=== PATIENT | male | born 1940 | race African-American/Black ===

== ENCOUNTER 2017-02-02 16:11 | Inpatient (IN) | payer OTHER, MEDICARE ==
[2017-02-02 16:28] VITALS: BMI 31.9
[2017-02-02 18:00] LABS: BASOPHIL 0.8 % (0-2.0); EOSINOPHIL 0.4 % (0-4.5); MCH 30.3 pg (25.7-33.7); MCHC 31.8 g/dl (32.0-35.9); MEAN CELL VOLUME 95.4 fl (80-96); MEAN PLT VOLUME 10.4 fl (7.5-11.1); NEUTROPHILS 75.1 % (42.8-82.8); PLATELET COUNT 129 K/MM3 (134-434); WHITE BLOOD COUNT 7.6 K/mm3 (4.0-10.0)
[2017-02-02 18:08] LABS: INR 1.11 (0.82-1.09); PROTHROMBIN TIME (PATIENT) 12.2 SEC (9.98-11.88)
--- NOTE | 2017-02-02 18:12 | PDOC ---
History of Present Illness <Lobito Borrero - Last Filed: 02/02/17 19:38> - General History Source: Patient, EMS, Old Records Exam Limitations: No Limitations - History of Present Illness Initial Comments: 02/02/17 19:47 The patient is a 77 year old male, with a significant past medical history of hypertension, hyperlipidemia, diabetes, CVA (with residual left sided weakness) , ESRD (with hemodialysis //Mon) secondary to diabetic nephropathy and BPH, who presents to the emergency department via EMS for evaluation s/p a witnessed syncopal episode earlier today. The patient reports that was in his usual state of health earlier today and that he received his routine scheduled hemodialysis today. Upon returning home from dialysis, as per EMS, the patient s neighbor reports that the patient syncopized while getting out of the cab. The patients neighbor initiated EMS and the patient was brought to the ED for further evaluation. Currently in the ED, the patient reports feeling weak and dizzy. The patient denies chest pain or shortness of breath. The patient denies fever, chills, nausea, diarrhea or dysuria. The patient is a poor historian. Allergies: None reported. Past Surgical History: Orthopedic Surgery. Social History: Former smoker (quit over 25 years ago). Denies alcohol or drug use. PCP: Dr. Crawford <Brittni Hernandez - Last Filed: 02/02/17 19:47> - General Chief Complaint: Syncope/Near Syncope Stated Complaint: FALL Time Seen by Provider: 02/02/17 16:26 Past History - Past Medical History Anemia: Yes Asthma: No Cancer: Yes Cardiac Disorders: No CVA: Yes (2008 BURNING SENSATION, MEMORY DEFICIT) COPD: No CHF: No Dementia: No Diabetes: Yes (IDDM) Dialysis: Yes (,,) GI Disorders: No Disorders: Yes (enlarged prostate/BPH) HTN: Yes Hypercholesterolemia: Yes Liver Disease: No Suicide Attempt (Hx): No Seizures: No Thyroid Disease: No - Surgical History Abdominal Surgery: No Appendectomy: No Cardiac Surgery: No Cholecystectomy: No Lung Surgery: No Neurologic Surgery: No Orthopedic Surgery: Yes (L. foot and shoulder) - Family Disease History Family Disease History: Diabetes: Mother, Heart Disease: Father - Immunization History Td Vaccination: Yes Immunization Up to Date: Yes - Psycho/Social/Smoking Cessation Hx Anxiety: No Suicidal Ideation: No Smoking Status: No Smoking History: Never smoked Years of Tobacco Use: 0 Have you smoked in the past 12 months: No Number of Cigarettes Smoked Daily: 0 If you are a former smoker, when did you quit?: > 25 ya Cigars Per Day: 0 Information on smoking cessation initiated: No Hx Alcohol Use: No Drug/Substance Use Hx: No Substance Use Type: None Hx Substance Use Treatment: No <Lobito Borrero - Last Filed: 02/02/17 19:38> <Brittni Hernandez - Last Filed: 02/02/17 19:47> - Past Medical History Allergies/Adverse Reactions: Allergies Allergy/AdvReac Type Severity Reaction Status Date / Time No Known Allergies Allergy Verified 02/02/17 16:24 Home Medications: Ambulatory Orders Atorvastatin Ca [Lipitor] 40 mg PO HS 06/06/15 Sevelamer Carbonate [Renvela -] 800 mg PO TID 06/06/15 Gabapentin 300 mg PO DAILY 11/19/15 Ramipril [Altace] 5 mg PO DAILY #30 capsule 03/19/16 Duloxetine HCl 30 mg PO DAILY 04/16/16 Meclizine HCl [Antivert -] 12.5 mg PO DAILY 04/16/16 [place]-3 Fatty Acids [[place]-3] 1,000 mg PO DAILY 04/16/16 Amlodipine Besylate [Norvasc -] 10 mg PO DAILY #30 tablet 04/19/16 Hydralazine HCl [Apresoline -] 50 mg PO BID #60 tablet 04/19/16 Metoprolol Succinate [Toprol XL -] 50 mg PO DAILY #30 tab.sr.24h 04/19/16 Review of Systems - Review of Systems Comments:: 02/02/17 19:16 CONSTITUTIONAL: +Weakness. No fever, no chills, no fatigue EYES: No visual changes ENT: No ear pain, no sore throat CARDIOVASCULAR: No chest pain, no palpitations RESPIRATORY: No cough, no SOB GI: No abdominal pain, no nausea, no vomiting, no constipation, no diarrhea GENITOURINARY: No dysuria, no frequency, no hematuria MUSKULOSKELETAL: No back pain, no joint pain, no myalgias SKIN: No rash NEURO: +Dizziness. No headache <Brittni Hernandez - Last Filed: 02/02/17 19:47> *Physical Exam - Vital Signs Last Vital Signs Temp Pulse Resp BP Pulse Ox 99.4 F 81 20 131/77 93 L 02/02/17 16:24 02/02/17 17:27 02/02/17 16:24 02/02/17 18:02 02/02/17 16:24 - Physical Exam Comments: 02/02/17 16:34 EXAMINATION CONSTITUTIONAL: awake and aler; well-nourished; in no apparent distress HEAD: Normocephalic; atraumatic EYES: PERRL; EOM intact; no nystagmus ENMT: External appears normal; normal oropharynx NECK: Supple; non-tender; no JVD CARD: Normal S1, S2; 1/6 se murmur, no rubs, or gallops RESP: Normal chest excursion with respiration; breath sounds clear and equal bilaterally; no wheezes, rhonchi, or rales ABD: Soft, non-distended; non-tender; no palpable organomegaly, no palpable hernias EXT: Normal ROM in all four extremities; non-tender to palpation; distal pulses intact; + AV fistula To the left upper extremity with a palpable thrill SKIN: Warm, dry, no rash NEURO: Patient is alert and oriented to self and year, as well as place; Cranial nerves II through XII are grossly intact; motor: Right upper extremity/ right lower extremity-5/5; left upper extremity: 4/5; left lower extremity 2/5; positive pronation drift on the left; Babinski is positive on the left; gait- deferred. <Lobito Borrero - Last Filed: 02/02/17 19:38> - Vital Signs Last Vital Signs Temp Pulse Resp BP Pulse Ox 99.4 F 81 20 131/77 93 L 02/02/17 16:24 02/02/17 17:27 02/02/17 16:24 02/02/17 18:02 02/02/17 16:24 <Brittni Hernandez - Last Filed: 02/02/17 19:47> Heart Score/ECG Review #1 ECG reviewed & interpreted by me at: 16:24 (Vent Rate: 82 bpm. Sinus rhythm with 1st degree AV block with premature atrial complexes.) <Brittni Hernandez Last Filed: 02/02/17 19:47> ED Treatment Course - LABORATORY CBC & Chemistry Diagram: 02/02/17 17:09 02/02/17 16:31 - ADDITIONAL ORDERS Additional order review: 02/02/17 17:09 RBC 3.91 L MCV 95.4 MCHC 31.8 L RDW 18.0 H D MPV 10.4 Neutrophils % 75.1 Lymphocytes % 10.7 D Monocytes % 13.0 H Eosinophils % 0.4 Basophils % 0.8 - RADIOLOGY Radiology Studies Ordered: Category Date Time Status HEAD CT WITHOUT CONTRAST [CT] Stat CT Scan 02/02/17 16:33 Completed CHEST X-RAY PORTABLE* [RAD] Stat Radiology 02/02/17 16:33 Completed <Lobito Borrero - Last Filed: 02/02/17 19:38> - LABORATORY CBC & Chemistry Diagram: 02/02/17 17:09 02/02/17 16:31 - ADDITIONAL ORDERS Additional order review: 02/02/17 17:09 RBC 3.91 L MCV 95.4 MCHC 31.8 L RDW 18.0 H D MPV 10.4 Neutrophils % 75.1 Lymphocytes % 10.7 D Monocytes % 13.0 H Eosinophils % 0.4 Basophils % 0.8 <Brittni Hernandez - Last Filed: 02/02/17 19:47> Medical Decision Making - Medical Decision Making 02/02/17 19:06 Patient is a 77-year-old male with history of end-stage renal disease due to diabetic nephropathy, diabetes, CVA, hypertension, brought in by EMS after witnessed syncopal episode shortly after completed session of hemodialysis. Patient denies any presyncopal symptoms leading to the event. In the ER, patient is awake and alert, oriented to self, place and year which appears to be his baseline. Patient has discernible left upper and left lower extremity weakness which are chronic and nature secondarily to previous CVA. Vital signs reveal no evidence of orthostasis. CBC is within normal limit. CMP reveals potassium of 5.2 and a minimally elevated troponin but a negative CPK likely related to end-stage renal disease. EKG reveals no evidence of underlying arrhythmia or acute ischemia. I do not suspect dialysis disequilibrium syndrome. Patient has been seen and evaluated for similar symptoms and November 2015. Will place patient in telemetry observation for monitoring of possible arrhythmia. Case discussed with of [facility]. He agrees with the plan of care. L <Lobito Borrero - Last Filed: 02/02/17 19:38> - Medical Decision Making 02/02/17 18:38 EXAM: RAD/CHEST X-RAY PORTABLE Reviewed By: Dr. Raissa Morales IMPRESSION: No significant interval change or definite lung disease is present. EXAM: CT/HEAD CT WITHOUT CONTRAST Reviewed By: Dr. Raissa Morales IMPRESSION: No interval change. Moderate atrophy and chronic microvascular ischemic changes again seen without gross evidence of acute intracranial pathology. Correlate clinically to determine further evaluation and follow-up. Call placed to Dr. Sanchez at at 18:37. Referred to answering service, awaiting call back. Dr. Sanchez returned call at 18:53. case discussed. Call placed to Dr. Crawford at 19:00, 19:35. Referred to answering service, awaiting call back. Dr. Crawford returned call at 19:36, case discussed. <Brittni Hernandez - Last Filed: 02/02/17 19:47> *DC/Admit/Observation/Transfer - Discharge Dispostion Admit: Yes - Attestations Physician Attestion: 02/02/17 19:01 The documentation was prepared by the scribe under my direct supervision. I have reviewed the documentation which correctly represents the findings, medical decision-making and critical action taken by me. <Lobito Borrero - Last Filed: 02/02/17 19:38> - Attestations Scribe Attestion: 02/02/17 18:17 Documentation prepared by Brittni Hernandez, acting as veterinary medical officer for Lobito Borrero MD. <Brittni Hernandez - Last Filed: 02/02/17 19:47> Diagnosis at time of Disposition: End stage renal disease Syncope Qualifiers: Syncope type: unspecified Qualified Code(s): R55 - Syncope and collapse - Referrals Referrals: Jerry Bird MD [Primary Care Provider] -
[2017-02-02 18:29] LABS: ALBUMIN 3.5 g/dl (3.4-5.0); CALCIUM 8.8 mg/dL (8.5-10.1)
[2017-02-02 18:35] LABS: BILIRUBIN,TOTAL 0.6 mg/dL (0.2-1.0); COCKROFT - GAULT 18.2; CREATININE 4.9 mg/dL (0.7-1.3); TOT PROT 8.2 g/dl (6.4-8.2); TROPONIN I 0.21 ng/ml (0.00-0.05)
[2017-02-02] MEDS: hydrALAZINE HCL 25 MG TABLET (FP) PO SCH (23:06)
[2017-02-02] MEDS: INSULIN (NOVOLOG) ASPART 100 UNITS/ML 10ML VIAL SQ SCH (23:07)
[2017-02-02] MEDS: SEVELAMER CARBONATE 800 MG TAB (FP) PO SCH (23:07)
[2017-02-02] MEDS: ACETAMINOPHEN 325 MG TABLET (FP) PO PRN (23:07)
[2017-02-02] MEDS: HEPARIN NA (PORCINE) 5,000 UNITS/ML 1ML VIAL SQ SCH (23:07)
[2017-02-02] MEDS: ATORVASTATIN CA 40 MG TABLET (FP) PO SCH (23:07)
[2017-02-03] MEDS ORDERED: METOPROLOL SUCCINATE 50 MG TAB.SR.24H (FP) ONE (00:03)
[2017-02-03] MEDS: METOPROLOL SUCCINATE 50 MG TAB.SR.24H (FP) PO SCH ×2 (00:19→11:01)
[2017-02-03] MEDS: SEVELAMER CARBONATE 800 MG TAB (FP) PO SCH ×2 (08:00→14:09)
[2017-02-03 08:02] LABS: MCH 30.7 pg (25.7-33.7); MCHC 32.3 g/dl (32.0-35.9); MEAN CELL VOLUME 95.2 fl (80-96); MEAN PLT VOLUME 9.8 fl (7.5-11.1); PLATELET COUNT 115 K/MM3 (134-434); RDW 17.5 % (11.9-15.9); WHITE BLOOD COUNT 5.4 K/mm3 (4.0-10.0)
[2017-02-03 08:25] LABS: ALBUMIN 3.3 g/dl (3.4-5.0)
[2017-02-03 08:27] LABS: BILIRUBIN,TOTAL 0.5 mg/dL (0.2-1.0); COCKROFT - GAULT 12.43; CREATININE 6.4 mg/dL (0.7-1.3); TOT PROT 7.7 g/dl (6.4-8.2); TROPONIN I 0.2 ng/ml (0.00-0.05)
--- NOTE | 2017-02-03 09:03 | HP ---
Admitting History and Physical - Admission History of Present Illness: 77 year old male, with a significant past medical history of hypertension, hyperlipidemia, diabetes, CVA (with residual left sided weakness), ESRD (with hemodialysis //Mon) secondary to diabetic nephropathy and BPH, who presents to the emergency department via EMS for evaluation s/p a witnessed syncopal episode yesterday. The patient reports that was in his usual state of health earlier today and that he received his routine scheduled hemodialysis today. Upon returning home from dialysis, as per EMS, the patients neighbor reports that the patient syncopized while getting out of the cab. The patients neighbor initiated EMS and the patient was brought to the ED for further evaluation. 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 On midodrine since prior to 2016 admission ) Renal/: Yes: Renal Failure (HD for 3 1/2 yrs), BPH Heme/Onc: Yes: Anemia (as in HPI) Endocrine: Yes: Diabetes Mellitus (hx of hypoglycemia episodes w/near syncope) - Past Surgical History Past Surgical History: Yes: AV Fistula/Graft - Smoking History Smoking history: Never smoked Have you smoked in the past 12 months: No Aproximately how many cigarettes per day: 0 If you are a former smoker, when did you quit?: > 25 ya - Alcohol/Substance Use Hx Alcohol Use: No History of Substance Use: reports: None - Social History History of Recent Travel: No Home Medications - Allergies Allergies/Adverse Reactions: Allergies Allergy/AdvReac Type Severity Reaction Status Date / Time No Known Allergies Allergy Verified 02/02/17 16:24 - Home Medications Home Medications: Ambulatory Orders Atorvastatin Ca [Lipitor] 40 mg PO HS 06/06/15 Sevelamer Carbonate [Renvela -] 800 mg PO TID 06/06/15 Gabapentin 300 mg PO DAILY 11/19/15 Ramipril [Altace] 5 mg PO DAILY #30 capsule 03/19/16 Duloxetine HCl 30 mg PO DAILY 04/16/16 Meclizine HCl [Antivert -] 12.5 mg PO DAILY 04/16/16 [place]-3 Fatty Acids [[place]-3] 1,000 mg PO DAILY 04/16/16 Amlodipine Besylate [Norvasc -] 10 mg PO DAILY #30 tablet 04/19/16 Hydralazine HCl [Apresoline -] 50 mg PO BID #60 tablet 04/19/16 Metoprolol Succinate [Toprol XL -] 50 mg PO DAILY #30 tab.sr.24h 04/19/16 Family Disease History - Family Disease History Family Disease History: Heart Disease: Father, Mother Review of Systems - Review of Systems Constitutional: denies: Malaise Cardiovascular: denies: Chest Pain, Palpitations Respiratory: denies: SOB Gastrointestinal: denies: Abdominal Pain Genitourinary: denies: Burning Neurological: reports: Syncope. denies: Confusion, Seizure, Tremors Physical Examination Vital Signs: Vital Signs Temperature 98.8 F 02/03/17 05:54 Pulse Rate 72 02/03/17 05:56 Respiratory Rate 20 02/03/17 05:54 Blood Pressure 129/69 02/03/17 05:56 O2 Sat by Pulse Oximetry (%) 96 02/02/17 22:00 HENT: Yes: Atraumatic Cardiovascular: Yes: Murmur, S1, S2 Respiratory: Yes: Regular, CTA Bilaterally Gastrointestinal: Yes: Normal Bowel Sounds, Soft. No: Tenderness Edema: No Neurological: Yes: Alert, Oriented Labs: CBC, BMP 02/03/17 05:38 02/03/17 05:38 Imaging - Results Chest X-ray: Report Reviewed (NAD) Cat Scan: Report Reviewed (NAD) Problem List - Problems (1) Syncope Assessment/Plan: HAD SIMILAR EPISODE LAST YEAR HAPPENED AFTER DIALYSIS--MAYBE VOLUME DEPLETION R/O ARRHYTHMIA TELE CARDIO--- NEURO Code(s): R55 - SYNCOPE AND COLLAPSE Qualifiers: Syncope type: unspecified Qualified Code(s): R55 - Syncope and collapse (2) End stage renal disease Assessment/Plan: PER RENAL Code(s): N18.6 - END STAGE RENAL DISEASE (3) CAD (coronary artery disease) Assessment/Plan: NO CP POSITIVE TROP--FOLLOW TREND-- Code(s): I25.10 - ATHSCL HEART DISEASE OF [place] CORONARY ARTERY W/O ANG PCTRS (4) Diabetes Assessment/Plan: BGM SS ENDO Code(s): E11.9 - TYPE 2 DIABETES MELLITUS WITHOUT COMPLICATIONS (5) Troponin I above reference range Assessment/Plan: ABOVE Code(s): R74.8 - ABNORMAL LEVELS OF OTHER SERUM ENZYMES
[2017-02-03] MEDS: HEPARIN NA (PORCINE) 5,000 UNITS/ML 1ML VIAL SQ SCH ×2 (10:53→22:02)
[2017-02-03] MEDS: amLODIPine BESYLATE 10 MG TABLET (FP) PO SCH (10:53)
[2017-02-03] MEDS: DULoxetine HCL 30 MG CAPSULE.DR (FP) PO SCH (10:53)
[2017-02-03] MEDS: GABAPENTIN 300 MG CAPSULE (FP) PO SCH (10:53)
[2017-02-03] MEDS: RAMIPRIL 5 MG CAPSULE (FP) PO SCH (10:53)
[2017-02-03] MEDS: MECLIZINE HCL 12.5 MG TABLET PO SCH (10:53)
[2017-02-03] MEDS: hydrALAZINE HCL 25 MG TABLET (FP) PO SCH ×2 (10:54→22:03)
--- NOTE | 2017-02-03 11:24 | EKG ---
Test Reason : Blood Pressure : / mmHG Vent. Rate : 129 BPM Atrial Rate : 119 BPM P-R Int : 000 ms QRS Dur : 086 ms QT Int : 326 ms P-R-T Axes : 000 -07 038 degrees QTc Int : 477 ms ATRIAL FIBRILLATION WITH RAPID VENTRICULAR RESPONSE NONSPECIFIC ST ABNORMALITY Confirmed by HEIKE COLEY MD ([id number]) on 02/03/2017 11:23:38 AM Referred By: Confirmed By:HEIKE COLEY MD
[2017-02-03 11:27] LABS: ANISOCYTOSIS 1+; PLATELET COMMENT2 FEW GIANT PLTS; PLATELET ESTIMATE DECREASED (NORMAL)
[2017-02-03 11:28] LABS: MICROCYTOSIS 1+
--- NOTE | 2017-02-03 11:32 | EKG ---
Test Reason : Blood Pressure : / mmHG Vent. Rate : 082 BPM Atrial Rate : 082 BPM P-R Int : 222 ms QRS Dur : 094 ms QT Int : 396 ms P-R-T Axes : 053 004 053 degrees QTc Int : 462 ms SINUS RHYTHM WITH 1ST DEGREE A-V BLOCK WITH PREMATURE ATRIAL COMPLEXES WHEN COMPARED WITH ECG OF 16-APR-2016 07:53, PREMATURE ATRIAL COMPLEXES ARE NOW PRESENT Confirmed by BRIJESH BISHOP, HEIKE ([id number]) on 02/03/2017 11:31:44 AM Referred By: Confirmed By:HEIKE COLEY MD
--- NOTE | 2017-02-03 13:45 | CON.NEURO ---
Consult Consult Specialty:: Neurology - History of Present Illness Chief Complaint: episode of passing out History of Present Illness: 77 year old male history of HTN, HLP, DM, stroke with residual left side weakness, ESRD have episode of passing out . He has another episode when he passed long time ago. he has no history of seizures. he denies any dizziness, spinning sensation or chest pain . He denies any focal neurological symptoms. no incontinence or tongue bite or post ictal confusion. 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 On midodrine since prior to 2016 admission ) Renal/: Yes: Renal Failure (HD for 3 1/2 yrs), BPH Endocrine: Yes: Diabetes Mellitus (hx of hypoglycemia episodes w/near syncope) - Past Surgical History Past Surgical History: Yes: AV Fistula/Graft - Alcohol/Substance Use Hx Alcohol Use: No History of Substance Use: reports: None - Smoking History Smoking history: Never smoked Have you smoked in the past 12 months: No Aproximately how many cigarettes per day: 0 If you are a former smoker, when did you quit?: > 25 ya - Social History Usual Living Arrangement: With Spouse History of Recent Travel: No Home Medications - Allergies Allergies/Adverse Reactions: Allergies Allergy/AdvReac Type Severity Reaction Status Date / Time No Known Allergies Allergy Verified 02/02/17 16:24 - Home Medications Home Medications: Ambulatory Orders Atorvastatin Ca [Lipitor] 40 mg PO HS 06/06/15 Sevelamer Carbonate [Renvela -] 800 mg PO TID 06/06/15 Gabapentin 300 mg PO DAILY 11/19/15 Ramipril [Altace] 5 mg PO DAILY #30 capsule 03/19/16 Duloxetine HCl 30 mg PO DAILY 04/16/16 Meclizine HCl [Antivert -] 12.5 mg PO DAILY 04/16/16 [place]-3 Fatty Acids [[place]-3] 1,000 mg PO DAILY 04/16/16 Amlodipine Besylate [Norvasc -] 10 mg PO DAILY #30 tablet 04/19/16 Hydralazine HCl [Apresoline -] 50 mg PO BID #60 tablet 04/19/16 Metoprolol Succinate [Toprol XL -] 50 mg PO DAILY #30 tab.sr.24h 04/19/16 Family Disease History - Family Disease History Family Disease History: Heart Disease: Father, Mother Physical Exam-Neuro Vital Signs: Vital Signs Temperature 98.8 F 02/03/17 05:54 Pulse Rate 72 02/03/17 05:56 Respiratory Rate 20 02/03/17 05:54 Blood Pressure 129/69 02/03/17 05:56 O2 Sat by Pulse Oximetry (%) 96 02/02/17 22:00 Labs: CBC, BMP 02/03/17 05:38 02/03/17 05:38 INR, PTT INR 1.11 (0.82-1.09) 02/02/17 16:31 - Neuro Exam Level Of Consciousness: Yes: Alert Eyes: Yes: PERRLA Speech: WNL Cranial Nerves II-XII Intact: Yes DTR's: 1+ Left Bicep, 1+ Right Bicep, 1+ Left Achilles, 1+ Right Achilles Babinski: Present Response to light touch: Normal Response to pain prick: Normal Motor Strength: 5/5: Left Arm, Right Arm, Left Leg, Right Leg Gait: Other (deferred) NIH Stroke Scale - Total Score NIH Stroke Scale Score: 0 Imaging - Results Cat Scan: Report Reviewed Problem List - Problems (1) Syncope Code(s): R55 - SYNCOPE AND COLLAPSE Qualifiers: Syncope type: unspecified Qualified Code(s): R55 - Syncope and collapse Assessment/Plan 77 year old male history of DM, HTN, HLP , ESRD have a episode of passing out . There is no evidence of seizures or stroke . ct scan is normal Plan -- there is no need for mri of brain at this time - EEG CAN be obtained - no need for Aed Follow up outpatient feel free to call me if you have any question williams merida md Neurologist
--- NOTE | 2017-02-03 14:02 | CON.CARD ---
Consult Consult Specialty:: Cardiology Referred by:: Dr. Crawford Reason for Consultation:: Syncope - History of Present Illness History of Present Illness: 77 M with prior CVA, HTN, ESRD on HD prior syncope and ambulates with a cane. Has ho CAD diagnosed on NST in 2016 with IW ischemia and normal EF. He reports that shortly after HD yesterday while being weighed he passed out he was given fluid at HD and then left the unit. While getting out of the cab again lost consciousness. No dizziness, chest pain or dyspnea. He typically does not take BP medications prior to HD. Currently feels well. Echocardiogram today ishowed normal LV function and wall motion without valvular abnormalities. Telemetry showed frequent PAF rapid ventricular response. 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 On midodrine since prior to 2016 admission ) Renal/: Yes: Renal Failure (HD for 3 1/2 yrs), BPH Endocrine: Yes: Diabetes Mellitus (hx of hypoglycemia episodes w/near syncope) - Past Surgical History Past Surgical History: Yes: AV Fistula/Graft - Alcohol/Substance Use Hx Alcohol Use: No History of Substance Use: reports: None - Smoking History Smoking history: Never smoked Have you smoked in the past 12 months: No Aproximately how many cigarettes per day: 0 If you are a former smoker, when did you quit?: > 25 ya - Social History Usual Living Arrangement: With Spouse History of Recent Travel: No Home Medications - Allergies Allergies/Adverse Reactions: Allergies Allergy/AdvReac Type Severity Reaction Status Date / Time No Known Allergies Allergy Verified 02/02/17 16:24 - Home Medications Home Medications: Ambulatory Orders Atorvastatin Ca [Lipitor] 40 mg PO HS 06/06/15 Sevelamer Carbonate [Renvela -] 800 mg PO TID 06/06/15 Gabapentin 300 mg PO DAILY 11/19/15 Ramipril [Altace] 5 mg PO DAILY #30 capsule 03/19/16 Duloxetine HCl 30 mg PO DAILY 04/16/16 Meclizine HCl [Antivert -] 12.5 mg PO DAILY 04/16/16 [place]-3 Fatty Acids [[place]-3] 1,000 mg PO DAILY 04/16/16 Amlodipine Besylate [Norvasc -] 10 mg PO DAILY #30 tablet 04/19/16 Hydralazine HCl [Apresoline -] 50 mg PO BID #60 tablet 04/19/16 Metoprolol Succinate [Toprol XL -] 50 mg PO DAILY #30 tab.sr.24h 04/19/16 Family Disease History - Family Disease History Family Disease History: Heart Disease: Father, Mother Review of Systems - Review of Systems Constitutional: reports: No Symptoms Eyes: reports: No Symptoms HENT: reports: No Symptoms Neck: reports: No Symptoms Cardiovascular: reports: Palpitations Respiratory: reports: No Symptoms Gastrointestinal: reports: No Symptoms Endocrine: reports: No Symptoms Vital Signs: Vital Signs Temperature 98.8 F 02/03/17 05:54 Pulse Rate 72 02/03/17 05:56 Respiratory Rate 20 02/03/17 05:54 Blood Pressure 129/69 02/03/17 05:56 O2 Sat by Pulse Oximetry (%) 96 02/02/17 22:00 Constitutional: Yes: Well Nourished, No Distress, Calm Eyes: Yes: Conjunctiva Clear, EOM Intact HENT: Yes: WNL, Atraumatic, Normocephalic Neck: Yes: WNL Respiratory: Yes: Regular, CTA Bilaterally Gastrointestinal: Yes: Normal Bowel Sounds Cardiovascular: Yes: Regular Rate and Rhythm JVD: No Carotid Bruit: No PMI: Non-Displaced Heart Sounds: Yes: S1, S2 Murmur: No: Systolic Murmur, Diastolic Murmur, Grade 1, Grade 2, Grade 3, Grade 4, Grade 5, Grade 6 Extremities: Yes: WNL - Other Data Labs, Other Data: CBC, BMP 02/03/17 05:38 02/03/17 05:38 INR, PTT INR 1.11 (0.82-1.09) 02/02/17 16:31 Troponin, BNP 02/03/17 05:38 Troponin I 0.20 H Troponin, BNP 02/03/17 05:38 Troponin I 0.20 H Echo: Report Reviewed Ejection Fraction %: LVEF > or = 40 % Imaging - Results Chest X-ray: Report Reviewed X-ray: Report Reviewed EKG: Report Reviewed (NSR), Image Reviewed (Rapid AF LVH) Problem List - Problems (1) Atrial fibrillation Assessment/Plan: Frequent and rapid AF for which he is generally not symptomatic. Given labile BP, further BB uptitration may not be possible. Recommend placing on chronic AC. Risk of bleeding will be higher given ESRD but if he is not a high fall risk, would consider it. He is at high risk for stroke. Add Amiodarone 400mg BID Keep on telemetry. Check TFT and follow LFTs Code(s): I48.91 - UNSPECIFIED ATRIAL FIBRILLATION Qualifiers: Atrial fibrillation type: paroxysmal Qualified Code(s): I48.0 - Paroxysmal atrial fibrillation (2) Syncope Assessment/Plan: Likely due to transient hypotension after HD Satish possibly from rapid AF reducing cardiac output. Neurological evaluation in progress. DC Ramapril Check orthostatic BP. Code(s): R55 - SYNCOPE AND COLLAPSE Qualifiers: Syncope type: vasovagal syncope Qualified Code(s): R55 - Syncope and collapse (3) Troponin I above reference range Assessment/Plan: Elevated in the setting of ESRD and does not represent myocardial injury. Code(s): R74.8 - ABNORMAL LEVELS OF OTHER SERUM ENZYMES
--- NOTE | 2017-02-03 16:01 | CONSULT ---
Consult - text type - Consultation Consultation Note: Renal Consult for ESRD on HD This is a 77 year old gentleman with PMhx of ESRD on HD (TTS), Hypertension, Orthostatic Hypotension , DM who presented with syncope s/p HD and found to have Afib. Pt completed dialysis yesterday and when he was being transported back home he has LOC w/o fall. Pt cannot recall the incident. No sob or chest pain. No N/V/D. No flank pain. Pt feels fine today. No LE swelling. Pt complains of pain in left knee and lower back but no trauma to the areas. PMhx: As per HPI Family Hx: NC Allergies: NKDA Social Hx: No T/A/D ROS: as per HPI Home Meds: Home Medications Medication Instructions Recorded Atorvastatin Ca [Lipitor] 40 mg PO HS 06/06/15 Sevelamer Carbonate [Renvela -] 800 mg PO TID 06/06/15 Gabapentin 300 mg PO DAILY 11/19/15 Ramipril [Altace] 5 mg PO DAILY #30 capsule 03/19/16 Duloxetine HCl 30 mg PO DAILY 04/16/16 Meclizine HCl [Antivert -] 12.5 mg PO DAILY 04/16/16 [place]-3 Fatty Acids [[place]-3] 1,000 mg PO DAILY 04/16/16 Amlodipine Besylate [Norvasc -] 10 mg PO DAILY #30 tablet 04/19/16 Hydralazine HCl [Apresoline -] 50 mg PO BID #60 tablet 04/19/16 Metoprolol Succinate [Toprol XL -] 50 mg PO DAILY #30 tab.sr.24h 04/19/16 Vital Signs Temperature 98.8 F 02/03/17 14:00 Pulse Rate 71 02/03/17 14:00 Respiratory Rate 20 02/03/17 14:00 Blood Pressure 127/68 02/03/17 14:00 O2 Sat by Pulse Oximetry (%) 96 02/02/17 22:00 Intake & Output 01/31/17 02/01/17 02/02/17 02/03/17 23:59 23:59 23:59 23:59 Weight 228 lb 15.906 oz 203 lb 12.8 oz Gen: NAD, awake and alert HEENT: NC/AT, MMM, No JVD CVS: RRR, No M/R Lungs: CTA no rales or wheeze Abd: soft NT/ND Ext: No edmea, clubbing or cyanosis Access: Left ARM AVF CBC, BMP 02/03/17 05:38 02/03/17 05:38 Current Medications Acetaminophen (Tylenol -) 650 mg PO Q4H PRN PRN Reason: FEVER OR PAIN Last Admin: 02/02/17 23:07 Dose: 650 mg Amiodarone HCl (Cordarone -) 400 mg PO BID [facility] Amlodipine Besylate (Norvasc -) 10 mg PO DAILY [facility] Last Admin: 02/03/17 10:53 Dose: 10 mg Atorvastatin Calcium (Lipitor -) 40 mg PO HS [facility] Last Admin: 02/02/17 23:07 Dose: 40 mg Duloxetine HCl (Cymbalta -) 30 mg PO DAILY [facility] Last Admin: 02/03/17 10:53 Dose: 30 mg Gabapentin (Neurontin -) 300 mg PO DAILY [facility] Last Admin: 02/03/17 10:53 Dose: 300 mg Heparin Sodium (Porcine) (Heparin -) 5,000 unit SQ BID [facility] Last Admin: 02/03/17 10:53 Dose: 5,000 unit Hydralazine HCl (Apresoline -) 50 mg PO BID [facility] Last Admin: 02/03/17 10:54 Dose: 50 mg Insulin Aspart (Novolog Vial) 0 units SQ ACHS [facility] PRN Reason: Protocol Last Admin: 02/02/17 23:07 Dose: Not Given Meclizine HCl (Antivert -) 12.5 mg PO DAILY [facility] Last Admin: 02/03/17 10:53 Dose: 12.5 mg Metoprolol Succinate (Toprol Xl -) 50 mg PO DAILY [facility] Last Admin: 02/03/17 11:01 Dose: 50 mg Ramipril (Altace -) 5 mg PO DAILY [facility] Last Admin: 02/03/17 10:53 Dose: 5 mg Sevelamer Carbonate (Renvela -) 800 mg PO TID [facility] Last Admin: 02/03/17 14:09 Dose: 800 mg A/P 77 year old gentleman with PMhx of ESRD on HD (TTS), Hypertension,Orthostatic Hypotension , DM who presented with syncope s/p HD and found to have Afib. #Syncope/Orthostatic Hypotension/New Onset Afib clinically stable work up as per cardiology fall precautions Tele Monitoring #ESRD on Hd no acute indication for dialysis today next treatment tomorrow UF as tolrated #Thrombocytopenia Chronic in nature no heparin with HD #Hypertension Continue Amlodpine and Ramipril hold before dialysis Thank you Severo Sanchez DO
[2017-02-03] MEDS ORDERED: INSULIN (NOVOLOG) ASPART 100 UNITS/ML 10ML VIAL ONE (21:57)
[2017-02-03] MEDS: INSULIN (NOVOLOG) ASPART 100 UNITS/ML 10ML VIAL SQ SCH (22:01)
[2017-02-03] MEDS: ATORVASTATIN CA 40 MG TABLET (FP) PO SCH (22:02)
[2017-02-03] MEDS: AMIODARONE HCL 200 MG TABLET (FP) PO SCH (22:02)
[2017-02-04] MEDS: INSULIN (NOVOLOG) ASPART 100 UNITS/ML 10ML VIAL SQ SCH ×3 (06:05→22:15)
[2017-02-04] MEDS: SEVELAMER CARBONATE 800 MG TAB (FP) PO SCH ×3 (08:30→17:23)
[2017-02-04] MEDS: hydrALAZINE HCL 25 MG TABLET (FP) PO SCH ×2 (09:53→22:02)
[2017-02-04] MEDS: RAMIPRIL 5 MG CAPSULE (FP) PO SCH ×2 (09:53→17:25)
[2017-02-04] MEDS: MECLIZINE HCL 12.5 MG TABLET PO SCH ×2 (09:53→17:25)
[2017-02-04] MEDS: DULoxetine HCL 30 MG CAPSULE.DR (FP) PO SCH (09:54)
[2017-02-04] MEDS: GABAPENTIN 300 MG CAPSULE (FP) PO SCH ×2 (09:54→17:24)
[2017-02-04] MEDS: HEPARIN NA (PORCINE) 5,000 UNITS/ML 1ML VIAL SQ SCH ×2 (09:54→22:02)
[2017-02-04] MEDS: AMIODARONE HCL 200 MG TABLET (FP) PO SCH ×2 (09:54→22:03)
[2017-02-04] MEDS: amLODIPine BESYLATE 10 MG TABLET (FP) PO SCH ×2 (09:54→17:24)
[2017-02-04] MEDS: METOPROLOL SUCCINATE 50 MG TAB.SR.24H (FP) PO SCH ×2 (09:55→17:24)
--- NOTE | 2017-02-04 10:36 | PN ---
Progress Note, Physician Chief Complaint: no complaints tele nsr apcs, brief PAT History of Present Illness: 77 M with prior CVA, HTN, ESRD on HD prior syncope and ambulates with a cane. Has ho CAD diagnosed on NST in 2016 with IW ischemia and normal EF. He reports that shortly after HD yesterday while being weighed he passed out he was given fluid at HD and then left the unit. While getting out of the cab again lost consciousness. No dizziness, chest pain or dyspnea. He typically does not take BP medications prior to HD. Currently feels well. Echocardiogram today ishowed normal LV function and wall motion without valvular abnormalities. Telemetry showed frequent PAF rapid ventricular response. - Current Medication List Current Medications: Active Medications Acetaminophen (Tylenol -) 650 mg PO Q4H PRN PRN Reason: FEVER OR PAIN Last Admin: 02/02/17 23:07 Dose: 650 mg Amiodarone HCl (Cordarone -) 400 mg PO BID [facility] Last Admin: 02/04/17 09:54 Dose: Not Given Amlodipine Besylate (Norvasc -) 10 mg PO DAILY [facility] Last Admin: 02/04/17 09:54 Dose: Not Given Atorvastatin Calcium (Lipitor -) 40 mg PO HS [facility] Last Admin: 02/03/17 22:02 Dose: 40 mg Duloxetine HCl (Cymbalta -) 30 mg PO DAILY [facility] Last Admin: 02/04/17 09:54 Dose: Not Given Gabapentin (Neurontin -) 300 mg PO DAILY [facility] Last Admin: 02/04/17 09:54 Dose: Not Given Heparin Sodium (Porcine) (Heparin -) 5,000 unit SQ BID [facility] Last Admin: 02/04/17 09:54 Dose: Not Given Hydralazine HCl (Apresoline -) 50 mg PO BID [facility] Last Admin: 02/04/17 09:53 Dose: Not Given Insulin Aspart (Novolog Vial) 0 units SQ ACHS [facility] PRN Reason: Protocol Last Admin: 02/04/17 06:05 Dose: Not Given Meclizine HCl (Antivert -) 12.5 mg PO DAILY [facility] Last Admin: 02/04/17 09:53 Dose: Not Given Metoprolol Succinate (Toprol Xl -) 50 mg PO DAILY [facility] Last Admin: 02/04/17 09:55 Dose: Not Given Ramipril (Altace -) 5 mg PO DAILY [facility] Last Admin: 02/04/17 09:53 Dose: Not Given Sevelamer Carbonate (Renvela -) 800 mg PO TIDCM [facility] Last Admin: 02/04/17 08:30 Dose: Not Given - Objective Vital Signs: Vital Signs Temperature 99 F 02/04/17 06:00 Pulse Rate 66 02/04/17 06:00 Respiratory Rate 20 02/04/17 06:00 Blood Pressure 148/78 02/04/17 06:00 O2 Sat by Pulse Oximetry (%) 97 02/03/17 21:00 Constitutional: Yes: Well Nourished, No Distress Eyes: Yes: WNL HENT: Yes: WNL Neck: Yes: WNL Cardiovascular: Yes: Regular Rate and Rhythm Respiratory: Yes: CTA Bilaterally Gastrointestinal: Yes: WNL Musculoskeletal: Yes: WNL Extremities: Yes: WNL Edema: No Peripheral Pulses WNL: No Labs: CBC, BMP 02/03/17 05:38 02/03/17 05:38 INR, PTT INR 1.11 (0.82-1.09) 02/02/17 16:31 Problem List - Problems (1) Atrial fibrillation Assessment/Plan: Frequent and rapid AF for which he is generally not symptomatic. Given labile BP, further BB uptitration may not be possible. Recommend placing on chronic AC. Risk of bleeding will be higher given ESRD but if he is not a high fall risk, would consider it. He is at high risk for stroke. Add Amiodarone 400mg BID Keep on telemetry. Check TFT and follow LFTs Code(s): I48.91 - UNSPECIFIED ATRIAL FIBRILLATION Qualifiers: Atrial fibrillation type: paroxysmal Qualified Code(s): I48.0 - Paroxysmal atrial fibrillation (2) Troponin I above reference range Assessment/Plan: Due to ESRD. no need for ischemia hoover. Code(s): R74.8 - ABNORMAL LEVELS OF OTHER SERUM ENZYMES (3) Syncope Assessment/Plan: Likely due to transient hypotension after HD Satish possibly from rapid AF reducing cardiac output. Neurological evaluation in progress. DC Ramapril Check orthostatic BP. Code(s): R55 - SYNCOPE AND COLLAPSE Qualifiers: Syncope type: vasovagal syncope Qualified Code(s): R55 - Syncope and collapse
--- NOTE | 2017-02-04 12:21 | PN ---
Progress Note (short form) - Note Progress Note: Renal Follow up for ESRD on HD Pt seen and examined at the bedside during dialysis BP is stable, access functioning well Goal UF is 2.5L Pt without complaints Vital Signs Temperature 98.9 F 02/04/17 10:00 Pulse Rate 74 02/04/17 10:00 Respiratory Rate 20 02/04/17 10:00 Blood Pressure 147/60 02/04/17 10:00 O2 Sat by Pulse Oximetry (%) 98 02/04/17 10:00 Intake & Output 02/01/17 02/02/17 02/03/17 02/04/17 23:59 23:59 23:59 23:59 Intake Total 20 20 Balance 20 20 Weight 228 lb 15.906 oz 203 lb 12.8 oz 187 lb Gen: NAD, awake and alert HEENT: NC/AT, MMM, No JVD CVS: RRR, No M/R Lungs: CTA no rales or wheeze Abd: soft NT/ND Ext: No edmea, clubbing or cyanosis Access: Left ARM AVF CBC, BMP 02/03/17 05:38 02/03/17 05:38 Current Medications Acetaminophen (Tylenol -) 650 mg PO Q4H PRN PRN Reason: FEVER OR PAIN Last Admin: 02/02/17 23:07 Dose: 650 mg Amiodarone HCl (Cordarone -) 400 mg PO BID [facility] Last Admin: 02/04/17 09:54 Dose: Not Given Amlodipine Besylate (Norvasc -) 10 mg PO DAILY [facility] Last Admin: 02/04/17 09:54 Dose: Not Given Atorvastatin Calcium (Lipitor -) 40 mg PO HS [facility] Last Admin: 02/03/17 22:02 Dose: 40 mg Duloxetine HCl (Cymbalta -) 30 mg PO DAILY [facility] Last Admin: 02/04/17 09:54 Dose: Not Given Gabapentin (Neurontin -) 300 mg PO DAILY [facility] Last Admin: 02/04/17 09:54 Dose: Not Given Heparin Sodium (Porcine) (Heparin -) 5,000 unit SQ BID [facility] Last Admin: 02/04/17 09:54 Dose: Not Given Hydralazine HCl (Apresoline -) 50 mg PO BID [facility] Last Admin: 02/04/17 09:53 Dose: Not Given Insulin Aspart (Novolog Vial) 0 units SQ ACHS [facility] PRN Reason: Protocol Last Admin: 02/04/17 11:50 Dose: Not Given Meclizine HCl (Antivert -) 12.5 mg PO DAILY [facility] Last Admin: 02/04/17 09:53 Dose: Not Given Metoprolol Succinate (Toprol Xl -) 50 mg PO DAILY [facility] Last Admin: 02/04/17 09:55 Dose: Not Given Ramipril (Altace -) 5 mg PO DAILY [facility] Last Admin: 02/04/17 09:53 Dose: Not Given Sevelamer Carbonate (Renvela -) 800 mg PO TIDCM [facility] Last Admin: 02/04/17 08:30 Dose: Not Given A/P 77 year old gentleman with PMhx of ESRD on HD (TTS), Hypertension,Orthostatic Hypotension , DM who presented with syncope s/p HD and found to have Afib. #Syncope/Orthostatic Hypotension/New Onset Afib Rate control as per cardiology Tele monitoirng observation post dialysis today for arrhythmia and hypotension #ESRD on Hd Tolerating dialysis well today UF is 2.5L as tolerated #Thrombocytopenia Chronic in nature no heparin with HD #Hypertension on Amlodpine and Ramipril monitor bP and titrate meds as needed Thank you Severo Sanchez DO
[2017-02-04 12:40] LABS: MCH 30.8 pg (25.7-33.7); MCHC 32.4 g/dl (32.0-35.9); MEAN CELL VOLUME 95.1 fl (80-96); MEAN PLT VOLUME 9.8 fl (7.5-11.1); PLATELET COUNT 122 K/MM3 (134-434); RDW 17.3 % (11.9-15.9); WHITE BLOOD COUNT 4.3 K/mm3 (4.0-10.0)
[2017-02-04 12:56] LABS: ALBUMIN 2.8 g/dl (3.4-5.0); BILIRUBIN,TOTAL 0.4 mg/dL (0.2-1.0); CALCIUM 7.5 mg/dL (8.5-10.1); MAGNESIUM 2.2 mg/dL (1.8-2.4); PHOSPHOROUS 3.2 mg/dL (2.5-4.9); TOT PROT 6.6 g/dl (6.4-8.2)
[2017-02-04 13:03] LABS: COCKROFT - GAULT 9.36
[2017-02-04 13:49] LABS: CREATININE 7.8 mg/dL (0.7-1.3)
--- NOTE | 2017-02-04 16:08 | CONSULT ---
Consult Consult Specialty:: endocrine Referred by:: dr.[email or web address] esquivel Reason for Consultation:: syncope/ho diabetes mellitus - History of Present Illness Chief Complaint: passed out History of Present Illness: 77 year old gentleman with PMhx of ESRD on HD (TTS), Hypertension,Orthostatic Hypotension , DM who presented with syncope s/p HD and found to have Afib. has history dm neuropathy,has weak gait and ballance felt weak and dizzy and fell ,denies cp sob cough headache or seizures - Past Medical History [employer]: Yes: CVA (with some memory deficit) Cardio/Vascular: Yes: Aortic Insufficiency, CHF, HTN, Hyperlipdemia, Mitral Insufficiency, Other (ortostatic hypotension -> admissions here with near- syncope in 2014 and ealry 2016. On midodrine since prior to 2016 admission ) Renal/: Yes: Renal Failure (HD for 3 1/2 yrs), BPH Endocrine: Yes: Diabetes Mellitus (hx of hypoglycemia episodes w/near syncope) - Past Surgical History Past Surgical History: Yes: AV Fistula/Graft - Alcohol/Substance Use Hx Alcohol Use: No History of Substance Use: reports: None - Smoking History Smoking history: Never smoked Have you smoked in the past 12 months: No Aproximately how many cigarettes per day: 0 If you are a former smoker, when did you quit?: > 25 ya - Social History Usual Living Arrangement: With Spouse History of Recent Travel: No Home Medications - Allergies Allergies/Adverse Reactions: Allergies Allergy/AdvReac Type Severity Reaction Status Date / Time No Known Allergies Allergy Verified 02/02/17 16:24 - Home Medications Home Medications: Ambulatory Orders Atorvastatin Ca [Lipitor] 40 mg PO HS 06/06/15 Sevelamer Carbonate [Renvela -] 800 mg PO TID 06/06/15 Gabapentin 300 mg PO DAILY 11/19/15 Ramipril [Altace] 5 mg PO DAILY #30 capsule 03/19/16 Duloxetine HCl 30 mg PO DAILY 04/16/16 Meclizine HCl [Antivert -] 12.5 mg PO DAILY 04/16/16 [place]-3 Fatty Acids [[place]-3] 1,000 mg PO DAILY 04/16/16 Amlodipine Besylate [Norvasc -] 10 mg PO DAILY #30 tablet 04/19/16 Hydralazine HCl [Apresoline -] 50 mg PO BID #60 tablet 04/19/16 Metoprolol Succinate [Toprol XL -] 50 mg PO DAILY #30 tab.sr.24h 04/19/16 Family Disease History - Family Disease History Family Disease History: Heart Disease: Father, Mother Review of Systems - Review of Systems Constitutional: reports: Weakness Eyes: reports: No Symptoms HENT: reports: No Symptoms Neck: reports: No Symptoms Cardiovascular: reports: Shortness of Breath Respiratory: reports: Exercise Intolerance, SOB on Exertion Gastrointestinal: reports: No Symptoms Genitourinary: reports: No Symptoms Breasts: reports: No Symptoms Reported Musculoskeletal: reports: Muscle Cramps, Muscle Weakness Integumentary: reports: No Symptoms Endocrine: reports: Unexplained Weight Gain Hematology/Lymphatic: reports: No Symptoms Physical Exam Vital Signs: Vital Signs Temperature 98.4 F 02/04/17 14:00 Pulse Rate 70 02/04/17 15:30 Respiratory Rate 18 02/04/17 15:30 Blood Pressure 170/98 02/04/17 15:30 O2 Sat by Pulse Oximetry (%) 98 02/04/17 10:00 Constitutional: Yes: Anxious Eyes: Yes: EOM Intact HENT: Yes: Normocephalic Neck: Yes: Trachea Midline Cardiovascular: Yes: Tachycardia, Pulse Irregular, Varicosities Respiratory: Yes: SOB on Exertion Gastrointestinal: Yes: Normal Bowel Sounds ...Rectal Exam: Yes: Deferred Edema: Yes Edema: LLE: Trace, RLE: Trace Neurological: Yes: Alert, Oriented, Unsteady Gait Labs: CBC, BMP 02/04/17 12:20 02/04/17 12:20 Problem List - Problems (1) Atrial fibrillation Code(s): I48.91 - UNSPECIFIED ATRIAL FIBRILLATION Qualifiers: Atrial fibrillation type: paroxysmal Qualified Code(s): I48.0 - Paroxysmal atrial fibrillation (2) Syncope Code(s): R55 - SYNCOPE AND COLLAPSE Qualifiers: Syncope type: vasovagal syncope Qualified Code(s): R55 - Syncope and collapse (3) Accidental fall Code(s): W19.XXXA - UNSPECIFIED FALL, INITIAL ENCOUNTER Assessment/Plan Current Active Problems Atrial fibrillation (Acute) End stage renal disease (Acute) Syncope (Acute) Troponin I above reference range (Acute) dm type 2 htn ro vasovagal afib Abnormal Lab Results 04/29/17 04/29/17 12:20 12:20 RBC 3.39 L Hgb 10.4 L D Hct 32.3 L RDW 17.3 H Plt Count 122 L Sodium 135 L Chloride 96 L BUN 44 H D Creatinine 7.8 H* D Random Glucose 115 H D Calcium 7.5 L Albumin 2.8 L Laboratory Results - last 24 hr 02/03/17 02/04/17 02/04/17 22:01 06:04 11:44 WBC RBC Hgb Hct MCV MCHC RDW Plt Count MPV Sodium Potassium Chloride Carbon Dioxide Anion Gap BUN Creatinine Creat Clearance w eGFR POC Glucometer 105 90 106 Random Glucose Calcium Phosphorus Magnesium Total Bilirubin AST ALT Alkaline Phosphatase Total Protein Albumin Hepatitis C Antibody 02/04/17 02/04/17 02/04/17 12:20 12:20 14:00 WBC 4.3 RBC 3.39 L Hgb 10.4 L D Hct 32.3 L MCV 95.1 MCHC 32.4 RDW 17.3 H Plt Count 122 L MPV 9.8 Sodium 135 L Potassium 3.8 Chloride 96 L Carbon Dioxide 29 Anion Gap 10 BUN 44 H D Creatinine 7.8 H* D Creat Clearance w eGFR 6.75 POC Glucometer Random Glucose 115 H D Calcium 7.5 L Phosphorus 3.2 D Magnesium 2.2 Total Bilirubin 0.4 AST 17 ALT 12 Alkaline Phosphatase 68 Total Protein 6.6 Albumin 2.8 L Hepatitis C Antibody Cancelled plan; ck bgm q am ck hb a1c ck tsh free t4
--- NOTE | 2017-02-04 17:24 | PN ---
Progress Note, Physician Chief Complaint: The patient is a 77 year old male, with a significant past medical history of hypertension, hyperlipidemia, diabetes, CVA (with residual left sided weakness) , ESRD (with hemodialysis //Mon) secondary to diabetic nephropathy and BPH, who presents to the emergency department via EMS for evaluation s/p a witnessed syncopal episode earlier today. The patient reports that was in his usual state of health earlier today and that he received his routine scheduled hemodialysis today. Upon returning home from dialysis, as per EMS, the patient s neighbor reports that the patient syncopized while getting out of the cab. The patients neighbor initiated EMS and the patient was brought to the ED for further evaluation. Currently in the ED, the patient reports feeling weak and dizzy. The patient denies chest pain or shortness of breath. The patient denies fever, chills, nausea, diarrhea or dysuria. The patient is a poor historian. THIS IS MY FIRST ENCOUNTER WITH THIS PATIENT CHART AND EVENTS REVIEWED. - Current Medication List Current Medications: Active Medications Acetaminophen (Tylenol -) 650 mg PO Q4H PRN PRN Reason: FEVER OR PAIN Last Admin: 02/02/17 23:07 Dose: 650 mg Amiodarone HCl (Cordarone -) 400 mg PO BID [facility] Last Admin: 02/04/17 09:54 Dose: Not Given Amlodipine Besylate (Norvasc -) 10 mg PO DAILY [facility] Last Admin: 02/04/17 09:54 Dose: Not Given Atorvastatin Calcium (Lipitor -) 40 mg PO HS [facility] Last Admin: 02/03/17 22:02 Dose: 40 mg Duloxetine HCl (Cymbalta -) 30 mg PO DAILY [facility] Last Admin: 02/04/17 09:54 Dose: Not Given Gabapentin (Neurontin -) 300 mg PO DAILY [facility] Last Admin: 02/04/17 09:54 Dose: Not Given Heparin Sodium (Porcine) (Heparin -) 5,000 unit SQ BID [facility] Last Admin: 02/04/17 09:54 Dose: Not Given Hydralazine HCl (Apresoline -) 50 mg PO BID [facility] Last Admin: 02/04/17 09:53 Dose: Not Given Insulin Aspart (Novolog Vial) 0 units SQ ACHS [facility] PRN Reason: Protocol Last Admin: 02/04/17 11:50 Dose: Not Given Meclizine HCl (Antivert -) 12.5 mg PO DAILY [facility] Last Admin: 02/04/17 09:53 Dose: Not Given Metoprolol Succinate (Toprol Xl -) 50 mg PO DAILY [facility] Last Admin: 02/04/17 09:55 Dose: Not Given Ramipril (Altace -) 5 mg PO DAILY [facility] Last Admin: 02/04/17 09:53 Dose: Not Given Sevelamer Carbonate (Renvela -) 800 mg PO TIDCM [facility] Last Admin: 02/04/17 08:30 Dose: Not Given - Objective Vital Signs: Vital Signs Temperature 98.4 F 02/04/17 14:00 Pulse Rate 70 02/04/17 15:30 Respiratory Rate 18 02/04/17 15:30 Blood Pressure 170/98 02/04/17 15:30 O2 Sat by Pulse Oximetry (%) 98 02/04/17 10:00 Constitutional: Yes: Mild Distress Eyes: Yes: WNL HENT: Yes: WNL Neck: Yes: WNL Cardiovascular: Yes: Pulse Irregular Respiratory: Yes: WNL Gastrointestinal: Yes: WNL Genitourinary: Yes: Other Musculoskeletal: Yes: Muscle Weakness Extremities: Yes: WNL Edema: No Peripheral Pulses WNL: Yes Integumentary: Yes: WNL Wound/Incision: Yes: Other Neurological: Yes: Pre-Existing Deficit ...Motor Strength: LLE, RLE Psychiatric: Yes: Other Labs: CBC, BMP 02/04/17 12:20 02/04/17 12:20 INR, PTT INR 1.11 (0.82-1.09) 02/02/17 16:31 Problem List - Problems (1) Atrial fibrillation Code(s): I48.91 - UNSPECIFIED ATRIAL FIBRILLATION Qualifiers: Atrial fibrillation type: paroxysmal Qualified Code(s): I48.0 - Paroxysmal atrial fibrillation (2) End stage renal disease Code(s): N18.6 - END STAGE RENAL DISEASE (3) Syncope Code(s): R55 - SYNCOPE AND COLLAPSE Qualifiers: Syncope type: vasovagal syncope Qualified Code(s): R55 - Syncope and collapse Assessment/Plan TELEMETRY MONITORING ALARMS REVIEWED CARDIOLOGY CONSULT APPRECIATED ESRD ON HD MONITOR RENAL FUNCTION AND WEIGHTS OLD CVA
[2017-02-04] MEDS: ATORVASTATIN CA 40 MG TABLET (FP) PO SCH (22:03)
[2017-02-04] MEDS: ACETAMINOPHEN 325 MG TABLET (FP) PO PRN (22:17)
[2017-02-05] MEDS: INSULIN (NOVOLOG) ASPART 100 UNITS/ML 10ML VIAL SQ SCH ×4 (06:32→21:47)
[2017-02-05] MEDS: SEVELAMER CARBONATE 800 MG TAB (FP) PO SCH ×2 (08:50→17:37)
[2017-02-05] MEDS: MECLIZINE HCL 12.5 MG TABLET PO SCH (10:23)
[2017-02-05] MEDS: amLODIPine BESYLATE 10 MG TABLET (FP) PO SCH (10:23)
[2017-02-05] MEDS: hydrALAZINE HCL 25 MG TABLET (FP) PO SCH ×2 (10:24→21:45)
[2017-02-05] MEDS: AMIODARONE HCL 200 MG TABLET (FP) PO SCH ×2 (10:24→21:45)
[2017-02-05] MEDS: METOPROLOL SUCCINATE 50 MG TAB.SR.24H (FP) PO SCH (10:24)
[2017-02-05] MEDS: HEPARIN NA (PORCINE) 5,000 UNITS/ML 1ML VIAL SQ SCH (10:24)
[2017-02-05] MEDS: GABAPENTIN 300 MG CAPSULE (FP) PO SCH (10:24)
[2017-02-05] MEDS: DULoxetine HCL 30 MG CAPSULE.DR (FP) PO SCH (10:24)
[2017-02-05] MEDS: RAMIPRIL 5 MG CAPSULE (FP) PO SCH (10:24)
[2017-02-05 10:46] LABS: FREE T4 0.96 ng/dl (0.76-1.16); THYROID STIMULATING HORMONE 1.58 uIU/ml (0.358-3.74)
--- NOTE | 2017-02-05 11:00 | PN ---
Progress Note, Physician Chief Complaint: no complaints tele nsr apcs, brief PAT History of Present Illness: 77 M with prior CVA, HTN, ESRD on HD prior syncope and ambulates with a cane. Has ho CAD diagnosed on NST in 2016 with IW ischemia and normal EF. He reports that shortly after HD yesterday while being weighed he passed out he was given fluid at HD and then left the unit. While getting out of the cab again lost consciousness. No dizziness, chest pain or dyspnea. He typically does not take BP medications prior to HD. Currently feels well. Echocardiogram today ishowed normal LV function and wall motion without valvular abnormalities. Telemetry showed frequent PAF rapid ventricular response. tele now with nsr and short self terminating episodes of PAT. - Current Medication List Current Medications: Active Medications Acetaminophen (Tylenol -) 650 mg PO Q4H PRN PRN Reason: FEVER OR PAIN Last Admin: 02/04/17 22:17 Dose: 650 mg Amiodarone HCl (Cordarone -) 400 mg PO BID [facility] Last Admin: 02/05/17 10:24 Dose: 400 mg Amlodipine Besylate (Norvasc -) 10 mg PO DAILY [facility] Last Admin: 02/05/17 10:23 Dose: 10 mg Atorvastatin Calcium (Lipitor -) 40 mg PO HS [facility] Last Admin: 02/04/17 22:03 Dose: 40 mg Duloxetine HCl (Cymbalta -) 30 mg PO DAILY [facility] Last Admin: 02/05/17 10:24 Dose: 30 mg Gabapentin (Neurontin -) 300 mg PO DAILY [facility] Last Admin: 02/05/17 10:24 Dose: 300 mg Heparin Sodium (Porcine) (Heparin -) 5,000 unit SQ BID [facility] Last Admin: 02/05/17 10:24 Dose: 5,000 unit Hydralazine HCl (Apresoline -) 50 mg PO BID [facility] Last Admin: 02/05/17 10:24 Dose: 50 mg Insulin Aspart (Novolog Vial) 0 units SQ ACHS [facility] PRN Reason: Protocol Last Admin: 02/05/17 06:32 Dose: Not Given Meclizine HCl (Antivert -) 12.5 mg PO DAILY [facility] Last Admin: 02/05/17 10:23 Dose: 12.5 mg Metoprolol Succinate (Toprol Xl -) 50 mg PO DAILY [facility] Last Admin: 02/05/17 10:24 Dose: 50 mg Ramipril (Altace -) 5 mg PO DAILY [facility] Last Admin: 02/05/17 10:24 Dose: 5 mg Sevelamer Carbonate (Renvela -) 800 mg PO TIDCM [facility] Last Admin: 02/05/17 08:50 Dose: 800 mg - Objective Vital Signs: Vital Signs Temperature 98.9 F 02/05/17 08:51 Pulse Rate 65 02/05/17 08:51 Respiratory Rate 20 02/05/17 08:51 Blood Pressure 125/73 02/05/17 08:51 O2 Sat by Pulse Oximetry (%) 98 02/04/17 20:15 Constitutional: Yes: Well Nourished, No Distress Eyes: Yes: WNL HENT: Yes: WNL Neck: Yes: WNL, Supple Cardiovascular: Yes: Regular Rate and Rhythm Respiratory: Yes: CTA Bilaterally Gastrointestinal: Yes: Normal Bowel Sounds, Soft Extremities: Yes: WNL Edema: No Peripheral Pulses WNL: Yes Labs: CBC, BMP 02/04/17 12:20 02/04/17 12:20 INR, PTT INR 1.11 (0.82-1.09) 02/02/17 16:31 Problem List - Problems (1) Atrial fibrillation Assessment/Plan: Frequent and rapid AF for which he is generally not symptomatic. Given labile BP, further BB uptitration may not be possible. Recommend placing on chronic AC. Risk of bleeding will be higher given ESRD but if he is not a high fall risk, would consider it. He is at high risk for stroke. Would start Eliquis 5 mg bid for stroke prevention. There is data with dialysis patients and it is within the FDA label. Continue Amiodarone 400mg BID Keep on telemetry. Code(s): I48.91 - UNSPECIFIED ATRIAL FIBRILLATION Qualifiers: Atrial fibrillation type: paroxysmal Qualified Code(s): I48.0 - Paroxysmal atrial fibrillation (2) Troponin I above reference range Assessment/Plan: Due to ESRD. no need for ischemia hoover. Code(s): R74.8 - ABNORMAL LEVELS OF OTHER SERUM ENZYMES (3) Syncope Assessment/Plan: Likely due to transient hypotension after HD Satish possibly from rapid AF reducing cardiac output. Neurological evaluation in progress. DC Ramapril Check orthostatic BP. Code(s): R55 - SYNCOPE AND COLLAPSE Qualifiers: Syncope type: vasovagal syncope Qualified Code(s): R55 - Syncope and collapse
--- NOTE | 2017-02-05 19:10 | PN ---
Progress Note, Physician History of Present Illness: STABLE - Current Medication List Current Medications: Active Medications Acetaminophen (Tylenol -) 650 mg PO Q4H PRN PRN Reason: FEVER OR PAIN Last Admin: 02/04/17 22:17 Dose: 650 mg Amiodarone HCl (Cordarone -) 400 mg PO BID [facility] Last Admin: 02/05/17 10:24 Dose: 400 mg Amlodipine Besylate (Norvasc -) 10 mg PO DAILY [facility] Last Admin: 02/05/17 10:23 Dose: 10 mg Apixaban (Eliquis -) 5 mg PO BID [facility] Atorvastatin Calcium (Lipitor -) 40 mg PO HS [facility] Last Admin: 02/04/17 22:03 Dose: 40 mg Duloxetine HCl (Cymbalta -) 30 mg PO DAILY [facility] Last Admin: 02/05/17 10:24 Dose: 30 mg Gabapentin (Neurontin -) 300 mg PO DAILY [facility] Last Admin: 02/05/17 10:24 Dose: 300 mg Hydralazine HCl (Apresoline -) 50 mg PO BID [facility] Last Admin: 02/05/17 10:24 Dose: 50 mg Insulin Aspart (Novolog Vial) 0 units SQ ACHS [facility] PRN Reason: Protocol Last Admin: 02/05/17 17:37 Dose: Not Given Meclizine HCl (Antivert -) 12.5 mg PO DAILY [facility] Last Admin: 02/05/17 10:23 Dose: 12.5 mg Metoprolol Succinate (Toprol Xl -) 50 mg PO DAILY [facility] Last Admin: 02/05/17 10:24 Dose: 50 mg Ramipril (Altace -) 5 mg PO DAILY [facility] Last Admin: 02/05/17 10:24 Dose: 5 mg Sevelamer Carbonate (Renvela -) 800 mg PO TIDCM [facility] Last Admin: 02/05/17 17:37 Dose: 800 mg - Objective Vital Signs: Vital Signs Temperature 98 F 02/05/17 15:40 Pulse Rate 68 02/05/17 15:40 Respiratory Rate 20 02/05/17 15:40 Blood Pressure 149/82 02/05/17 15:40 O2 Sat by Pulse Oximetry (%) 98 02/05/17 09:00 Constitutional: Yes: No Distress HENT: Yes: Atraumatic Neck: Yes: Supple Cardiovascular: Yes: Regular Rate and Rhythm Respiratory: Yes: CTA Bilaterally Gastrointestinal: Yes: Normal Bowel Sounds Extremities: Yes: WNL Edema: LLE: Trace, RLE: Trace Neurological: Yes: Alert, Oriented Labs: CBC, BMP 02/04/17 12:20 02/04/17 12:20 INR, PTT INR 1.11 (0.82-1.09) 02/02/17 16:31 Problem List - Problems (1) Atrial fibrillation Assessment/Plan: ON ELIQUIS RATE CONTROLLED Code(s): I48.91 - UNSPECIFIED ATRIAL FIBRILLATION Qualifiers: Atrial fibrillation type: paroxysmal Qualified Code(s): I48.0 - Paroxysmal atrial fibrillation (2) End stage renal disease Assessment/Plan: ON HD Code(s): N18.6 - END STAGE RENAL DISEASE (3) Syncope Assessment/Plan: DUE TO HYPOTENSION PROBABLY AFTER HD Code(s): R55 - SYNCOPE AND COLLAPSE Qualifiers: Syncope type: vasovagal syncope Qualified Code(s): R55 - Syncope and collapse (4) BPH (benign prostatic hyperplasia) Code(s): N40.0 - BENIGN PROSTATIC HYPERPLASIA WITHOUT LOWER URINRY TRACT SYMP (5) Diabetes Assessment/Plan: INSULIN COVERAGE Code(s): E11.9 - TYPE 2 DIABETES MELLITUS WITHOUT COMPLICATIONS (6) HLD (hyperlipidemia) Assessment/Plan: ON MEDS STABLE Code(s): E78.5 - HYPERLIPIDEMIA, UNSPECIFIED (7) HTN (hypertension) Assessment/Plan: ON MEDS STABLE Code(s): I10 - ESSENTIAL (PRIMARY) HYPERTENSION Assessment/Plan COVERING DR MORENO
[2017-02-05] MEDS: ATORVASTATIN CA 40 MG TABLET (FP) PO SCH (21:45)
[2017-02-05] MEDS: APIXABAN 5 MG TABLET PO SCH (21:45)
--- NOTE | 2017-02-06 00:25 | HOL ---
Hook-up date: 2017-02-03 10:58:00 Duration: 23:56:00 Test Indications: SYNCOPE Medications: 29872 QRS complexes 9 Ventricular ectopics which represent <1 % of total QRS comp. 2759 Supraventricular ectopics which represent 2 % of total QRS comp. * Paced QRS complexs which represent % of total QRS comp. * % of Time Classified as Noise VENTRICULAR ECTOPY 9 Isolated 0 Bigeminal Cycles 0 Couplets 0 Runs 0 Beats in Runs * Beats LONGEST at * BPM at :: -- * Beats FASTEST at * BPM at :: -- SUPRAVENTRICULAR ECTOPY 1776 Isolated 365 Couplets 63 Runs 253 Beats in Runs 23 Beats LONGEST at 94 BPM at 21:23:18 2017-02-03 3 Beats FASTEST at 135 BPM at 12:15:13 2017-02-03 HEART RATES 60 MIN at 21:03:59 2017-02-03 68 AVG 105 MAX at 14:20:36 2017-02-03 LONGEST RR 1.424 secs at 01:23:58 2017-02-04 1. Baseline rhythm is sinus with average HR 68 and range 60-105. 2. No significant pauses or bradycardia. 3. Rare isolated PVCs. 4. Frequent PACs. Occasional brief atrial runs, likely PAT. 5. No VT, VF, Afib, Aflutter. 6. No diary entries submitted. Confirmed by IGNACIA BISHOP, BARTOLO (2013) on 02/06/2017 12:24:42 AM Referred By: Max MUNGUIA Overread By: BARTOLO BETH MD
[2017-02-06] MEDS: INSULIN (NOVOLOG) ASPART 100 UNITS/ML 10ML VIAL SQ SCH ×4 (06:21→21:53)
--- NOTE | 2017-02-06 07:50 | PN ---
Progress Note, Physician History of Present Illness: feels better no cp - Current Medication List Current Medications: Active Medications Acetaminophen (Tylenol -) 650 mg PO Q4H PRN PRN Reason: FEVER OR PAIN Last Admin: 02/04/17 22:17 Dose: 650 mg Amiodarone HCl (Cordarone -) 400 mg PO BID [facility] Last Admin: 02/05/17 21:45 Dose: 400 mg Amlodipine Besylate (Norvasc -) 10 mg PO DAILY [facility] Last Admin: 02/05/17 10:23 Dose: 10 mg Apixaban (Eliquis -) 5 mg PO BID [facility] Last Admin: 02/05/17 21:45 Dose: 5 mg Atorvastatin Calcium (Lipitor -) 40 mg PO HS [facility] Last Admin: 02/05/17 21:45 Dose: 40 mg Duloxetine HCl (Cymbalta -) 30 mg PO DAILY [facility] Last Admin: 02/05/17 10:24 Dose: 30 mg Gabapentin (Neurontin -) 300 mg PO DAILY [facility] Last Admin: 02/05/17 10:24 Dose: 300 mg Hydralazine HCl (Apresoline -) 50 mg PO BID [facility] Last Admin: 02/05/17 21:45 Dose: 50 mg Insulin Aspart (Novolog Vial) 0 units SQ ACHS [facility] PRN Reason: Protocol Last Admin: 02/06/17 06:21 Dose: Not Given Meclizine HCl (Antivert -) 12.5 mg PO DAILY [facility] Last Admin: 02/05/17 10:23 Dose: 12.5 mg Metoprolol Succinate (Toprol Xl -) 50 mg PO DAILY [facility] Last Admin: 02/05/17 10:24 Dose: 50 mg Ramipril (Altace -) 5 mg PO DAILY [facility] Last Admin: 02/05/17 10:24 Dose: 5 mg Sevelamer Carbonate (Renvela -) 800 mg PO TIDCM [facility] Last Admin: 02/05/17 17:37 Dose: 800 mg - Objective Vital Signs: Vital Signs Temperature 98.2 F 02/06/17 06:00 Pulse Rate 61 02/06/17 06:00 Respiratory Rate 18 02/06/17 06:00 Blood Pressure 123/60 02/06/17 06:00 O2 Sat by Pulse Oximetry (%) 98 02/05/17 21:00 Cardiovascular: Yes: Regular Rate and Rhythm Respiratory: Yes: Regular, CTA Bilaterally Gastrointestinal: Yes: Normal Bowel Sounds, Soft Labs: CBC, BMP 02/04/17 12:20 INR, PTT INR 1.11 (0.82-1.09) 02/02/17 16:31 Problem List - Problems (1) Syncope Assessment/Plan: HAD SIMILAR EPISODE LAST YEAR HAPPENED AFTER DIALYSIS--MAYBE VOLUME DEPLETION R/O ARRHYTHMIA---AFIB NOTED TELE CARDIO--- NEURO Code(s): R55 - SYNCOPE AND COLLAPSE Qualifiers: Syncope type: vasovagal syncope Qualified Code(s): R55 - Syncope and collapse (2) End stage renal disease Assessment/Plan: PER RENAL Code(s): N18.6 - END STAGE RENAL DISEASE (3) CAD (coronary artery disease) Assessment/Plan: NO CP POSITIVE TROP--FOLLOW TREND-- Code(s): I25.10 - ATHSCL HEART DISEASE OF [place] CORONARY ARTERY W/O ANG PCTRS (4) Diabetes Assessment/Plan: BGM SS ENDO Code(s): E11.9 - TYPE 2 DIABETES MELLITUS WITHOUT COMPLICATIONS (5) Troponin I above reference range Assessment/Plan: ABOVE Code(s): R74.8 - ABNORMAL LEVELS OF OTHER SERUM ENZYMES (6) Atrial fibrillation Assessment/Plan: AC PER CARDIO MONITOR RATE Code(s): I48.91 - UNSPECIFIED ATRIAL FIBRILLATION Qualifiers: Atrial fibrillation type: paroxysmal Qualified Code(s): I48.0 - Paroxysmal atrial fibrillation
[2017-02-06 07:58] LABS: CALCIUM 8.1 mg/dL (8.5-10.1); MAGNESIUM 2.1 mg/dL (1.8-2.4)
[2017-02-06 08:13] LABS: COCKROFT - GAULT 9.34; PHOSPHOROUS 3.4 mg/dL (2.5-4.9)
[2017-02-06 08:38] LABS: CREATININE 8.4 mg/dL (0.7-1.3)
[2017-02-06] MEDS ORDERED: PT OWN MED DRAWER 7, Y5N ONE ×2 (08:59→09:28)
[2017-02-06] MEDS: SEVELAMER CARBONATE 800 MG TAB (FP) PO SCH ×3 (09:00→17:34)
--- NOTE | 2017-02-06 09:19 | PN ---
Progress Note, Physician Chief Complaint: no complaints tele nsr apcs, brief PAT, brief NSVT. History of Present Illness: 77 M with prior CVA, HTN, ESRD on HD prior syncope and ambulates with a cane. Has ho CAD diagnosed on NST in 2016 with IW ischemia and normal EF. He reports that shortly after HD yesterday while being weighed he passed out he was given fluid at HD and then left the unit. While getting out of the cab again lost consciousness. No dizziness, chest pain or dyspnea. He typically does not take BP medications prior to HD. Currently feels well. Echocardiogram today ishowed normal LV function and wall motion without valvular abnormalities. Telemetry showed frequent PAF rapid ventricular response. tele now with nsr and short self terminating episodes of PAT. - Current Medication List Current Medications: Active Medications Acetaminophen (Tylenol -) 650 mg PO Q4H PRN PRN Reason: FEVER OR PAIN Last Admin: 02/04/17 22:17 Dose: 650 mg Amiodarone HCl (Cordarone -) 400 mg PO BID [facility] Last Admin: 02/05/17 21:45 Dose: 400 mg Amlodipine Besylate (Norvasc -) 10 mg PO DAILY [facility] Last Admin: 02/05/17 10:23 Dose: 10 mg Apixaban (Eliquis -) 5 mg PO BID [facility] Last Admin: 02/05/17 21:45 Dose: 5 mg Atorvastatin Calcium (Lipitor -) 40 mg PO HS [facility] Last Admin: 02/05/17 21:45 Dose: 40 mg Duloxetine HCl (Cymbalta -) 30 mg PO DAILY [facility] Last Admin: 02/05/17 10:24 Dose: 30 mg Gabapentin (Neurontin -) 300 mg PO DAILY [facility] Last Admin: 02/05/17 10:24 Dose: 300 mg Hydralazine HCl (Apresoline -) 50 mg PO BID [facility] Last Admin: 02/05/17 21:45 Dose: 50 mg Insulin Aspart (Novolog Vial) 0 units SQ ACHS [facility] PRN Reason: Protocol Last Admin: 02/06/17 06:21 Dose: Not Given Meclizine HCl (Antivert -) 12.5 mg PO DAILY [facility] Last Admin: 02/05/17 10:23 Dose: 12.5 mg Metoprolol Succinate (Toprol Xl -) 50 mg PO DAILY [facility] Last Admin: 04/30/17 10:24 Dose: 50 mg Ramipril (Altace -) 5 mg PO DAILY [facility] Last Admin: 02/05/17 10:24 Dose: 5 mg Sevelamer Carbonate (Renvela -) 800 mg PO TIDCM [facility] Last Admin: 02/05/17 17:37 Dose: 800 mg - Objective Vital Signs: Vital Signs Temperature 98.2 F 02/06/17 06:00 Pulse Rate 61 02/06/17 06:00 Respiratory Rate 18 02/06/17 06:00 Blood Pressure 123/60 02/06/17 06:00 O2 Sat by Pulse Oximetry (%) 98 02/05/17 21:00 Constitutional: Yes: Well Nourished, No Distress Eyes: Yes: WNL HENT: Yes: WNL Neck: Yes: WNL Cardiovascular: Yes: Regular Rate and Rhythm Respiratory: Yes: CTA Bilaterally Gastrointestinal: Yes: Normal Bowel Sounds, Soft Extremities: Yes: WNL Edema: No Peripheral Pulses WNL: Yes Labs: CBC, BMP 02/04/17 12:20 02/06/17 05:35 INR, PTT INR 1.11 (0.82-1.09) 02/02/17 16:31 Problem List - Problems (1) Atrial fibrillation Assessment/Plan: Frequent and rapid AF for which he is generally not symptomatic. Given labile BP, further BB uptitration may not be possible. Recommend placing on chronic AC. Risk of bleeding will be higher given ESRD but if he is not a high fall risk, would consider it. He is at high risk for stroke. Would start Eliquis 5 mg bid for stroke prevention. There is data with dialysis patients and it is within the FDA label. Continue Amiodarone 400mg BID, decrease to 200 mg bid for one month then 200 mg daily. Keep on telemetry. Code(s): I48.91 - UNSPECIFIED ATRIAL FIBRILLATION Qualifiers: Atrial fibrillation type: paroxysmal Qualified Code(s): I48.0 - Paroxysmal atrial fibrillation (2) Troponin I above reference range Assessment/Plan: Due to ESRD. no need for ischemia hoover. Code(s): R74.8 - ABNORMAL LEVELS OF OTHER SERUM ENZYMES (3) Syncope Assessment/Plan: Likely due to transient hypotension after HD Satish possibly from rapid AF reducing cardiac output. Neurological evaluation in progress. DC Ramapril Check orthostatic BP. Code(s): R55 - SYNCOPE AND COLLAPSE Qualifiers: Syncope type: vasovagal syncope Qualified Code(s): R55 - Syncope and collapse
[2017-02-06] MEDS: hydrALAZINE HCL 25 MG TABLET (FP) PO SCH ×2 (09:31→21:46)
[2017-02-06] MEDS: DULoxetine HCL 30 MG CAPSULE.DR (FP) PO SCH (09:31)
[2017-02-06] MEDS: GABAPENTIN 300 MG CAPSULE (FP) PO SCH (09:32)
[2017-02-06] MEDS: APIXABAN 5 MG TABLET PO SCH ×2 (09:32→21:47)
[2017-02-06] MEDS: METOPROLOL SUCCINATE 50 MG TAB.SR.24H (FP) PO SCH (09:32)
[2017-02-06] MEDS: amLODIPine BESYLATE 10 MG TABLET (FP) PO SCH (09:36)
[2017-02-06] MEDS: MECLIZINE HCL 12.5 MG TABLET PO SCH (09:36)
[2017-02-06] MEDS: RAMIPRIL 5 MG CAPSULE (FP) PO SCH (09:36)
--- NOTE | 2017-02-06 11:25 | PN ---
Progress Note (short form) - Note Progress Note: Renal Follow up for ESRD on HD Pt seen and examined at the bedside no acute complaints no dizziness or sob, chest pain last dialysis was Monday Vital Signs Temperature 98.2 F 02/06/17 06:00 Pulse Rate 61 02/06/17 06:00 Respiratory Rate 18 02/06/17 06:00 Blood Pressure 123/60 02/06/17 06:00 O2 Sat by Pulse Oximetry (%) 98 02/05/17 21:00 Intake & Output 02/03/17 02/04/17 02/05/17 02/06/17 23:59 23:59 23:59 23:59 Intake Total 20 220 950 210 Balance 20 220 950 210 Weight 203 lb 12.8 oz 187 lb 201 lb Gen: NAD, awake and alert HEENT: NC/AT, MMM, No JVD CVS: RRR, No M/R Lungs: CTA no rales or wheeze Abd: soft NT/ND Ext: No edmea, clubbing or cyanosis Access: Left ARM AVF CBC, BMP 02/04/17 12:20 02/06/17 05:35 Laboratory Tests 02/06/17 05:35 Calcium 8.1 L Phosphorus 3.4 Magnesium 2.1 Current Medications Acetaminophen (Tylenol -) 650 mg PO Q4H PRN PRN Reason: FEVER OR PAIN Last Admin: 02/04/17 22:17 Dose: 650 mg Amiodarone HCl (Cordarone -) 200 mg PO BID [facility] Amlodipine Besylate (Norvasc -) 10 mg PO DAILY [facility] Last Admin: 02/06/17 09:36 Dose: 10 mg Apixaban (Eliquis -) 5 mg PO BID [facility] Last Admin: 02/06/17 09:32 Dose: 5 mg Atorvastatin Calcium (Lipitor -) 40 mg PO HS [facility] Last Admin: 02/05/17 21:45 Dose: 40 mg Duloxetine HCl (Cymbalta -) 30 mg PO DAILY [facility] Last Admin: 02/06/17 09:31 Dose: 30 mg Gabapentin (Neurontin -) 300 mg PO DAILY [facility] Last Admin: 02/06/17 09:32 Dose: 300 mg Hydralazine HCl (Apresoline -) 50 mg PO BID [facility] Last Admin: 02/06/17 09:31 Dose: 50 mg Insulin Aspart (Novolog Vial) 0 units SQ ACHS [facility] PRN Reason: Protocol Last Admin: 02/06/17 06:21 Dose: Not Given Meclizine HCl (Antivert -) 12.5 mg PO DAILY [facility] Last Admin: 02/06/17 09:36 Dose: 12.5 mg Metoprolol Succinate (Toprol Xl -) 50 mg PO DAILY [facility] Last Admin: 02/06/17 09:32 Dose: 50 mg Ramipril (Altace -) 5 mg PO DAILY [facility] Last Admin: 02/06/17 09:36 Dose: 5 mg Sevelamer Carbonate (Renvela -) 800 mg PO TIDCM [facility] Last Admin: 02/05/17 17:37 Dose: 800 mg A/P 77 year old gentleman with PMhx of ESRD on HD (TTS), Hypertension,Orthostatic Hypotension , DM who presented with syncope s/p HD and found to have Afib. #Syncope/Orthostatic Hypotension/New Onset Afib on Amiodarone and Eliqus as per Cardiology #ESRD on Hd no acute indication for dialysis today next treatment tomorrow morning #Thrombocytopenia Chronic in nature #Hypertension on Amlodpine and Ramipril monitor bP and titrate meds as needed Thank you Severo Sanchez DO
[2017-02-06] MEDS: AMIODARONE HCL 200 MG TABLET (FP) PO SCH ×2 (12:37→21:47)
[2017-02-06] MEDS: ATORVASTATIN CA 40 MG TABLET (FP) PO SCH (21:47)
--- NOTE | 2017-02-06 22:15 | PN ---
Progress Note, Physician Chief Complaint: passed out after hd History of Present Illness: 77 M with prior CVA, HTN, ESRD on HD prior syncope and ambulates with a cane. Has ho CAD diagnosed on NST in 2016 with IW ischemia and normal EF. He reports that shortly after HD yesterday while being weighed he passedout since admission no further syncope,denies hypoglycemia,or dizzyness - Current Medication List Current Medications: Active Medications Acetaminophen (Tylenol -) 650 mg PO Q4H PRN PRN Reason: FEVER OR PAIN Last Admin: 02/04/17 22:17 Dose: 650 mg Amiodarone HCl (Cordarone -) 200 mg PO BID [facility] Last Admin: 02/06/17 21:47 Dose: 200 mg Amlodipine Besylate (Norvasc -) 10 mg PO DAILY [facility] Last Admin: 02/06/17 09:36 Dose: 10 mg Apixaban (Eliquis -) 5 mg PO BID [facility] Last Admin: 02/06/17 21:47 Dose: 5 mg Atorvastatin Calcium (Lipitor -) 40 mg PO HS [facility] Last Admin: 02/06/17 21:47 Dose: 40 mg Duloxetine HCl (Cymbalta -) 30 mg PO DAILY [facility] Last Admin: 02/06/17 09:31 Dose: 30 mg Gabapentin (Neurontin -) 300 mg PO DAILY [facility] Last Admin: 02/06/17 09:32 Dose: 300 mg Hydralazine HCl (Apresoline -) 50 mg PO BID [facility] Last Admin: 02/06/17 21:46 Dose: 50 mg Insulin Aspart (Novolog Vial) 0 units SQ ACHS [facility] PRN Reason: Protocol Last Admin: 02/06/17 21:53 Dose: Not Given Meclizine HCl (Antivert -) 12.5 mg PO DAILY [facility] Last Admin: 02/06/17 09:36 Dose: 12.5 mg Metoprolol Succinate (Toprol Xl -) 50 mg PO DAILY [facility] Last Admin: 02/06/17 09:32 Dose: 50 mg Ramipril (Altace -) 5 mg PO DAILY [facility] Last Admin: 02/06/17 09:36 Dose: 5 mg Sevelamer Carbonate (Renvela -) 800 mg PO TIDCM [facility] Last Admin: 02/06/17 17:34 Dose: 800 mg - Objective Vital Signs: Vital Signs Temperature 99.1 F 02/06/17 18:40 Pulse Rate 62 02/06/17 18:40 Respiratory Rate 18 02/06/17 18:40 Blood Pressure 121/57 02/06/17 18:40 O2 Sat by Pulse Oximetry (%) 96 02/06/17 09:00 Constitutional: Yes: Well Nourished Eyes: Yes: WNL HENT: Yes: WNL Neck: Yes: WNL Cardiovascular: Yes: Pulse Irregular Respiratory: Yes: CTA Bilaterally Gastrointestinal: Yes: WNL ...Rectal Exam: Yes: Deferred Breast(s): Yes: WNL Musculoskeletal: Yes: Muscle Weakness Edema: Yes Edema: LLE: Trace, RLE: Trace Neurological: Yes: WNL, Alert, Oriented, Unsteady Gait, Weakness Labs: CBC, BMP 02/04/17 12:20 02/06/17 05:35 INR, PTT INR 1.11 (0.82-1.09) 02/02/17 16:31 Problem List - Problems (1) Atrial fibrillation Code(s): I48.91 - UNSPECIFIED ATRIAL FIBRILLATION Qualifiers: Atrial fibrillation type: paroxysmal Qualified Code(s): I48.0 - Paroxysmal atrial fibrillation (2) Syncope Code(s): R55 - SYNCOPE AND COLLAPSE Qualifiers: Syncope type: vasovagal syncope Qualified Code(s): R55 - Syncope and collapse (3) Accidental fall Code(s): W19.XXXA - UNSPECIFIED FALL, INITIAL ENCOUNTER Assessment/Plan Current Active Problems Atrial fibrillation (Acute) End stage renal disease (Acute) Syncope (Acute) Troponin I above reference range (Acute) Laboratory Results - last 24 hr 02/04/17 02/05/17 02/06/17 14:00 21:44 05:35 Sodium 134 L Potassium 4.3 Chloride 90 L Carbon Dioxide 31 Anion Gap 13 BUN 51 H Creatinine 8.4 H* POC Glucometer 113 Random Glucose 93 Calcium 8.1 L Phosphorus 3.4 Magnesium 2.1 Hepatitis C Antibody <0.1 02/06/17 02/06/17 02/06/17 05:37 11:54 15:48 Sodium Potassium Chloride Carbon Dioxide Anion Gap BUN Creatinine POC Glucometer 99 130 90 Random Glucose Calcium Phosphorus Magnesium Hepatitis C Antibody plan: Laboratory Results - last 24 hr 02/04/17 02/05/17 02/06/17 14:00 21:44 05:35 Sodium 134 L Potassium 4.3 Chloride 90 L Carbon Dioxide 31 Anion Gap 13 BUN 51 H Creatinine 8.4 H* POC Glucometer 113 Random Glucose 93 Calcium 8.1 L Phosphorus 3.4 Magnesium 2.1 Hepatitis C Antibody <0.1 02/06/17 02/06/17 02/06/17 05:37 11:54 15:48 Sodium Potassium Chloride Carbon Dioxide Anion Gap BUN Creatinine POC Glucometer 99 130 90 Random Glucose Calcium Phosphorus Magnesium Hepatitis C Antibody Laboratory Tests 02/05/17 02/05/17 08:50 08:50 Hemoglobin A1c % 6.0 D TSH 1.58 Free T4 0.96 start therapy pt follow bp orthastatic cks ck am cortisol level
[2017-02-07 06:06] LABS: HEP B SURFACE AB Reactive (.)
[2017-02-07] MEDS: INSULIN (NOVOLOG) ASPART 100 UNITS/ML 10ML VIAL SQ SCH ×2 (08:00→12:00)
--- NOTE | 2017-02-07 08:17 | DS ---
Physical Examination Vital Signs: Vital Signs Temperature 98.4 F 02/07/17 05:57 Pulse Rate 60 02/07/17 05:57 Respiratory Rate 20 02/07/17 05:57 Blood Pressure 118/60 02/07/17 05:57 O2 Sat by Pulse Oximetry (%) 95 02/06/17 21:00 Findings/Remarks: FEELS BETTER Cardiovascular: Yes: Regular Rate and Rhythm Respiratory: Yes: Regular, CTA Bilaterally Gastrointestinal: Yes: Normal Bowel Sounds, Soft Edema: No Labs: CBC, BMP 02/04/17 12:20 02/06/17 05:35 Discharge Summary Reason For Visit: SYNCOPE Current Active Problems Atrial fibrillation (Acute) End stage renal disease (Acute) Syncope (Acute) Troponin I above reference range (Acute) Hospital Course: 77 year old male, with a significant past medical history of hypertension, hyperlipidemia, diabetes, CVA (with residual left sided weakness), ESRD (with hemodialysis //Mon) secondary to diabetic nephropathy and BPH, who presents to the emergency department via EMS for evaluation s/p a witnessed syncopal episode yesterday. The patient reports that was in his usual state of health earlier today and that he received his routine scheduled hemodialysis today. Upon returning home from dialysis, as per EMS, the patients neighbor reports that the patient syncopized while getting out of the cab. The patients neighbor initiated EMS and the patient was brought to the ED for further evaluation. This am pt denies any cp or sob [place] History Professor dr espinoza pcp dr bird - Past Medical History COAL SAMPLE TESTER: Yes: CVA (with some memory deficit) Cardiovascular: Yes: Aortic Insufficiency, CHF, HTN, Hyperlipdemia, Mitral Insufficiency, Other (ortostatic hypotension -> admissions here with near- syncope in 2014 and eabladey 2016. On midodrine since prior to 2016 admission ) Renal/: Yes: Renal Failure (HD for 3 1/2 yrs), BPH Heme/Onc: Yes: Anemia (as in HPI) Endocrine: Yes: Diabetes Mellitus (hx of hypoglycemia episodes w/near syncope) - Past Surgical History Past Surgical History: Yes: AV Fistula/Graft - Problems (1) Syncope Assessment/Plan: HAD SIMILAR EPISODE LAST YEAR HAPPENED AFTER DIALYSIS--MAYBE VOLUME DEPLETION R/O ARRHYTHMIA---AFIB NOTED TELE CARDIO--- NEURO Code(s): R55 - SYNCOPE AND COLLAPSE Qualifiers: Syncope type: vasovagal syncope Qualified Code(s): R55 - Syncope and collapse (2) End stage renal disease Assessment/Plan: PER RENAL Code(s): N18.6 - END STAGE RENAL DISEASE (3) CAD (coronary artery disease) Assessment/Plan: NO CP POSITIVE TROP--FOLLOW TREND-- Code(s): I25.10 - ATHSCL HEART DISEASE OF [place] CORONARY ARTERY W/O ANG PCTRS (4) Diabetes Assessment/Plan: BGM SS ENDO Code(s): E11.9 - TYPE 2 DIABETES MELLITUS WITHOUT COMPLICATIONS (5) Troponin I above reference range Assessment/Plan: ABOVE Code(s): R74.8 - ABNORMAL LEVELS OF OTHER SERUM ENZYMES (6) Atrial fibrillation Assessment/Plan: AC PER CARDIO MONITOR RATE - CARDIO Frequent and rapid AF for which he is generally not symptomatic. Given labile BP, further BB uptitration may not be possible. Recommend placing on chronic AC. Risk of bleeding will be higher given ESRD but if he is not a high fall risk, would consider it. He is at high risk for stroke. Would start Eliquis 5 mg bid for stroke prevention. There is data with dialysis patients and it is within the FDA label. Continue Amiodarone 400mg BID, decrease to 200 mg bid for one month then 200 mg daily. Code(s): I48.91 - UNSPECIFIED ATRIAL FIBRILLATION Qualifiers: Atrial fibrillation type: paroxysmal Qualified Code(s): I48.0 - Paroxysmal atrial fibrillation Condition: Improved - Instructions Referrals: Jerry Bird MD [Primary Care Provider] - 1 Week Sheldon Espinoza MD [Staff Physician] - 1 Week Disposition: HOME - Home Medications Comprehensive Discharge Medication List: Ambulatory Orders Atorvastatin Ca [Lipitor] 40 mg PO HS 06/06/15 Sevelamer Carbonate [Renvela -] 800 mg PO TID 06/06/15 Gabapentin 300 mg PO DAILY 11/19/15 Ramipril [Altace] 5 mg PO DAILY #30 capsule 03/19/16 Duloxetine HCl 30 mg PO DAILY 04/16/16 Meclizine HCl [Antivert -] 12.5 mg PO DAILY 04/16/16 Amlodipine Besylate [Norvasc -] 10 mg PO DAILY #30 tablet 04/19/16 Hydralazine HCl [Apresoline -] 50 mg PO BID #60 tablet 04/19/16 Metoprolol Succinate [Toprol XL -] 50 mg PO DAILY #30 tab.sr.24h 04/19/16 Amiodarone HCl [Cordarone -] 200 mg PO BID #60 tablet 02/07/17 Apixaban [Eliquis -] 5 mg PO BID #60 tablet 02/07/17
[2017-02-07] MEDS ORDERED: BISACODYL 5 MG TABLET.DR (FP) PO ONE (09:15)
[2017-02-07] MEDS: SEVELAMER CARBONATE 800 MG TAB (FP) PO SCH ×2 (09:27→12:00)
--- NOTE | 2017-02-07 11:22 | PN ---
Progress Note (short form) - Note Progress Note: Renal Follow up for ESRD on HD Pt seen and examined during dialysis BP stable, accesss with good function Goal UF is 2.5L Pt without any acute complaints for discharge home following dialysis Vital Signs Temperature 98.2 F 02/07/17 08:10 Pulse Rate 62 02/07/17 08:10 Respiratory Rate 14 02/07/17 08:10 Blood Pressure 134/72 02/07/17 08:10 O2 Sat by Pulse Oximetry (%) 94 L 02/07/17 09:00 Intake & Output 02/04/17 02/05/17 02/06/17 02/07/17 23:59 23:59 23:59 23:59 Intake Total 220 950 660 Balance 220 950 660 Weight 187 lb 201 lb 199 lb Gen: NAD, awake and alert CVS: RRR, No M/R Lungs: CTA no rales or wheeze Abd: soft NT/ND Ext: No edmea, clubbing or cyanosis Access: Left ARM AVF CBC, BMP 02/04/17 12:20 02/06/17 05:35 Current Medications Acetaminophen (Tylenol -) 650 mg PO Q4H PRN PRN Reason: FEVER OR PAIN Last Admin: 02/04/17 22:17 Dose: 650 mg Amiodarone HCl (Cordarone -) 200 mg PO BID [facility] Last Admin: 02/06/17 21:47 Dose: 200 mg Amlodipine Besylate (Norvasc -) 10 mg PO DAILY [facility] Last Admin: 02/06/17 09:36 Dose: 10 mg Apixaban (Eliquis -) 5 mg PO BID [facility] Last Admin: 02/06/17 21:47 Dose: 5 mg Atorvastatin Calcium (Lipitor -) 40 mg PO [facility] Last Admin: 02/06/17 21:47 Dose: 40 mg Duloxetine HCl (Cymbalta -) 30 mg PO DAILY [facility] Last Admin: 02/06/17 09:31 Dose: 30 mg Gabapentin (Neurontin -) 300 mg PO DAILY [facility] Last Admin: 02/06/17 09:32 Dose: 300 mg Hydralazine HCl (Apresoline -) 50 mg PO BID [facility] Last Admin: 02/06/17 21:46 Dose: 50 mg Insulin Aspart (Novolog Vial) 0 units SQ ACHS [facility] PRN Reason: Protocol Last Admin: 02/06/17 21:53 Dose: Not Given Meclizine HCl (Antivert -) 12.5 mg PO DAILY [facility] Last Admin: 02/06/17 09:36 Dose: 12.5 mg Metoprolol Succinate (Toprol Xl -) 50 mg PO DAILY [facility] Last Admin: 02/06/17 09:32 Dose: 50 mg Ramipril (Altace -) 5 mg PO DAILY [facility] Last Admin: 02/06/17 09:36 Dose: 5 mg Sevelamer Carbonate (Renvela -) 800 mg PO TIDCM [facility] Last Admin: 02/07/17 09:27 Dose: 800 mg A/P 77 year old gentleman with PMhx of ESRD on HD (TTS), Hypertension,Orthostatic Hypotension , DM who presented with syncope s/p HD and found to have Afib. #Syncope/Orthostatic Hypotension/New Onset Afib on Amiodarone and Eliqus as per Cardiology HR controlled #ESRD on Hd Tolerating dialysis well goal UF is 2.5L #Hypertension on Amlodpine and Ramipril monitor bP and titrate meds as needed for discharge following dialysis today, to resume dialysis as outpatient Thank you Severo Sanchez DO
[2017-02-07 12:45] LABS: CALCIUM 7.8 mg/dL (8.5-10.1); COCKROFT - GAULT 7.85; PHOSPHOROUS 3.1 mg/dL (2.5-4.9)
--- NOTE | 2017-02-07 13:37 | PN ---
Progress Note, Physician Chief Complaint: no complaints tele nsr apcs, brief PAT, brief NSVT. History of Present Illness: 77 M with prior CVA, HTN, ESRD on HD prior syncope and ambulates with a cane. Has ho CAD diagnosed on NST in 2016 with IW ischemia and normal EF. He reports that shortly after HD yesterday while being weighed he passed out he was given fluid at HD and then left the unit. While getting out of the cab again lost consciousness. No dizziness, chest pain or dyspnea. He typically does not take BP medications prior to HD. Currently feels well. Echocardiogram today ishowed normal LV function and wall motion without valvular abnormalities. Telemetry showed frequent PAF rapid ventricular response. tele now with nsr and short self terminating episodes of PAT. - Current Medication List Current Medications: Active Medications Acetaminophen (Tylenol -) 650 mg PO Q4H PRN PRN Reason: FEVER OR PAIN Last Admin: 02/04/17 22:17 Dose: 650 mg Amiodarone HCl (Cordarone -) 200 mg PO BID [facility] Last Admin: 02/06/17 21:47 Dose: 200 mg Amlodipine Besylate (Norvasc -) 10 mg PO DAILY [facility] Last Admin: 02/06/17 09:36 Dose: 10 mg Apixaban (Eliquis -) 5 mg PO BID [facility] Last Admin: 02/06/17 21:47 Dose: 5 mg Atorvastatin Calcium (Lipitor -) 40 mg PO HS [facility] Last Admin: 02/06/17 21:47 Dose: 40 mg Duloxetine HCl (Cymbalta -) 30 mg PO DAILY [facility] Last Admin: 02/06/17 09:31 Dose: 30 mg Gabapentin (Neurontin -) 300 mg PO DAILY [facility] Last Admin: 02/06/17 09:32 Dose: 300 mg Hydralazine HCl (Apresoline -) 50 mg PO BID [facility] Last Admin: 02/06/17 21:46 Dose: 50 mg Insulin Aspart (Novolog Vial) 0 units SQ ACHS [facility] PRN Reason: Protocol Last Admin: 02/07/17 08:00 Dose: Not Given Meclizine HCl (Antivert -) 12.5 mg PO DAILY [facility] Last Admin: 02/06/17 09:36 Dose: 12.5 mg Metoprolol Succinate (Toprol Xl -) 50 mg PO DAILY [facility] Last Admin: 05/01/17 09:32 Dose: 50 mg Ramipril (Altace -) 5 mg PO DAILY [facility] Last Admin: 02/06/17 09:36 Dose: 5 mg Sevelamer Carbonate (Renvela -) 800 mg PO TIDCM [facility] Last Admin: 02/07/17 09:27 Dose: 800 mg - Objective Vital Signs: Vital Signs Temperature 98.2 F 02/07/17 08:10 Pulse Rate 60 02/07/17 11:45 Respiratory Rate 18 02/07/17 11:45 Blood Pressure 144/79 02/07/17 11:45 O2 Sat by Pulse Oximetry (%) 94 L 02/07/17 09:00 Constitutional: Yes: Well Nourished, No Distress Eyes: Yes: WNL HENT: Yes: WNL Neck: Yes: WNL Cardiovascular: Yes: Regular Rate and Rhythm Respiratory: Yes: CTA Bilaterally Gastrointestinal: Yes: Normal Bowel Sounds, Soft Musculoskeletal: Yes: WNL Extremities: Yes: WNL Labs: CBC, BMP 02/04/17 12:20 02/07/17 10:28 INR, PTT INR 1.11 (0.82-1.09) 02/02/17 16:31 Problem List - Problems (1) Atrial fibrillation Assessment/Plan: Frequent and rapid AF for which he is generally not symptomatic. Given labile BP, further BB uptitration may not be possible. Recommend placing on chronic AC. Risk of bleeding will be higher given ESRD but if he is not a high fall risk, would consider it. He is at high risk for stroke. Would start Eliquis 5 mg bid for stroke prevention. There is data with dialysis patients and it is within the FDA label. Continue Amiodarone 200mg BID for one month, then 200 mg daily. outpatient fu when dcd with our group 2-4 weeks. Code(s): I48.91 - UNSPECIFIED ATRIAL FIBRILLATION Qualifiers: Atrial fibrillation type: paroxysmal Qualified Code(s): I48.0 - Paroxysmal atrial fibrillation (2) Troponin I above reference range Assessment/Plan: Due to ESRD. no need for ischemia hoover. Code(s): R74.8 - ABNORMAL LEVELS OF OTHER SERUM ENZYMES (3) Syncope Assessment/Plan: Likely due to transient hypotension after HD from afib RVR. Code(s): R55 - SYNCOPE AND COLLAPSE Qualifiers: Syncope type: vasovagal syncope Qualified Code(s): R55 - Syncope and collapse
[2017-02-07] MEDS: METOPROLOL SUCCINATE 50 MG TAB.SR.24H (FP) PO SCH (15:11)
[2017-02-07] MEDS: MECLIZINE HCL 12.5 MG TABLET PO SCH (15:11)
[2017-02-07] MEDS: DULoxetine HCL 30 MG CAPSULE.DR (FP) PO SCH (15:11)
[2017-02-07] MEDS: APIXABAN 5 MG TABLET PO SCH (15:12)
[2017-02-07] MEDS: hydrALAZINE HCL 25 MG TABLET (FP) PO SCH (15:12)
[2017-02-07] MEDS: GABAPENTIN 300 MG CAPSULE (FP) PO SCH (15:13)
[2017-02-07] MEDS: RAMIPRIL 5 MG CAPSULE (FP) PO SCH (15:13)
[2017-02-07] MEDS: amLODIPine BESYLATE 10 MG TABLET (FP) PO SCH (15:13)
[2017-02-07] MEDS: AMIODARONE HCL 200 MG TABLET (FP) PO SCH (15:13)
[2017-02-07 15:33] VITALS: BP 149/73; PULSE 69; TEMP 98.1
[2017-02-07 15:36] LABS: CREATININE 4.1 mg/dL (0.7-1.3)
== END 2017-02-07 17:37 | disposition home health service (06) | DRG 308 ==
LOC: JER 16:11 → J4W 19:50
PROVIDERS: ADMIT Family Medicine; ATTEND Family Medicine
PROC: 5A1D60Z (ICD-10-PCS; principal; 2017-02-07)
DX: I48.0 Paroxysmal atrial fibrillation (principal); N18.6 End stage renal disease; I12.0 Hypertensive chronic kidney disease with stage 5 chronic kidney disease or end stage renal disease; I69.354 Hemiplegia and hemiparesis following cerebral infarction affecting left non-dominant side; I95.1 Orthostatic hypotension; Z99.2 Dependence on renal dialysis; I47.1 Supraventricular tachycardia; E78.5 Hyperlipidemia, unspecified; I25.10 Atherosclerotic heart disease of native coronary artery without angina pectoris; N40.0 Benign prostatic hyperplasia without lower urinary tract symptoms; D69.6 Thrombocytopenia, unspecified; R74.8 Abnormal levels of other serum enzymes; E11.22 Type 2 diabetes mellitus with diabetic chronic kidney disease; E11.21 Type 2 diabetes mellitus with diabetic nephropathy
CPT/HCPCS: 36415; 70450-TC; 71010-TC; 80048; 80053; 80061; 82533; 82550; 82565; 83036; 83721; 83735; 84100; 84439; 84443; 84484; 84520; 85025; 85027; 85610; 86704; 86706; 86708; 87340; 93005; 93010; 93225; 93226; 93306-TC; 95816; 97116-GP; 97161-GP; 99285-25; J1644

== ENCOUNTER 2017-04-07 14:30 | Inpatient (IN) | payer OTHER, MEDICARE ==
[2017-04-07 14:55] LABS: MCH 30.2 pg (25.7-33.7); MCHC 32.4 g/dl (32.0-35.9); MEAN CELL VOLUME 93.4 fl (80-96); MEAN PLT VOLUME 10.1 fl (7.5-11.1); PLATELET COUNT 164 K/MM3 (134-434); RDW 17.5 % (11.9-15.9); WHITE BLOOD COUNT 6.5 K/mm3 (4.0-10.0)
[2017-04-07] MEDS ORDERED: SODIUM CHLORIDE 250 ML IV STA (15:15)
[2017-04-07 15:27] LABS: ALBUMIN 3.6 g/dl (3.4-5.0); ANION GAP 10 (8-16); BILIRUBIN,TOTAL 0.5 mg/dL (0.2-1.0); CO2 29 mmol/L (21-32); GLUCOSE,RANDOM 130 mg/dL (74-106); SGPT/ALT 15 U/L (12-78); TOT PROT 8.6 g/dl (6.4-8.2)
[2017-04-07 15:32] LABS: ALK PHOS 66 U/L (45-117); TROPONIN I 0.14 ng/ml (0.00-0.05)
[2017-04-07 15:35] LABS: CREATININE 7.7 mg/dL (0.7-1.3); SGOT/AST 28 U/L (15-37)
--- NOTE | 2017-04-07 15:47 | PDOC ---
Attending Attestation - Resident Resident Name: Paula Jeffriesudmila - ED Attending Attestation I have performed the following: I have examined & evaluated the patient, The case was reviewed & discussed with the resident, I agree w/resident's findings & plan, Exceptions are as noted - HPI HPI: 04/07/17 15:45 this is a 77 yo M brought in by EMS after being found on the ground outside s/p syncopal event\ pt denies preceding chest pain, palpitations, shortness of breath No focal weakness or numbness - Physicial Exam PE: Awake and alert RRR CTA No abd pain or tenderness - Medical Decision Making 04/07/17 15:46 Will do labs will do EKG Will do saline lock Will not bolus given ESRD on HD Will plan to place on observation 04/10/17 13:02 Discharge Disposition - Diagnosis Syncope Qualifiers: Syncope type: heat syncope Encounter type: initial encounter Qualified Code(s) : T67.1XXA - Heat syncope, initial encounter - Discharge Dispostion Last Admission D/C Date: 02/07/17
--- NOTE | 2017-04-07 16:03 | PDOC ---
History of Present Illness - General Chief Complaint: Syncope/Near Syncope Stated Complaint: Nausea/Vomiting Time Seen by Provider: 04/07/17 14:48 History Source: Patient Exam Limitations: No Limitations - History of Present Illness Initial Comments: 04/07/17 15:32 This is a 77 year old male, with PMH of orthostatic syncope, a fib not on a/c due to fall risk, HTN, HLD, DM, CVA (with residual left sided weakness), ESRD on HD (Mon//Mon) secondary to diabetic nephropathy and BPH, who BIBEMS due to witnessed syncopal episode 45 min ago. Patient describes this episode as identical to the others. As usual, he felt dizzy and nauseous while standing in the heat, his vision started going dark, at which point, anticipating syncope, he sat down on a bench and syncopized, without fall or trauma. He woke up shortly after, having vomited NBNB emesis. He felt at his baseline after, with resolution of symptoms. EMS reports wnl vitals and glucose. Patient denies chest pain, palpitations, orthopnea, sob, cough, f.c, weight change, edema, diarrhea, constipation, melena, hematochezia. His last HD session was yesterday , at which time the usual amount of fluid was removed. 04/07/17 16:20 Past History - Past Medical History Allergies/Adverse Reactions: Allergies Allergy/AdvReac Type Severity Reaction Status Date / Time No Known Allergies Allergy Verified 04/07/17 14:39 Home Medications: Ambulatory Orders Atorvastatin Ca [Lipitor] 40 mg PO HS 06/06/15 Sevelamer Carbonate [Renvela -] 800 mg PO TID 06/06/15 Gabapentin 300 mg PO DAILY 11/19/15 Ramipril [Altace] 5 mg PO DAILY #30 capsule 03/19/16 Duloxetine HCl 30 mg PO DAILY 04/16/16 Meclizine HCl [Antivert -] 12.5 mg PO DAILY 04/16/16 Amlodipine Besylate [Norvasc -] 10 mg PO DAILY #30 tablet 04/19/16 Hydralazine HCl [Apresoline -] 50 mg PO BID #60 tablet 04/19/16 Metoprolol Succinate [Toprol XL -] 50 mg PO DAILY #30 tab.sr.24h 04/19/16 Amiodarone HCl [Cordarone -] 200 mg PO BID #60 tablet 02/07/17 Apixaban [Eliquis -] 5 mg PO BID #60 tablet 02/07/17 Anemia: Yes Asthma: No Cancer: Yes Cardiac Disorders: Yes (CAD) CVA: Yes (2008 LLE PAIN, MEMORY DEFICIT) COPD: No CHF: No Dementia: No Diabetes: Yes Dialysis: Yes (,,) GI Disorders: No Disorders: Yes (enlarged prostate/BPH) HTN: Yes Hypercholesterolemia: Yes Liver Disease: No Suicide Attempt (Hx): No Seizures: No Thyroid Disease: No - Surgical History Abdominal Surgery: No Appendectomy: No Cardiac Surgery: No Cholecystectomy: No Lung Surgery: No Neurologic Surgery: No Orthopedic Surgery: Yes (L. foot and shoulder) - Family Disease History Family Disease History: Diabetes: Mother, Heart Disease: Father - Immunization History Td Vaccination: Yes Immunization Up to Date: Yes - Psycho/Social/Smoking Cessation Hx Anxiety: No Suicidal Ideation: No Smoking Status: No Smoking History: Never smoked Years of Tobacco Use: 0 Have you smoked in the past 12 months: No Number of Cigarettes Smoked Daily: 0 If you are a former smoker, when did you quit?: > 25 ya Cigars Per Day: 0 Information on smoking cessation initiated: No Hx Alcohol Use: No Drug/Substance Use Hx: No Substance Use Type: None Hx Substance Use Treatment: No Review of Systems - Review of Systems Able to Perform ROS?: Yes Is the patient limited Welsh proficient: No Constitutional: No: Chills, Fever, Night Sweats, Weakness, Unexplained wgt Loss HEENTM: No: Blurred Vision, Double Vision, Nose Congestion, Throat Pain, Difficulty Swallowing Respiratory: No: Cough, Orthopnea, Shortness of Breath, Wheezing, Productive cough, Hemoptysis Cardiac (ROS): Yes: Syncope. No: Chest Pain, Lightheadedness, Palpitations ABD/GI: Yes: Nausea, Poor Appetite (chronic). No: Constipated, Diarrhea, Rectal Bleeding, Vomiting, Abdominal cramping, Tarry Stools : No: Dysuria, Flank Pain Musculoskeletal: No: Back Pain, Joint Pain, Neck Pain Integumentary: Yes: Flushing. No: Bruising, Erythema Neurological: No: Headache, Numbness, Paresthesia, Seizure, Tremors, Ataxia Psychiatric: No: Anxiety, Depression Endocrine: No: Change in Weight Hematologic/Lymphatic: No: Anemia, Blood Clots, Easy Bleeding, Easy Bruising All Other Systems: Reviewed and Negative *Physical Exam - Vital Signs Last Vital Signs Temp Pulse Resp BP Pulse Ox 98.3 F 64 20 119/69 94 L 04/07/17 14:39 04/07/17 14:39 04/07/17 14:39 04/07/17 14:39 04/07/17 14:39 - Physical Exam Comments: 04/07/17 16:22 General: aao x 3 NAD HEENT: atraumatic, normocephalic, PERRLA EOMI, sclera anicteric, conjunctiva clear, moist mucous membranes CV: rrr s1s2 grade 1 systolic murmur Pulm: mild rll ronchi GI: soft, nonender, nondistended, normoactive bowel sounds, no mass Musculoskeletal:no peripheral edema Neuro: CN II-XII grossly intact 04/07/17 16:35 Heart Score/ECG Review #1 General ECG Interpretation: Sinus Rhythm, Normal Rate, Normal Intervals, No acute ischemic changes ED Treatment Course - LABORATORY CBC & Chemistry Diagram: 04/07/17 14:31 04/07/17 14:31 - ADDITIONAL ORDERS Additional order review: 04/07/17 14:31 RBC 3.90 L MCV 93.4 MCHC 32.4 RDW 17.5 H MPV 10.1 Neutrophils % Y Lymphocytes % Y - RADIOLOGY Radiology Studies Ordered: Category Date Time Status CHEST X-RAY PORTABLE* [RAD] Stat Radiology 04/07/17 15:13 Ordered Medical Decision Making - Medical Decision Making 04/07/17 16:05 Patient presents with clinical picture most consistent with vasovagal syncope, r /o metabolic, cardiogenic, infectious causes cbc unremarkable, cmp slight hyponatremia and hyperkalemia, will be resolved during HD tomorrow trop 0.15; ekg no evidence of acs or strain pattern, ekg wnl; no compatison trop , this may be due to ESRD status will repeat second trop Contacted PCP and Cardology, recommend admission to telemetry will consult renal to set up HD for tomorrow 04/07/17 16:06 04/07/17 16:35 *DC/Admit/Observation/Transfer Diagnosis at time of Disposition: Syncope - Discharge Dispostion Admit: Yes
[2017-04-07 16:11] LABS: PLATELET ESTIMATE ADEQUATE (NORMAL)
[2017-04-07 16:24] LABS: EOSINOPHIL 2.6 % (0-4.5); MCHC 31.8 g/dl (32.0-35.9); MEAN CELL VOLUME 94.3 fl (80-96); MEAN PLT VOLUME 9.9 fl (7.5-11.1); NEUTROPHILS 67.3 % (42.8-82.8); PLATELET COUNT 145 K/MM3 (134-434); RDW 17.4 % (11.9-15.9); WHITE BLOOD COUNT 6.3 K/mm3 (4.0-10.0)
[2017-04-07 16:56] LABS: ALBUMIN 3.8 g/dl (3.4-5.0); ANION GAP 11 (8-16); BILIRUBIN,TOTAL 0.4 mg/dL (0.2-1.0); CALCIUM 8.2 mg/dL (8.5-10.1); CO2 31 mmol/L (21-32); GLUCOSE,RANDOM 117 mg/dL (74-106); SGOT/AST 11 U/L (15-37); SGPT/ALT 15 U/L (12-78); TOT PROT 8.7 g/dl (6.4-8.2)
[2017-04-07 17:01] LABS: ALK PHOS 70 U/L (45-117); TROPONIN I 0.14 ng/ml (0.00-0.05)
[2017-04-07 17:07] LABS: CREATININE 7.9 mg/dL (0.7-1.3)
[2017-04-07 17:32] LABS: MAGNESIUM 2.3 mg/dL (1.8-2.4)
--- NOTE | 2017-04-07 21:20 | CON.CARD ---
Consult Consult Specialty:: Cardiology for Doyle - History of Present Illness History of Present Illness: 04/07/17 15:32 This is a 77 year old male, with PMH of orthostatic syncope, a fib not on a/c due to fall risk, HTN, HLD, DM, CVA (with residual left sided weakness), ESRD on HD (Mon//Mon) secondary to diabetic nephropathy and BPH, who BIBEMS due to witnessed syncopal episode 45 min ago. Patient describes this episode as identical to the others. As usual, he felt dizzy and nauseous while standing in the heat, his vision started going dark, at which point, anticipating syncope, he sat down on a bench and syncopized, without fall or trauma. He woke up shortly after, having vomited NBNB emesis. He felt at his baseline after, with resolution of symptoms. EMS reports wnl vitals and glucose. Patient denies chest pain, palpitations, orthopnea, sob, cough, f.c, weight change, edema, diarrhea, constipation, melena, hematochezia. His last HD session was yesterday , at which time the usual amount of fluid was removed. 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 On midodrine since prior to 2016 admission ) Renal/: Yes: Renal Failure (HD for 3 1/2 yrs), BPH Endocrine: Yes: Diabetes Mellitus (hx of hypoglycemia episodes w/near syncope) - Past Surgical History Past Surgical History: Yes: AV Fistula/Graft - Alcohol/Substance Use Hx Alcohol Use: No History of Substance Use: reports: None - Smoking History Smoking history: Never smoked Have you smoked in the past 12 months: No Aproximately how many cigarettes per day: 0 If you are a former smoker, when did you quit?: > 25 ya - Social History Usual Living Arrangement: With Spouse History of Recent Travel: No Home Medications - Allergies Allergies/Adverse Reactions: Allergies Allergy/AdvReac Type Severity Reaction Status Date / Time No Known Allergies Allergy Verified 04/07/17 14:39 - Home Medications Home Medications: Ambulatory Orders Atorvastatin Ca [Lipitor] 40 mg PO HS 06/06/15 Sevelamer Carbonate [Renvela -] 800 mg PO TID 06/06/15 Gabapentin 300 mg PO DAILY 11/19/15 Ramipril [Altace] 5 mg PO DAILY #30 capsule 03/19/16 Duloxetine HCl 30 mg PO DAILY 04/16/16 Meclizine HCl [Antivert -] 12.5 mg PO DAILY 04/16/16 Amlodipine Besylate [Norvasc -] 10 mg PO DAILY #30 tablet 04/19/16 Hydralazine HCl [Apresoline -] 50 mg PO BID #60 tablet 04/19/16 Metoprolol Succinate [Toprol XL -] 50 mg PO DAILY #30 tab.sr.24h 04/19/16 Amiodarone HCl [Cordarone -] 200 mg PO BID #60 tablet 02/07/17 Apixaban [Eliquis -] 5 mg PO BID #60 tablet 02/07/17 Family Disease History - Family Disease History Family Disease History: Heart Disease: Father, Mother Review of Systems - Review of Systems Constitutional: reports: No Symptoms Eyes: reports: No Symptoms HENT: reports: No Symptoms Neck: reports: No Symptoms Cardiovascular: reports: No Symptoms Gastrointestinal: reports: No Symptoms Genitourinary: reports: No Symptoms Breasts: reports: No Symptoms Reported Musculoskeletal: reports: No Symptoms Integumentary: reports: No Symptoms Neurological: reports: Syncope Endocrine: reports: No Symptoms Hematology/Lymphatic: reports: No Symptoms Psychiatric: reports: No Symptoms Vital Signs: Vital Signs Temperature 97.8 F 04/07/17 18:46 Pulse Rate 65 04/07/17 18:46 Respiratory Rate 16 04/07/17 18:46 Blood Pressure 140/69 04/07/17 18:46 O2 Sat by Pulse Oximetry (%) 98 04/07/17 18:46 Constitutional: Yes: Well Nourished, No Distress, Calm Eyes: Yes: WNL, Conjunctiva Clear, EOM Intact HENT: Yes: WNL, Atraumatic, Normocephalic Neck: Yes: WNL, Supple, Trachea Midline Respiratory: Yes: WNL, Regular, CTA Bilaterally Gastrointestinal: Yes: WNL, Normal Bowel Sounds Renal/: Yes: WNL Cardiovascular: Yes: WNL, Regular Rate and Rhythm Musculoskeletal: Yes: WNL Extremities: Yes: WNL Integumentary: Yes: WNL Neurological: Yes: WNL, Alert, Oriented ...Motor Strength: WNL Psychiatric: Yes: WNL, Alert, Oriented - Other Data Labs, Other Data: Laboratory Tests 04/07/17 04/07/17 04/07/17 14:31 14:31 14:31 WBC 6.5 D RBC 3.90 L Hgb 11.8 D Hct 36.4 MCV 93.4 MCHC 32.4 RDW 17.5 H Plt Count 164 D MPV 10.1 Neutrophils % 60.0 Lymphocytes % 28.0 D Monocytes % 7.0 Eosinophils % 5.0 H D Basophils % Differential Comment Manual diff done Platelet Estimate Adequate Sodium 134 L Potassium 5.9 H D Chloride 95 L Carbon Dioxide 29 Anion Gap 10 BUN 27 H Creatinine 7.7 H* D Creat Clearance w eGFR 6.85 Random Glucose 130 H Calcium 8.0 L Magnesium Total Bilirubin 0.5 D AST 28 D ALT 15 D Alkaline Phosphatase 66 Creatine Kinase 150 Creatine Kinase Index < 0.7 CK-MB (CK-2) < 1.000 CK-MB (CK-2) Rel Index Cancelled Troponin I 0.14 H D Total Protein 8.6 H D Albumin 3.6 D 04/07/17 04/07/17 16:17 16:17 WBC 6.3 RBC 3.83 L Hgb 11.5 L Hct 36.2 MCV 94.3 MCHC 31.8 L RDW 17.4 H Plt Count 145 MPV 9.9 Neutrophils % 67.3 Lymphocytes % 20.9 D Monocytes % 8.2 Eosinophils % 2.6 Basophils % 1.0 Differential Comment Platelet Estimate Sodium 135 L Potassium 4.9 Chloride 93 L Carbon Dioxide 31 Anion Gap 11 BUN 28 H Creatinine 7.9 H* Creat Clearance w eGFR 6.65 Random Glucose 117 H Calcium 8.2 L Magnesium 2.3 Total Bilirubin 0.4 AST 11 L D ALT 15 Alkaline Phosphatase 70 Creatine Kinase 108 Creatine Kinase Index CK-MB (CK-2) CK-MB (CK-2) Rel Index Troponin I 0.14 H Total Protein 8.7 H Albumin 3.8 Imaging - Results Chest X-ray: Image Reviewed (no i/e) EKG: Image Reviewed (s madeleine) Problem List - Problems (1) Syncope Code(s): R55 - SYNCOPE AND COLLAPSE Qualifiers: (2) Accidental fall Code(s): W19.XXXA - UNSPECIFIED FALL, INITIAL ENCOUNTER (3) Acute congestive heart failure Code(s): I50.9 - HEART FAILURE, UNSPECIFIED Qualifiers: Congestive heart failure type: diastolic Qualified Code(s): I50.31 - Acute diastolic (congestive) heart failure (4) Anemia Code(s): D64.9 - ANEMIA, UNSPECIFIED (5) Atrial fibrillation Code(s): I48.91 - UNSPECIFIED ATRIAL FIBRILLATION Qualifiers: Atrial fibrillation type: paroxysmal Qualified Code(s): I48.0 - Paroxysmal atrial fibrillation (6) Atypical chest pain Code(s): R07.89 - OTHER CHEST PAIN (7) BPH (benign prostatic hyperplasia) Code(s): N40.0 - BENIGN PROSTATIC HYPERPLASIA WITHOUT LOWER URINRY TRACT SYMP (8) C1 cervical fracture Code(s): S12.000A - UNSP DISP FX OF FIRST CERVICAL VERTEBRA, INIT FOR CLOS FX (9) CAD (coronary artery disease) Code(s): I25.10 - ATHSCL HEART DISEASE OF [place] CORONARY ARTERY W/O ANG PCTRS (10) Chest pain Code(s): R07.9 - CHEST PAIN, UNSPECIFIED (11) Chest wall contusion Code(s): S20.219A - CONTUSION OF UNSPECIFIED FRONT WALL OF THORAX, INIT ENCNTR (12) Cough Code(s): R05 - COUGH (13) Diabetes Code(s): E11.9 - TYPE 2 DIABETES MELLITUS WITHOUT COMPLICATIONS (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, managed as type 1 Code(s): E13.9 - OTHER SPECIFIED DIABETES MELLITUS WITHOUT COMPLICATIONS (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, managed as type 2 Code(s): E13.9 - OTHER SPECIFIED DIABETES MELLITUS WITHOUT COMPLICATIONS (16) Diabetes mellitus, insulin dependent (IDDM), controlled Code(s): E11.9 - TYPE 2 DIABETES MELLITUS WITHOUT COMPLICATIONS 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 (17) Dizziness Code(s): R42 - DIZZINESS AND GIDDINESS (18) End stage renal disease Code(s): N18.6 - END STAGE RENAL DISEASE (19) Facial injury Code(s): S09.93XA - UNSPECIFIED INJURY OF FACE, INITIAL ENCOUNTER (20) Fall Code(s): W19.XXXA - UNSPECIFIED FALL, INITIAL ENCOUNTER (21) H/O: CVA (cerebrovascular accident) Code(s): Z86.73 - PRSNL HX OF TIA (TIA), AND CEREB INFRC W/O RESID DEFICITS (22) HLD (hyperlipidemia) Code(s): E78.5 - HYPERLIPIDEMIA, UNSPECIFIED (23) HTN (hypertension) Code(s): I10 - ESSENTIAL (PRIMARY) HYPERTENSION (24) Hemoptysis Code(s): R04.2 - HEMOPTYSIS (25) Leg pain Code(s): M79.606 - PAIN IN LEG, UNSPECIFIED (26) Lightheaded Code(s): R42 - DIZZINESS AND GIDDINESS (27) Lip laceration Code(s): S01.511A - LACERATION WITHOUT FOREIGN BODY OF LIP, INITIAL ENCOUNTER (28) NSTEMI (non-ST elevated myocardial infarction) Code(s): I21.4 - NON-ST ELEVATION (NSTEMI) MYOCARDIAL INFARCTION (29) Neck pain Code(s): M54.2 - CERVICALGIA (30) Obesity Code(s): E66.9 - OBESITY, UNSPECIFIED (31) Pre-syncope Code(s): R55 - SYNCOPE AND COLLAPSE (32) Renal osteodystrophy Code(s): N25.0 - RENAL OSTEODYSTROPHY (33) Shortness of breath Code(s): R06.02 - SHORTNESS OF BREATH (34) Troponin I above reference range Code(s): R74.8 - ABNORMAL LEVELS OF OTHER SERUM ENZYMES (35) Type 2 diabetes mellitus with other diabetic kidney complication Code(s): E11.29 - TYPE 2 DIABETES MELLITUS W OTH DIABETIC KIDNEY COMPLICATION (36) Volume overload Code(s): E87.70 - FLUID OVERLOAD, UNSPECIFIED (37) Weakness Code(s): R53.1 - WEAKNESS Assessment/Plan syncope esrd nonstemi af on amiodarone no ac due to falls cva Aortic Insufficiency, CHF, HTN, Hyperlipdemia, Mitral Insufficiency, Other (orthostatic hypotension -> admissions here with near-syncope in 2014 and ealry 2016. On midodrine since prior to 2016 admission ) (HD for 3 1/2 yrs), BPH plan telemetry cont med rx MIBI stress test to risk stratify (unless done recently elsewhere)
[2017-04-07] MEDS: AMIODARONE HCL 200 MG TABLET (FP) PO SCH (23:22)
[2017-04-07] MEDS: hydrALAZINE HCL 50 MG TABLET (FP) PO SCH (23:22)
[2017-04-07] MEDS: APIXABAN 5 MG TABLET PO SCH (23:22)
[2017-04-07] MEDS: ATORVASTATIN CA 40 MG TABLET (FP) PO SCH (23:22)
[2017-04-08 00:17] VITALS: BMI 26.6
--- NOTE | 2017-04-08 08:01 | HP ---
Admitting History and Physical - Admission History of Present Illness: 77 year old male, with PMH of orthostatic syncope, a fib not on a/c due to fall risk, HTN, HLD, DM, CVA (with residual left sided weakness), ESRD on HD (Mon/ /Mon) secondary to diabetic nephropathy and BPH, who BIBEMS due to witnessed syncopal episode. Patient describes this episode as identical to the others. As usual, he felt dizzy and nauseous while standing in the heat, his vision started going dark, at which point, anticipating syncope, he sat down on a bench and syncopized, without fall or trauma. He woke up shortly after, having vomited NBNB emesis. He felt at his baseline after, with resolution of symptoms. EMS reports wnl vitals and glucose. Patient denies chest pain, palpitations, orthopnea, sob, cough, f.c, weight change, edema, diarrhea, constipation, melena, hematochezia. His last HD session was yesterday, at which time the usual amount of fluid was removed. 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 On midodrine since prior to 2016 admission ) Renal/: Yes: Renal Failure (HD for 3 1/2 yrs), BPH Heme/Onc: Yes: Anemia (as in HPI) Endocrine: Yes: Diabetes Mellitus (hx of hypoglycemia episodes w/near syncope) - Past Surgical History Past Surgical History: Yes: AV Fistula/Graft - Smoking History Smoking history: Never smoked Have you smoked in the past 12 months: No Aproximately how many cigarettes per day: 0 If you are a former smoker, when did you quit?: > 25 ya - Alcohol/Substance Use Hx Alcohol Use: No History of Substance Use: reports: None - Social History History of Recent Travel: No Home Medications - Allergies Allergies/Adverse Reactions: Allergies Allergy/AdvReac Type Severity Reaction Status Date / Time No Known Allergies Allergy Verified 04/07/17 14:39 - Home Medications Home Medications: Ambulatory Orders Atorvastatin Ca [Lipitor] 40 mg PO HS 06/06/15 Sevelamer Carbonate [Renvela -] 800 mg PO TID 06/06/15 Gabapentin 300 mg PO DAILY 11/19/15 Ramipril [Altace] 5 mg PO DAILY #30 capsule 03/19/16 Duloxetine HCl 30 mg PO DAILY 04/16/16 Meclizine HCl [Antivert -] 12.5 mg PO DAILY 04/16/16 Amlodipine Besylate [Norvasc -] 10 mg PO DAILY #30 tablet 04/19/16 Hydralazine HCl [Apresoline -] 50 mg PO BID #60 tablet 04/19/16 Metoprolol Succinate [Toprol XL -] 50 mg PO DAILY #30 tab.sr.24h 04/19/16 Amiodarone HCl [Cordarone -] 200 mg PO BID #60 tablet 02/07/17 Apixaban [Eliquis -] 5 mg PO BID #60 tablet 02/07/17 Family Disease History - Family Disease History Family Disease History: Heart Disease: Father, Mother Review of Systems - Review of Systems Cardiovascular: denies: Chest Pain, Edema Respiratory: denies: SOB, SOB on Exertion Gastrointestinal: denies: Abdominal Pain Neurological: reports: Change in LOC, Weakness, Other (syncope). denies: Confusion Physical Examination Vital Signs: Vital Signs Temperature 97.7 F 04/08/17 02:00 Pulse Rate 67 04/08/17 06:00 Respiratory Rate 20 04/08/17 06:00 Blood Pressure 147/88 04/08/17 06:00 O2 Sat by Pulse Oximetry (%) 98 04/07/17 21:20 Cardiovascular: Yes: Murmur, S1, S2 Respiratory: Yes: Regular, CTA Bilaterally Gastrointestinal: Yes: Normal Bowel Sounds, Soft Edema: No Neurological: Yes: Alert, Oriented. No: Facial Droop Imaging - Results Cat Scan: Report Reviewed Problem List - Problems (1) Syncope Assessment/Plan: CARDIAC MONITORING EKG FOLLOW LABS CARDIO--??EP STYUDY Code(s): R55 - SYNCOPE AND COLLAPSE Qualifiers: (2) Atrial fibrillation Assessment/Plan: RATE CONTROLLED Orders 04/07/17 22:00 Amiodarone HCl [Cordarone -] 200 mg PO BID Apixaban [Eliquis -] 5 mg PO BID Code(s): I48.91 - UNSPECIFIED ATRIAL FIBRILLATION Qualifiers: Atrial fibrillation type: paroxysmal Qualified Code(s): I48.0 - Paroxysmal atrial fibrillation (3) CAD (coronary artery disease) Assessment/Plan: STABLE NO CP CE MILDLY ELEVATED--?RENAL DS Troponin, BNP 04/07/17 04/07/17 14:31 16:17 Troponin I 0.14 H D 0.14 H Code(s): I25.10 - ATHSCL HEART DISEASE OF [place] CORONARY ARTERY W/O ANG PCTRS (4) Diabetes 1.5, managed as type 2 Assessment/Plan: BGM Code(s): E13.9 - OTHER SPECIFIED DIABETES MELLITUS WITHOUT COMPLICATIONS (5) End stage renal disease Assessment/Plan: RENAL CONSULT DIALYSIS Code(s): N18.6 - END STAGE RENAL DISEASE
[2017-04-08] MEDS: RAMIPRIL 5 MG CAPSULE (FP) PO SCH (09:40)
[2017-04-08] MEDS: SEVELAMER CARBONATE 800 MG TAB (FP) PO SCH ×3 (09:40→17:28)
[2017-04-08] MEDS: MECLIZINE HCL 12.5 MG TABLET PO SCH (09:40)
[2017-04-08] MEDS: hydrALAZINE HCL 50 MG TABLET (FP) PO SCH ×2 (09:41→21:47)
[2017-04-08] MEDS: GABAPENTIN 300 MG CAPSULE (FP) PO SCH (09:41)
[2017-04-08] MEDS: DULoxetine HCL 30 MG CAPSULE.DR (FP) PO SCH (09:41)
[2017-04-08] MEDS: amLODIPine BESYLATE 10 MG TABLET (FP) PO SCH (09:41)
[2017-04-08] MEDS: APIXABAN 5 MG TABLET PO SCH ×2 (09:41→21:47)
[2017-04-08] MEDS: AMIODARONE HCL 200 MG TABLET (FP) PO SCH ×2 (09:41→21:47)
[2017-04-08] MEDS: METOPROLOL SUCCINATE 50 MG TAB.SR.24H (FP) PO SCH (09:41)
--- NOTE | 2017-04-08 10:39 | CONSULT ---
Consult Consult Specialty:: Nephrology ( Drs. Shah/ Daniel) Referred by:: Dr. Crawford Reason for Consultation:: Patient has ESRd, on HD TTS at [facility], [address] [place] [address] - History of Present Illness Chief Complaint: Patient was walking on the squire, when he suddenly blacked out. No preceding chest pain, palpitation, head ache, abd pain. [place] very weak and he passed out. Last HD was on , uneventful. 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 He has also h/o of orthostatic syncope, a fib not on a/c due to fall risk, HTN, HLD, DM, CVA (with residual left sided weakness), BPH. 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 On midodrine since prior to 2016 admission ) Renal/: Yes: Renal Failure (HD for 3 1/2 yrs), BPH Endocrine: Yes: Diabetes Mellitus (hx of hypoglycemia episodes w/near syncope) - Past Surgical History Past Surgical History: Yes: AV Fistula/Graft - Alcohol/Substance Use Hx Alcohol Use: No History of Substance Use: reports: None - Smoking History Smoking history: Never smoked Have you smoked in the past 12 months: No Aproximately how many cigarettes per day: 0 If you are a former smoker, when did you quit?: > 25 ya - Social History Usual Living Arrangement: With Spouse History of Recent Travel: No Home Medications - Allergies Allergies/Adverse Reactions: Allergies Allergy/AdvReac Type Severity Reaction Status Date / Time No Known Allergies Allergy Verified 04/07/17 14:39 - Home Medications Home Medications: Ambulatory Orders Atorvastatin Ca [Lipitor] 40 mg PO HS 06/06/15 Sevelamer Carbonate [Renvela -] 800 mg PO TID 06/06/15 Gabapentin 300 mg PO DAILY 11/19/15 Ramipril [Altace] 5 mg PO DAILY #30 capsule 03/19/16 Duloxetine HCl 30 mg PO DAILY 04/16/16 Meclizine HCl [Antivert -] 12.5 mg PO DAILY 04/16/16 Amlodipine Besylate [Norvasc -] 10 mg PO DAILY #30 tablet 04/19/16 Hydralazine HCl [Apresoline -] 50 mg PO BID #60 tablet 04/19/16 Metoprolol Succinate [Toprol XL -] 50 mg PO DAILY #30 tab.sr.24h 04/19/16 Amiodarone HCl [Cordarone -] 200 mg PO BID #60 tablet 02/07/17 Apixaban [Eliquis -] 5 mg PO BID #60 tablet 02/07/17 Family Disease History - Family Disease History Family Disease History: Heart Disease: Father, Mother Review of Systems - Review of Systems Constitutional: reports: Weakness Eyes: denies: Blurred Vision HENT: reports: No Symptoms Neck: reports: No Symptoms Respiratory: denies: Cough, SOB Gastrointestinal: denies: Abdominal Pain Genitourinary: denies: Testicular Pain, Testicular Swelling Musculoskeletal: denies: Back Pain Hematology/Lymphatic: reports: No Symptoms Physical Exam Vital Signs: Vital Signs Temperature 97.7 F 04/08/17 02:00 Pulse Rate 67 04/08/17 06:00 Respiratory Rate 20 04/08/17 06:00 Blood Pressure 147/88 04/08/17 06:00 O2 Sat by Pulse Oximetry (%) 98 04/07/17 21:20
--- NOTE | 2017-04-08 11:15 | EKG ---
Test Reason : Blood Pressure : / mmHG Vent. Rate : 072 BPM Atrial Rate : 072 BPM P-R Int : 244 ms QRS Dur : 100 ms QT Int : 454 ms P-R-T Axes : 045 -03 048 degrees QTc Int : 497 ms SINUS RHYTHM WITH 1ST DEGREE A-V BLOCK MINIMAL VOLTAGE CRITERIA FOR LVH, MAY BE NORMAL VARIANT PROLONGED QT ABNORMAL ECG WHEN COMPARED WITH ECG OF 02-FEB-2017 23:38, SINUS RHYTHM HAS REPLACED ATRIAL FIBRILLATION VENT. RATE HAS DECREASED BY 57 BPM NONSPECIFIC T WAVE ABNORMALITY NO LONGER EVIDENT IN INFERIOR LEADS Confirmed by HAYLIE GARCIA MD ([id number]) on 04/08/2017 11:15:30 AM Referred By: Confirmed By:HAYLIE GARCIA MD
--- NOTE | 2017-04-08 11:45 | PN ---
Progress Note, Physician History of Present Illness: 04/07/17 15:32 This is a 77 year old male, with PMH of orthostatic syncope, a fib not on a/c due to fall risk, HTN, HLD, DM, CVA (with residual left sided weakness), ESRD on HD (Mon//Mon) secondary to diabetic nephropathy and BPH, who BIBEMS due to witnessed syncopal episode 45 min ago. Patient describes this episode as identical to the others. As usual, he felt dizzy and nauseous while standing in the heat, his vision started going dark, at which point, anticipating syncope, he sat down on a bench and syncopized, without fall or trauma. He woke up shortly after, having vomited NBNB emesis. He felt at his baseline after, with resolution of symptoms. EMS reports wnl vitals and glucose. Patient denies chest pain, palpitations, orthopnea, sob, cough, f.c, weight change, edema, diarrhea, constipation, melena, hematochezia. His last HD session was yesterday , at which time the usual amount of fluid was removed. - Current Medication List Current Medications: Active Medications Amiodarone HCl (Cordarone -) 200 mg PO BID [facility] Last Admin: 04/08/17 09:41 Dose: Not Given Amlodipine Besylate (Norvasc -) 10 mg PO DAILY [facility] Last Admin: 04/08/17 09:41 Dose: Not Given Apixaban (Eliquis -) 5 mg PO BID [facility] Last Admin: 04/08/17 09:41 Dose: Not Given Atorvastatin Calcium (Lipitor -) 40 mg PO HS [facility] Last Admin: 04/07/17 23:22 Dose: 40 mg Duloxetine HCl (Cymbalta -) 30 mg PO DAILY [facility] Last Admin: 04/08/17 09:41 Dose: Not Given Epoetin Silverio (Procrit -) 10,000 unit IVPUSH ONCE ONE Stop: 04/08/17 10:39 Gabapentin (Neurontin -) 300 mg PO DAILY [facility] Last Admin: 04/08/17 09:41 Dose: Not Given Hydralazine HCl (Apresoline -) 50 mg PO BID [facility] Last Admin: 04/08/17 09:41 Dose: Not Given Meclizine HCl (Antivert -) 12.5 mg PO DAILY [facility] Last Admin: 04/08/17 09:40 Dose: Not Given Metoprolol Succinate (Toprol Xl -) 50 mg PO DAILY [facility] Last Admin: 04/08/17 09:41 Dose: Not Given Ramipril (Altace -) 5 mg PO DAILY [facility] Last Admin: 04/08/17 09:40 Dose: Not Given Sevelamer Carbonate (Renvela -) 800 mg PO TIDCM [facility] Last Admin: 04/08/17 11:36 Dose: Not Given - Objective Vital Signs: Vital Signs Temperature 97.7 F 04/08/17 02:00 Pulse Rate 67 04/08/17 06:00 Respiratory Rate 20 04/08/17 06:00 Blood Pressure 147/88 04/08/17 06:00 O2 Sat by Pulse Oximetry (%) 98 04/07/17 21:20 Eyes: Yes: WNL, Conjunctiva Clear, EOM Intact HENT: Yes: WNL, Atraumatic, Normocephalic Neck: Yes: WNL, Supple, Trachea Midline Cardiovascular: Yes: WNL, Regular Rate and Rhythm Respiratory: Yes: WNL, Regular, CTA Bilaterally Gastrointestinal: Yes: WNL, Normal Bowel Sounds Genitourinary: Yes: WNL Musculoskeletal: Yes: WNL Extremities: Yes: WNL Edema: No Integumentary: Yes: WNL Neurological: Yes: WNL, Alert, Oriented ...Motor Strength: WNL Psychiatric: Yes: WNL Problem List - Problems (1) Syncope Code(s): R55 - SYNCOPE AND COLLAPSE Qualifiers: (2) Accidental fall Code(s): W19.XXXA - UNSPECIFIED FALL, INITIAL ENCOUNTER (3) Acute congestive heart failure Code(s): I50.9 - HEART FAILURE, UNSPECIFIED Qualifiers: Congestive heart failure type: diastolic Qualified Code(s): I50.31 - Acute diastolic (congestive) heart failure (4) Anemia Code(s): D64.9 - ANEMIA, UNSPECIFIED (5) Atrial fibrillation Code(s): I48.91 - UNSPECIFIED ATRIAL FIBRILLATION Qualifiers: Atrial fibrillation type: paroxysmal Qualified Code(s): I48.0 - Paroxysmal atrial fibrillation (6) Atypical chest pain Code(s): R07.89 - OTHER CHEST PAIN (7) BPH (benign prostatic hyperplasia) Code(s): N40.0 - BENIGN PROSTATIC HYPERPLASIA WITHOUT LOWER URINRY TRACT SYMP (8) C1 cervical fracture Code(s): S12.000A - UNSP DISP FX OF FIRST CERVICAL VERTEBRA, INIT FOR CLOS FX (9) CAD (coronary artery disease) Code(s): I25.10 - ATHSCL HEART DISEASE OF [place] CORONARY ARTERY W/O ANG PCTRS (10) Chest pain Code(s): R07.9 - CHEST PAIN, UNSPECIFIED (11) Chest wall contusion Code(s): S20.219A - CONTUSION OF UNSPECIFIED FRONT WALL OF THORAX, INIT ENCNTR (12) Cough Code(s): R05 - COUGH (13) Diabetes Code(s): E11.9 - TYPE 2 DIABETES MELLITUS WITHOUT COMPLICATIONS (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, managed as type 1 Code(s): E13.9 - OTHER SPECIFIED DIABETES MELLITUS WITHOUT COMPLICATIONS (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, managed as type 2 Code(s): E13.9 - OTHER SPECIFIED DIABETES MELLITUS WITHOUT COMPLICATIONS (16) Diabetes mellitus, insulin dependent (IDDM), controlled Code(s): E11.9 - TYPE 2 DIABETES MELLITUS WITHOUT COMPLICATIONS 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 (17) Dizziness Code(s): R42 - DIZZINESS AND GIDDINESS (18) End stage renal disease Code(s): N18.6 - END STAGE RENAL DISEASE (19) Facial injury Code(s): S09.93XA - UNSPECIFIED INJURY OF FACE, INITIAL ENCOUNTER (20) Fall Code(s): W19.XXXA - UNSPECIFIED FALL, INITIAL ENCOUNTER (21) H/O: CVA (cerebrovascular accident) Code(s): Z86.73 - PRSNL HX OF TIA (TIA), AND CEREB INFRC W/O RESID DEFICITS (22) HLD (hyperlipidemia) Code(s): E78.5 - HYPERLIPIDEMIA, UNSPECIFIED (23) HTN (hypertension) Code(s): I10 - ESSENTIAL (PRIMARY) HYPERTENSION (24) Hemoptysis Code(s): R04.2 - HEMOPTYSIS (25) Leg pain Code(s): M79.606 - PAIN IN LEG, UNSPECIFIED (26) Lightheaded Code(s): R42 - DIZZINESS AND GIDDINESS (27) Lip laceration Code(s): S01.511A - LACERATION WITHOUT FOREIGN BODY OF LIP, INITIAL ENCOUNTER (28) NSTEMI (non-ST elevated myocardial infarction) Code(s): I21.4 - NON-ST ELEVATION (NSTEMI) MYOCARDIAL INFARCTION (29) Neck pain Code(s): M54.2 - CERVICALGIA (30) Obesity Code(s): E66.9 - OBESITY, UNSPECIFIED (31) Pre-syncope Code(s): R55 - SYNCOPE AND COLLAPSE (32) Renal osteodystrophy Code(s): N25.0 - RENAL OSTEODYSTROPHY (33) Shortness of breath Code(s): R06.02 - SHORTNESS OF BREATH (34) Troponin I above reference range Code(s): R74.8 - ABNORMAL LEVELS OF OTHER SERUM ENZYMES (35) Type 2 diabetes mellitus with other diabetic kidney complication Code(s): E11.29 - TYPE 2 DIABETES MELLITUS W OTH DIABETIC KIDNEY COMPLICATION (36) Volume overload Code(s): E87.70 - FLUID OVERLOAD, UNSPECIFIED (37) Weakness Code(s): R53.1 - WEAKNESS Assessment/Plan syncope esrd nonstemi af on amiodarone no ac due to falls cva Aortic Insufficiency, CHF, HTN, Hyperlipdemia, Mitral Insufficiency, Other (orthostatic hypotension -> admissions here with near-syncope in 2014 and ealry 2016. On midodrine since prior to 2016 admission ) (HD for 3 1/2 yrs), BPH plan telemetry cont med rx MIBI stress test to risk stratify (unless done recently elsewhere)
--- NOTE | 2017-04-08 14:55 | EKG ---
Test Reason : Blood Pressure : / mmHG Vent. Rate : 066 BPM Atrial Rate : 066 BPM P-R Int : 286 ms QRS Dur : 098 ms QT Int : 466 ms P-R-T Axes : 051 -12 034 degrees QTc Int : 488 ms SINUS RHYTHM WITH 1ST DEGREE A-V BLOCK MINIMAL VOLTAGE CRITERIA FOR LVH, MAY BE NORMAL VARIANT PROLONGED QT ABNORMAL ECG WHEN COMPARED WITH ECG OF 07-APR-2017 15:00, NO SIGNIFICANT CHANGE WAS FOUND Confirmed by HAYLIE GARCIA MD ([id number]) on 04/08/2017 2:55:24 PM Referred By: Anne Marie WILLOUGHBY Confirmed By:HAYLIE GARCIA MD
[2017-04-08] MEDS ORDERED: EPOETIN ALFA 10,000 UNIT/1 ML VIAL IVPUSH ONE (16:45)
[2017-04-08 16:57] LABS: BASOPHIL 0.9 % (0-2.0); EOSINOPHIL 4.1 % (0-4.5); MCH 29.5 pg (25.7-33.7); MCHC 31.7 g/dl (32.0-35.9); NEUTROPHILS 61.4 % (42.8-82.8); PLATELET COUNT 130 K/MM3 (134-434); RDW 17.3 % (11.9-15.9); WHITE BLOOD COUNT 5.9 K/mm3 (4.0-10.0)
[2017-04-08 17:09] LABS: ALBUMIN 3.2 g/dl (3.4-5.0); ANION GAP 13 (8-16); BILIRUBIN,TOTAL 0.4 mg/dL (0.2-1.0); CALCIUM 7.6 mg/dL (8.5-10.1); CO2 28 mmol/L (21-32); GLUCOSE,RANDOM 114 mg/dL (74-106); SGOT/AST 11 U/L (15-37); SGPT/ALT 12 U/L (12-78); TOT PROT 7.3 g/dl (6.4-8.2)
[2017-04-08 17:15] LABS: ALK PHOS 63 U/L (45-117); TROPONIN I 0.14 ng/ml (0.00-0.05)
[2017-04-08 17:16] LABS: CREATININE 9.7 mg/dL (0.7-1.3)
[2017-04-08 21:10] LABS: CREATININE 3.3 mg/dL (0.7-1.3)
[2017-04-08] MEDS: ATORVASTATIN CA 40 MG TABLET (FP) PO SCH (21:47)
--- NOTE | 2017-04-09 09:11 | PN ---
Progress Note, Physician History of Present Illness: no cp or sob no dizziness - Current Medication List Current Medications: Active Medications Amiodarone HCl (Cordarone -) 200 mg PO BID [facility] Last Admin: 04/08/17 21:47 Dose: 200 mg Amlodipine Besylate (Norvasc -) 10 mg PO DAILY [facility] Last Admin: 04/08/17 09:41 Dose: Not Given Apixaban (Eliquis -) 5 mg PO BID [facility] Last Admin: 04/08/17 21:47 Dose: 5 mg Atorvastatin Calcium (Lipitor -) 40 mg PO HS [facility] Last Admin: 04/08/17 21:47 Dose: 40 mg Duloxetine HCl (Cymbalta -) 30 mg PO DAILY [facility] Last Admin: 04/08/17 09:41 Dose: Not Given Gabapentin (Neurontin -) 300 mg PO DAILY [facility] Last Admin: 04/08/17 09:41 Dose: Not Given Hydralazine HCl (Apresoline -) 50 mg PO BID [facility] Last Admin: 04/08/17 21:47 Dose: 50 mg Meclizine HCl (Antivert -) 12.5 mg PO DAILY [facility] Last Admin: 04/08/17 09:40 Dose: Not Given Metoprolol Succinate (Toprol Xl -) 50 mg PO DAILY [facility] Last Admin: 04/08/17 09:41 Dose: Not Given Ramipril (Altace -) 5 mg PO DAILY [facility] Last Admin: 04/08/17 09:40 Dose: Not Given Sevelamer Carbonate (Renvela -) 800 mg PO TIDCM [facility] Last Admin: 04/08/17 17:28 Dose: Not Given - Objective Vital Signs: Vital Signs Temperature 98.6 F 04/09/17 06:00 Pulse Rate 73 04/09/17 06:00 Respiratory Rate 20 04/09/17 06:00 Blood Pressure 141/77 04/09/17 06:00 O2 Sat by Pulse Oximetry (%) 98 04/08/17 21:00 Cardiovascular: Yes: Regular Rate and Rhythm Respiratory: Yes: Regular, CTA Bilaterally Gastrointestinal: Yes: Normal Bowel Sounds, Soft Labs: CBC, BMP 04/08/17 16:00 04/08/17 19:50 Problem List - Problems (1) Syncope Assessment/Plan: CARDIAC MONITORING EKG FOLLOW LABS CARDIO--??EP STYUDY STRESS TEST Code(s): R55 - SYNCOPE AND COLLAPSE Qualifiers: (2) Atrial fibrillation Assessment/Plan: RATE CONTROLLED Orders 04/07/17 22:00 Amiodarone HCl [Cordarone -] 200 mg PO BID Apixaban [Eliquis -] 5 mg PO BID Code(s): I48.91 - UNSPECIFIED ATRIAL FIBRILLATION Qualifiers: Atrial fibrillation type: paroxysmal Qualified Code(s): I48.0 - Paroxysmal atrial fibrillation (3) CAD (coronary artery disease) Assessment/Plan: STABLE NO CP CE MILDLY ELEVATED--?RENAL DS Troponin, BNP 04/08/17 16:00 Troponin I 0.14 H Code(s): I25.10 - ATHSCL HEART DISEASE OF [place] CORONARY ARTERY W/O ANG PCTRS (4) Diabetes 1.5, managed as type 2 Assessment/Plan: BGM Code(s): E13.9 - OTHER SPECIFIED DIABETES MELLITUS WITHOUT COMPLICATIONS (5) End stage renal disease Assessment/Plan: RENAL CONSULT DIALYSIS Code(s): N18.6 - END STAGE RENAL DISEASE
[2017-04-09] MEDS: DULoxetine HCL 30 MG CAPSULE.DR (FP) PO SCH (09:37)
[2017-04-09] MEDS: APIXABAN 5 MG TABLET PO SCH ×2 (09:37→22:20)
[2017-04-09] MEDS: amLODIPine BESYLATE 10 MG TABLET (FP) PO SCH (09:37)
[2017-04-09] MEDS: RAMIPRIL 5 MG CAPSULE (FP) PO SCH (09:38)
[2017-04-09] MEDS: MECLIZINE HCL 12.5 MG TABLET PO SCH (09:38)
[2017-04-09] MEDS: AMIODARONE HCL 200 MG TABLET (FP) PO SCH ×2 (09:38→22:21)
[2017-04-09] MEDS: METOPROLOL SUCCINATE 50 MG TAB.SR.24H (FP) PO SCH (09:38)
[2017-04-09] MEDS: SEVELAMER CARBONATE 800 MG TAB (FP) PO SCH ×2 (09:38→13:18)
[2017-04-09] MEDS: hydrALAZINE HCL 50 MG TABLET (FP) PO SCH ×2 (09:38→22:21)
[2017-04-09] MEDS: GABAPENTIN 300 MG CAPSULE (FP) PO SCH (09:38)
--- NOTE | 2017-04-09 13:53 | PN ---
Progress Note, Physician Chief Complaint: No complaints today No dizziness or recurrent near syncope History of Present Illness: 77 year old male, with PMH of orthostatic syncope, a fib not on a/c due to fall risk, HTN, HLD, DM, CVA (with residual left sided weakness), ESRD on HD (Mon/ /Mon) secondary to diabetic nephropathy and BPH, who BIBEMS due to witnessed syncopal episode. Patient describes this episode as identical to the others. As usual, he felt dizzy and nauseous while standing in the heat, his vision started going dark, at which point, anticipating syncope, he sat down on a bench and syncopized, without fall or trauma. He woke up shortly after, having vomited NBNB emesis. He felt at his baseline after, with resolution of symptoms. EMS reports wnl vitals and glucose. Patient denies chest pain, palpitations, orthopnea, sob, cough, f.c, weight change, edema, diarrhea, constipation, melena, hematochezia. - Current Medication List Current Medications: Active Medications Amiodarone HCl (Cordarone -) 200 mg PO BID [facility] Last Admin: 04/09/17 09:38 Dose: 200 mg Amlodipine Besylate (Norvasc -) 10 mg PO DAILY [facility] Last Admin: 04/09/17 09:37 Dose: 10 mg Apixaban (Eliquis -) 5 mg PO BID [facility] Last Admin: 04/09/17 09:37 Dose: 5 mg Atorvastatin Calcium (Lipitor -) 40 mg PO HS [facility] Last Admin: 04/08/17 21:47 Dose: 40 mg Duloxetine HCl (Cymbalta -) 30 mg PO DAILY [facility] Last Admin: 04/09/17 09:37 Dose: 30 mg Gabapentin (Neurontin -) 300 mg PO DAILY [facility] Last Admin: 04/09/17 09:38 Dose: 300 mg Hydralazine HCl (Apresoline -) 50 mg PO BID [facility] Last Admin: 04/09/17 09:38 Dose: 50 mg Meclizine HCl (Antivert -) 12.5 mg PO DAILY [facility] Last Admin: 04/09/17 09:38 Dose: 12.5 mg Metoprolol Succinate (Toprol Xl -) 50 mg PO DAILY [facility] Last Admin: 04/09/17 09:38 Dose: 50 mg Ramipril (Altace -) 5 mg PO DAILY [facility] Last Admin: 04/09/17 09:38 Dose: 5 mg Sevelamer Carbonate (Renvela -) 800 mg PO TIDCM [facility] Last Admin: 04/09/17 13:18 Dose: 800 mg - Objective Vital Signs: Vital Signs Temperature 98.8 F 04/09/17 10:00 Pulse Rate 72 04/09/17 10:00 Respiratory Rate 20 04/09/17 10:00 Blood Pressure 155/86 04/09/17 10:00 O2 Sat by Pulse Oximetry (%) 99 04/09/17 10:00 Constitutional: Yes: No Distress Neck: Yes: Supple Cardiovascular: Yes: Regular Rate and Rhythm. No: JVD, Murmur Respiratory: Yes: CTA Bilaterally Gastrointestinal: Yes: Normal Bowel Sounds, Soft Edema: No Labs: CBC, BMP 04/08/17 16:00 04/08/17 19:50 Assessment/Plan 77 year old male, with PMH of orthostatic syncope, a fib not on a/c due to fall risk, HTN, HLD, DM, CVA (with residual left sided weakness), ESRD on HD (Mon/ /Mon) secondary to diabetic nephropathy and BPH, who BIBEMS due to witnessed syncopal episode. Patient describes this episode as identical to the others. As usual, he felt dizzy and nauseous while standing in the heat, his vision started going dark, at which point, anticipating syncope, he sat down on a bench and syncopized, without fall or trauma. He woke up shortly after, having vomited NBNB emesis. He felt at his baseline after, with resolution of symptoms. EMS reports wnl vitals and glucose. Patient denies chest pain, palpitations, orthopnea, sob, cough, f.c, weight change, edema, diarrhea, constipation, melena, hematochezia. His last HD session was yesterday, at which time the usual amount of fluid was removed. 1) Syncope Symptoms are likely related to volume status. -Patient is planned for a nuclear stress test tomorrow -BP control on current regimen -EKG with 1 avblock otherwise no acute changes -Telemetry sinus and unremarkable with no events. Will continue amiodarone. - Consider outpt event monitor
--- NOTE | 2017-04-09 17:04 | PN ---
Progress Note, Physician Chief Complaint: The patient admitted with acute syncope. W/u in progress. 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 He has also h/o of orthostatic syncope, a fib not on a/c due to fall risk, HTN, HLD, DM, CVA (with residual left sided weakness), BPH. - Current Medication List Current Medications: Active Medications Amiodarone HCl (Cordarone -) 200 mg PO BID [facility] Last Admin: 04/09/17 09:38 Dose: 200 mg Amlodipine Besylate (Norvasc -) 10 mg PO DAILY [facility] Last Admin: 04/09/17 09:37 Dose: 10 mg Apixaban (Eliquis -) 5 mg PO BID [facility] Last Admin: 04/09/17 09:37 Dose: 5 mg Atorvastatin Calcium (Lipitor -) 40 mg PO HS [facility] Last Admin: 04/08/17 21:47 Dose: 40 mg Duloxetine HCl (Cymbalta -) 30 mg PO DAILY [facility] Last Admin: 04/09/17 09:37 Dose: 30 mg Gabapentin (Neurontin -) 300 mg PO DAILY [facility] Last Admin: 04/09/17 09:38 Dose: 300 mg Hydralazine HCl (Apresoline -) 50 mg PO BID [facility] Last Admin: 04/09/17 09:38 Dose: 50 mg Meclizine HCl (Antivert -) 12.5 mg PO DAILY [facility] Last Admin: 04/09/17 09:38 Dose: 12.5 mg Metoprolol Succinate (Toprol Xl -) 50 mg PO DAILY [facility] Last Admin: 04/09/17 09:38 Dose: 50 mg Ramipril (Altace -) 5 mg PO DAILY [facility] Last Admin: 04/09/17 09:38 Dose: 5 mg Sevelamer Carbonate (Renvela -) 800 mg PO TIDCM [facility] Last Admin: 04/09/17 13:18 Dose: 800 mg - Objective Vital Signs: Vital Signs Temperature 98.7 F 04/09/17 13:58 Pulse Rate 65 04/09/17 13:58 Respiratory Rate 20 04/09/17 13:58 Blood Pressure 136/71 04/09/17 13:58 O2 Sat by Pulse Oximetry (%) 99 04/09/17 10:00 Constitutional: Yes: Well Nourished, No Distress, Calm Eyes: Yes: Conjunctiva Clear Cardiovascular: Yes: Regular Rate and Rhythm, S1, S2 Respiratory: Yes: Regular, CTA Bilaterally. No: Rales, Rhonchi Gastrointestinal: Yes: Normal Bowel Sounds, Abdomen, Obese Genitourinary: No: CVA Tenderness - Left, CVA Tenderness - Right Musculoskeletal: No: Back Pain, Joint Stiffness Labs: CBC, BMP 04/08/17 16:00 04/08/17 19:50 Problem List - Problems (1) Syncope Code(s): R55 - SYNCOPE AND COLLAPSE Qualifiers: (2) Accidental fall Code(s): W19.XXXA - UNSPECIFIED FALL, INITIAL ENCOUNTER (3) Anemia Code(s): D64.9 - ANEMIA, UNSPECIFIED (4) Atrial fibrillation Code(s): I48.91 - UNSPECIFIED ATRIAL FIBRILLATION Qualifiers: Atrial fibrillation type: paroxysmal Qualified Code(s): I48.0 - Paroxysmal atrial fibrillation (5) BPH (benign prostatic hyperplasia) Code(s): N40.0 - BENIGN PROSTATIC HYPERPLASIA WITHOUT LOWER URINRY TRACT SYMP (6) CAD (coronary artery disease) Code(s): I25.10 - ATHSCL HEART DISEASE OF [place] CORONARY ARTERY W/O ANG PCTRS (7) Diabetes Code(s): E11.9 - TYPE 2 DIABETES MELLITUS WITHOUT COMPLICATIONS (8) Dizziness Code(s): R42 - DIZZINESS AND GIDDINESS (9) End stage renal disease Code(s): N18.6 - END STAGE RENAL DISEASE (10) HLD (hyperlipidemia) Code(s): E78.5 - HYPERLIPIDEMIA, UNSPECIFIED (11) HTN (hypertension) Code(s): I10 - ESSENTIAL (PRIMARY) HYPERTENSION (12) Lightheaded Code(s): R42 - DIZZINESS AND GIDDINESS (13) Shortness of breath Code(s): R06.02 - SHORTNESS OF BREATH (14) Type 2 diabetes mellitus with other diabetic kidney complication Code(s): E11.29 - TYPE 2 DIABETES MELLITUS W OTH DIABETIC KIDNEY COMPLICATION (15) Weakness Code(s): R53.1 - WEAKNESS Assessment/Plan This is a 77 y/o male with ESRD, admitted with Syncope. Has h/o similar episodes in the past. Denies any chest pain, or Shortness of breath. Had unevetful HD yesterday. Next HD scheduled for tomorrow. Cardiac w/u in progress. PLAN: HD as ordered. Concur with the current w/u. Cardiac w/u in progress. For Nuclear Stress test. Will follow with you. Leeann Shah
[2017-04-09] MEDS: ATORVASTATIN CA 40 MG TABLET (FP) PO SCH (22:20)
--- NOTE | 2017-04-09 23:01 | CONSULT ---
Consult Consult Specialty:: endocrine Referred by:: dr.[email or web address] esquivel Reason for Consultation:: syncope - History of Present Illness Chief Complaint: passed out History of Present Illness: 77 year old male, with PMH of orthostatic syncope, a fib not on a/c due to fall risk, HTN, HLD, DM, CVA (with residual left sided weakness), ESRD on HD (Mon/ /Mon) secondary to diabetic nephropathy and BPH, who BIBEMS due to witnessed syncopal episode 45 min ago. Patient describes this episode as identical to the others. As usual, he felt dizzy and nauseous while standing outside,required help frome ems,denies hypoglycemia or seizures,or chest pain. 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 On midodrine since prior to 2016 admission ) Renal/: Yes: Renal Failure (HD for 3 1/2 yrs), BPH Endocrine: Yes: Diabetes Mellitus (hx of hypoglycemia episodes w/near syncope) - Past Surgical History Past Surgical History: Yes: AV Fistula/Graft - Alcohol/Substance Use Hx Alcohol Use: No History of Substance Use: reports: None - Smoking History Smoking history: Never smoked Have you smoked in the past 12 months: No Aproximately how many cigarettes per day: 0 If you are a former smoker, when did you quit?: > 25 ya - Social History Usual Living Arrangement: With Spouse History of Recent Travel: No Home Medications - Allergies Allergies/Adverse Reactions: Allergies Allergy/AdvReac Type Severity Reaction Status Date / Time No Known Allergies Allergy Verified 04/07/17 14:39 - Home Medications Home Medications: Ambulatory Orders Atorvastatin Ca [Lipitor] 40 mg PO HS 06/06/15 Sevelamer Carbonate [Renvela -] 800 mg PO TID 06/06/15 Gabapentin 300 mg PO DAILY 11/19/15 Ramipril [Altace] 5 mg PO DAILY #30 capsule 03/19/16 Duloxetine HCl 30 mg PO DAILY 04/16/16 Meclizine HCl [Antivert -] 12.5 mg PO DAILY 04/16/16 Amlodipine Besylate [Norvasc -] 10 mg PO DAILY #30 tablet 04/19/16 Hydralazine HCl [Apresoline -] 50 mg PO BID #60 tablet 04/19/16 Metoprolol Succinate [Toprol XL -] 50 mg PO DAILY #30 tab.sr.24h 04/19/16 Amiodarone HCl [Cordarone -] 200 mg PO BID #60 tablet 02/07/17 Apixaban [Eliquis -] 5 mg PO BID #60 tablet 02/07/17 Family Disease History - Family Disease History Family Disease History: Heart Disease: Father, Mother Review of Systems - Review of Systems Constitutional: reports: Lethargy, Weakness Eyes: reports: No Symptoms HENT: reports: No Symptoms Neck: reports: No Symptoms Cardiovascular: reports: Shortness of Breath Respiratory: reports: Exercise Intolerance, SOB on Exertion Gastrointestinal: reports: Constipation Genitourinary: reports: No Symptoms Musculoskeletal: reports: Muscle Pain, Muscle Cramps Integumentary: reports: No Symptoms Neurological: reports: Dizziness, Unsteady Gait, Weakness Endocrine: reports: No Symptoms Hematology/Lymphatic: reports: No Symptoms Physical Exam Vital Signs: Vital Signs Temperature 97.8 F 04/09/17 18:00 Pulse Rate 63 04/09/17 18:00 Respiratory Rate 20 04/09/17 18:00 Blood Pressure 134/71 04/09/17 18:00 O2 Sat by Pulse Oximetry (%) 99 04/09/17 10:00 Constitutional: Yes: Anxious Eyes: Yes: EOM Intact HENT: Yes: Normocephalic Neck: Yes: Trachea Midline Cardiovascular: Yes: Pulse Irregular, Murmur Respiratory: Yes: CTA Bilaterally Gastrointestinal: Yes: Normal Bowel Sounds ...Rectal Exam: Yes: Deferred Renal/: Yes: WNL Breast(s): Yes: WNL Musculoskeletal: Yes: Muscle Weakness Extremities: Yes: WNL Integumentary: Yes: WNL Neurological: Yes: Alert, Oriented Labs: CBC, BMP 04/08/17 16:00 04/08/17 19:50 Problem List - Problems (1) Syncope Code(s): R55 - SYNCOPE AND COLLAPSE Qualifiers: Syncope type: heat syncope (2) Accidental fall Code(s): W19.XXXA - UNSPECIFIED FALL, INITIAL ENCOUNTER Qualifiers: Encounter type: subsequent encounter (3) Atrial fibrillation Code(s): I48.91 - UNSPECIFIED ATRIAL FIBRILLATION Qualifiers: Atrial fibrillation type: paroxysmal Qualified Code(s): I48.0 - Paroxysmal atrial fibrillation (4) BPH (benign prostatic hyperplasia) Code(s): N40.0 - BENIGN PROSTATIC HYPERPLASIA WITHOUT LOWER URINRY TRACT SYMP Qualifiers: Lower urinary tract symptom presence: presence of symptoms unspecified Qualified Code(s): N40.0 - Benign prostatic hyperplasia without lower urinary tract symptoms Assessment/Plan Current Active Problems Current Active Problems Syncope (Acute) esrd hypertenision chf diabetes mellitus ashd hypovolemia cad vasovagal vs neuropathy Laboratory Results - last 24 hr 04/08/17 16:00 Hepatitis C Antibody Cancelled Laboratory Tests 04/08/17 04/08/17 04/08/17 16:00 16:00 19:50 WBC 5.9 RBC 3.60 L Hgb 10.6 L Hct 33.4 L MCV 93.0 RDW 17.3 H Sodium 136 Potassium 4.5 Chloride 95 L Carbon Dioxide 28 Anion Gap 13 BUN 43 H D 13 D Creat Clearance w eGFR 5.25 Selected Entries 04/09/17 04/09/17 04/09/17 06:00 10:00 13:58 Blood Pressure 141/77 155/86 136/71 04/09/17 18:00 Blood Pressure 134/71 plan: check orthostatic bp cortisol level am tsh free t4 hba1c
[2017-04-10] MEDS ORDERED: DIPYRIDAMOLE STRESS TEST 50 MG in DEXTROSE 5%-WATER - 40 ML IVPB ONE (10:45)
[2017-04-10] MEDS: SEVELAMER CARBONATE 800 MG TAB (FP) PO SCH ×2 (11:47→14:42)
--- NOTE | 2017-04-10 12:01 | PN ---
Progress Note, Physician Chief Complaint: The patient admitted with acute syncope. Feeling better. For Cardiac stress test. Essentially without any new complaints. 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 He has also h/o of orthostatic syncope, a fib not on a/c due to fall risk, HTN, HLD, DM, CVA (with residual left sided weakness), BPH. - Current Medication List Current Medications: Active Medications Amiodarone HCl (Cordarone -) 200 mg PO BID [facility] Last Admin: 04/09/17 22:21 Dose: 200 mg Amlodipine Besylate (Norvasc -) 10 mg PO DAILY [facility] Last Admin: 04/09/17 09:37 Dose: 10 mg Apixaban (Eliquis -) 5 mg PO BID [facility] Last Admin: 04/09/17 22:20 Dose: 5 mg Atorvastatin Calcium (Lipitor -) 40 mg PO HS [facility] Last Admin: 04/09/17 22:20 Dose: 40 mg Duloxetine HCl (Cymbalta -) 30 mg PO DAILY [facility] Last Admin: 04/09/17 09:37 Dose: 30 mg Gabapentin (Neurontin -) 300 mg PO DAILY [facility] Last Admin: 04/09/17 09:38 Dose: 300 mg Hydralazine HCl (Apresoline -) 50 mg PO BID [facility] Last Admin: 04/09/17 22:21 Dose: 50 mg Meclizine HCl (Antivert -) 12.5 mg PO DAILY [facility] Last Admin: 04/09/17 09:38 Dose: 12.5 mg Metoprolol Succinate (Toprol Xl -) 50 mg PO DAILY [facility] Last Admin: 04/09/17 09:38 Dose: 50 mg Ramipril (Altace -) 5 mg PO DAILY [facility] Last Admin: 04/09/17 09:38 Dose: 5 mg Sevelamer Carbonate (Renvela -) 800 mg PO TIDCM [facility] Last Admin: 04/10/17 11:47 Dose: Not Given - Objective Vital Signs: Vital Signs Temperature 98 F 04/10/17 08:00 Pulse Rate 58 L 04/10/17 08:00 Respiratory Rate 18 04/10/17 08:00 Blood Pressure 143/78 04/10/17 08:00 O2 Sat by Pulse Oximetry (%) 95 04/10/17 08:00 Constitutional: Yes: No Distress, Calm Eyes: Yes: Conjunctiva Clear HENT: Yes: Atraumatic Cardiovascular: Yes: S1, S2. No: Gallop Respiratory: Yes: Regular, CTA Bilaterally. No: Rales, Rhonchi Gastrointestinal: Yes: Normal Bowel Sounds, Soft Genitourinary: No: CVA Tenderness - Left, CVA Tenderness - Right Edema: No Labs: CBC, BMP 04/08/17 16:00 04/08/17 19:50 Problem List - Problems (1) Syncope Code(s): R55 - SYNCOPE AND COLLAPSE Qualifiers: Syncope type: heat syncope (2) Accidental fall Code(s): W19.XXXA - UNSPECIFIED FALL, INITIAL ENCOUNTER Qualifiers: Encounter type: subsequent encounter (3) Anemia Code(s): D64.9 - ANEMIA, UNSPECIFIED (4) Atrial fibrillation Code(s): I48.91 - UNSPECIFIED ATRIAL FIBRILLATION Qualifiers: Atrial fibrillation type: paroxysmal Qualified Code(s): I48.0 - Paroxysmal atrial fibrillation (5) BPH (benign prostatic hyperplasia) Code(s): N40.0 - BENIGN PROSTATIC HYPERPLASIA WITHOUT LOWER URINRY TRACT SYMP Qualifiers: Lower urinary tract symptom presence: presence of symptoms unspecified Qualified Code(s): N40.0 - Benign prostatic hyperplasia without lower urinary tract symptoms (6) CAD (coronary artery disease) Code(s): I25.10 - ATHSCL HEART DISEASE OF [place] CORONARY ARTERY W/O ANG PCTRS (7) Diabetes Code(s): E11.9 - TYPE 2 DIABETES MELLITUS WITHOUT COMPLICATIONS (8) Dizziness Code(s): R42 - DIZZINESS AND GIDDINESS (9) End stage renal disease Code(s): N18.6 - END STAGE RENAL DISEASE (10) HLD (hyperlipidemia) Code(s): E78.5 - HYPERLIPIDEMIA, UNSPECIFIED (11) HTN (hypertension) Code(s): I10 - ESSENTIAL (PRIMARY) HYPERTENSION (12) Lightheaded Code(s): R42 - DIZZINESS AND GIDDINESS (13) Shortness of breath Code(s): R06.02 - SHORTNESS OF BREATH (14) Type 2 diabetes mellitus with other diabetic kidney complication Code(s): E11.29 - TYPE 2 DIABETES MELLITUS W OTH DIABETIC KIDNEY COMPLICATION (15) Weakness Code(s): R53.1 - WEAKNESS Assessment/Plan This is a 77 y/o male with ESRD, admitted with Syncope. W/u in progress. Cardiac w/u in progress. PLAN: HD in AM. Concur with the current w/u. Cardiac w/u in progress. For Nuclear Stress test. Will follow with you. Leeann Shha
[2017-04-10] MEDS: hydrALAZINE HCL 50 MG TABLET (FP) PO SCH (14:42)
[2017-04-10] MEDS: MECLIZINE HCL 12.5 MG TABLET PO SCH (14:43)
[2017-04-10] MEDS: AMIODARONE HCL 200 MG TABLET (FP) PO SCH (14:43)
[2017-04-10] MEDS: amLODIPine BESYLATE 10 MG TABLET (FP) PO SCH (14:43)
[2017-04-10] MEDS: APIXABAN 5 MG TABLET PO SCH (14:43)
[2017-04-10] MEDS: METOPROLOL SUCCINATE 50 MG TAB.SR.24H (FP) PO SCH (14:43)
[2017-04-10] MEDS: DULoxetine HCL 30 MG CAPSULE.DR (FP) PO SCH (14:43)
[2017-04-10] MEDS: GABAPENTIN 300 MG CAPSULE (FP) PO SCH (14:43)
[2017-04-10] MEDS: RAMIPRIL 5 MG CAPSULE (FP) PO SCH (14:43)
--- NOTE | 2017-04-10 14:48 | PN ---
Progress Note, Physician Chief Complaint: no complaints History of Present Illness: 77 year old male, with PMH of orthostatic syncope, a fib not on a/c due to fall risk, HTN, HLD, DM, CVA (with residual left sided weakness), ESRD on HD (Mon/ /Mon) secondary to diabetic nephropathy and BPH, who BIBEMS due to witnessed syncopal episode. Patient describes this episode as identical to the others. As usual, he felt dizzy and nauseous while standing in the heat, his vision started going dark, at which point, anticipating syncope, he sat down on a bench and syncopized, without fall or trauma. He woke up shortly after, having vomited NBNB emesis. He felt at his baseline after, with resolution of symptoms. EMS reports wnl vitals and glucose. Patient denies chest pain, palpitations, orthopnea, sob, cough, f.c, weight change, edema, diarrhea, constipation, melena, hematochezia. - Current Medication List Current Medications: Active Medications Amiodarone HCl (Cordarone -) 200 mg PO BID [facility] Last Admin: 04/09/17 22:21 Dose: 200 mg Amlodipine Besylate (Norvasc -) 10 mg PO DAILY [facility] Last Admin: 04/09/17 09:37 Dose: 10 mg Apixaban (Eliquis -) 5 mg PO BID [facility] Last Admin: 04/09/17 22:20 Dose: 5 mg Atorvastatin Calcium (Lipitor -) 40 mg PO HS [facility] Last Admin: 04/09/17 22:20 Dose: 40 mg Duloxetine HCl (Cymbalta -) 30 mg PO DAILY [facility] Last Admin: 04/09/17 09:37 Dose: 30 mg Epoetin Silverio (Procrit -) 10,000 unit SQ ONCE ONE Stop: 04/11/17 12:03 Gabapentin (Neurontin -) 300 mg PO DAILY [facility] Last Admin: 04/09/17 09:38 Dose: 300 mg Hydralazine HCl (Apresoline -) 50 mg PO BID [facility] Last Admin: 04/09/17 22:21 Dose: 50 mg Meclizine HCl (Antivert -) 12.5 mg PO DAILY [facility] Last Admin: 04/09/17 09:38 Dose: 12.5 mg Metoprolol Succinate (Toprol Xl -) 50 mg PO DAILY [facility] Last Admin: 04/09/17 09:38 Dose: 50 mg Ramipril (Altace -) 5 mg PO DAILY [facility] Last Admin: 04/09/17 09:38 Dose: 5 mg Sevelamer Carbonate (Renvela -) 800 mg PO TIDCM [facility] Last Admin: 04/10/17 11:47 Dose: Not Given - Objective Vital Signs: Vital Signs Temperature 98 F 04/10/17 08:00 Pulse Rate 58 L 04/10/17 08:00 Respiratory Rate 18 04/10/17 08:00 Blood Pressure 143/78 04/10/17 08:00 O2 Sat by Pulse Oximetry (%) 95 04/10/17 08:00 Constitutional: Yes: Well Nourished, No Distress Eyes: Yes: Conjunctiva Clear, EOM Intact HENT: Yes: Atraumatic, Normocephalic Neck: Yes: Supple, Trachea Midline Cardiovascular: Yes: Regular Rate and Rhythm, Bradycardia Respiratory: Yes: Regular, CTA Bilaterally Gastrointestinal: Yes: Normal Bowel Sounds, Soft Musculoskeletal: Yes: WNL Extremities: Yes: WNL Edema: No Peripheral Pulses WNL: Yes Labs: CBC, BMP 04/08/17 16:00 04/08/17 19:50 Problem List - Problems (1) Syncope Assessment/Plan: tele negative for events stress test results pending. not orthostatic. dc if negative or low risk. continue amiodarone and outpatient medications. Code(s): R55 - SYNCOPE AND COLLAPSE Qualifiers: Syncope type: heat syncope Encounter type: initial encounter Qualified Code(s): T67.1XXA - Heat syncope, initial encounter
--- NOTE | 2017-04-10 15:10 | DS ---
Physical Examination Vital Signs: Vital Signs Temperature 98 F 04/10/17 08:00 Pulse Rate 58 L 04/10/17 08:00 Respiratory Rate 18 04/10/17 08:00 Blood Pressure 143/78 04/10/17 08:00 O2 Sat by Pulse Oximetry (%) 95 04/10/17 08:00 Constitutional: Yes: Calm Neck: Yes: Trachea Midline Cardiovascular: Yes: Regular Rate and Rhythm, S1, S2 Respiratory: Yes: CTA Bilaterally Gastrointestinal: Yes: Normal Bowel Sounds, Soft Labs: CBC, BMP 04/08/17 16:00 04/08/17 19:50 Discharge Summary Reason For Visit: SYNCOPE Current Active Problems Syncope (Acute) Procedures: Principal: stress test negative Hospital Course: History of Present Illness: 77 year old male, with PMH of orthostatic syncope, a fib not on a/c due to fall risk, HTN, HLD, DM, CVA (with residual left sided weakness), ESRD on HD (Mon/ /Mon) secondary to diabetic nephropathy and BPH, who BIBEMS due to witnessed syncopal episode. Patient describes this episode as identical to the others. As usual, he felt dizzy and nauseous while standing in the heat, his vision started going dark, at which point, anticipating syncope, he sat down on a bench and syncopized, without fall or trauma. He woke up shortly after, having vomited NBNB emesis. He felt at his baseline after, with resolution of symptoms. EMS reports wnl vitals and glucose. Patient denies chest pain, palpitations, orthopnea, sob, cough, f.c, weight change, edema, diarrhea, constipation, melena, hematochezia. His last HD session was yesterday, at which time the usual amount of fluid was removed. 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 On midodrine since prior to 2016 admission ) Renal/: Yes: Renal Failure (HD for 3 1/2 yrs), BPH Heme/Onc: Yes: Anemia (as in HPI) Endocrine: Yes: Diabetes Mellitus (hx of hypoglycemia episodes w/near syncope) - Past Surgical History Past Surgical History: Yes: AV Fistula/Graft - Smoking History Smoking history: Never smoked Have you smoked in the past 12 months: No Aproximately how many cigarettes per day: 0 If you are a former smoker, when did you quit?: > 25 ya - Alcohol/Substance Use Hx Alcohol Use: No History of Substance Use: reports: None on tele stress test negative HD per renal dc home FUwith PMD - Instructions Referrals: Jerry Bird MD [Primary Care Provider] - - Home Medications Comprehensive Discharge Medication List: Ambulatory Orders Atorvastatin Ca [Lipitor] 40 mg PO HS 06/06/15 Sevelamer Carbonate [Renvela -] 800 mg PO TID 06/06/15 Gabapentin 300 mg PO DAILY 11/19/15 Ramipril [Altace] 5 mg PO DAILY #30 capsule 03/19/16 Duloxetine HCl 30 mg PO DAILY 04/16/16 Meclizine HCl [Antivert -] 12.5 mg PO DAILY 04/16/16 Amlodipine Besylate [Norvasc -] 10 mg PO DAILY #30 tablet 04/19/16 Hydralazine HCl [Apresoline -] 50 mg PO BID #60 tablet 04/19/16 Metoprolol Succinate [Toprol XL -] 50 mg PO DAILY #30 tab.sr.24h 04/19/16 Amiodarone HCl [Cordarone -] 200 mg PO BID #60 tablet 02/07/17 Apixaban [Eliquis -] 5 mg PO BID #60 tablet 02/07/17
[2017-04-10 15:51] VITALS: BP 135/74; PULSE 62; TEMP 98.2
[2017-04-11] MEDS ORDERED: EPOETIN ALFA 10,000 UNIT/1 ML VIAL SQ ONE (12:02)
[2017-04-13 00:07] LABS: HEP B SURFACE AB Reactive (.)
== END 2017-04-10 17:12 | disposition home or self-care (01) | DRG 312 ==
LOC: JER 14:30 → JERBED 17:00 → J4W 21:27
PROVIDERS: ADMIT Family Medicine; ATTEND Family Medicine
PROC: 5A1D60Z (ICD-10-PCS; principal; 2017-04-08)
DX: R55 Syncope and collapse (principal); N18.6 End stage renal disease; I69.354 Hemiplegia and hemiparesis following cerebral infarction affecting left non-dominant side; I13.2 Hypertensive heart and chronic kidney disease with heart failure and with stage 5 chronic kidney disease, or end stage renal disease; I48.91 Unspecified atrial fibrillation; I25.10 Atherosclerotic heart disease of native coronary artery without angina pectoris; E78.5 Hyperlipidemia, unspecified; E11.21 Type 2 diabetes mellitus with diabetic nephropathy; N40.0 Benign prostatic hyperplasia without lower urinary tract symptoms; E11.22 Type 2 diabetes mellitus with diabetic chronic kidney disease; Z99.2 Dependence on renal dialysis; I50.9 Heart failure, unspecified
CPT/HCPCS: 36415; 71010-TC; 78452-TC; 80053; 82533; 82550; 82553; 82565; 83036; 83735; 84484; 84520; 85025; 86704; 86706; 86708; 86803; 87340; 93005; 93010; 93017; 99285-25; A9502; J0885; J1245

== ENCOUNTER 2017-06-22 15:30 | Emergency (ER) | payer OTHER, MEDICARE ==
[2017-06-22 15:53] VITALS: BMI 33.9
--- NOTE | 2017-06-22 15:54 | PDOC ---
History of Present Illness - History of Present Illness Initial Comments: 06/22/17 16:40 This is a 77 year old male, with PMH of orthostatic syncope, a fib not on a/c due to fall risk, HTN, HLD, DM, CVA (with residual left sided weakness), ESRD on HD (Mon//Mon) secondary to diabetic nephropathy and BPH, BIBEMS for complaint of right flank pain s/p dialysis today. The patient states his pain is constant and radiates from his right lateral ribs up to his right lateral neck. He denies any other complaints. He reports he has not eaten today, and reports decreased appetite. He also reports he produces minimal urine and can not drink large amounts of liquids. He denies chest pain, shortness of breath, headache and dizziness. He denies fever, chills, nausea, vomit, diarrhea and constipation. He denies dysuria, frequency, urgency and hematuria. Allergies: NKDA Past surgical history: left arm fistula Social history: denies toxic habits PCP - Dr. Bird <Olamide Gonzales - Last Filed: 06/22/17 16:40> <Judy Nelson - Last Filed: 06/24/17 08:35> - General Chief Complaint: Pain, Acute Stated Complaint: PAIN Time Seen by Provider: 06/22/17 15:54 Past History <Olamide Gonzales - Last Filed: 06/22/17 16:40> - Past Medical History Anemia: Yes Asthma: No Cancer: Yes Cardiac Disorders: Yes (CAD) CVA: Yes (2008 LLE PAIN, MEMORY DEFICIT) COPD: No CHF: No Dementia: No Diabetes: Yes Dialysis: Yes (,,) GI Disorders: No Disorders: Yes (enlarged prostate/BPH) HTN: Yes Hypercholesterolemia: Yes Liver Disease: No Suicide Attempt (Hx): No Seizures: No Thyroid Disease: No - Surgical History Abdominal Surgery: No Appendectomy: No Cardiac Surgery: No Cholecystectomy: No Lung Surgery: No Neurologic Surgery: No Orthopedic Surgery: Yes (L. foot and shoulder) - Family Disease History Family Disease History: Diabetes: Mother, Heart Disease: Father - Immunization History Td Vaccination: Yes Immunization Up to Date: Yes - Psycho/Social/Smoking Cessation Hx Anxiety: No Suicidal Ideation: No Smoking Status: No Smoking History: Never smoked Years of Tobacco Use: 0 Have you smoked in the past 12 months: No Number of Cigarettes Smoked Daily: 0 If you are a former smoker, when did you quit?: > 25 ya Cigars Per Day: 0 Hx Alcohol Use: No Drug/Substance Use Hx: No Substance Use Type: None Hx Substance Use Treatment: No <Judy Nelson - Last Filed: 06/24/17 08:35> - Past Medical History Allergies/Adverse Reactions: Allergies Allergy/AdvReac Type Severity Reaction Status Date / Time No Known Allergies Allergy Verified 06/22/17 23:06 Home Medications: Ambulatory Orders Atorvastatin Ca [Lipitor] 40 mg PO HS 06/06/15 Sevelamer Carbonate [Renvela -] 800 mg PO TID 06/06/15 Gabapentin 300 mg PO DAILY 11/19/15 Ramipril [Altace] 5 mg PO DAILY #30 capsule 03/19/16 Duloxetine HCl 30 mg PO DAILY 04/16/16 Meclizine HCl [Antivert -] 12.5 mg PO DAILY 04/16/16 Amlodipine Besylate [Norvasc -] 10 mg PO DAILY #30 tablet 04/19/16 Hydralazine HCl [Apresoline -] 50 mg PO BID #60 tablet 04/19/16 Metoprolol Succinate [Toprol XL -] 50 mg PO DAILY #30 tab.sr.24h 04/19/16 Amiodarone HCl [Cordarone -] 200 mg PO BID #60 tablet 02/07/17 Apixaban [Eliquis -] 5 mg PO BID #60 tablet 02/07/17 Review of Systems - Review of Systems Able to Perform ROS?: Yes Comments:: 06/22/17 16:41 GENERAL/CONSTITUTIONAL: No fever or chills. No weakness. HEAD, EYES, EARS, NOSE AND THROAT: No change in vision. No ear pain or discharge. No sore throat. CARDIOVASCULAR: No chest pain or shortness of breath. RESPIRATORY: No cough, wheezing, or hemoptysis. GASTROINTESTINAL: No nausea, vomiting, diarrhea or constipation. GENITOURINARY: (+) right flank pain. No dysuria, frequency, or change in urination. MUSCULOSKELETAL: No joint or muscle swelling or pain. No neck or back pain. SKIN: No rash NEUROLOGIC: No headache, vertigo, loss of consciousness, or change in strength/ sensation. ENDOCRINE: (+) decreased appetite. No increased thirst. No abnormal weight change. HEMATOLOGIC/LYMPHATIC: No anemia, easy bleeding, or history of blood clots. ALLERGIC/IMMUNOLOGIC: No hives or skin allergy. <Olamide Gonzales - Last Filed: 06/22/17 16:40> *Physical Exam - Vital Signs Last Vital Signs Temp Pulse Resp BP Pulse Ox 97.9 F 79 18 181/98 94 L 06/22/17 15:47 06/22/17 15:47 06/22/17 15:47 06/22/17 15:47 06/22/17 15:47 - Physical Exam Comments: 06/22/17 16:41 GENERAL: Awake, alert, and fully oriented, in no acute distress HEAD: No signs of trauma EYES: PERRLA, EOMI, sclera anicteric, conjunctiva clear ENT: Auricles normal inspection, hearing grossly normal, nares patent, oropharynx clear without exudates. Moist mucosa NECK: Normal ROM, supple, no lymphadenopathy, JVD, or masses LUNGS: Breath sounds equal, clear to auscultation bilaterally. No wheezes, and no crackles HEART: Regular rate and rhythm, normal S1 and S2, no murmurs, rubs or gallops ABDOMEN: (+) mild tenderness to right lower quadrant, Protuberant, Soft, normoactive bowel sounds. No guarding, no rebound. No masses EXTREMITIES: Normal range of motion, no edema. No clubbing or cyanosis. No cords, erythema, or tenderness NEUROLOGICAL: Cranial nerves II through XII grossly intact. Normal speech, normal gait SKIN: Warm, Dry, normal turgor, no rashes or lesions noted. <Olamide Gonzales - Last Filed: 06/22/17 16:40> - Vital Signs Last Vital Signs Temp Pulse Resp BP Pulse Ox 97.9 F 79 18 181/98 94 L 06/22/17 15:47 06/22/17 15:47 06/22/17 15:47 06/22/17 15:47 06/22/17 15:47 <Judy Nelson - Last Filed: 06/24/17 08:35> ED Treatment Course - LABORATORY CBC & Chemistry Diagram: 06/22/17 18:21 06/22/17 18:21 <Judy Nelson - Last Filed: 06/24/17 08:35> Medical Decision Making - Medical Decision Making 06/22/17 17:47 Pt presents to the ED complaining of L sided flank pain that began yesterday. Denies fevers, nausea or vomiting. Also complaining of non productive cough. Abdomen is non tender on my exam. Differential includes PNA, ACS, less likely intrabdominal pathology. Will check labs and cardiac enzymes, CXR, EKG and reassess. Will get CT Abdomen if cxr is negative for PNA. <Judy Nelson - Last Filed: 06/24/17 08:35> *DC/Admit/Observation/Transfer - Attestations Scribe Attestion: 06/22/17 16:42 Documentation prepared by Olamide Gonzales, acting as medical malpractice paralegal for Judy Nelson MD, <Olamide Gonzales - Last Filed: 06/22/17 16:40> - Discharge Dispostion Admit: No <Judy Nelson - Last Filed: 06/24/17 08:35> Diagnosis at time of Disposition: Flank pain, End stage renal disease, Atypical chest pain HTN (hypertension) Qualifiers: Hypertension type: essential hypertension Qualified Code(s): I10 - Essential ( primary) hypertension Diabetes Qualifiers: Diabetes mellitus type: type 1 Diabetes mellitus complication status: with unspecified complications Qualified Code(s): E10.8 - Type 1 diabetes mellitus with unspecified complications - Discharge Dispostion Disposition: HOME Condition at time of disposition: Good - Referrals Referrals: Jerry Bird MD [Primary Care Provider] - - Patient Instructions Printed Discharge Instructions: DI for Flank Pain Additional Instructions: Van - Sorry this happened to you. Keep your regular appointmeents and take your medicines. Return to us if worse or problems. Saw- Scar Ruby
[2017-06-22 18:37] LABS: BASOPHIL 1.4 % (0-2.0); EOSINOPHIL 4.1 % (0-4.5); MCH 30.5 pg (25.7-33.7); MEAN CELL VOLUME 92.6 fl (80-96); MEAN PLT VOLUME 8.5 fl (7.5-11.1); NEUTROPHILS 58.7 % (42.8-82.8); PLATELET COUNT 135 K/MM3 (134-434); RDW 18.6 % (11.9-15.9); WHITE BLOOD COUNT 4.7 K/mm3 (4.0-10.0)
[2017-06-22 19:01] LABS: ALBUMIN 3.3 g/dl (3.4-5.0); ANION GAP 6 (8-16); BILIRUBIN,TOTAL 0.8 mg/dL (0.2-1.0); CALCIUM 8.3 mg/dL (8.5-10.1); CO2 33 mmol/L (21-32); CREATININE 4.6 mg/dL (0.7-1.3); GLUCOSE,RANDOM 72 mg/dL (74-106); SGOT/AST 12 U/L (15-37); SGPT/ALT 11 U/L (12-78); TOT PROT 7.5 g/dl (6.4-8.2)
[2017-06-22 19:04] LABS: ALK PHOS 71 U/L (45-117); CPK 155 IU/L (39-308)
--- NOTE | 2017-06-22 19:39 | PDOC ---
*Physical Exam - Vital Signs Last Vital Signs Temp Pulse Resp BP Pulse Ox 97.9 F 79 18 181/98 94 L 06/22/17 15:47 06/22/17 15:47 06/22/17 15:47 06/22/17 15:47 06/22/17 15:47 <Estela Youssef - Last Filed: 06/22/17 23:44> - Vital Signs Last Vital Signs Temp Pulse Resp BP Pulse Ox 97.9 F 79 18 181/98 94 L 06/22/17 15:47 06/22/17 15:47 06/22/17 15:47 06/22/17 15:47 06/22/17 15:47 <Scar Nunes - Last Filed: 06/23/17 01:58> Heart Score/ECG Review - ECG Impressions Comment:: 06/22/17 20:13 @[address]-T changes Coving on V2, V3 T-wave inversions across the precordium All not present from ECG done on 04/08/2017 except for Prolonged QT <MikaelEstela - Last Filed: 06/22/17 23:44> ED Treatment Course - LABORATORY CBC & Chemistry Diagram: 06/22/17 18:21 06/22/17 18:21 - ADDITIONAL ORDERS Additional order review: Laboratory Results 06/22/17 06/22/17 06/22/17 18:21 18:21 18:21 Sodium 138 Potassium 3.4 L D Chloride 99 Carbon Dioxide 33 H Anion Gap 6 L BUN 12 Creatinine 4.6 H D Creat Clearance w eGFR 12.42 Random Glucose 72 L D Lactic Acid 1.1 Calcium 8.3 L Total Bilirubin 0.8 D AST 12 L ALT 11 L Alkaline Phosphatase 71 Creatine Kinase 155 Creatine Kinase Index 0.6 CK-MB (CK-2) < 1.000 Troponin I 0.20 H D Total Protein 7.5 Albumin 3.3 L Lipase 108 06/22/17 18:21 RBC 3.20 L MCV 92.6 MCHC 33.0 RDW 18.6 H MPV 8.5 D Neutrophils % 58.7 Lymphocytes % 28.3 Monocytes % 7.5 Eosinophils % 4.1 Basophils % 1.4 - RADIOLOGY Radiograph Interpretation: 06/22/17 23:44 EXAM: CT/SPIRAL- RENAL-STONE CT Radiologist's Impression: The partially imaged lower chest demonstrates cardiomegaly, a small pericardial effusion and a small right pleural effusion. A punctate calcified left lower lobe pulmonary granuloma is noted. The abdominal /pelvic soft tissue structures demonstrate no definite interval change in comparison to a previous CT study of 03/06/2015. There is no hydronephrosis. No definite urinary tract calculus is identified. Bilateral renal atrophy is seen. The left kidney measures 7.5 cm in length, the right kidney 8.5 cm. Several bilateral renal cortical cysts are noted several which bilaterally demonstrate small wall calcifications. The adrenal glands, liver, spleen, pancreas, and gallbladder demonstrate no discrete noncontrast abnormality. There is no aortic aneurysm. No free intraperitoneal fluid, pneumoperitoneum or bowel obstruction is noted. There is no CT evidence of acute diverticulitis or appendicitis. No gross small bowel pathology is seen. There is no discrete lymphadenopathy. Moderate prostate enlargement. Small to moderate umbilical hernia containing fat only. No flank hernia is seen. The visualized osseous structures demonstrate no obvious CT evidence of acute pathology or neoplastic disease. IMPRESSION: The abdomen/pelvic structures demonstrate no definite interval change in comparison to a previous exam of 03/06/2015. There is no evidence of urolithiasis or hydronephrosis. Bilateral renal atrophy with several bilateral cortical cysts. Small to moderate umbilical hernia containing fat only. Cardiomegaly. Small pericardial effusion similar to the [address] exam. Interval development of a small right pleural effusion. Reported By: Van Ann MD 06/22/17 <Estela Youssef - Last Filed: 06/22/17 23:44> - LABORATORY CBC & Chemistry Diagram: 06/22/17 18:21 06/22/17 18:21 - ADDITIONAL ORDERS Additional order review: Laboratory Results 06/22/17 06/22/17 06/22/17 18:21 18:21 18:21 Sodium 138 Potassium 3.4 L D Chloride 99 Carbon Dioxide 33 H Anion Gap 6 L BUN 12 Creatinine 4.6 H D Creat Clearance w eGFR 12.42 Random Glucose 72 L D Lactic Acid 1.1 Calcium 8.3 L Total Bilirubin 0.8 D AST 12 L ALT 11 L Alkaline Phosphatase 71 Creatine Kinase 155 Troponin I 0.20 H D Total Protein 7.5 Albumin 3.3 L Lipase 108 06/22/17 18:21 RBC 3.20 L MCV 92.6 MCHC 33.0 RDW 18.6 H MPV 8.5 D Neutrophils % 58.7 Lymphocytes % 28.3 Monocytes % 7.5 Eosinophils % 4.1 Basophils % 1.4 <Scar Nunes - Last Filed: 06/23/17 01:58> Medical Decision Making - Medical Decision Making 06/22/17 20:45 CXR STABLE, NO ACUTE FINDINGS, INTERPRETED BY ME Will Repeat EKG, Troponin at 23:[address] for Left Flank Pain 06/23/17 01:39 second ekg and troponin appreciated. EKG NORMALIZED, TROPONIN UNCHANGED PATIENT IS PAIN FREE AND COMPLETELY ASYMPTOMATIC <Scar Nunes - Last Filed: 06/23/17 01:58> *DC/Admit/Observation/Transfer <Estela Youssef - Last Filed: 06/22/17 23:44> - Discharge Dispostion Admit: No - Attestations Physician Attestion: 06/22/17 19:38 I, Dr. Scar Nunes, attest that this document has been prepared under my direction and personally reviewed by me in its entirety. I further attest, that it accurately reflects all work, treatment, procedures and medical decision -making performed by me. <Scar Nunes - Last Filed: 06/23/17 01:58> Diagnosis at time of Disposition: Flank pain, End stage renal disease, Atypical chest pain HTN (hypertension) Qualifiers: Hypertension type: essential hypertension Qualified Code(s): I10 - Essential ( primary) hypertension Diabetes Qualifiers: Diabetes mellitus type: type 1 Diabetes mellitus complication status: with unspecified complications Qualified Code(s): E10.8 - Type 1 diabetes mellitus with unspecified complications - Referrals Referrals: Jerry Bird MD [Primary Care Provider] - - Patient Instructions Printed Discharge Instructions: DI for Flank Pain Additional Instructions: Van - Sorry this happened to you. Keep your regular appointmeents and take your medicines. Return to us if worse or problems. Best- Scar Ruby - Post Discharge Activity
[2017-06-22] MEDS ORDERED: ACETAMINOPHEN 325 MG TABLET (FP) PO ONE (22:06)
[2017-06-22] MEDS ORDERED: ACETAMINOPHEN 325 MG TABLET (FP) ONE (22:07)
[2017-06-22 23:40] VITALS: BP 152/85; PULSE 72; TEMP 98.7
[2017-06-23 00:09] LABS: TROPONIN I 0.21 ng/ml (0.00-0.05)
--- NOTE | 2017-06-23 09:37 | EKG ---
Test Reason : Blood Pressure : / mmHG Vent. Rate : 081 BPM Atrial Rate : 081 BPM P-R Int : 258 ms QRS Dur : 096 ms QT Int : 454 ms P-R-T Axes : 063 031 049 degrees QTc Int : 527 ms SINUS RHYTHM WITH 1ST DEGREE A-V BLOCK WITH PREMATURE ATRIAL COMPLEXES MINIMAL VOLTAGE CRITERIA FOR LVH, MAY BE NORMAL VARIANT PROLONGED QT ABNORMAL ECG WHEN COMPARED WITH ECG OF 22-JUN-2017 18:19, PREMATURE ATRIAL COMPLEXES ARE NOW PRESENT Confirmed by HEIKE COLEY MD ([id number]) on 06/23/2017 9:37:19 AM Referred By: Confirmed By:HEIKE COLEY MD
--- NOTE | 2017-06-23 09:44 | EKG ---
Test Reason : Blood Pressure : / mmHG Vent. Rate : 072 BPM Atrial Rate : 072 BPM P-R Int : 248 ms QRS Dur : 098 ms QT Int : 482 ms P-R-T Axes : 068 000 021 degrees QTc Int : 527 ms SINUS RHYTHM WITH 1ST DEGREE A-V BLOCK PROLONGED QT ABNORMAL ECG Confirmed by HEIKE COLEY MD ([id number]) on 06/23/2017 9:43:50 AM Referred By: Confirmed By:HEIKE COLEY MD
== END 2017-06-23 02:04 | disposition home or self-care (01) ==
LOC: JER 15:30
DX: R07.89 Other chest pain (principal); R10.32 Left lower quadrant pain; I12.0 Hypertensive chronic kidney disease with stage 5 chronic kidney disease or end stage renal disease; E11.22 Type 2 diabetes mellitus with diabetic chronic kidney disease; N18.6 End stage renal disease; N17.8 Other acute kidney failure; Z99.2 Dependence on renal dialysis; N40.0 Benign prostatic hyperplasia without lower urinary tract symptoms; I69.854 Hemiplegia and hemiparesis following other cerebrovascular disease affecting left non-dominant side; I48.91 Unspecified atrial fibrillation
CPT/HCPCS: 36415; 71020-TC; 74176; 80053; 82553; 83605; 83690; 84484; 85025; 93005; 93010; 99282-25

== ENCOUNTER 2018-08-30 10:41 | Inpatient (IN) | payer OTHER, MEDICARE ==
--- NOTE | 2018-08-30 11:19 | PDOC ---
History of Present Illness - General Chief Complaint: Chest Pain Stated Complaint: CHEST PAIN - History of Present Illness Initial Comments: Van Smallwood is a 78yo man with a PMH of ESRD on HD (TThSa), HTN, DM, CAD, HLD, a-fib, previous CVA who presents reporting multiple days of epigastric pain that has worsened today. He also reports poor PO intake recently. Mr Smallwood states that he has been having upper mid abdominal pain for several, taking Zantac at home without relief of his pain. He states that he was trying to avoid coming to the hospital. He was waiting for his bus to go to dialysis today but says that the bus never came. Due to standing out in the cold, he began to feel even worse with more pain. He decided that he needed to present to the hospital. Mr Smallwood denies any shortness of breath, nausea/vomiting, change in bowel habits , fever/chills, or other symptoms associated with the pain. His pain is non- radiating and worse with abdominal palpation. He was not able to specify any association with eating and does not recall similar pain in the past. He does note missing dialysis today. He also reports feeling very hungry, stating that he has had trouble eating much recently due to missing teeth, and feeling dehydrated. He attributes the dehydration to standing outside today rather than drinking less fluids than normal. Past History - Past Medical History Allergies/Adverse Reactions: Allergies Allergy/AdvReac Type Severity Reaction Status Date / Time No Known Allergies Allergy Verified 09/19/17 12:38 Home Medications: Ambulatory Orders Atorvastatin Ca [Lipitor] 40 mg PO HS 06/06/15 Sevelamer Carbonate [Renvela -] 800 mg PO TID 06/06/15 Gabapentin 300 mg PO DAILY 11/19/15 Ramipril [Altace] 5 mg PO DAILY #30 capsule 03/19/16 Duloxetine HCl 30 mg PO DAILY 04/16/16 Meclizine HCl [Antivert -] 12.5 mg PO DAILY 04/16/16 Amlodipine Besylate [Norvasc -] 10 mg PO DAILY #30 tablet 04/19/16 Metoprolol Succinate [Toprol XL -] 50 mg PO DAILY #30 tab.sr.24h 04/19/16 hydrALAZINE HCL [Apresoline -] 50 mg PO BID #60 tablet 04/19/16 Amiodarone HCl [Cordarone -] 200 mg PO BID #60 tablet 02/07/17 Apixaban [Eliquis -] 5 mg PO BID #60 tablet 02/07/17 Anemia: Yes Asthma: No Cancer: Yes Cardiac Disorders: Yes (CAD) CVA: Yes (2008 LLE PAIN, MEMORY DEFICIT) COPD: No CHF: No DVT: No Dementia: No Diabetes: Yes Dialysis: Yes (,,) GI Disorders: No Disorders: Yes (enlarged prostate/BPH) HTN: Yes Hypercholesterolemia: Yes Liver Disease: No Seizures: No Thyroid Disease: No - Surgical History Abdominal Surgery: No Appendectomy: No Cardiac Surgery: No Cholecystectomy: No Lung Surgery: No Neurologic Surgery: No Orthopedic Surgery: Yes (L. foot and shoulder) - Family Disease History Family Disease History: Diabetes: Mother, Heart Disease: Father - Immunization History Td Vaccination: Yes Immunization Up to Date: Yes - Suicide/Smoking/Psychosocial Hx Smoking Status: No Smoking History: Unknown if ever smoked Years of Tobacco Use: 0 Have you smoked in the past 12 months: No Number of Cigarettes Smoked Daily: 0 If you are a former smoker, when did you quit?: > 25 ya Cigars Per Day: 0 Information on smoking cessation initiated: No Hx Alcohol Use: No Drug/Substance Use Hx: No Substance Use Type: None Hx Substance Use Treatment: No Review of Systems - Review of Systems Comments:: General: No fevers, no chills, no weight or appetite change, no malaise HEENT: No changes in vision, no changes in hearing, no congestion, no sore throat CV: +Chest pain. No palpitations, no LE edema Pulm: No new SOB, no cough, no wheezing GI: No nausea or vomiting, no change in bowel habits, no melena : ESRD on HD, makes very little urine, no new changes Musc: No back pain, no joint swelling, no recent injury. +chronic LLE pain Skin: No rash, no lesions, no erythema Endo: No excessive thirst, no heat/cold intolerance Heme: No unusual bruising or bleeding, no swollen glands Neuro: No syncope, no numbness/tingling, no focal weakness Vasc: No claudication Psych: No recent change in mood, no SI or HI *Physical Exam - Vital Signs Last Vital Signs Temp Pulse Resp BP Pulse Ox 98.0 F 70 16 177/85 H 99 11/22/18 11:05 08/30/18 11:05 08/30/18 11:05 08/30/18 11:05 08/30/18 11:05 - Physical Exam Comments: General: Comfortable, no acute distress HEENT: PERRL, EOMI, dry MM, voice normal, normal neck ROM. Multiple missing teeth, poor dentition Cards: RRR, no murmur appreciated Pulm: Comfortable on room air Abd: Soft, nondistended. Epigastric TTP Ext: Atraumatic. No LE edema. ROM intact. Moves all extremities Vasc: Extremities WWP. L AVF in place with palpable thrill Skin: Very dry with flaking skin, no rashes or lesions Neuro: A&Ox3, CN grossly intact, mumbled speech (possibly 2/2 missing teeth), motor/sensory grossly intact and symmetric Psych: Mood appropriate to situation ED Treatment Course - LABORATORY CBC & Chemistry Diagram: 08/30/18 11:48 08/30/18 11:48 Medical Decision Making - Medical Decision Making 08/30/18 11:42 Van Smallwood is a 78yo man with a PMH of ESRD on HD (TThSa), HTN, DM, CAD, HLD, a-fib, previous CVA who presents today with multiple days of epigastric pain that worsened today along with poor PO intake. - No associated symptoms concerning for ACS, but significant cardiac history. EKG, trop for ACS r/o. CXR to evaluate for abnormalities - On exam, pain appears more abdominal/epigastric than chest or cardiac. CBC, CMP, amylase, lipase to evaluate. Has previous elevated lipase. No nausea/ vomiting, but pt reports using Zantac at home for symptom relief and reports poor PO intake - Appears dry, but as pt missed dialysis today reluctant to give IV fluids. Will reassess following test results. 08/30/18 14:01 - Labs reviewed - CBC w/o acute abnormalities - Cr 9.7 is within pt's normal range, though on the high side, c/w missing dialysis today - K+ 5.8, also on the high end of pt's normal. No concerning symptoms on EKG - Trop 0.19 at baseline - CXR with diffuse congestion suggesting some pulmonary edema, also c/w missing dialysis today - EKG reviewed. No acute abnormalities, similar to previous EKGs - Lipase elevated to 800. Mr Cl has previous level to 700 in 2016, but along with epigastric pain could suggest mild pancreatitis. - Non-contrast CT abd ordered to evaluate - Spoke with Dr Crawford, and he will accept Mr Smallwood for admission. Needs telemetry for ACS r/o. Would like Dr Dueñas for cardiology, Dr Sanchez for renal. - Bed pending Seen and discussed with Dr High. Henna Ríos PGY1 *DC/Admit/Observation/Transfer Diagnosis at time of Disposition: Chest pain, Elevated lipase, End stage renal disease - Discharge Dispostion Decision to Admit order: Yes - Referrals - Patient Instructions - Post Discharge Activity
--- NOTE | 2018-08-30 11:26 | PDOC ---
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 Symptoms have been present for the past week, intermittent. Described as cramping pain, located in the epigastrium, no radiation Pt has been taking Zantac for this and states it has minimally helped him He was waiting to be picked up to go to dialysis today and no one came Pt then called a cab but no one came to pick him up He finally called his son He arrived at dialysis and reported to the staff that he has been having epigastric pain They recommended that he be transferred to the ER No fevers or chills Pt is requesting to eat his banana - Physicial Exam PE: 08/30/18 12:31 A&O x 3 Dry mucous membranes RRR, ROCK Lungs clear Epigastric tenderness to palpation, no guarding, no reboung, no distention LUE fistula (+) thrill, (+) bruit - Medical Decision Making 08/30/18 12:03 78 yo M presenting with multiple medical problems presenting with chest pain for which he has been taking Zantac DD broad and includes ACS, Gastritis, GERD, Biliary colic, Ulcer EKG - NSR rate of 68 bpm, [place] nml, intervals abn - pr: 290ms (prolonged), no st elevation or depression, t wave inversion v2 08/30/18 12:04 Labs pending 08/30/18 12:33 08/30/18 12:39 CXR - CXR increased markings, no effusion, no consolidation 08/30/18 13:00 Laboratory Tests 08/30/18 08/30/18 08/30/18 11:48 11:48 11:48 WBC 4.6 Hgb 12.8 Hct 37.7 Plt Count 139 INR 0.98 Sodium 135 L Potassium 5.8 H Chloride 99 Carbon Dioxide 29 BUN 52 H Creatinine 9.7 H* Random Glucose 93 Creatine Kinase 209 Troponin I 0.19 H Total Amylase Lipase 08/30/18 11:56 WBC Hgb Hct Plt Count INR Sodium Potassium Chloride Carbon Dioxide BUN Creatinine Random Glucose Creatine Kinase Troponin I Total Amylase 151 H Lipase 813 H 08/30/18 13:01 Trops wnl Lipase/Amylase elevated Will do CT non contrast Consult Renal for HD Admit to PMD
[2018-08-30 12:13] LABS: BASO % 0.8 % (0-2.0); EOS % 3.6 % (0-4.5); HEMATOCRIT 37.7 % (35.4-49); HEMOGLOBIN 12.8 GM/dL (11.7-16.9); LYMPH % 24.2 % (8-40); MCH 30.6 pg (25.7-33.7); MEAN CELL VOLUME 90.2 fl (80-96); MEAN PLT VOLUME 9.9 fl (7.5-11.1); MONO % 9.8 % (3.8-10.2); NEUT % 61.6 % (42.8-82.8); PLATELET COUNT 139 K/MM3 (134-434); RBC 4.18 M/mm3 (4.00-5.60); RDW 18.2 % (11.9-15.9); WHITE BLOOD COUNT 4.6 K/mm3 (4.0-10.0)
[2018-08-30 12:23] LABS: AMYLASE 151 U/L (25-115); LIPASE 813 U/L (73-393)
[2018-08-30 12:24] LABS: INR 0.98 (0.83-1.09); PROTHROMBIN TIME (PATIENT) 11.6 SEC (9.7-13.0)
[2018-08-30 12:38] LABS: ALBUMIN 3.7 g/dl (3.4-5.0); ALK PHOS 114 U/L (45-117); ANION GAP 7 MMOL/L (8-16); BILIRUBIN,TOTAL 0.4 mg/dL (0.2-1); BLOOD UREA NITROGEN 52 mg/dL (7-18); CALCIUM 7.7 mg/dL (8.5-10.1); CHLORIDE 99 mmol/L (98-107); CO2 29 mmol/L (21-32); GLUCOSE,RANDOM 93 mg/dL (74-106); MAGNESIUM 2.4 mg/dL (1.8-2.4); POTASSIUM 5.8 mmol/L (3.5-5.1); SGOT/AST 20 U/L (15-37); SGPT/ALT 24 U/L (13-61); SODIUM 135 mmol/L (136-145)
[2018-08-30 12:49] LABS: CREATININE 9.7 mg/dL (0.55-1.3)
[2018-08-30] MEDS ORDERED: SODIUM POLYSTYRENE SULFONATE 15 GM/60 ML BOTTLE PO ONE (18:50)
[2018-08-30 19:40] VITALS: BMI 25.9
[2018-08-31] MEDS ORDERED: MORPHINE SULFATE 2 MG/ML VIAL IVPUSH PRN (03:18)
[2018-08-31] MEDS ORDERED: SODIUM CHLORIDE 250 ML IV PRN (06:45)
--- NOTE | 2018-08-31 09:27 | CON.CARD ---
Consult Consult Specialty:: Cardiology Referred by:: alvin Crawford Reason for Consultation:: Troponin - History of Present Illness Chief Complaint: Abdominal pain History of Present Illness: Mr. Smallwood is a 78yo man with a PMH of ESRD on HD (TThSa), HTN, DM, CAD, HLD, a- fib on amiodarone and apixaban, and CVA who presents with abdominal pain. Patient reports epigastric pain for almost one week associated with poor PO intake and pain with palpation of abdomen. No chest pain, sob, or palpitations. No pnd, orthopnea, or edema. No syncope or near syncope. No n/v /d. Some relief with zantac. Pain is not exacerbated with walking. Pain worsened with palpation of epigastric area. No radiation. EKG: sinus with 1AVB, no acute ischemic changes Echocardiogram 2017 normal LVEF and mild NST 04/10/17: normal myocardial perfusion. CK normal Trop 0.2 Amylase/lipase elevated. 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 On midodrine since prior to 2016 admission ) Renal/: Yes: Renal Failure (HD for 3 1/2 yrs), BPH Endocrine: Yes: Diabetes Mellitus (hx of hypoglycemia episodes w/near syncope) - Past Surgical History Past Surgical History: Yes: AV Fistula/Graft - Alcohol/Substance Use Hx Alcohol Use: No History of Substance Use: reports: None - Smoking History Smoking history: Unknown if ever smoked Have you smoked in the past 12 months: No Aproximately how many cigarettes per day: 0 If you are a former smoker, when did you quit?: > 25 ya - Social History Usual Living Arrangement: With Spouse History of Recent Travel: No Home Medications - Allergies Allergies/Adverse Reactions: Allergies Allergy/AdvReac Type Severity Reaction Status Date / Time No Known Allergies Allergy Verified 09/19/17 12:38 - Home Medications Home Medications: Ambulatory Orders Atorvastatin Ca [Lipitor] 40 mg PO HS 06/06/15 Sevelamer Carbonate [Renvela -] 800 mg PO TID 06/06/15 Gabapentin 300 mg PO DAILY 11/19/15 Ramipril [Altace] 5 mg PO DAILY #30 capsule 03/19/16 Duloxetine HCl 30 mg PO DAILY 04/16/16 Meclizine HCl [Antivert -] 12.5 mg PO DAILY 04/16/16 Amlodipine Besylate [Norvasc -] 10 mg PO DAILY #30 tablet 04/19/16 Metoprolol Succinate [Toprol XL -] 50 mg PO DAILY #30 tab.sr.24h 04/19/16 hydrALAZINE HCL [Apresoline -] 50 mg PO BID #60 tablet 04/19/16 Amiodarone HCl [Cordarone -] 200 mg PO BID #60 tablet 02/07/17 Apixaban [Eliquis -] 5 mg PO BID #60 tablet 02/07/17 Family Disease History - Family Disease History Family Disease History: Heart Disease: Father, Mother Vital Signs: Vital Signs Temperature 98.0 F 08/31/18 06:00 Pulse Rate 71 08/31/18 06:00 Respiratory Rate 20 08/31/18 06:00 Blood Pressure 150/80 08/31/18 06:00 O2 Sat by Pulse Oximetry (%) 97 08/31/18 03:00 Constitutional: Yes: No Distress Neck: Yes: Supple Respiratory: Yes: CTA Bilaterally Gastrointestinal: Yes: Tenderness, Epigastrium Cardiovascular: Yes: Regular Rate and Rhythm JVD: No Carotid Bruit: No PMI: Non-Displaced Heart Sounds: Yes: S1, S2 Murmur: Yes: Systolic Murmur (+2/6 HSM RUSB) Edema: No - Other Data Labs, Other Data: CBC, BMP 08/30/18 11:48 08/30/18 11:48 INR, PTT INR 0.98 (0.83-1.09) 08/30/18 11:48 Troponin, BNP 08/30/18 08/31/18 11:48 03:50 Troponin I 0.19 H 0.20 H Troponin, BNP 08/30/18 08/31/18 11:48 03:50 Troponin I 0.19 H 0.20 H Imaging - Results Chest X-ray: Report Reviewed EKG: Image Reviewed Problem List - Problems (1) Troponin I above reference range Code(s): R74.8 - ABNORMAL LEVELS OF OTHER SERUM ENZYMES Assessment/Plan Mr. Smallwood is a 78yo man with a PMH of ESRD on HD (TThSa), HTN, DM, CAD, HLD, a- fib on amiodarone and apixaban, and CVA who presents with abdominal pain. Patient reports epigastric pain for almost one week associated with poor PO intake and pain with palpation of abdomen. No chest pain, sob, or palpitations. No pnd, orthopnea, or edema. No syncope or near syncope. No n/v /d. Some relief with zantac. Pain is not exacerbated with walking. Pain worsened with palpation of epigastric area. No radiation. EKG: sinus with 1AVB, no acute ischemic changes Echocardiogram 2016 normal LVEF and mild NST 04/10/17: normal myocardial perfusion. CK normal Trop 0.2 Amylase/lipase elevated. 1) Troponin/epigastric pain -Pain does not appear cardiac in nature. It has been pretty constant for one week. Not associated with walking, non radiating, no sob, or diaphoresis. Pain is at rest and worse with palpation of epigstric area. Some relief with zantac and poor po intake. -No acute ischemic ecg changes Troponin 0.19 and 0.2 with normal CK likely related to ESRD on HD. -No events on tele overnight. In sinus. -NST 04/2017 with normal myocardial perfusion -No further cardiac work up indicated at this time. Can DC tele. -On statin and beta xander at home 2) Afib In sinus Restart home meds. Appears on amiodarone and apixaban at home. DC tele If does not have a insurance office supervisor as outpatient, than should follow up with Dr. Groves [phone] Will sign off at this time.
--- NOTE | 2018-08-31 10:05 | EKG ---
Test Reason : Blood Pressure : / mmHG Vent. Rate : 068 BPM Atrial Rate : 068 BPM P-R Int : 290 ms QRS Dur : 096 ms QT Int : 442 ms P-R-T Axes : 075 -12 033 degrees QTc Int : 469 ms SINUS RHYTHM WITH 1ST DEGREE A-V BLOCK Confirmed by HEIKE COLEY MD ([id number]) on 08/31/2018 10:05:41 AM Referred By: Confirmed By:HEIKE COLEY MD
--- NOTE | 2018-08-31 10:44 | HP ---
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 Symptoms have been present for the past week, intermittent. 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 On midodrine since prior to 2016 admission ) Renal/: Yes: Renal Failure (HD for 3 1/2 yrs), BPH Heme/Onc: Yes: Anemia (as in HPI) Endocrine: Yes: Diabetes Mellitus (hx of hypoglycemia episodes w/near syncope) - Past Surgical History Past Surgical History: Yes: AV Fistula/Graft - Smoking History Smoking history: Unknown if ever smoked Have you smoked in the past 12 months: No Aproximately how many cigarettes per day: 0 If you are a former smoker, when did you quit?: > 25 ya - Alcohol/Substance Use Hx Alcohol Use: No History of Substance Use: reports: None - Social History History of Recent Travel: No Home Medications - Allergies Allergies/Adverse Reactions: Allergies Allergy/AdvReac Type Severity Reaction Status Date / Time No Known Allergies Allergy Verified 09/19/17 12:38 - Home Medications Home Medications: Ambulatory Orders Atorvastatin Ca [Lipitor] 40 mg PO HS 06/06/15 Sevelamer Carbonate [Renvela -] 800 mg PO TID 06/06/15 Gabapentin 300 mg PO DAILY 11/19/15 Ramipril [Altace] 5 mg PO DAILY #30 capsule 03/19/16 Duloxetine HCl 30 mg PO DAILY 04/16/16 Meclizine HCl [Antivert -] 12.5 mg PO DAILY 04/16/16 Amlodipine Besylate [Norvasc -] 10 mg PO DAILY #30 tablet 04/19/16 Metoprolol Succinate [Toprol XL -] 50 mg PO DAILY #30 tab.sr.24h 04/19/16 hydrALAZINE HCL [Apresoline -] 50 mg PO BID #60 tablet 04/19/16 Amiodarone HCl [Cordarone -] 200 mg PO BID #60 tablet 02/07/17 Apixaban [Eliquis -] 5 mg PO BID #60 tablet 02/07/17 Family Disease History - Family Disease History Family Disease History: Heart Disease: Father, Mother Review of Systems - Review of Systems Cardiovascular: denies: Chest Pain, Palpitations Respiratory: reports: No Symptoms Gastrointestinal: reports: Abdominal Pain, Indigestion. denies: Vomiting Physical Examination Vital Signs: Vital Signs Temperature 98.0 F 08/31/18 06:00 Pulse Rate 71 08/31/18 06:00 Respiratory Rate 20 08/31/18 06:00 Blood Pressure 150/80 08/31/18 06:00 O2 Sat by Pulse Oximetry (%) 97 08/31/18 03:00 Cardiovascular: Yes: Regular Rate and Rhythm Respiratory: Yes: Regular, CTA Bilaterally Gastrointestinal: Yes: Normal Bowel Sounds, Soft. No: Tenderness Labs: CBC, BMP 08/30/18 11:48 Imaging - Results Cat Scan: Report Reviewed Problem List - Problems (1) Epigastric pain Assessment/Plan: -Maybe gastritis---r/o pancreatitis -Follow labs -GI consult Code(s): R10.13 - EPIGASTRIC PAIN (2) Elevated lipase Assessment/Plan: -Follow trends -Ct noted--no sign path Code(s): R74.8 - ABNORMAL LEVELS OF OTHER SERUM ENZYMES (3) End stage renal disease Assessment/Plan: -dialysis per renal Code(s): N18.6 - END STAGE RENAL DISEASE (4) Atrial fibrillation Assessment/Plan: -continue with home meds -will d/w renal regarding Eliquis Code(s): I48.91 - UNSPECIFIED ATRIAL FIBRILLATION Qualifiers: Atrial fibrillation type: paroxysmal Qualified Code(s): I48.0 - Paroxysmal atrial fibrillation (5) Diabetes Assessment/Plan: -BGM Code(s): E11.9 - TYPE 2 DIABETES MELLITUS WITHOUT COMPLICATIONS Qualifiers: Diabetes mellitus type: type 1 Diabetes mellitus complication status: with unspecified complications Qualified Code(s): E10.8 - Type 1 diabetes mellitus with unspecified complications
[2018-08-31 11:47] LABS: ALBUMIN 3.2 g/dl (3.4-5.0); ALK PHOS 97 U/L (45-117); AMYLASE 165 U/L (25-115); ANION GAP 11 MMOL/L (8-16); BILIRUBIN,TOTAL 0.3 mg/dL (0.2-1); BLOOD UREA NITROGEN 57 mg/dL (7-18); CALCIUM 7.1 mg/dL (8.5-10.1); CHLORIDE 101 mmol/L (98-107); CO2 26 mmol/L (21-32); GLUCOSE,RANDOM 89 mg/dL (74-106); LIPASE 322 U/L (73-393); POTASSIUM 5.7 mmol/L (3.5-5.1); SGOT/AST 17 U/L (15-37); SGPT/ALT 20 U/L (13-61); SODIUM 137 mmol/L (136-145)
--- NOTE | 2018-08-31 14:09 | CONSULT ---
Consult Consult Specialty:: Nephrology ( Pablo/ Daniel) Reason for Consultation:: Patient with ESRD, for dialysis - History of Present Illness Chief Complaint: Mr. Smallwood is a 78yo man with a PMH of ESRD on HD , HTN, DM, CAD , HLD, a-fib on amiodarone and apixaban, and CVA who presents with abdominal pain. History of Present Illness: Mr. Smallwood is a 78yo man with a PMH of ESRD on HD (TTS), HTN, DM, CAD, HLD, A- fib on amiodarone and apixaban, and CVA. He presented with abdominal pain. Patient reports epigastric pain for almost one week. No syncope or near syncope. No n/v/d. Some relief with zantac. Pain is not exacerbated with walking. Pain worsened with palpation of epigastric area. No radiation. The patient could not get his dialysis yesterday at [facility]. 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 On midodrine since prior to 2016 admission ) Renal/: Yes: Renal Failure (HD for 3 1/2 yrs), BPH Heme/Onc: Yes: Anemia Psych: Yes: Anxiety Endocrine: Yes: Diabetes Mellitus (hx of hypoglycemia episodes w/near syncope) - Past Surgical History Past Surgical History: Yes: AV Fistula/Graft - Alcohol/Substance Use Hx Alcohol Use: No History of Substance Use: reports: None - Smoking History Smoking history: Unknown if ever smoked Have you smoked in the past 12 months: No Aproximately how many cigarettes per day: 0 If you are a former smoker, when did you quit?: > 25 ya - Social History Usual Living Arrangement: With Spouse History of Recent Travel: No Home Medications - Allergies Allergies/Adverse Reactions: Allergies Allergy/AdvReac Type Severity Reaction Status Date / Time No Known Allergies Allergy Verified 09/19/17 12:38 - Home Medications Home Medications: Ambulatory Orders Atorvastatin Ca [Lipitor] 40 mg PO HS 06/06/15 Sevelamer Carbonate [Renvela -] 800 mg PO TID 06/06/15 Gabapentin 300 mg PO DAILY 11/19/15 Ramipril [Altace] 5 mg PO DAILY #30 capsule 03/19/16 Duloxetine HCl 30 mg PO DAILY 04/16/16 Meclizine HCl [Antivert -] 12.5 mg PO DAILY 04/16/16 Amlodipine Besylate [Norvasc -] 10 mg PO DAILY #30 tablet 04/19/16 Metoprolol Succinate [Toprol XL -] 50 mg PO DAILY #30 tab.sr.24h 04/19/16 hydrALAZINE HCL [Apresoline -] 50 mg PO BID #60 tablet 04/19/16 Amiodarone HCl [Cordarone -] 200 mg PO BID #60 tablet 02/07/17 Apixaban [Eliquis -] 5 mg PO BID #60 tablet 02/07/17 Family Disease History - Family Disease History Family Disease History: Heart Disease: Father, Mother Review of Systems - Review of Systems Constitutional: reports: Weakness HENT: reports: No Symptoms Neck: reports: No Symptoms Cardiovascular: reports: No Symptoms. denies: Chest Pain Respiratory: reports: Cough Gastrointestinal: reports: Abdominal Pain, Bloating Genitourinary: reports: No Symptoms Musculoskeletal: reports: Back Pain Neurological: reports: No Symptoms Endocrine: reports: No Symptoms Hematology/Lymphatic: reports: No Symptoms Physical Exam Vital Signs: Vital Signs Temperature 97.8 F 08/31/18 09:45 Pulse Rate 78 08/31/18 13:20 Respiratory Rate 18 08/31/18 13:20 Blood Pressure 126/69 08/31/18 13:20 O2 Sat by Pulse Oximetry (%) 97 08/31/18 03:00 Constitutional: Yes: Well Nourished HENT: Yes: Atraumatic Cardiovascular: Yes: Regular Rate and Rhythm, S1, S2 Respiratory: Yes: Regular Gastrointestinal: Yes: Normal Bowel Sounds, Soft Extremities: Yes: WNL Edema: No Neurological: Yes: Alert, Oriented Labs: CBC, BMP 08/30/18 11:48 08/31/18 09:50 Assessment/Plan Mr. Smallwood is a 78yo man with a PMH of ESRD on HD , HTN, DM, CAD, HLD, Afib on Amiodarone and apixaban, and CVA who presented with abdominal pain. The patient's w/u in progress. The pain likely Non-cardiac in nature. Hemodialysis in his room in progress. Tolerating well. Orders reviewed with the RN. Will schedule for another HD in AM, to place him back on his regular schedule. Thank you. Leeann Shah MD
[2018-08-31] MEDS: INSULIN SLIDING SCALE (NOVOLOG) 1 VIAL SQ SCH ×3 (14:26→22:55)
[2018-08-31] MEDS: PANTOPRAZOLE SODIUM 40 MG VIAL IVPUSH SCH ×2 (14:52→23:01)
[2018-08-31] MEDS: amLODIPine BESYLATE 10 MG TABLET (FP) PO SCH (14:52)
[2018-08-31] MEDS: SEVELAMER CARBONATE 800 MG TAB (FP) PO SCH ×3 (14:52→23:03)
[2018-08-31] MEDS: DULoxetine HCL 30 MG CAPSULE.DR (FP) PO SCH (14:52)
[2018-08-31 15:24] LABS: CREATININE 9.7 mg/dL (0.55-1.3)
--- NOTE | 2018-08-31 17:23 | CON.GI ---
Consult Consult Specialty:: GI Referred by:: Dr Crawford - History of Present Illness History of Present Illness: 78 y/o male with multiple medical problems including ESRD on HD (TTS), HTN, DM , CAD, HLD, A-fib on amiodarone and apixaban, and CVA. He has chronic epigastric pain painmnot associated with nausea, vomiting, dysphagia, weight loss, melena and rectal bleeding. He takes Aspirin daily Patien is a poor informant. 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 On midodrine since prior to 2016 admission ) Renal/: Yes: Renal Failure (HD for 3 1/2 yrs), BPH Psych: Yes: Anxiety Endocrine: Yes: Diabetes Mellitus (hx of hypoglycemia episodes w/near syncope) - Past Surgical History Past Surgical History: Yes: AV Fistula/Graft - Alcohol/Substance Use Hx Alcohol Use: No History of Substance Use: reports: None - Smoking History Smoking history: Unknown if ever smoked Have you smoked in the past 12 months: No Aproximately how many cigarettes per day: 0 If you are a former smoker, when did you quit?: > 25 ya - Social History Usual Living Arrangement: With Spouse History of Recent Travel: No Home Medications - Allergies Allergies/Adverse Reactions: Allergies Allergy/AdvReac Type Severity Reaction Status Date / Time No Known Allergies Allergy Verified 09/19/17 12:38 - Home Medications Home Medications: Ambulatory Orders Atorvastatin Ca [Lipitor] 40 mg PO HS 06/06/15 Gabapentin 300 mg PO DAILY 11/19/15 Duloxetine HCl 30 mg PO DAILY 04/16/16 Amlodipine Besylate [Norvasc -] 10 mg PO DAILY #30 tablet 04/19/16 Metoprolol Succinate [Toprol XL -] 50 mg PO DAILY #30 tab.sr.24h 04/19/16 Amiodarone HCl [Cordarone -] 200 mg PO BID #60 tablet 02/07/17 Apixaban [Eliquis -] 5 mg PO BID #60 tablet 02/07/17 Aspirin [ASA -] 81 mg PO DAILY 08/31/18 Tamsulosin HCl [Flomax] 0.4 mg PO DAILY 08/31/18 Family Disease History - Family Disease History Family Disease History: Heart Disease: Father, Mother Review of Systems - Review of Systems Constitutional: reports: No Symptoms Eyes: reports: No Symptoms HENT: reports: No Symptoms Neck: reports: No Symptoms Cardiovascular: reports: No Symptoms Respiratory: reports: No Symptoms Gastrointestinal: reports: Abdominal Pain. denies: Bloating, Constipation, Diarrhea, Vomiting Genitourinary: reports: No Symptoms Physical Exam-GI Vital Signs: Vital Signs Temperature 97.9 F 08/31/18 14:00 Pulse Rate 74 08/31/18 14:00 Respiratory Rate 20 08/31/18 14:00 Blood Pressure 129/59 L 08/31/18 14:00 O2 Sat by Pulse Oximetry (%) 97 08/31/18 03:00 Constitutional: Yes: Well Nourished Eyes: Yes: Conjunctiva Clear HENT: Yes: Atraumatic Neck: Yes: Supple Cardiovascular: Yes: Regular Rate and Rhythm Respiratory: Yes: Regular ...Palpate: Yes: Soft, Tenderness, Epigastium. No: Firm/Rigid, Guarding, Hepatomegaly, Mass, Pulsatile Mass, Splenomegaly, Tenderness Labs: CBC, BMP 08/30/18 11:48 08/31/18 09:50 INR, PTT INR 0.98 (0.83-1.09) 08/30/18 11:48 Problem List - Problems (1) Epigastric pain Assessment/Plan: r/o secondary to gasatritis, peptic ulcer disease and malignancy R> for CT abdomena and pelvis Protonix 40mg daily Reglan 5mg 30 min ac agree to hold Aspirin will continue to conservative management in voew of patient multiple medical problems Code(s): R10.13 - EPIGASTRIC PAIN
[2018-08-31] MEDS ORDERED: PT OWN MED DRAWER 7, Y5N ONE (22:10)
[2018-08-31] MEDS: ATORVASTATIN CA 40 MG TABLET (FP) PO SCH (23:00)
[2018-08-31] MEDS: APIXABAN 5 MG TABLET PO SCH (23:00)
[2018-08-31] MEDS: AMIODARONE HCL 200 MG TABLET (FP) PO SCH (23:00)
[2018-08-31] MEDS: hydrALAZINE HCL 25 MG TABLET (FP) PO SCH (23:00)
[2018-09-01] MEDS: SEVELAMER CARBONATE 800 MG TAB (FP) PO SCH ×3 (06:19→21:26)
[2018-09-01] MEDS: INSULIN SLIDING SCALE (NOVOLOG) 1 VIAL SQ SCH ×4 (06:58→21:20)
--- NOTE | 2018-09-01 08:17 | PN ---
Progress Note (short form) - Note Progress Note: Renal follow up for ESRD on HD Pt seen and examined at the bedside reports that epigastric pain is improved but still had some last night no N/V/D. No CP or sob reports occasional throbbing sensation in the back of his head sometimes and that he had a fall 2 weeks prior with head trauma s/p dialysis yesterday but due for additional HD today Vital Signs Temperature 98.4 F 09/01/18 02:05 Pulse Rate 65 09/01/18 02:05 Respiratory Rate 20 09/01/18 02:05 Blood Pressure 111/51 L 09/01/18 02:05 O2 Sat by Pulse Oximetry (%) 97 08/31/18 21:00 Intake & Output 08/29/18 08/30/18 08/31/18 09/01/18 23:59 23:59 23:59 23:59 Intake Total 62 Balance 62 Weight 96.615 kg 84.822 kg NAD awake and alert RRR CTA soft NT/ND no Le edema left arm AVF CBC, BMP 08/30/18 11:48 08/31/18 09:50 Current Medications Amiodarone HCl (Cordarone -) 200 mg PO BID [facility] Last Admin: 08/31/18 23:00 Dose: 200 mg Amlodipine Besylate (Norvasc -) 10 mg PO DAILY [facility] Last Admin: 08/31/18 14:52 Dose: 10 mg Apixaban (Eliquis -) 5 mg PO BID [facility] Last Admin: 08/31/18 23:00 Dose: 5 mg Atorvastatin Calcium (Lipitor -) 40 mg PO HS [facility] Last Admin: 08/31/18 23:00 Dose: 40 mg Duloxetine HCl (Cymbalta -) 30 mg PO DAILY [facility] Last Admin: 08/31/18 14:52 Dose: 30 mg Gabapentin (Neurontin -) 300 mg PO DAILY [facility] Hydralazine HCl (Apresoline -) 50 mg PO BID [facility] Last Admin: 08/31/18 23:00 Dose: 50 mg Sodium Chloride (Normal Saline -) 250 mls @ 3,000 mls/hr IV PRN PRN PRN Reason: Hypotension during Dialysis Stop: 09/01/18 06:45 Insulin Aspart (Novolog Vial Sliding Scale -) 1 vial SQ ACHS [facility]; Protocol Last Admin: 09/01/18 06:58 Dose: Not Given Meclizine HCl (Antivert -) 12.5 mg PO DAILY [facility] Metoprolol Succinate (Toprol Xl -) 50 mg PO DAILY [facility] Last Admin: 08/31/18 14:52 Dose: 50 mg Morphine Sulfate (Morphine Sulfate) 2 mg IVPUSH Q6H PRN PRN Reason: PAIN LEVEL 7 - 10 Last Admin: 08/31/18 03:42 Dose: 2 mg Pantoprazole Sodium (Protonix Iv) 40 mg IVPUSH BID [facility] Last Admin: 08/31/18 23:01 Dose: 40 mg Sevelamer Carbonate (Renvela -) 800 mg PO TID [facility] Last Admin: 09/01/18 06:19 Dose: Not Given 78yo man with a PMH of ESRD on HD , HTN, DM, CAD, HLD, a-fib on amiodarone and apixaban, and CVA who presents with abdominal pain. #Abd pain #ESRD on HD #Hyperkalemia in setting of ESRD #Renal Osteodystrophy #Orthostatic Hypotension plan for HD today to get back on regular TTS schedule CT of Abd showed no overt pathology GI follow up, ? need for EGD, continue PPI Continue renal diet will check non-contrast CT of the head to make sure there is no subdural hematoma given fall and BARON continue midodrine for orthostatic hypotension Thank you Severo Sanchez DO
[2018-09-01] MEDS: AMIODARONE HCL 200 MG TABLET (FP) PO SCH ×2 (10:00→21:16)
[2018-09-01] MEDS: amLODIPine BESYLATE 10 MG TABLET (FP) PO SCH (10:00)
[2018-09-01] MEDS: hydrALAZINE HCL 25 MG TABLET (FP) PO SCH ×2 (10:00→21:15)
[2018-09-01] MEDS: PANTOPRAZOLE SODIUM 40 MG VIAL IVPUSH SCH ×2 (10:36→21:26)
[2018-09-01] MEDS: GABAPENTIN 300 MG CAPSULE (FP) PO SCH (10:37)
[2018-09-01] MEDS: MECLIZINE HCL 12.5 MG TABLET PO SCH (10:37)
[2018-09-01] MEDS: DULoxetine HCL 30 MG CAPSULE.DR (FP) PO SCH (10:37)
[2018-09-01] MEDS ORDERED: PT OWN MED DRAWER 7, Y5N ONE ×2 (10:53→21:18)
[2018-09-01] MEDS: APIXABAN 5 MG TABLET PO SCH ×2 (10:54→21:18)
--- NOTE | 2018-09-01 11:57 | PN ---
Progress Note, Physician - Current Medication List Current Medications: Active Medications Amiodarone HCl (Cordarone -) 200 mg PO BID [facility] Last Admin: 08/31/18 23:00 Dose: 200 mg Amlodipine Besylate (Norvasc -) 10 mg PO DAILY [facility] Last Admin: 08/31/18 14:52 Dose: 10 mg Apixaban (Eliquis -) 5 mg PO BID [facility] Last Admin: 09/01/18 10:54 Dose: 5 mg Atorvastatin Calcium (Lipitor -) 40 mg PO HS [facility] Last Admin: 08/31/18 23:00 Dose: 40 mg Duloxetine HCl (Cymbalta -) 30 mg PO DAILY [facility] Last Admin: 09/01/18 10:37 Dose: 30 mg Gabapentin (Neurontin -) 300 mg PO DAILY [facility] Last Admin: 09/01/18 10:37 Dose: 300 mg Hydralazine HCl (Apresoline -) 50 mg PO BID [facility] Last Admin: 08/31/18 23:00 Dose: 50 mg Sodium Chloride (Normal Saline -) 250 mls @ 3,000 mls/hr IV PRN PRN PRN Reason: Hypotension during Dialysis Stop: 09/01/18 06:45 Insulin Aspart (Novolog Vial Sliding Scale -) 1 vial SQ ACHS [facility]; Protocol Last Admin: 09/01/18 06:58 Dose: Not Given Meclizine HCl (Antivert -) 12.5 mg PO DAILY [facility] Last Admin: 09/01/18 10:37 Dose: 12.5 mg Metoprolol Succinate (Toprol Xl -) 50 mg PO DAILY [facility] Last Admin: 08/31/18 14:52 Dose: 50 mg Morphine Sulfate (Morphine Sulfate) 2 mg IVPUSH Q6H PRN PRN Reason: PAIN LEVEL 7 - 10 Last Admin: 08/31/18 03:42 Dose: 2 mg Pantoprazole Sodium (Protonix Iv) 40 mg IVPUSH BID [facility] Last Admin: 09/01/18 10:36 Dose: 40 mg Sevelamer Carbonate (Renvela -) 800 mg PO TID [facility] Last Admin: 09/01/18 06:19 Dose: Not Given - Objective Vital Signs: Vital Signs Temperature 98.4 F 09/01/18 02:05 Pulse Rate 65 09/01/18 02:05 Respiratory Rate 20 09/01/18 02:05 Blood Pressure 111/51 L 09/01/18 02:05 O2 Sat by Pulse Oximetry (%) 97 08/31/18 21:00 Cardiovascular: Yes: S1, S2 Respiratory: Yes: Regular, CTA Bilaterally Gastrointestinal: Yes: Normal Bowel Sounds, Soft Neurological: Yes: Alert, Oriented Labs: CBC, BMP 08/30/18 11:48 08/31/18 09:50 INR, PTT INR 0.98 (0.83-1.09) 08/30/18 11:48 Problem List - Problems (1) Epigastric pain Assessment/Plan: -Improved -Maybe gastritis---r/o pancreatitis -Follow labs -GI consult Code(s): R10.13 - EPIGASTRIC PAIN (2) Elevated lipase Assessment/Plan: -Follow trends--to normal -Ct noted--no sign path Code(s): R74.8 - ABNORMAL LEVELS OF OTHER SERUM ENZYMES (3) End stage renal disease Code(s): N18.6 - END STAGE RENAL DISEASE (4) Atrial fibrillation Assessment/Plan: -continue with home meds -will d/w renal regarding Eliquis Code(s): I48.91 - UNSPECIFIED ATRIAL FIBRILLATION Qualifiers: Atrial fibrillation type: paroxysmal Qualified Code(s): I48.0 - Paroxysmal atrial fibrillation (5) Diabetes Assessment/Plan: -BGM Code(s): E11.9 - TYPE 2 DIABETES MELLITUS WITHOUT COMPLICATIONS Qualifiers: Diabetes mellitus type: type 1 Diabetes mellitus complication status: with unspecified complications Qualified Code(s): E10.8 - Type 1 diabetes mellitus with unspecified complications (6) Head ache Assessment/Plan: CT of head Code(s): R51 - HEADACHE
[2018-09-01] MEDS: ATORVASTATIN CA 40 MG TABLET (FP) PO SCH (21:15)
[2018-09-02] MEDS: SEVELAMER CARBONATE 800 MG TAB (FP) PO SCH ×3 (05:58→22:25)
--- NOTE | 2018-09-02 08:38 | PN ---
Progress Note (short form) - Note Progress Note: Renal follow up for ESRD on HD Pt seen and examined at the bedside no acute complaints s/p HD yesterday with 3kg UF denies any sob, cp, abd pain, N/V Vital Signs Temperature 97.5 F L 09/02/18 05:18 Pulse Rate 77 09/02/18 05:18 Respiratory Rate 18 09/02/18 05:18 Blood Pressure 137/75 09/02/18 05:18 O2 Sat by Pulse Oximetry (%) 97 09/01/18 09:00 Intake & Output 08/30/18 08/31/18 09/01/18 09/02/18 23:59 23:59 23:59 23:59 Intake Total 62 Output Total 1 Balance 62 -1 Weight 96.615 kg 84.822 kg NAD awake and alert RRR CTA no LE edema CBC, BMP 08/30/18 11:48 08/31/18 09:50 CT head negative for SDH or any intracranial pathology Current Medications Amiodarone HCl (Cordarone -) 200 mg PO BID [facility] Last Admin: 09/01/18 21:16 Dose: 200 mg Amlodipine Besylate (Norvasc -) 10 mg PO DAILY [facility] Last Admin: 09/01/18 10:00 Dose: Not Given Apixaban (Eliquis -) 5 mg PO BID [facility] Last Admin: 09/01/18 21:18 Dose: 5 mg Atorvastatin Calcium (Lipitor -) 40 mg PO HS [facility] Last Admin: 09/01/18 21:15 Dose: 40 mg Duloxetine HCl (Cymbalta -) 30 mg PO DAILY [facility] Last Admin: 09/01/18 10:37 Dose: 30 mg Gabapentin (Neurontin -) 300 mg PO DAILY [facility] Last Admin: 09/01/18 10:37 Dose: 300 mg Hydralazine HCl (Apresoline -) 50 mg PO BID [facility] Last Admin: 09/01/18 21:15 Dose: 50 mg Sodium Chloride (Normal Saline -) 250 mls @ 3,000 mls/hr IV PRN PRN PRN Reason: Hypotension during Dialysis Stop: 09/01/18 06:45 Insulin Aspart (Novolog Vial Sliding Scale -) 1 vial SQ ACHS [facility]; Protocol Last Admin: 09/01/18 21:20 Dose: Not Given Meclizine HCl (Antivert -) 12.5 mg PO DAILY [facility] Last Admin: 09/01/18 10:37 Dose: 12.5 mg Metoprolol Succinate (Toprol Xl -) 50 mg PO DAILY [facility] Last Admin: 09/01/18 10:00 Dose: Not Given Morphine Sulfate (Morphine Sulfate) 2 mg IVPUSH Q6H PRN PRN Reason: PAIN LEVEL 7 - 10 Last Admin: 08/31/18 03:42 Dose: 2 mg Pantoprazole Sodium (Protonix Iv) 40 mg IVPUSH BID [facility] Last Admin: 09/01/18 21:26 Dose: 40 mg Sevelamer Carbonate (Renvela -) 800 mg PO TID [facility] Last Admin: 09/02/18 05:58 Dose: Not Given 78yo man with a PMH of ESRD on HD , HTN, DM, CAD, HLD, a-fib on amiodarone and apixaban, and CVA who presents with abdominal pain. #Abd pain #ESRD on HD #Hyperkalemia in setting of ESRD #Renal Osteodystrophy #Orthostatic Hypotension no acute indication for [employer] requested pt be OOB to chair and walk around CT head w/o pathology continue renal diet next dialysis planned for Monday discharge planning as per primary Thank you Severo Sanchez DO
[2018-09-02] MEDS: PANTOPRAZOLE SODIUM 40 MG VIAL IVPUSH SCH ×2 (09:40→22:25)
[2018-09-02] MEDS: GABAPENTIN 300 MG CAPSULE (FP) PO SCH (09:40)
[2018-09-02] MEDS: AMIODARONE HCL 200 MG TABLET (FP) PO SCH ×2 (09:41→22:26)
[2018-09-02] MEDS: hydrALAZINE HCL 25 MG TABLET (FP) PO SCH ×2 (09:41→22:25)
[2018-09-02] MEDS: amLODIPine BESYLATE 10 MG TABLET (FP) PO SCH (09:41)
[2018-09-02] MEDS: MECLIZINE HCL 12.5 MG TABLET PO SCH (09:41)
[2018-09-02] MEDS: DULoxetine HCL 30 MG CAPSULE.DR (FP) PO SCH (09:50)
[2018-09-02] MEDS: APIXABAN 2.5 MG TABLET PO SCH ×2 (09:59→22:26)
--- NOTE | 2018-09-02 11:17 | DS ---
Physical Examination Vital Signs: Vital Signs Temperature 97.5 F L 09/02/18 05:18 Pulse Rate 77 09/02/18 05:18 Respiratory Rate 18 09/02/18 05:18 Blood Pressure 137/75 09/02/18 05:18 O2 Sat by Pulse Oximetry (%) 97 09/01/18 09:00 Cardiovascular: Yes: S1, S2 Respiratory: Yes: Regular, CTA Bilaterally Gastrointestinal: Yes: Normal Bowel Sounds, Soft. No: Tenderness Labs: CBC, BMP 08/30/18 11:48 08/31/18 09:50 Discharge Summary Reason For Visit: CHEST PAIN Current Active Problems Chest pain (Acute) Elevated lipase (Acute) End stage renal disease (Acute) Epigastric pain (Acute) Head ache (Acute) Hospital Course: - Problems (1) Epigastric pain Assessment/Plan: -Improved -Maybe gastritis---maybe mild pancreatitis--now lipase nl -GI consult noted Code(s): R10.13 - EPIGASTRIC PAIN (2) Elevated lipase Assessment/Plan: -Follow trends--to normal -Ct noted--no sign path Code(s): R74.8 - ABNORMAL LEVELS OF OTHER SERUM ENZYMES (3) End stage renal disease Code(s): N18.6 - END STAGE RENAL DISEASE (4) Atrial fibrillation Assessment/Plan: -continue with home meds -d/w renal regarding Eliquis dose adjusted Code(s): I48.91 - UNSPECIFIED ATRIAL FIBRILLATION Qualifiers: Atrial fibrillation type: paroxysmal Qualified Code(s): I48.0 - Paroxysmal atrial fibrillation (5) Diabetes Assessment/Plan: -BGM Code(s): E11.9 - TYPE 2 DIABETES MELLITUS WITHOUT COMPLICATIONS Qualifiers: Diabetes mellitus type: type 1 Diabetes mellitus complication status: with unspecified complications Qualified Code(s): E10.8 - Type 1 diabetes mellitus with unspecified complications (6) Head ache Assessment/Plan: CT of head nad Code(s): R51 - HEADACHE Dc planning for home care services and dailysis Condition: Improved - Instructions Disposition: VNS/HOME HEALTH CARE - Home Medications Comprehensive Discharge Medication List: Ambulatory Orders Atorvastatin Ca [Lipitor] 40 mg PO HS 06/06/15 Gabapentin 300 mg PO DAILY 11/19/15 Duloxetine HCl 30 mg PO DAILY 04/16/16 Amlodipine Besylate [Norvasc -] 10 mg PO DAILY #30 tablet 04/19/16 Metoprolol Succinate [Toprol XL -] 50 mg PO DAILY #30 tab.sr.24h 04/19/16 Amiodarone HCl [Cordarone -] 200 mg PO BID #60 tablet 02/07/17 Aspirin [ASA -] 81 mg PO DAILY 08/31/18 Tamsulosin HCl [Flomax] 0.4 mg PO DAILY 08/31/18 Apixaban [Eliquis -] 2.5 mg PO BID #60 tablet 09/02/18 Metoclopramide HCl [Reglan -] 5 mg PO TIDAC #45 tablet 09/02/18 Pantoprazole Sodium [Protonix -] 40 mg PO DAILY #30 tablet.ec 09/02/18 hydrALAZINE HCL [Apresoline -] 50 mg PO BID tablet 09/02/18
[2018-09-02] MEDS: INSULIN SLIDING SCALE (NOVOLOG) 1 VIAL SQ SCH ×2 (11:46→22:00)
[2018-09-02] MEDS: METOCLOPRAMIDE HCL 10 MG TABLET (FP) PO SCH (15:54)
--- NOTE | 2018-09-02 17:20 | PN ---
GI Progress Note Subjective: epigastric pain resolved, complete relief with Pantoprazole. CT revealed possibly retained food in the stomach . The patient is tolerating his diet well. No reports of nausea and vomiting - Objective Vital Signs: Vital Signs Temperature 98.2 F 09/02/18 14:17 Pulse Rate 62 09/02/18 14:17 Respiratory Rate 17 09/02/18 14:17 Blood Pressure 123/61 09/02/18 14:17 O2 Sat by Pulse Oximetry (%) 97 09/01/18 09:00 Constitutional: Well Nourished Eyes: Yes: Conjunctiva Clear HENT: Yes: Atraumatic Neck: Yes: Supple Cardiovascular: Yes: Regular Rate and Rhythm Respiratory: Yes: Regular ...Auscultate: Yes: Normoactive Bowel Sounds ...Palpate: Yes: Soft. No: Firm/Rigid, Guarding, Hepatomegaly, Mass, Splenomegaly, Tenderness, Epigastium Labs: CBC, BMP 08/30/18 11:48 08/31/18 09:50 INR, PTT INR 0.98 (0.83-1.09) 08/30/18 11:48 - ....Imaging Cat Scan: Report Reviewed Problem List - Problems (1) Epigastric pain Assessment/Plan: resolved r/o seconary to gastritis, gastroparesis R. maintain on Reglan 5mg 30 min ac for 4 weeks Pantoprazole 40mg daily made aware to follow-up for further gi w/u Code(s): R10.13 - EPIGASTRIC PAIN
[2018-09-02] MEDS: ATORVASTATIN CA 40 MG TABLET (FP) PO SCH (22:25)
[2018-09-03] MEDS: SEVELAMER CARBONATE 800 MG TAB (FP) PO SCH ×2 (06:21→15:13)
[2018-09-03] MEDS: METOCLOPRAMIDE HCL 10 MG TABLET (FP) PO SCH ×3 (06:21→17:24)
[2018-09-03] MEDS: hydrALAZINE HCL 25 MG TABLET (FP) PO SCH (10:14)
[2018-09-03] MEDS: PANTOPRAZOLE SODIUM 40 MG VIAL IVPUSH SCH (10:14)
[2018-09-03] MEDS: AMIODARONE HCL 200 MG TABLET (FP) PO SCH (10:14)
[2018-09-03] MEDS: GABAPENTIN 300 MG CAPSULE (FP) PO SCH (10:14)
[2018-09-03] MEDS: MECLIZINE HCL 12.5 MG TABLET PO SCH (10:14)
[2018-09-03] MEDS: DULoxetine HCL 30 MG CAPSULE.DR (FP) PO SCH (10:14)
[2018-09-03] MEDS: amLODIPine BESYLATE 10 MG TABLET (FP) PO SCH (10:14)
[2018-09-03] MEDS: APIXABAN 2.5 MG TABLET PO SCH (10:14)
--- NOTE | 2018-09-03 10:53 | PN ---
Progress Note (short form) - Note Progress Note: Renal follow up for ESRD on HD Pt seen and examined at the bedside awake and alert no acute complaints no sob, cp, abd pain, N/V/D Vital Signs Temperature 98.4 F 09/03/18 09:20 Pulse Rate 99 H 09/03/18 09:20 Respiratory Rate 18 09/03/18 09:20 Blood Pressure 126/69 09/03/18 09:20 O2 Sat by Pulse Oximetry (%) 97 09/02/18 21:00 Intake & Output 08/31/18 09/01/18 09/02/18 09/03/18 23:59 23:59 23:59 23:59 Intake Total 62 150 Output Total 1 Balance 62 -1 150 Weight 84.822 kg NAD no LE edema CBC, BMP 08/30/18 11:48 08/31/18 09:50 Current Medications Amiodarone HCl (Cordarone -) 200 mg PO BID [facility] Last Admin: 09/03/18 10:14 Dose: 200 mg Amlodipine Besylate (Norvasc -) 10 mg PO DAILY [facility] Last Admin: 09/03/18 10:14 Dose: 10 mg Apixaban (Eliquis -) 2.5 mg PO BID [facility] Last Admin: 09/03/18 10:14 Dose: 2.5 mg Atorvastatin Calcium (Lipitor -) 40 mg PO HS [facility] Last Admin: 09/02/18 22:25 Dose: 40 mg Duloxetine HCl (Cymbalta -) 30 mg PO DAILY [facility] Last Admin: 09/03/18 10:14 Dose: 30 mg Gabapentin (Neurontin -) 300 mg PO DAILY [facility] Last Admin: 09/03/18 10:14 Dose: 300 mg Hydralazine HCl (Apresoline -) 50 mg PO BID [facility] Last Admin: 09/03/18 10:14 Dose: 50 mg Sodium Chloride (Normal Saline -) 250 mls @ 3,000 mls/hr IV PRN PRN PRN Reason: Hypotension during Dialysis Stop: 09/01/18 06:45 Insulin Aspart (Novolog Vial Sliding Scale -) 1 vial SQ ACHS [facility]; Protocol Last Admin: 09/02/18 22:00 Dose: Not Given Meclizine HCl (Antivert -) 12.5 mg PO DAILY [facility] Last Admin: 09/03/18 10:14 Dose: 12.5 mg Metoclopramide HCl (Reglan -) 5 mg PO TIDAC [facility] Last Admin: 09/03/18 06:21 Dose: 5 mg Metoprolol Succinate (Toprol Xl -) 50 mg PO DAILY [facility] Last Admin: 09/03/18 10:14 Dose: 50 mg Pantoprazole Sodium (Protonix Iv) 40 mg IVPUSH BID [facility] Last Admin: 09/03/18 10:14 Dose: 40 mg Sevelamer Carbonate (Renvela -) 800 mg PO TID [facility] Last Admin: 09/03/18 06:21 Dose: 800 mg 78yo man with a PMH of ESRD on HD , HTN, DM, CAD, HLD, a-fib on amiodarone and apixaban, and CVA who presents with abdominal pain. #Abd pain #ESRD on HD #Hyperkalemia in setting of ESRD #Renal Osteodystrophy #Orthostatic Hypotension no acute need for [employer] stable for discharge and to resume outpatient HD tomorrow Thank you Severo Sanchez DO
[2018-09-03] MEDS: INSULIN SLIDING SCALE (NOVOLOG) 1 VIAL SQ SCH ×2 (11:35→17:25)
--- NOTE | 2018-09-03 14:32 | PN ---
Progress Note, Physician Chief Complaint: patient seen no complaints ready to g ohome - Current Medication List Current Medications: Active Medications Amiodarone HCl (Cordarone -) 200 mg PO BID [facility] Last Admin: 09/03/18 10:14 Dose: 200 mg Amlodipine Besylate (Norvasc -) 10 mg PO DAILY [facility] Last Admin: 09/03/18 10:14 Dose: 10 mg Apixaban (Eliquis -) 2.5 mg PO BID [facility] Last Admin: 09/03/18 10:14 Dose: 2.5 mg Atorvastatin Calcium (Lipitor -) 40 mg PO HS [facility] Last Admin: 09/02/18 22:25 Dose: 40 mg Duloxetine HCl (Cymbalta -) 30 mg PO DAILY [facility] Last Admin: 09/03/18 10:14 Dose: 30 mg Gabapentin (Neurontin -) 300 mg PO DAILY [facility] Last Admin: 09/03/18 10:14 Dose: 300 mg Hydralazine HCl (Apresoline -) 50 mg PO BID [facility] Last Admin: 09/03/18 10:14 Dose: 50 mg Sodium Chloride (Normal Saline -) 250 mls @ 3,000 mls/hr IV PRN PRN PRN Reason: Hypotension during Dialysis Stop: 09/01/18 06:45 Insulin Aspart (Novolog Vial Sliding Scale -) 1 vial SQ ACHS [facility]; Protocol Last Admin: 09/03/18 11:35 Dose: Not Given Meclizine HCl (Antivert -) 12.5 mg PO DAILY [facility] Last Admin: 09/03/18 10:14 Dose: 12.5 mg Metoclopramide HCl (Reglan -) 5 mg PO TIDAC [facility] Last Admin: 09/03/18 11:32 Dose: 5 mg Metoprolol Succinate (Toprol Xl -) 50 mg PO DAILY [facility] Last Admin: 09/03/18 10:14 Dose: 50 mg Pantoprazole Sodium (Protonix Iv) 40 mg IVPUSH BID [facility] Last Admin: 09/03/18 10:14 Dose: 40 mg Sevelamer Carbonate (Renvela -) 800 mg PO TID [facility] Last Admin: 09/03/18 06:21 Dose: 800 mg - Objective Vital Signs: Vital Signs Temperature 98.4 F 09/03/18 09:20 Pulse Rate 99 H 09/03/18 09:20 Respiratory Rate 18 09/03/18 09:20 Blood Pressure 126/69 09/03/18 09:20 O2 Sat by Pulse Oximetry (%) 99 09/03/18 09:20 Constitutional: Yes: Calm Cardiovascular: Yes: Regular Rate and Rhythm, S1, S2 Respiratory: Yes: CTA Bilaterally Gastrointestinal: Yes: Normal Bowel Sounds, Soft Neurological: Yes: Alert Labs: CBC, BMP 08/30/18 11:48 08/31/18 09:50 INR, PTT INR 0.98 (0.83-1.09) 08/30/18 11:48 Problem List - Problems (1) End stage renal disease Assessment/Plan: HD as outpatient Code(s): N18.6 - END STAGE RENAL DISEASE (2) Epigastric pain Assessment/Plan: reglan for 4 weeks and protonix daily Code(s): R10.13 - EPIGASTRIC PAIN (3) Afib Assessment/Plan: metoprolol and eliquis Code(s): I48.91 - UNSPECIFIED ATRIAL FIBRILLATION
[2018-09-03 15:32] VITALS: PULSE 60
[2018-09-03 18:46] VITALS: BP 120/65; TEMP 97.8
[2018-09-04 06:06] LABS: HBSAG SCREEN Negative (Negative); HEP A AB, IGM Negative (Negative); HEP B CORE AB, TOT Negative (Negative)
[2018-09-04] MEDS ORDERED: PANTOPRAZOLE 40 MG TABLET (FP) PO SCH (10:00)
== END 2018-09-03 18:58 | disposition home health service (06) | DRG 73 ==
LOC: JER 10:41 → JERBED 13:41 → J4W 19:23 → J5S 08-31 15:30
PROVIDERS: ADMIT Family Medicine; ATTEND Family Medicine
DX: E11.43 Type 2 diabetes mellitus with diabetic autonomic (poly)neuropathy (principal); N18.6 End stage renal disease; K85.90 Acute pancreatitis without necrosis or infection, unspecified; I13.2 Hypertensive heart and chronic kidney disease with heart failure and with stage 5 chronic kidney disease, or end stage renal disease; K31.84 Gastroparesis; K29.70 Gastritis, unspecified, without bleeding; R07.9 Chest pain, unspecified; E11.22 Type 2 diabetes mellitus with diabetic chronic kidney disease; I35.1 Nonrheumatic aortic (valve) insufficiency; I48.0 Paroxysmal atrial fibrillation; I25.10 Atherosclerotic heart disease of native coronary artery without angina pectoris; E78.5 Hyperlipidemia, unspecified; Z86.73 Personal history of transient ischemic attack (TIA), and cerebral infarction without residual deficits; D64.9 Anemia, unspecified; Z99.2 Dependence on renal dialysis; Z87.891 Personal history of nicotine dependence; N40.0 Benign prostatic hyperplasia without lower urinary tract symptoms; Z79.01 Long term (current) use of anticoagulants; E87.5 Hyperkalemia; N25.0 Renal osteodystrophy; I95.1 Orthostatic hypotension; R74.8 Abnormal levels of other serum enzymes; R51 Headache
CPT/HCPCS: 36415; 70450-TC; 71045-TC-FY; 74176-TC; 80053; 82150; 82550; 82553; 82962; 83690; 83735; 84484; 85025; 85610; 86704; 86706; 86708; 86803; 87340; 93005; 93010; 99284-25

== ENCOUNTER 2019-01-19 15:08 | Inpatient (IN) | payer MEDICARE, OTHER ==
--- NOTE | 2019-01-19 15:29 | PDOC ---
History of Present Illness - General Chief Complaint: Respiratory Stated Complaint: SICK/COUGHING Time Seen by Provider: 01/19/19 15:19 History Source: Patient Exam Limitations: Clinical Condition - History of Present Illness Initial Comments: 78 yo M w a pmh of CVA, Aortic Insufficiency, CHF, HTN, Hyperlipdemia, Mitral Insufficiency, ortostatic hypotension -> admissions here with near-syncope in 2014 and ealry 2016, Renal Failure (HD for 3 1/2 yrs), BPH, anemia, NIDDM was BIBEMS to the ER from the dialysis center because he has been experiencing a productive cough associated with shortness of breath. The patient states he has a chronic cough but it acutely worsened this morning. He also states he has been feeling sick recently and thinks he had a fever but did not measure it. The patient denies being short of breath or having any chest pain today. He does admit to having a bilateral frontal headache around his orbits which started yesterday morning and has mildly worsened. He currently rates the headache as 8/10 but states it is not the worst headache of his life. The patient endorses nausea but no emesis. He denies any associated diaphoresis. The patient also endorses right lower back pain which he states is chronic and has been present for many months. PCP: Jerry Bird - Typically gets admitted to [facility]. PSH: AV Fistula/Graft. Left foot and shoulder orthopedic surgeries. Social Hx: Former heavy smoker. Quit > 25 years ago. Allergies: NKA, NKDA Past History - Past Medical History Allergies/Adverse Reactions: Allergies Allergy/AdvReac Type Severity Reaction Status Date / Time No Known Allergies Allergy Verified 01/19/19 15:27 Home Medications: Ambulatory Orders Atorvastatin Ca [Lipitor] 40 mg PO HS 06/06/15 Gabapentin 300 mg PO DAILY 11/19/15 Duloxetine HCl 30 mg PO DAILY 04/16/16 Amlodipine Besylate [Norvasc -] 10 mg PO DAILY #30 tablet 04/19/16 Metoprolol Succinate [Toprol XL -] 50 mg PO DAILY #30 tab.sr.24h 04/19/16 Amiodarone HCl [Cordarone -] 200 mg PO BID #60 tablet 02/07/17 Aspirin [ASA -] 81 mg PO DAILY 08/31/18 Tamsulosin HCl [Flomax] 0.4 mg PO DAILY 08/31/18 Apixaban [Eliquis -] 5 mg PO BID 01/19/19 Cinacalcet HCl [Sensipar -] 30 mg PO DAILY 01/19/19 Labetalol HCl [Normodyne -] 200 mg PO BID 01/19/19 Sevelamer Carbonate [Renvela] 800 mg PO TID 01/19/19 Sitagliptin Phosphate [Januvia] 25 mg PO DAILY 01/19/19 Anemia: Yes Asthma: No Cancer: Yes Cardiac Disorders: Yes (CAD) CVA: Yes (2009 LLE PAIN, MEMORY DEFICIT) COPD: No CHF: No DVT: No Dementia: No Diabetes: Yes Dialysis: Yes (t,,sa) GI Disorders: No Disorders: Yes (enlarged prostate/BPH) HTN: Yes Hypercholesterolemia: Yes Liver Disease: No Seizures: No Thyroid Disease: No - Surgical History Abdominal Surgery: No Appendectomy: No Cardiac Surgery: No Cholecystectomy: No Lung Surgery: No Neurologic Surgery: No Orthopedic Surgery: Yes (L. foot and shoulder) - Family Disease History Family Disease History: Diabetes: Mother, Heart Disease: Father - Immunization History Td Vaccination: Yes Immunization Up to Date: Yes - Suicide/Smoking/Psychosocial Hx Smoking Status: No Smoking History: Former smoker Years of Tobacco Use: 0 Have you smoked in the past 12 months: No Number of Cigarettes Smoked Daily: 0 If you are a former smoker, when did you quit?: > 25 ya Cigars Per Day: 0 Information on smoking cessation initiated: No Hx Alcohol Use: No Drug/Substance Use Hx: No Substance Use Type: None Hx Substance Use Treatment: No Review of Systems - Review of Systems Able to Perform ROS?: Yes Comments:: CONSTITUTIONAL: Present: chills, fatigue Absent: fever EYES: Absent: visual changes ENT: Absent: ear pain, no sore throat CARDIOVASCULAR: Absent: chest pain, no palpitations RESPIRATORY: Present: cough Absent: no SOB GI: Present: Nausea Absent: abdominal pain, no vomiting, no constipation, no diarrhea GENITOURINARY: Absent: dysuria, no frequency, no hematuria MUSKULOSKELETAL: Present: Back pain, arthralgia Absent: no myalgia SKIN: Absent: rash NEURO: Present: headache *Physical Exam - Vital Signs Last Vital Signs Temp Pulse Resp BP Pulse Ox 97.9 F 77 18 161/69 97 01/19/19 15:23 01/19/19 15:23 01/19/19 15:23 01/19/19 15:23 01/19/19 15:23 - Physical Exam Comments: GENERAL: Well-appearing, well-nourished. Mild distress. HEENT: Normocephalic, atraumatic. PERRL, EOM intact. CARDIOVASCULAR: diastolic decrescendo murmur most noticeable in the pulmonic region. Regular rate and rhythm. PULMONARY: There is diffuse wheezing throughout all lung gauthier. The patient had a difficult time taking a deep breath and coughed with ever inspiration. ABDOMEN: Soft, non-distended, non-tender. EXTREMITIES: Limited ROM in all four extremities. No gross deformities. SKIN: Warm, dry. No rash NEUROLOGICAL: No focal neurological deficits. ED Treatment Course - LABORATORY CBC & Chemistry Diagram: 01/19/19 16:16 01/19/19 16:16 Medical Decision Making - Medical Decision Making 78 yo M w a pmh of CVA, Aortic Insufficiency, CHF, HTN, Hyperlipdemia, Mitral Insufficiency, ortostatic hypotension -> admissions here with near-syncope in 2014 and ealry 2016, Renal Failure (HD for 3 1/2 yrs), BPH, anemia, NIDDM was BIBEMS to the ER from the dialysis center because he has been experiencing a productive cough associated with shortness of breath. The patient states he has a chronic cough but it acutely worsened this morning. He also states he has been feeling sick recently and thinks he had a fever but did not measure it. The patient denies being short of breath or having any chest pain today. He does admit to having a bilateral frontal headache around his orbits which started yesterday morning and has mildly worsened. He currently rates the headache as 8/10 but states it is not the worst headache of his life. The patient endorses nausea but no emesis. He denies any associated diaphoresis. The patient also endorses right lower back pain which he states is chronic and has been present for many months. VS: WNL DDx IBNLT: COPD exacerbation, CHF, ACS/ND, obstructive lung disease process, PNA , influenza, dehydration, electrolyte/metabolic disturbance. Plan: Labs, EKG, head CT, CXR, duonebs, steroids, flu-swab, re-assess, likely admit. EKG: Sinus rhythm w/ 1st degree AV block. Not suggestive of ACS. No acute changes since 08/30/18 Labs: Trop elevated to 0.22 - appears to be similar to patient's baseline. Hb 10.6 -also in similar range to prior admission values. BNP significantly elevated but lower than it has been in most prior admissions. Cr - 3.6, better than most prior values. No white count. Flu swab negative. CXR: Increased congestion suggestive of possible fluid buildup. Supports CHF exacerbation. Head CT: No obvious acute pathology. Will admit patient to hospital for further care. *DC/Admit/Observation/Transfer Diagnosis at time of Disposition: Cough, Wheezing, Troponin I above reference range, Heart failure - Discharge Dispostion Condition at time of disposition: Stable Decision to Admit order: Yes - Referrals Referrals: Jerry Bird MD [Primary Care Provider] - - Patient Instructions - Post Discharge Activity
[2019-01-19] MEDS ORDERED: methylPREDNISolone NA SUCC 125 MG/2 ML VIAL IVPB ONE (15:49)
[2019-01-19] MEDS ORDERED: ALBUTEROL SO4 2.5/IPRATROPIUM 0.5 INH SOL 3 ML VIAL.NEB. NEB ONE ×2 (15:49→15:59)
[2019-01-19] MEDS ORDERED: predniSONE 20 MG TABLET (UD) PO ONE (15:54)
[2019-01-19] MEDS ORDERED: predniSONE 20 MG TABLET (UD) ONE (15:58)
--- NOTE | 2019-01-19 16:12 | PDOC ---
Attending Attestation - HPI HPI: 01/19/19 16:12 The patient is a 78 year old male with a past medical history of CVA, aortic and mitral insufficiency, CHF, HLD, HTN, CKD (on dialysis), and orthostatic hypotension brought in today by EMS from dialysis center for evaluation of cough and headache. Patient reports that he has been having a chronic cough but that it was worse today and was productive. He also notes that he has been having a headache which he states is localized around the eyes. Patient denies lightheadedness. Denies fever, chills. Denies chest pain. Denies nausea, vomiting, diarrhea, abdominal pain. Allergies: NKA PCP: Jerry Bird - Physicial Exam PE: 01/19/19 16:12 GENERAL: Awake, alert, and fully oriented, in no acute distress HEAD: No signs of trauma EYES: PERRLA, EOMI, sclera anicteric, conjunctiva clear ENT: Auricles normal inspection, hearing grossly normal, nares patent. Moist mucosa NECK: Normal ROM, supple, JVD, or masses LUNGS: +diffuse expiratory wheezing. +constant coughing. Breath sounds equal, no crackles HEART: Regular rate and rhythm, normal S1 and S2, no murmurs, rubs or gallops ABDOMEN: Soft, nontender. No guarding, no rebound. No masses EXTREMITIES: Normal range of motion, no edema. No clubbing or cyanosis. No cords, erythema, or tenderness NEUROLOGICAL: Cranial nerves II through XII grossly intact. Normal speech SKIN: Warm, Dry, normal turgor, no rashes or lesions noted. <Randall Millan - Last Filed: 01/19/19 16:12> - Resident Resident Name: Chilango Dean - ED Attending Attestation I have performed the following: I have examined & evaluated the patient, The case was reviewed & discussed with the resident, I agree w/resident's findings & plan, Exceptions are as noted - Medical Decision Making 01/19/19 16:11 A portion of this note was documented by scribe services under my direction. I have reviewed the details of the note, within reason, and agree with the documentation with the following case summary and management plan written by me. Patient treated in the ED. Nursing notes are reviewed and incorporated into the medical decision-making. Vital signs reviewed. Peripheral IV access obtained by the nurse, laboratory studies are drawn and sent, reviewed and interpreted by myself. Vital Signs Temp Pulse Resp BP Pulse Ox 97.9 F 77 18 161/69 97 01/19/19 15:23 01/19/19 15:23 01/19/19 15:23 01/19/19 15:23 01/19/19 15:23 78-year-old male with history of stroke, aortic insufficiency, congestive heart failure, hypertension, hyperlipidemia, mitral insufficiency, orthostatic hypotension, chronic kidney disease on dialysis presents with chest tightness, shortness of breath, productive cough and wheezing. Patient noted today that he started developing the symptoms. Patient went to dialysis and noted these symptoms. Patient completed dialysis and came to the ER. Patient reports frequent uncontrolled coughing. The patient is diffusely wheezy concerning for potential obstructive lung disease process. We'll need to rule out pneumonia, influenza. I agree with the plan to give duo nebs and prednisone. We'll need to rule out pneumonia with chest x-ray. Patient will likely need to be admitted to the hospital for further evaluation. 01/19/19 17:28 CBC, BMP 01/19/19 16:16 01/19/19 16:16 CMP Sodium 134 mmol/L (136-145) L 01/19/19 16:16 Potassium 3.9 mmol/L (3.5-5.1) 01/19/19 16:16 Chloride 95 mmol/L (98-107) L 01/19/19 16:16 Carbon Dioxide 32 mmol/L (21-32) 01/19/19 16:16 Anion Gap 7 MMOL/L (8-16) L 01/19/19 16:16 BUN 12 mg/dL (7-18) 01/19/19 16:16 Creatinine 3.6 mg/dL (0.55-1.3) H 01/19/19 16:16 Creat Clearance w eGFR 16.44 (>60) 01/19/19 16:16 Random Glucose 93 mg/dL (74-106) 01/19/19 16:16 Calcium 8.6 mg/dL (8.5-10.1) 01/19/19 16:16 Total Bilirubin 0.4 mg/dL (0.2-1) 01/19/19 16:16 AST 20 U/L (15-37) 01/19/19 16:16 ALT 14 U/L (13-61) 01/19/19 16:16 Alkaline Phosphatase 89 U/L (45-117) 01/19/19 16:16 Creatine Kinase 237 U/L (26-308) 01/19/19 16:16 Troponin I 0.22 ng/ml (0.00-0.05) H 01/19/19 16:16 B-Natriuretic Peptide 73710.9 pg/ml (5-450) H 01/19/19 16:16 Total Protein 8.0 g/dl (6.4-8.2) 01/19/19 16:16 Albumin 3.3 g/dl (3.4-5.0) L 01/19/19 16:16 BNP elevated. Chest xray reviewed by me, pending official radiology read. Appears to have some pulmonary vascular congestion. Will consult renal. May potentially need more dialysis. Will however continue to treat as COPD-like. Admit. <Collin Hay - Last Filed: 01/19/19 17:29> Heart Score/ECG Review #1 ECG reviewed & interpreted by me at: 15:50 01/19/19 16:12 NSR 80 with 1st degree AV block, no std/rupali, normal axis, normal intervals, QTC 477 msec <Collin Hay - Last Filed: 01/19/19 17:29> Attestations - Attestations 01/19/19 16:13 Documentation prepared by BIN Chang, acting as medical delivery driver for Collin Hay MD. <Randall Millan - Last Filed: 01/19/19 16:12>
[2019-01-19 16:30] LABS: BASO % 0.8 % (0-2.0); EOS % 2.1 % (0-4.5); HEMATOCRIT 32.4 % (35.4-49); HEMOGLOBIN 10.6 GM/dL (11.7-16.9); LYMPH % 7.7 % (8-40); MCH 30.1 pg (25.7-33.7); MCHC 32.6 g/dl (32.0-35.9); MEAN CELL VOLUME 92.3 fl (80-96); MEAN PLT VOLUME 9.3 fl (7.5-11.1); MONO % 5.7 % (3.8-10.2); NEUT % 83.7 % (42.8-82.8); PLATELET COUNT 171 K/MM3 (134-434); RBC 3.51 M/mm3 (4.00-5.60); RDW 16.1 % (11.9-15.9)
[2019-01-19 17:08] LABS: INR 1.1 (0.83-1.09)
[2019-01-19 17:17] LABS: ALBUMIN 3.3 g/dl (3.4-5.0); ALK PHOS 89 U/L (45-117); ANION GAP 7 MMOL/L (8-16); BILIRUBIN,TOTAL 0.4 mg/dL (0.2-1); BLOOD UREA NITROGEN 12 mg/dL (7-18); CALCIUM 8.6 mg/dL (8.5-10.1); CHLORIDE 95 mmol/L (98-107); CO2 32 mmol/L (21-32); CREATININE 3.6 mg/dL (0.55-1.3); GLUCOSE,RANDOM 93 mg/dL (74-106); N-TERMINAL BNP 31066.9 pg/ml (5-450); SGPT/ALT 14 U/L (13-61); SODIUM 134 mmol/L (136-145)
[2019-01-19 17:24] LABS: POTASSIUM 3.9 mmol/L (3.5-5.1); SGOT/AST 20 U/L (15-37)
--- NOTE | 2019-01-19 20:47 | HP ---
Admitting History and Physical - Primary Care Physician PCP: Jerry Bird - Admission Chief Complaint: Productive Cough, SOB History of Present Illness: This is a 78 y/o man with significant medical history of CVA, Afib (on Amiodarone, Eliquis), Aortic/Mitral Insufficiency, CHF, HTN, HLD, Orthostatic Hypotension. Who presents to the ED with a productive cough yellow phlegm and increased SOB. Patient had HD today. 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 On midodrine since prior to 2016 admission ) Renal/: Yes: Renal Failure (HD for 3 1/2 yrs), BPH Heme/Onc: Yes: Anemia Psych: Yes: Anxiety Endocrine: Yes: Diabetes Mellitus (hx of hypoglycemia episodes w/near syncope) - Past Surgical History Past Surgical History: Yes: AV Fistula/Graft - Smoking History Smoking history: Former smoker Have you smoked in the past 12 months: No Aproximately how many cigarettes per day: 0 If you are a former smoker, when did you quit?: > 25 ya - Alcohol/Substance Use Hx Alcohol Use: No History of Substance Use: reports: None - Social History History of Recent Travel: No Home Medications - Allergies Allergies/Adverse Reactions: Allergies Allergy/AdvReac Type Severity Reaction Status Date / Time No Known Allergies Allergy Verified 01/19/19 15:27 - Home Medications Home Medications: Ambulatory Orders Atorvastatin Ca [Lipitor] 40 mg PO HS 06/06/15 Gabapentin 300 mg PO DAILY 11/19/15 Duloxetine HCl 30 mg PO DAILY 04/16/16 Amlodipine Besylate [Norvasc -] 10 mg PO DAILY #30 tablet 04/19/16 Metoprolol Succinate [Toprol XL -] 50 mg PO DAILY #30 tab.sr.24h 04/19/16 Amiodarone HCl [Cordarone -] 200 mg PO BID #60 tablet 02/07/17 Aspirin [ASA -] 81 mg PO DAILY 08/31/18 Tamsulosin HCl [Flomax] 0.4 mg PO DAILY 08/31/18 Apixaban [Eliquis -] 5 mg PO BID 01/19/19 Cinacalcet HCl [Sensipar -] 30 mg PO DAILY 01/19/19 Labetalol HCl [Normodyne -] 200 mg PO BID 01/19/19 Sevelamer Carbonate [Renvela] 800 mg PO TID 01/19/19 Sitagliptin Phosphate [Januvia] 25 mg PO DAILY 01/19/19 Family Disease History - Family Disease History Family Disease History: Heart Disease: Father, Mother Review of Systems - Review of Systems Constitutional: reports: No Symptoms Eyes: reports: No Symptoms HENT: reports: No Symptoms Neck: reports: No Symptoms Cardiovascular: reports: Shortness of Breath Respiratory: reports: Cough, SOB, SOB on Exertion Gastrointestinal: reports: No Symptoms Breasts: reports: No Symptoms Reported Musculoskeletal: reports: Back Pain Integumentary: reports: No Symptoms Neurological: reports: No Symptoms Endocrine: reports: No Symptoms Hematology/Lymphatic: reports: No Symptoms Psychiatric: reports: No Symptoms Pain Intensity: 4 Physical Examination Vital Signs: Vital Signs Temperature 99.8 F H 01/19/19 18:31 Pulse Rate 86 01/19/19 18:31 Respiratory Rate 20 01/19/19 18:31 Blood Pressure 164/72 01/19/19 18:31 O2 Sat by Pulse Oximetry (%) 95 01/19/19 18:31 Constitutional: Yes: No Distress, Calm Eyes: Yes: Conjunctiva Clear, EOM Intact, PERRL HENT: Yes: WNL, Atraumatic, Normocephalic Neck: Yes: WNL, Supple, Trachea Midline Cardiovascular: Yes: Regular Rate and Rhythm, Murmur, S1, S2 Respiratory: Yes: Diminished, On Nasal O2, SOB, SOB on Exertion, Wheezes Gastrointestinal: Yes: WNL, Normal Bowel Sounds, Soft Breast(s): Yes: WNL Musculoskeletal: Yes: Back Pain Extremities: Yes: Other (Left Upper Arm- AV- Fistula +thrill) Edema: No Peripheral Pulses WNL: Yes Integumentary: Yes: Other (dry skin- b/l LE) Neurological: Yes: Alert, Oriented, Cran Nerves II-XII Intact Psychiatric: Yes: Alert Labs: CBC, BMP 01/19/19 16:16 01/19/19 16:16 Laboratory Results - last 24 hr 01/19/19 01/19/19 01/19/19 16:13 16:16 16:16 WBC 10.0 RBC 3.51 L Hgb 10.6 L Hct 32.4 L MCV 92.3 MCH 30.1 MCHC 32.6 RDW 16.1 H Plt Count 171 D MPV 9.3 Absolute Neuts (auto) 8.4 H Neutrophils % 83.7 H D Lymphocytes % 7.7 L D Monocytes % 5.7 Eosinophils % 2.1 Basophils % 0.8 Nucleated RBC % 0 PT with INR INR Sodium 134 L Potassium 3.9 Chloride 95 L Carbon Dioxide 32 Anion Gap 7 L BUN 12 Creatinine 3.6 H Creat Clearance w eGFR 16.44 Random Glucose 93 Calcium 8.6 Total Bilirubin 0.4 AST 20 ALT 14 Alkaline Phosphatase 89 Creatine Kinase Creatine Kinase Index CK-MB (CK-2) Troponin I B-Natriuretic Peptide 67070.9 H Total Protein 8.0 Albumin 3.3 L Influenza A (Rapid) Negative Influenza B (Rapid) Negative 01/19/19 01/19/19 16:16 16:16 WBC RBC Hgb Hct MCV MCH MCHC RDW Plt Count MPV Absolute Neuts (auto) Neutrophils % Lymphocytes % Monocytes % Eosinophils % Basophils % Nucleated RBC % PT with INR 13.00 INR 1.10 H Sodium Potassium Chloride Carbon Dioxide Anion Gap BUN Creatinine Creat Clearance w eGFR Random Glucose Calcium Total Bilirubin AST ALT Alkaline Phosphatase Creatine Kinase 237 Creatine Kinase Index 0.4 CK-MB (CK-2) < 1.0 Troponin I 0.22 H B-Natriuretic Peptide Total Protein Albumin Influenza A (Rapid) Influenza B (Rapid) Current Medications Generic Name Dose Route Start Last Admin Trade Name Freq PRN Reason Stop Dose Admin Amiodarone HCl 200 mg 01/20/19 00:30 Cordarone - PO BID [facility] Amlodipine Besylate 10 mg 01/20/19 10:00 Norvasc - PO DAILY [facility] Apixaban 5 mg 01/19/19 22:15 01/19/19 22:30 Eliquis - PO 5 mg BID ADRIANA Administration Aspirin 81 mg 01/20/19 10:00 Asa - PO DAILY [facility] Atorvastatin Calcium 40 mg 01/19/19 22:15 01/19/19 22:30 Lipitor - PO 40 mg HS ADRIANA Administration Cinacalcet 30 mg 01/20/19 10:00 Sensipar - PO DAILY ADRIANA Duloxetine HCl 30 mg 01/20/19 10:00 Cymbalta - PO DAILY ADRIANA Gabapentin 300 mg 01/20/19 10:00 Neurontin - PO DAILY ADRIANA Labetalol HCl 200 mg 01/20/19 00:30 Normodyne - PO BID ADRIANA Metoprolol Succinate 50 mg 01/20/19 10:00 Toprol Xl - PO DAILY [facility] Sevelamer Carbonate 800 mg 01/20/19 08:00 Renvela - PO TIDCM ADRIANA Sitagliptin Phosphate 25 mg 01/20/19 10:00 Januvia - PO DAILY ADRIANA Tamsulosin HCl 0.4 mg 01/20/19 08:30 Flomax - PO DAILY@0830 ADRIANA Intake & Output 01/17/19 01/18/19 01/19/19 01/20/19 23:59 23:59 23:59 23:59 Intake Total 130 Balance 130 Weight 85.049 kg Imaging - Results Chest X-ray: Image Reviewed Cat Scan: Image Reviewed Problem List - Problems (1) Acute congestive heart failure Assessment/Plan: Would benefit from further HD Continue cardiac monitoring BNP 10810, above baseline Chest Xray- pulm vascular congestion O2 Continue home meds Code(s): I50.9 - HEART FAILURE, UNSPECIFIED (2) Cough Assessment/Plan: See above Code(s): R05 - COUGH (3) Troponin I above reference range Assessment/Plan: Likely secondary to Ischemic Demand Trop 0.22 Continue cardiac monitoring Serial Enzymes Appreciate Cardiology consult EKG- Continue Asa, BB, Statin Code(s): R74.8 - ABNORMAL LEVELS OF OTHER SERUM ENZYMES (4) End stage renal disease Assessment/Plan: HD- , , Sa Appreciate Nephrology consult for HD Management Cr 3.6 at baseline Monitor CBC, BMP Code(s): N18.6 - END STAGE RENAL DISEASE (5) Afib Assessment/Plan: stable [id number] Continue Eliquis, BB EKG- Code(s): I48.91 - UNSPECIFIED ATRIAL FIBRILLATION (6) CAD (coronary artery disease) Assessment/Plan: stable Denies Chest Pain Continue home meds EKG- Code(s): I25.10 - ATHSCL HEART DISEASE OF [place] CORONARY ARTERY W/O ANG PCTRS (7) HLD (hyperlipidemia) Assessment/Plan: stable Continue Lipitor Code(s): E78.5 - HYPERLIPIDEMIA, UNSPECIFIED (8) HTN (hypertension) Assessment/Plan: stable Monitor BP Continue home meds Code(s): I10 - ESSENTIAL (PRIMARY) HYPERTENSION Qualifiers: Hypertension type: essential hypertension Qualified Code(s): I10 - Essential (primary) hypertension (9) H/O: CVA (cerebrovascular accident) Assessment/Plan: Continue with home meds Fall Precautions Head CT- neg ICH Code(s): Z86.73 - PRSNL HX OF TIA (TIA), AND CEREB INFRC W/O RESID DEFICITS Assessment/Plan This is a 78 y/o man with a PMHx of ESRD (, , ), CVA, Afib (on Amiodarone , Eliquis), Aortic/Mitral Insufficiency, CHF, HLD, HTN, Orthostatic Hypotension. Admitted to Telemetry for Acute CHF Exacerbation, Elevated Troponin for further evaluation of their emergent condition. Plan: See Problem List FEN Fluid Restriction 1L Replete lytes prn Renal, Low Na Diet DVT ppx OOB SCDs Heparin SQ, monitor platelets closely Dispo: Requires Inpatient Care Visit type - Emergency Visit Emergency Visit: Yes ED Registration Date: 01/19/19 Care time: The patient presented to the Emergency Department on the above date and was hospitalized for further evaluation of their emergent condition. - New Patient This patient is new to me today: Yes Date on this admission: 01/19/19 - Critical Care Critical Care patient: No
[2019-01-19] MEDS: ATORVASTATIN CA 40 MG TABLET (FP) PO SCH (22:30)
[2019-01-19] MEDS: APIXABAN 5 MG TABLET PO SCH (22:30)
[2019-01-20] MEDS: AMIODARONE HCL 200 MG TABLET (FP) PO SCH ×3 (01:07→21:26)
[2019-01-20] MEDS: LABETALOL HCL 200 MG TABLET (FP) PO SCH ×3 (01:07→21:26)
[2019-01-20] MEDS: sitaGLIPtin PHOSPHATE 25 MG TABLET (FP) PO SCH (06:11)
[2019-01-20 07:36] LABS: BASO % 0.3 % (0-2.0); EOS % 0.1 % (0-4.5); HEMATOCRIT 28.5 % (35.4-49); HEMOGLOBIN 9.5 GM/dL (11.7-16.9); LYMPH % 5.5 % (8-40); MCH 30.8 pg (25.7-33.7); MCHC 33.2 g/dl (32.0-35.9); MEAN PLT VOLUME 9.9 fl (7.5-11.1); MONO % 1.5 % (3.8-10.2); NEUT % 92.6 % (42.8-82.8); PLATELET COUNT 151 K/MM3 (134-434); RBC 3.06 M/mm3 (4.00-5.60); RDW 16.2 % (11.9-15.9); WHITE BLOOD COUNT 9.1 K/mm3 (4.0-10.0)
[2019-01-20 07:56] LABS: ANION GAP 6 MMOL/L (8-16); BLOOD UREA NITROGEN 27 mg/dL (7-18); CHLORIDE 98 mmol/L (98-107); CO2 30 mmol/L (21-32); CREATININE 5.4 mg/dL (0.55-1.3); GLUCOSE,RANDOM 176 mg/dL (74-106); POTASSIUM 4.1 mmol/L (3.5-5.1); SODIUM 135 mmol/L (136-145)
[2019-01-20] MEDS ORDERED: ALBUTEROL SO4 2.5/IPRATROPIUM 0.5 INH SOL 3 ML VIAL.NEB. NEB PRN (08:59)
[2019-01-20] MEDS ORDERED: ACETAMINOPHEN 325 MG TABLET (FP) PO PRN (08:59)
--- NOTE | 2019-01-20 08:59 | PN ---
Progress Note, Physician Chief Complaint: SOB/Cough History of Present Illness: ESRD CXR negative afebrile no leukocytosis - Current Medication List Current Medications: Active Medications Amiodarone HCl (Cordarone -) 200 mg PO BID [facility] Last Admin: 01/20/19 01:07 Dose: 200 mg Amlodipine Besylate (Norvasc -) 10 mg PO DAILY [facility] Apixaban (Eliquis -) 5 mg PO BID [facility] Last Admin: 01/19/19 22:30 Dose: 5 mg Aspirin (Asa -) 81 mg PO DAILY [facility] Atorvastatin Calcium (Lipitor -) 40 mg PO HS [facility] Last Admin: 01/19/19 22:30 Dose: 40 mg Cinacalcet (Sensipar -) 30 mg PO DAILY [facility] Duloxetine HCl (Cymbalta -) 30 mg PO DAILY [facility] Gabapentin (Neurontin -) 300 mg PO DAILY [facility] Labetalol HCl (Normodyne -) 200 mg PO BID [facility] Last Admin: 01/20/19 01:07 Dose: 200 mg Metoprolol Succinate (Toprol Xl -) 50 mg PO DAILY [facility] Sevelamer Carbonate (Renvela -) 800 mg PO TIDCM [facility] Sitagliptin Phosphate (Januvia -) 25 mg PO DAILY@0700 [facility] Last Admin: 01/20/19 06:11 Dose: 25 mg Tamsulosin HCl (Flomax -) 0.4 mg PO DAILY@0830 [facility] - Objective Vital Signs: Vital Signs Temperature 98 F 01/20/19 06:00 Pulse Rate 80 01/20/19 06:00 Respiratory Rate 18 01/20/19 06:00 Blood Pressure 141/68 01/20/19 06:00 O2 Sat by Pulse Oximetry (%) 100 01/19/19 23:35 Constitutional: Yes: Well Nourished, No Distress, Calm Cardiovascular: Yes: Regular Rate and Rhythm Respiratory: Yes: Regular Gastrointestinal: Yes: WNL Musculoskeletal: Yes: WNL Extremities: Yes: WNL Edema: No Peripheral Pulses WNL: Yes Neurological: Yes: Alert, Oriented Psychiatric: Yes: Alert, Oriented Labs: CBC, BMP 01/20/19 06:40 01/20/19 06:35 INR, PTT INR 1.10 (0.83-1.09) H 01/19/19 16:16 Problem List - Problems (1) Afib Assessment/Plan: -Tele monitor -On eliquis -rate controlled Code(s): I48.91 - UNSPECIFIED ATRIAL FIBRILLATION (2) Anemia Assessment/Plan: -chronic -2/2 to ESRD -H/H stable Code(s): D64.9 - ANEMIA, UNSPECIFIED (3) End stage renal disease Assessment/Plan: -nephrology consult -received HD yesterday -Further HD as per nephrology Code(s): N18.6 - END STAGE RENAL DISEASE (4) Prediabetes Assessment/Plan: -Last A1c on 11/30/18-6.0 -On Januvia 25 mg po daily -Continue renal diabetic diet Code(s): R73.03 - PREDIABETES (5) Shortness of breath Assessment/Plan: -Pulmonary consult -Nasal O2 -Bronchodilators -CXR negative -received medrol in ER Code(s): R06.02 - SHORTNESS OF BREATH Assessment/Plan see problem list Physical therapy
[2019-01-20] MEDS: SEVELAMER CARBONATE 800 MG TAB (FP) PO SCH ×3 (09:15→16:51)
[2019-01-20] MEDS: GABAPENTIN 300 MG CAPSULE (FP) PO SCH (09:15)
[2019-01-20] MEDS: DULoxetine HCL 30 MG CAPSULE.DR (FP) PO SCH (09:15)
[2019-01-20] MEDS: ASPIRIN 81 MG CHEWABLE TABLETS PO SCH (09:15)
[2019-01-20] MEDS: amLODIPine BESYLATE 10 MG TABLET (FP) PO SCH (09:15)
[2019-01-20] MEDS: APIXABAN 5 MG TABLET PO SCH ×2 (09:15→21:26)
[2019-01-20] MEDS: TAMSULOSIN HCL 0.4 MG CAP PO SCH (09:15)
--- NOTE | 2019-01-20 09:28 | PN ---
Physical Exam: SUBJECTIVE: Patient seen and examined OBJECTIVE: Vital Signs Period Temp Pulse Resp BP Sys/Street Pulse Ox Last 24 Hr 97.9 F-99.8 F 77-86 18-24 141-164/63-82 95-100 GENERAL: The patient is awake, alert, and fully oriented, in no acute distress. HEAD: Normal with no signs of trauma. EYES: PERRL, extraocular movements intact, sclera anicteric, conjunctiva clear. No ptosis. ENT: Ears normal, nares patent, oropharynx clear without exudates, moist mucous membranes. NECK: Trachea midline, full range of motion, supple. LUNGS: Breath sounds equal, clear to auscultation bilaterally, no wheezes, no crackles, no accessory muscle use. HEART: Regular rate and rhythm, S1, S2 without murmur, rub or gallop. ABDOMEN: Soft, nontender, nondistended, normoactive bowel sounds, no guarding, no rebound, no hepatosplenomegaly, no masses. EXTREMITIES: 2+ pulses, warm, well-perfused, no edema. NEUROLOGICAL: Cranial nerves II through XII grossly intact. Normal speech, gait not observed. PSYCH: Normal mood, normal affect. SKIN: Warm, dry, normal turgor, no rashes or lesions noted Laboratory Results - last 24 hr 01/19/19 01/19/19 01/19/19 16:13 16:16 16:16 WBC 10.0 RBC 3.51 L Hgb 10.6 L Hct 32.4 L MCV 92.3 MCH 30.1 MCHC 32.6 RDW 16.1 H Plt Count 171 D MPV 9.3 Absolute Neuts (auto) 8.4 H Neutrophils % 83.7 H D Lymphocytes % 7.7 L D Monocytes % 5.7 Eosinophils % 2.1 Basophils % 0.8 Nucleated RBC % 0 PT with INR INR Sodium 134 L Potassium 3.9 Chloride 95 L Carbon Dioxide 32 Anion Gap 7 L BUN 12 Creatinine 3.6 H Creat Clearance w eGFR 16.44 POC Glucometer Random Glucose 93 Calcium 8.6 Total Bilirubin 0.4 AST 20 ALT 14 Alkaline Phosphatase 89 Creatine Kinase Creatine Kinase Index CK-MB (CK-2) Troponin I B-Natriuretic Peptide 90183.9 H Total Protein 8.0 Albumin 3.3 L Influenza A (Rapid) Negative Influenza B (Rapid) Negative 01/19/19 01/19/19 01/20/19 16:16 16:16 00:10 WBC RBC Hgb Hct MCV MCH MCHC RDW Plt Count MPV Absolute Neuts (auto) Neutrophils % Lymphocytes % Monocytes % Eosinophils % Basophils % Nucleated RBC % PT with INR 13.00 INR 1.10 H Sodium Potassium Chloride Carbon Dioxide Anion Gap BUN Creatinine Creat Clearance w eGFR POC Glucometer Random Glucose Calcium Total Bilirubin AST ALT Alkaline Phosphatase Creatine Kinase 237 Creatine Kinase Index 0.4 CK-MB (CK-2) < 1.0 Troponin I 0.22 H 0.22 H B-Natriuretic Peptide Total Protein Albumin Influenza A (Rapid) Influenza B (Rapid) 01/20/19 01/20/19 01/20/19 06:10 06:35 06:35 WBC RBC Hgb Hct MCV MCH MCHC RDW Plt Count MPV Absolute Neuts (auto) Neutrophils % Lymphocytes % Monocytes % Eosinophils % Basophils % Nucleated RBC % PT with INR INR Sodium 135 L Potassium 4.1 Chloride 98 Carbon Dioxide 30 Anion Gap 6 L BUN 27 H Creatinine 5.4 H Creat Clearance w eGFR 10.30 POC Glucometer 180 Random Glucose 176 H Calcium 8.0 L Total Bilirubin AST ALT Alkaline Phosphatase Creatine Kinase Creatine Kinase Index CK-MB (CK-2) Troponin I 0.19 H B-Natriuretic Peptide Total Protein Albumin Influenza A (Rapid) Influenza B (Rapid) 01/20/19 06:40 WBC 9.1 RBC 3.06 L Hgb 9.5 L Hct 28.5 L MCV 93.0 MCH 30.8 MCHC 33.2 RDW 16.2 H Plt Count 151 MPV 9.9 Absolute Neuts (auto) 8.4 H Neutrophils % 92.6 H Lymphocytes % 5.5 L D Monocytes % 1.5 L Eosinophils % 0.1 D Basophils % 0.3 Nucleated RBC % 0 PT with INR INR Sodium Potassium Chloride Carbon Dioxide Anion Gap BUN Creatinine Creat Clearance w eGFR POC Glucometer Random Glucose Calcium Total Bilirubin AST ALT Alkaline Phosphatase Creatine Kinase Creatine Kinase Index CK-MB (CK-2) Troponin I B-Natriuretic Peptide Total Protein Albumin Influenza A (Rapid) Influenza B (Rapid) Active Medications Generic Name Dose Route Start Last Admin Trade Name Freq PRN Reason Stop Dose Admin Acetaminophen 650 mg 01/20/19 08:59 Tylenol - PO Q4H PRN PAIN OR FEVER Albuterol/Ipratropium 1 amp 01/20/19 08:59 Duoneb - NEB Q4H PRN SHORTNESS OF BREATH Albuterol/Ipratropium 1 amp 01/20/19 12:00 Duoneb - NEB RQID ADRIANA Amiodarone HCl 200 mg 01/20/19 00:45 01/20/19 09:15 Cordarone - PO 200 mg BID ADRIANA Administration Amlodipine Besylate 10 mg 01/20/19 10:00 01/20/19 09:15 Norvasc - PO 10 mg DAILY ADRIANA Administration Apixaban 5 mg 01/19/19 22:15 01/20/19 09:15 Eliquis - PO 5 mg BID ADRIANA Administration Aspirin 81 mg 01/20/19 10:00 01/20/19 09:15 Asa - PO 81 mg DAILY ADRIANA Administration Atorvastatin Calcium 40 mg 01/19/19 22:15 01/19/19 22:30 Lipitor - PO 40 mg HS ADRIANA Administration Cinacalcet 30 mg 01/20/19 10:00 Sensipar - PO DAILY ADRIANA Duloxetine HCl 30 mg 01/20/19 10:00 01/20/19 09:15 Cymbalta - PO 30 mg DAILY ADRIANA Administration Gabapentin 300 mg 01/20/19 10:00 01/20/19 09:15 Neurontin - PO 300 mg DAILY ADRIANA Administration Labetalol HCl 200 mg 01/20/19 01:00 01/20/19 09:15 Normodyne - PO 200 mg BID ADRIANA Administration Metoprolol Succinate 50 mg 01/20/19 10:00 01/20/19 09:15 Toprol Xl - PO 50 mg DAILY ADRIANA Administration Sevelamer Carbonate 800 mg 01/20/19 08:00 01/20/19 09:15 Renvela - PO 800 mg TIDCM ADRIANA Administration Sitagliptin Phosphate 25 mg 01/20/19 07:00 01/20/19 06:11 Januvia - PO 25 mg DAILY@0700 ADRIANA Administration Tamsulosin HCl 0.4 mg 01/20/19 08:30 01/20/19 09:15 Flomax - PO 0.4 mg DAILY@0830 ADRIANA Administration ASSESSMENT/PLAN: 78 y/o man W CVA, Afib (on Amiodarone, Eliquis), Aortic/Mitral Insufficiency, HFPEF( tte 2016), HTN, HLD, Orthostatic Hypotension adherent to medication, diet and HD. Was sent from the HD center for 4 days of cough, nasal congestion. He states that he was in his [facility] till 4 days ago people in HD were coughing couple of days ago and he developed coryza symptoms after that. He makes no urine and his last HD was yesterday and they removed fluids and he is at his base line weight. denies any fever of chills cough, coryza symptoms in the setting of sick contact: He was initiated on prednison and albuterol and states that he improved after that. He denies any SOB at this time. NO infiltrates and no congestion on the CXR. Patient does not make any urine. At this time the symptoms are due to viral infection such as common cold( Influenza -) and no HF exacerbation at this time. will give cough syrup, has dry cough and no sign or HTN of COPD in the patient, will not give prednisone as the HF and volume overload will worsen. pending RSV and influenza HFPEF: WILL c/w home medication, bp Control with Amlodipine and labetalol Afib (on Amiodarone, metoprolol, Eliquis), rate well controlled HTN, HLD: may need better control of HTN,as it is inSBP 150s, will C/W home medication at this time DM: Will C/W januvia, will FS AC HS bph: c./w TAMSULOSIN:No complaints at this time ESRD on HD: renal consult in place he can get HD tomorrow and DCed home after that Elevated troponin: most likely in the setting of infection, no ACS at this time no dynamic EKG changes, CPK WNL, no acute cardiac event at this time. will C/W home medicaiotn, cardiology consult has been placed for the patient. Dispo: likely to be DCed home tomorrow. neuropathy: on gabapentine and cymbalta
[2019-01-20] MEDS: CINACALCET HCL 30 MG TAB (FP) PO SCH (09:29)
--- NOTE | 2019-01-20 11:10 | CON.PULM ---
Consult Consult Specialty:: PULMONARY Referred by:: FABIANO Andres Reason for Consultation:: cough - History of Present Illness Chief Complaint: cough History of Present Illness: 78yo male with h/o HTN, hyperlipidemia, atrial fibrillatoin on anticoagulation, h/o CVA, ESRD on HD who was admitted with cough and shortness of breath. Denies chest pain or palpitations. No fevers, chills or sweats. Reports possible sick contacts at his HD unit. Cough productive of yellow sputum and with some wheezing. He is a remote smoker, denies history of asthma or COPD. Does not use inhalers at home. 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 On midodrine since prior to 2016 admission ) Renal/: Yes: Renal Failure (HD for 3 1/2 yrs), BPH Psych: Yes: Anxiety Endocrine: Yes: Diabetes Mellitus (hx of hypoglycemia episodes w/near syncope) - Past Surgical History Past Surgical History: Yes: AV Fistula/Graft - Alcohol/Substance Use Hx Alcohol Use: No History of Substance Use: reports: None - Smoking History Smoking history: Former smoker Have you smoked in the past 12 months: No Aproximately how many cigarettes per day: 0 If you are a former smoker, when did you quit?: > 25 ya - Social History Usual Living Arrangement: With Spouse History of Recent Travel: No Home Medications - Allergies Allergies/Adverse Reactions: Allergies Allergy/AdvReac Type Severity Reaction Status Date / Time No Known Allergies Allergy Verified 01/19/19 15:27 - Home Medications Home Medications: Ambulatory Orders Atorvastatin Ca [Lipitor] 40 mg PO HS 06/06/15 Gabapentin 300 mg PO DAILY 11/19/15 Duloxetine HCl 30 mg PO DAILY 04/16/16 Amlodipine Besylate [Norvasc -] 10 mg PO DAILY #30 tablet 04/19/16 Metoprolol Succinate [Toprol XL -] 50 mg PO DAILY #30 tab.sr.24h 04/19/16 Amiodarone HCl [Cordarone -] 200 mg PO BID #60 tablet 02/07/17 Aspirin [ASA -] 81 mg PO DAILY 08/31/18 Tamsulosin HCl [Flomax] 0.4 mg PO DAILY 08/31/18 Apixaban [Eliquis -] 5 mg PO BID 01/19/19 Cinacalcet HCl [Sensipar -] 30 mg PO DAILY 01/19/19 Labetalol HCl [Normodyne -] 200 mg PO BID 01/19/19 Sevelamer Carbonate [Renvela] 800 mg PO TID 01/19/19 Sitagliptin Phosphate [Januvia] 25 mg PO DAILY 01/19/19 Family Disease History - Family Disease History Family Disease History: Heart Disease: Father, Mother Review of Systems - Review of Systems Constitutional: reports: Weakness. denies: Chills, Fever Eyes: denies: Recent Change in Vision HENT: denies: Nasal Congestion, Throat Pain Neck: denies: Stiffness, Tenderness Cardiovascular: reports: Shortness of Breath. denies: Chest Pain, Edema Respiratory: reports: Cough, Wheezing. denies: Hemoptysis Gastrointestinal: denies: Abdominal Pain, Nausea, Vomiting Genitourinary: denies: Dysuria, Hematuria Neurological: denies: Dizziness, Headache Endocrine: denies: Unexplained Weight Loss Physical Exam Vital Sings: Vital Signs Temperature 98 F 01/20/19 06:00 Pulse Rate 80 01/20/19 06:00 Respiratory Rate 18 01/20/19 06:00 Blood Pressure 141/68 01/20/19 06:00 O2 Sat by Pulse Oximetry (%) 100 01/19/19 23:35 Constitutional: Yes: Calm Eyes: Yes: Conjunctiva Clear, EOM Intact HENT: Yes: Atraumatic, Normocephalic Neck: Yes: Supple, Trachea Midline, Tenderness Respiratory: Yes: Wheezes (scattered) ...Clubbing: No Gastrointestinal: Yes: Normal Bowel Sounds, Soft. No: Tenderness Edema: No Neurological: Yes: Alert, Oriented Labs: CBC, BMP 01/20/19 06:40 01/20/19 06:35 Imaging - Results Chest X-ray: Report Reviewed, Image Reviewed (no infiltrates) Problem List - Problems (1) Acute bronchitis Code(s): J20.9 - ACUTE BRONCHITIS, UNSPECIFIED (2) Atrial fibrillation Code(s): I48.91 - UNSPECIFIED ATRIAL FIBRILLATION Qualifiers: Atrial fibrillation type: paroxysmal Qualified Code(s): I48.0 - Paroxysmal atrial fibrillation (3) End stage renal disease Code(s): N18.6 - END STAGE RENAL DISEASE (4) H/O: CVA (cerebrovascular accident) Code(s): Z86.73 - PRSNL HX OF TIA (TIA), AND CEREB INFRC W/O RESID DEFICITS (5) HLD (hyperlipidemia) Code(s): E78.5 - HYPERLIPIDEMIA, UNSPECIFIED (6) HTN (hypertension) Code(s): I10 - ESSENTIAL (PRIMARY) HYPERTENSION Qualifiers: Hypertension type: essential hypertension Qualified Code(s): I10 - Essential (primary) hypertension Assessment/Plan Acute Bronchitis ESRD on HD Atrial Fibrillation LV Diastolic Dysfunction HTN Hyperlipidemia h/o CVA - will start IV azithromycin - inhaled bronchodilators standing and PRN - if still wheezing, can consider short course of steroids - O2 to keep SpO2 >90% - HD per renal - rate controlled - continue anticoagulation - will need outpt PFTs Thank you for this consult Norbert Lozano MD
[2019-01-20] MEDS ORDERED: ALBUTEROL SO4 0.083% IH SOL 2.5 MG/3 ML VIAL.NEB. NEB PRN (11:12)
[2019-01-20 11:30] LABS: ANISOCYTOSIS 1+; MACROCYTOSIS 0; PLATELET ESTIMATE NORMAL
[2019-01-20] MEDS ORDERED: AZITHROMYCIN IVPB 500 MG/250 ML BAG IVPB SCH (12:00)
[2019-01-20] MEDS ORDERED: ALBUTEROL SO4 2.5/IPRATROPIUM 0.5 INH SOL 3 ML VIAL.NEB. NEB SCH (12:00)
--- NOTE | 2019-01-20 12:44 | CON.CARD ---
Consult Consult Specialty:: cardiology Referred by:: Isabella Reason for Consultation:: Shortness of breath - History of Present Illness Chief Complaint: Cough and shortness of breath History of Present Illness: The patient is a 78-year-old man, with a history of diabetes, hypertension, hyperlipidemia, stroke, end-stage renal disease on hemodialysis, coronary artery disease, atrial fibrillation on Eliquis, syncope, now admitted with shortness of breath and cough. Likely acute bronchitis. The patient denies chest pains. No palpitations. Is quite comfortable. His cough persists. 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 On midodrine since prior to 2016 admission ) Renal/: Yes: Renal Failure (HD for 3 1/2 yrs), BPH Psych: Yes: Anxiety Endocrine: Yes: Diabetes Mellitus (hx of hypoglycemia episodes w/near syncope) - Past Surgical History Past Surgical History: Yes: AV Fistula/Graft - Alcohol/Substance Use Hx Alcohol Use: No History of Substance Use: reports: None - Smoking History Smoking history: Former smoker Have you smoked in the past 12 months: No Aproximately how many cigarettes per day: 0 If you are a former smoker, when did you quit?: > 25 ya - Social History Usual Living Arrangement: With Spouse History of Recent Travel: No Home Medications - Allergies Allergies/Adverse Reactions: Allergies Allergy/AdvReac Type Severity Reaction Status Date / Time No Known Allergies Allergy Verified 01/19/19 15:27 - Home Medications Home Medications: Ambulatory Orders Atorvastatin Ca [Lipitor] 40 mg PO HS 06/06/15 Gabapentin 300 mg PO DAILY 11/19/15 Duloxetine HCl 30 mg PO DAILY 04/16/16 Amlodipine Besylate [Norvasc -] 10 mg PO DAILY #30 tablet 04/19/16 Metoprolol Succinate [Toprol XL -] 50 mg PO DAILY #30 tab.sr.24h 04/19/16 Amiodarone HCl [Cordarone -] 200 mg PO BID #60 tablet 02/07/17 Aspirin [ASA -] 81 mg PO DAILY 08/31/18 Tamsulosin HCl [Flomax] 0.4 mg PO DAILY 08/31/18 Apixaban [Eliquis -] 5 mg PO BID 01/19/19 Cinacalcet HCl [Sensipar -] 30 mg PO DAILY 01/19/19 Labetalol HCl [Normodyne -] 200 mg PO BID 01/19/19 Sevelamer Carbonate [Renvela] 800 mg PO TID 01/19/19 Sitagliptin Phosphate [Januvia] 25 mg PO DAILY 01/19/19 Family Disease History - Family Disease History Family Disease History: Heart Disease: Father, Mother Review of Systems - Review of Systems Constitutional: reports: No Symptoms Eyes: reports: No Symptoms HENT: reports: No Symptoms Neck: reports: No Symptoms Cardiovascular: reports: No Symptoms Respiratory: reports: Cough, SOB Gastrointestinal: reports: No Symptoms Genitourinary: reports: No Symptoms Breasts: reports: No Symptoms Reported Musculoskeletal: reports: No Symptoms Integumentary: reports: No Symptoms Neurological: reports: No Symptoms Endocrine: reports: No Symptoms Hematology/Lymphatic: reports: No Symptoms Psychiatric: reports: No Symptoms Vital Signs: Vital Signs Temperature 97.1 F L 01/20/19 10:00 Pulse Rate 70 01/20/19 10:00 Respiratory Rate 18 01/20/19 10:00 Blood Pressure 134/70 01/20/19 10:00 O2 Sat by Pulse Oximetry (%) 100 01/20/19 09:00 Constitutional: Yes: Well Nourished, No Distress, Calm Eyes: Yes: WNL, Conjunctiva Clear HENT: Yes: WNL, Atraumatic, Normocephalic Neck: Yes: WNL, Supple, Trachea Midline Respiratory: Yes: Regular, Cough Gastrointestinal: Yes: WNL, Normal Bowel Sounds, Soft Renal/: Yes: WNL Cardiovascular: Yes: Pulse Irregular JVD: No Carotid Bruit: No PMI: Non-Displaced Heart Sounds: Yes: S1, S2 Murmur: Yes: Systolic Murmur, Grade 2 Musculoskeletal: Yes: WNL Extremities: Yes: WNL Edema: No Peripheral Pulses: 1+ Left Doralis Pedis, 1+ Right Dorsalis Pedis Integumentary: Yes: WNL Neurological: Yes: WNL, Alert, Oriented ...Motor Strength: WNL Psychiatric: Yes: WNL - Other Data Labs, Other Data: CBC, BMP 01/20/19 06:40 01/20/19 06:35 INR, PTT INR 1.10 (0.83-1.09) H 01/19/19 16:16 Troponin, BNP 01/19/19 01/19/19 01/20/19 16:16 16:16 00:10 Troponin I 0.22 H 0.22 H B-Natriuretic Peptide 20634.9 H 01/20/19 06:35 Troponin I 0.19 H B-Natriuretic Peptide Troponin, BNP 01/19/19 01/19/19 01/20/19 16:16 16:16 00:10 Troponin I 0.22 H 0.22 H B-Natriuretic Peptide 47264.9 H 01/20/19 06:35 Troponin I 0.19 H B-Natriuretic Peptide Assessment/Plan The patient is a 78-year-old man, with a history of diabetes, hypertension, hyperlipidemia, stroke, end-stage renal disease on hemodialysis, coronary artery disease, atrial fibrillation on Eliquis, syncope, now admitted with shortness of breath and cough. Likely acute bronchitis. The patient denies chest pains. No palpitations. Is quite comfortable. His cough persists. There is no evidence of ischemia nor acute coronary syndrome. No CHF. Acute bronchitis. Clinically and symptomatically better. There is no need for further cardiac workup at this point. Continue Eliquis for atrial fibrillation. Rates are controlled.\ Please do not hesitate to call us prn
[2019-01-20] MEDS: AZITHROMYCIN IVPB 500 MG in DEXTROSE 5%-WATER - 250 ML IVPB SCH ×2 (13:03→13:05)
[2019-01-20] MEDS: AZITHROMYCIN IVPB 500 MG/250 ML BAG IVPB SCH (13:04)
[2019-01-20] MEDS: ALBUTEROL SO4 2.5/IPRATROPIUM 0.5 INH SOL 3 ML VIAL.NEB. NEB SCH ×2 (13:06→15:15)
--- NOTE | 2019-01-20 19:16 | CON.NEP ---
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 On midodrine since prior to 2016 admission ) Renal/: Yes: Renal Failure (HD for 3 1/2 yrs), BPH Psych: Yes: Anxiety Endocrine: Yes: Diabetes Mellitus (hx of hypoglycemia episodes w/near syncope) - Past Surgical History Past Surgical History: Yes: AV Fistula/Graft - Alcohol/Substance Use Hx Alcohol Use: No History of Substance Use: reports: None - Smoking History Smoking history: Former smoker Have you smoked in the past 12 months: No Aproximately how many cigarettes per day: 0 If you are a former smoker, when did you quit?: > 25 ya - Social History Usual Living Arrangement: With Spouse History of Recent Travel: No Home Medications - Allergies Allergies/Adverse Reactions: Allergies Allergy/AdvReac Type Severity Reaction Status Date / Time No Known Allergies Allergy Verified 01/19/19 15:27 - Home Medications Home Medications: Ambulatory Orders Atorvastatin Ca [Lipitor] 40 mg PO HS 06/06/15 Gabapentin 300 mg PO DAILY 11/19/15 Duloxetine HCl 30 mg PO DAILY 04/16/16 Amlodipine Besylate [Norvasc -] 10 mg PO DAILY #30 tablet 04/19/16 Metoprolol Succinate [Toprol XL -] 50 mg PO DAILY #30 tab.sr.24h 04/19/16 Amiodarone HCl [Cordarone -] 200 mg PO BID #60 tablet 02/07/17 Aspirin [ASA -] 81 mg PO DAILY 08/31/18 Tamsulosin HCl [Flomax] 0.4 mg PO DAILY 08/31/18 Apixaban [Eliquis -] 5 mg PO BID 01/19/19 Cinacalcet HCl [Sensipar -] 30 mg PO DAILY 01/19/19 Labetalol HCl [Normodyne -] 200 mg PO BID 01/19/19 Sevelamer Carbonate [Renvela] 800 mg PO TID 01/19/19 Sitagliptin Phosphate [Januvia] 25 mg PO DAILY 01/19/19 Family Disease History - Family Disease History Family Disease History: Heart Disease: Father, Mother Nephrology Consult - Height Height: 6 ft 4 in - Weight Weight: 189 lb 2 oz - BMI Body Mass Index (BMI): 23.0 - Lab Results CBC,BMP: CBC, BMP 01/20/19 06:40 01/20/19 06:35 Anion Gap: Anion Gap Anion Gap 6 MMOL/L (8-16) L 01/20/19 06:35 - Physical Examination Vital Signs: Vital Signs Temperature 97.7 F 01/20/19 17:00 Pulse Rate 69 01/20/19 17:00 Respiratory Rate 20 01/20/19 17:00 Blood Pressure 148/67 01/20/19 17:00 O2 Sat by Pulse Oximetry (%) 100 01/20/19 09:00 Constitutional: Yes: Well Nourished, No Distress, Calm Eyes: Yes: WNL, Conjunctiva Clear, EOM Intact HENT: Yes: WNL, Atraumatic, Normocephalic Neck: Yes: WNL, Supple, Trachea Midline Cardiovascular: Yes: WNL, Regular Rate and Rhythm Respiratory: Yes: Rhonchi, Wheezes Gastrointestinal: Yes: WNL, Normal Bowel Sounds Access for Hemodialysis: AV Fistula (left arm) Musculoskeletal: Yes: WNL Edema: Yes Peripheral Pulses WNL: Yes Integumentary: Yes: WNL Neurological: Yes: WNL, Alert, Oriented Psychiatric: Yes: WNL, Alert, Oriented Assessment/Plan ESRD ON hd tts NO FLUID OVERLOAD rESP iNFECTION/aSTHMATIC BRONCHITIS DM HTN PLAN- HD MAINTENANCE ON MONDAY
[2019-01-20] MEDS: ATORVASTATIN CA 40 MG TABLET (FP) PO SCH (21:26)
[2019-01-20] MEDS: guaiFENesin/D-METHORPHAN HB 10 ML UNIT-DOSE CUPS PO PRN (21:27)
[2019-01-21] MEDS: sitaGLIPtin PHOSPHATE 25 MG TABLET (FP) PO SCH (06:00)
[2019-01-21 06:29] LABS: BASO % 0.8 % (0-2.0); EOS % 3.5 % (0-4.5); HEMATOCRIT 26.6 % (35.4-49); HEMOGLOBIN 8.7 GM/dL (11.7-16.9); LYMPH % 13.8 % (8-40); MCH 29.9 pg (25.7-33.7); MCHC 32.6 g/dl (32.0-35.9); MEAN CELL VOLUME 91.6 fl (80-96); MEAN PLT VOLUME 9.3 fl (7.5-11.1); MONO % 6.8 % (3.8-10.2); NEUT % 75.1 % (42.8-82.8); PLATELET COUNT 159 K/MM3 (134-434); RBC 2.91 M/mm3 (4.00-5.60); RDW 16.4 % (11.9-15.9)
[2019-01-21 06:58] LABS: ALBUMIN 2.6 g/dl (3.4-5.0); ALK PHOS 63 U/L (45-117); ANION GAP 7 MMOL/L (8-16); BILIRUBIN,TOTAL 0.4 mg/dL (0.2-1); BLOOD UREA NITROGEN 49 mg/dL (7-18); CALCIUM 7.9 mg/dL (8.5-10.1); CHLORIDE 95 mmol/L (98-107); CO2 30 mmol/L (21-32); CREATININE 6.8 mg/dL (0.55-1.3); GLUCOSE,RANDOM 98 mg/dL (74-106); POTASSIUM 4.1 mmol/L (3.5-5.1); SGOT/AST 18 U/L (15-37); SGPT/ALT 14 U/L (13-61); SODIUM 132 mmol/L (136-145); TOT PROT 6.3 g/dl (6.4-8.2)
[2019-01-21] MEDS: ALBUTEROL SO4 2.5/IPRATROPIUM 0.5 INH SOL 3 ML VIAL.NEB. NEB SCH ×4 (07:36→19:40)
[2019-01-21] MEDS: TAMSULOSIN HCL 0.4 MG CAP PO SCH (07:43)
[2019-01-21] MEDS: SEVELAMER CARBONATE 800 MG TAB (FP) PO SCH ×3 (07:43→17:18)
[2019-01-21] MEDS: AZITHROMYCIN IVPB 500 MG/250 ML BAG IVPB SCH (10:05)
[2019-01-21] MEDS: DULoxetine HCL 30 MG CAPSULE.DR (FP) PO SCH (10:06)
[2019-01-21] MEDS: amLODIPine BESYLATE 10 MG TABLET (FP) PO SCH (10:06)
[2019-01-21] MEDS: LABETALOL HCL 200 MG TABLET (FP) PO SCH ×2 (10:06→21:46)
[2019-01-21] MEDS: APIXABAN 5 MG TABLET PO SCH ×2 (10:06→21:46)
[2019-01-21] MEDS: GABAPENTIN 300 MG CAPSULE (FP) PO SCH (10:06)
[2019-01-21] MEDS: AMIODARONE HCL 200 MG TABLET (FP) PO SCH ×2 (10:06→21:46)
[2019-01-21] MEDS: ASPIRIN 81 MG CHEWABLE TABLETS PO SCH (10:06)
[2019-01-21] MEDS: CINACALCET HCL 30 MG TAB (FP) PO SCH (10:06)
--- NOTE | 2019-01-21 10:36 | EKG ---
Test Reason : Blood Pressure : / mmHG Vent. Rate : 080 BPM Atrial Rate : 080 BPM P-R Int : 236 ms QRS Dur : 102 ms QT Int : 414 ms P-R-T Axes : 011 001 041 degrees QTc Int : 477 ms SINUS RHYTHM WITH 1ST DEGREE A-V BLOCK WITH PREMATURE ATRIAL COMPLEXES OTHERWISE NORMAL ECG WHEN COMPARED WITH ECG OF 30-AUG-2018 10:58, PREMATURE ATRIAL COMPLEXES ARE NOW PRESENT Confirmed by VITA JENKINS MD ([id number]) on 01/21/2019 10:36:07 AM Referred By: Confirmed By:VITA JENKINS MD
--- NOTE | 2019-01-21 10:41 | PN ---
Progress Note, Physician History of Present Illness: pulmonary alert,still dyspneic,congested,+cough - Current Medication List Current Medications: Active Medications Acetaminophen (Tylenol -) 650 mg PO Q4H PRN PRN Reason: PAIN OR FEVER Albuterol Sulfate (Ventolin 0.083% Nebulizer Soln -) 1 amp NEB Q4H PRN PRN Reason: SHORT OF BREATH/WHEEZING Albuterol/Ipratropium (Duoneb -) 1 amp NEB RQID [facility] Last Admin: 01/21/19 07:36 Dose: 1 amp Amiodarone HCl (Cordarone -) 200 mg PO BID [facility] Last Admin: 01/21/19 10:06 Dose: 200 mg Amlodipine Besylate (Norvasc -) 10 mg PO DAILY [facility] Last Admin: 01/21/19 10:06 Dose: 10 mg Apixaban (Eliquis -) 5 mg PO BID [facility] Last Admin: 01/21/19 10:06 Dose: 5 mg Aspirin (Asa -) 81 mg PO DAILY [facility] Last Admin: 01/21/19 10:06 Dose: 81 mg Atorvastatin Calcium (Lipitor -) 40 mg PO HS [facility] Last Admin: 01/20/19 21:26 Dose: 40 mg Cinacalcet (Sensipar -) 30 mg PO DAILY [facility] Last Admin: 01/21/19 10:06 Dose: 30 mg Duloxetine HCl (Cymbalta -) 30 mg PO DAILY [facility] Last Admin: 01/21/19 10:06 Dose: 30 mg Gabapentin (Neurontin -) 300 mg PO DAILY [facility] Last Admin: 01/21/19 10:06 Dose: 300 mg Guaifenesin (Robitussin Dm -) 10 ml PO Q6H PRN PRN Reason: COUGH Last Admin: 01/20/19 21:27 Dose: 10 ml Azithromycin (Zithromax 500mg Ivpb (Pre-Docked)) 500 mg in 250 mls @ 250 mls/ hr IVPB DAILY [facility] Stop: 01/24/19 10:59 Last Admin: 01/21/19 10:05 Dose: 250 mls/hr Labetalol HCl (Normodyne -) 200 mg PO BID [facility] Last Admin: 01/21/19 10:06 Dose: 200 mg Metoprolol Succinate (Toprol Xl -) 50 mg PO DAILY [facility] Last Admin: 01/21/19 10:06 Dose: 50 mg Sevelamer Carbonate (Renvela -) 800 mg PO TIDCM [facility] Last Admin: 01/21/19 07:43 Dose: 800 mg Sitagliptin Phosphate (Januvia -) 25 mg PO DAILY@0700 [facility] Last Admin: 01/21/19 06:00 Dose: 25 mg Tamsulosin HCl (Flomax -) 0.4 mg PO DAILY@0830 [facility] Last Admin: 01/21/19 07:43 Dose: 0.4 mg - Objective Vital Signs: Vital Signs Temperature 98.8 F 01/21/19 06:10 Pulse Rate 68 01/21/19 06:10 Respiratory Rate 18 01/21/19 08:33 Blood Pressure 142/73 01/21/19 06:10 O2 Sat by Pulse Oximetry (%) 100 01/21/19 08:33 Constitutional: Yes: Well Nourished, Calm Eyes: Yes: WNL HENT: Yes: WNL Neck: Yes: WNL Cardiovascular: Yes: Pulse Irregular, S1, S2 Respiratory: Yes: Rhonchi (bilateral WHEEZES AND RHONCHI) Gastrointestinal: Yes: Normal Bowel Sounds, Soft Extremities: Yes: WNL Edema: No Labs: CBC, BMP 01/21/19 05:30 01/21/19 05:30 INR, PTT INR 1.10 (0.83-1.09) H 01/19/19 16:16 Assessment/Plan Problem List - Problems (1) Acute bronchitis Code(s): J20.9 - ACUTE BRONCHITIS, UNSPECIFIED (2) Atrial fibrillation Code(s): I48.91 - UNSPECIFIED ATRIAL FIBRILLATION Qualifiers: Atrial fibrillation type: paroxysmal Qualified Code(s): I48.0 - Paroxysmal atrial fibrillation (3) End stage renal disease Code(s): N18.6 - END STAGE RENAL DISEASE (4) H/O: CVA (cerebrovascular accident) Code(s): Z86.73 - PRSNL HX OF TIA (TIA), AND CEREB INFRC W/O RESID DEFICITS (5) HLD (hyperlipidemia) Code(s): E78.5 - HYPERLIPIDEMIA, UNSPECIFIED (6) HTN (hypertension) Code(s): I10 - ESSENTIAL (PRIMARY) HYPERTENSION Qualifiers: Hypertension type: essential hypertension Qualified Code(s): I10 - Essential (primary) hypertension Assessment/Plan Acute Bronchitis ESRD on HD Atrial Fibrillation LV Diastolic Dysfunction HTN Hyperlipidemia h/o CVA - IV azithromycin - inhaled bronchodilators standing and PRN - medrol - O2 to keep SpO2 >90% - HD per renal - rate controlled - anticoagulation - will need outpt PFTs DR HALL
[2019-01-21] MEDS ORDERED: SODIUM CHLORIDE 250 ML IV PRN (12:12)
--- NOTE | 2019-01-21 12:12 | PN ---
Progress Note (short form) - Note Progress Note: Renal follow up for ESRD on HD Pt seen and examined at the bedside awake and alert continues to have cough and sob no fever or chills no chest pain, abd pain, N/V/D s/p HD as outpatient on Monday. Vital Signs Temperature 97.8 F 01/21/19 10:00 Pulse Rate 72 01/21/19 10:00 Respiratory Rate 18 01/21/19 10:00 Blood Pressure 125/69 01/21/19 10:00 O2 Sat by Pulse Oximetry (%) 100 01/21/19 08:33 Intake & Output 01/18/19 01/19/19 01/20/19 01/21/19 23:59 23:59 23:59 23:59 Intake Total 130 710 0 Balance 130 710 0 Weight 85.049 kg 85.786 kg NAD awake and alert neck supple RRR, No M/R Mild wheeze or rales no LE edema left arm AVF CBC, BMP 01/21/19 05:30 01/21/19 05:30 Current Medications Acetaminophen (Tylenol -) 650 mg PO Q4H PRN PRN Reason: PAIN OR FEVER Albuterol Sulfate (Ventolin 0.083% Nebulizer Soln -) 1 amp NEB Q4H PRN PRN Reason: SHORT OF BREATH/WHEEZING Albuterol/Ipratropium (Duoneb -) 1 amp NEB RQID [facility] Last Admin: 01/21/19 11:20 Dose: 1 amp Amiodarone HCl (Cordarone -) 200 mg PO BID [facility] Last Admin: 01/21/19 10:06 Dose: 200 mg Amlodipine Besylate (Norvasc -) 10 mg PO DAILY [facility] Last Admin: 01/21/19 10:06 Dose: 10 mg Apixaban (Eliquis -) 5 mg PO BID [facility] Last Admin: 01/21/19 10:06 Dose: 5 mg Aspirin (Asa -) 81 mg PO DAILY [facility] Last Admin: 01/21/19 10:06 Dose: 81 mg Atorvastatin Calcium (Lipitor -) 40 mg PO HS [facility] Last Admin: 01/20/19 21:26 Dose: 40 mg Cinacalcet (Sensipar -) 30 mg PO DAILY [facility] Last Admin: 01/21/19 10:06 Dose: 30 mg Duloxetine HCl (Cymbalta -) 30 mg PO DAILY [facility] Last Admin: 01/21/19 10:06 Dose: 30 mg Gabapentin (Neurontin -) 300 mg PO DAILY [facility] Last Admin: 01/21/19 10:06 Dose: 300 mg Guaifenesin (Robitussin Dm -) 10 ml PO Q6H PRN PRN Reason: COUGH Last Admin: 01/20/19 21:27 Dose: 10 ml Azithromycin (Zithromax 500mg Ivpb (Pre-Docked)) 500 mg in 250 mls @ 250 mls/ hr IVPB DAILY [facility] Stop: 01/24/19 10:59 Last Admin: 01/21/19 10:05 Dose: 250 mls/hr Labetalol HCl (Normodyne -) 200 mg PO BID [facility] Last Admin: 01/21/19 10:06 Dose: 200 mg Methylprednisolone Sodium Succinate (Solu-Medrol -) 40 mg IVPUSH Q6H-IV ADRIANA Metoprolol Succinate (Toprol Xl -) 50 mg PO DAILY [facility] Last Admin: 01/21/19 10:06 Dose: 50 mg Sevelamer Carbonate (Renvela -) 800 mg PO TIDCM [facility] Last Admin: 01/21/19 07:43 Dose: 800 mg Sitagliptin Phosphate (Januvia -) 25 mg PO DAILY@0700 [facility] Last Admin: 01/21/19 06:00 Dose: 25 mg Tamsulosin HCl (Flomax -) 0.4 mg PO DAILY@0830 [facility] Last Admin: 01/21/19 07:43 Dose: 0.4 mg 78 year old gentleman with hx of ESRD on HD (TTS), CVA, Afib on Eliquis, CHF, Hypertension, orthostatic hypotension presented with SOB and cough. #ESRD on HD #Cough secondary to bronchitis/URI (CXR w/o pulmonary congestion, no WBC, no Fever, Flu negative) #Afib on Eliqusi #CHF #Hypertension #anemia #renal osteodystrophy No signs of volume overload at this time will plan for HD tomorrow with UF as tolerated continue empiric antibiotics as per ID Will continue HAYDEE with HD, no acute need for transfusion at this time continue renvela and sensipar, trend phos, ca levels dose all med for intermittent HD Renal diet, 1.2L fluid restriction Thank you Severo Sanchez DO
[2019-01-21] MEDS: methylPREDNISolone NA SUCC 40 MG/1 ML VIAL IVPUSH SCH ×3 (13:31→21:46)
--- NOTE | 2019-01-21 13:37 | PN ---
Progress Note, Physician Chief Complaint: patient coughing in bed - Current Medication List Current Medications: Active Medications Acetaminophen (Tylenol -) 650 mg PO Q4H PRN PRN Reason: PAIN OR FEVER Albuterol Sulfate (Ventolin 0.083% Nebulizer Soln -) 1 amp NEB Q4H PRN PRN Reason: SHORT OF BREATH/WHEEZING Albuterol/Ipratropium (Duoneb -) 1 amp NEB RQID [facility] Last Admin: 01/21/19 11:20 Dose: 1 amp Amiodarone HCl (Cordarone -) 200 mg PO BID [facility] Last Admin: 01/21/19 10:06 Dose: 200 mg Amlodipine Besylate (Norvasc -) 10 mg PO DAILY [facility] Last Admin: 01/21/19 10:06 Dose: 10 mg Apixaban (Eliquis -) 5 mg PO BID [facility] Last Admin: 01/21/19 10:06 Dose: 5 mg Aspirin (Asa -) 81 mg PO DAILY [facility] Last Admin: 01/21/19 10:06 Dose: 81 mg Atorvastatin Calcium (Lipitor -) 40 mg PO HS [facility] Last Admin: 01/20/19 21:26 Dose: 40 mg Cinacalcet (Sensipar -) 30 mg PO DAILY [facility] Last Admin: 01/21/19 10:06 Dose: 30 mg Duloxetine HCl (Cymbalta -) 30 mg PO DAILY [facility] Last Admin: 01/21/19 10:06 Dose: 30 mg Epoetin Silverio (Procrit -) 20,000 unit IVPUSH ONCE ONE Stop: 01/22/19 06:01 Gabapentin (Neurontin -) 300 mg PO DAILY [facility] Last Admin: 01/21/19 10:06 Dose: 300 mg Guaifenesin (Robitussin Dm -) 10 ml PO Q6H PRN PRN Reason: COUGH Last Admin: 01/20/19 21:27 Dose: 10 ml Azithromycin (Zithromax 500mg Ivpb (Pre-Docked)) 500 mg in 250 mls @ 250 mls/ hr IVPB DAILY [facility] Stop: 01/24/19 10:59 Last Admin: 01/21/19 10:05 Dose: 250 mls/hr Sodium Chloride (Normal Saline -) 250 mls @ 3,000 mls/hr IV PRN PRN PRN Reason: Hypotension during Dialysis Labetalol HCl (Normodyne -) 200 mg PO BID [facility] Last Admin: 01/21/19 10:06 Dose: 200 mg Methylprednisolone Sodium Succinate (Solu-Medrol -) 40 mg IVPUSH Q6H-IV [facility] Last Admin: 01/21/19 13:31 Dose: 40 mg Metoprolol Succinate (Toprol Xl -) 50 mg PO DAILY [facility] Last Admin: 01/21/19 10:06 Dose: 50 mg Sevelamer Carbonate (Renvela -) 800 mg PO TIDCM [facility] Last Admin: 01/21/19 13:31 Dose: 800 mg Sitagliptin Phosphate (Januvia -) 25 mg PO DAILY@0700 [facility] Last Admin: 01/21/19 06:00 Dose: 25 mg Tamsulosin HCl (Flomax -) 0.4 mg PO DAILY@0830 [facility] Last Admin: 01/21/19 07:43 Dose: 0.4 mg - Objective Vital Signs: Vital Signs Temperature 97.8 F 01/21/19 10:00 Pulse Rate 72 01/21/19 10:00 Respiratory Rate 18 01/21/19 10:00 Blood Pressure 125/69 01/21/19 10:00 O2 Sat by Pulse Oximetry (%) 100 01/21/19 08:33 Constitutional: Yes: Calm Cardiovascular: Yes: Regular Rate and Rhythm, S1, S2 Respiratory: Yes: On Nasal O2, Wheezes Gastrointestinal: Yes: Normal Bowel Sounds, Soft Labs: CBC, BMP 01/21/19 05:30 01/21/19 05:30 INR, PTT INR 1.10 (0.83-1.09) H 01/19/19 16:16 Problem List - Problems (1) Acute bronchitis Assessment/Plan: iv zithromax iv steroids Code(s): J20.9 - ACUTE BRONCHITIS, UNSPECIFIED (2) BPH (benign prostatic hyperplasia) Assessment/Plan: flomax Code(s): N40.0 - BENIGN PROSTATIC HYPERPLASIA WITHOUT LOWER URINRY TRACT SYMP Qualifiers: Lower urinary tract symptom presence: presence of symptoms unspecified (3) H/O: CVA (cerebrovascular accident) Assessment/Plan: eliqis Code(s): Z86.73 - PRSNL HX OF TIA (TIA), AND CEREB INFRC W/O RESID DEFICITS (4) Afib Assessment/Plan: on eliquis Code(s): I48.91 - UNSPECIFIED ATRIAL FIBRILLATION (5) ESRD (end stage renal disease) on dialysis Assessment/Plan: HD in AM sensipar Code(s): N18.6 - END STAGE RENAL DISEASE; Z99.2 - DEPENDENCE ON RENAL DIALYSIS (6) Diabetes 1.5, managed as type 1 Assessment/Plan: [facility] Code(s): E13.9 - OTHER SPECIFIED DIABETES MELLITUS WITHOUT COMPLICATIONS
[2019-01-21] MEDS: guaiFENesin/D-METHORPHAN HB 10 ML UNIT-DOSE CUPS PO PRN (17:24)
[2019-01-21] MEDS: ATORVASTATIN CA 40 MG TABLET (FP) PO SCH (21:46)
--- NOTE | 2019-01-22 00:02 | CONSULT ---
Consult Consult Specialty:: endocrine Referred by:: dr.[email or web address] esquivel Reason for Consultation:: diabetes mellitus 2 - History of Present Illness Chief Complaint: weakness cough and congestion History of Present Illness: 78 ymale,esrd,htn,chf,dm2,aortic insuficiency,history of syncope in past,has had cough fever,chills,sputum production,difficulty breathing,heaviness and poor appetite,has difficulty sleeping from the coughing - Past Medical History [employer]: Yes: CVA (with some memory deficit) Cardio/Vascular: Yes: AFIB, Aortic Insufficiency, CHF, HTN, Hyperlipdemia, Mitral Insufficiency, Other (ortostatic hypotension -> admissions here with near -syncope in 2014 and ealry 2016. On midodrine since prior to 2016 admission ) Renal/: Yes: Renal Failure (HD for 3 1/2 yrs), BPH Psych: Yes: Anxiety Endocrine: Yes: Diabetes Mellitus (hx of hypoglycemia episodes w/near syncope) - Past Surgical History Past Surgical History: Yes: AV Fistula/Graft - Alcohol/Substance Use Hx Alcohol Use: No History of Substance Use: reports: None - Smoking History Smoking history: Former smoker Have you smoked in the past 12 months: No Aproximately how many cigarettes per day: 0 If you are a former smoker, when did you quit?: > 25 ya - Social History Usual Living Arrangement: With Spouse History of Recent Travel: No Home Medications - Allergies Allergies/Adverse Reactions: Allergies Allergy/AdvReac Type Severity Reaction Status Date / Time No Known Allergies Allergy Verified 01/19/19 15:27 - Home Medications Home Medications: Ambulatory Orders Atorvastatin Ca [Lipitor] 40 mg PO HS 06/06/15 Gabapentin 300 mg PO DAILY 11/19/15 Duloxetine HCl 30 mg PO DAILY 04/16/16 Amlodipine Besylate [Norvasc -] 10 mg PO DAILY #30 tablet 04/19/16 Metoprolol Succinate [Toprol XL -] 50 mg PO DAILY #30 tab.sr.24h 04/19/16 Amiodarone HCl [Cordarone -] 200 mg PO BID #60 tablet 02/07/17 Aspirin [ASA -] 81 mg PO DAILY 08/31/18 Tamsulosin HCl [Flomax] 0.4 mg PO DAILY 08/31/18 Apixaban [Eliquis -] 5 mg PO BID 01/19/19 Cinacalcet HCl [Sensipar -] 30 mg PO DAILY 01/19/19 Labetalol HCl [Normodyne -] 200 mg PO BID 01/19/19 Sevelamer Carbonate [Renvela] 800 mg PO TID 01/19/19 Sitagliptin Phosphate [Januvia] 25 mg PO DAILY 01/19/19 Family Disease History - Family Disease History Family Disease History: Heart Disease: Father, Mother Review of Systems - Review of Systems Constitutional: reports: Lethargy, Weakness Eyes: reports: No Symptoms HENT: reports: No Symptoms Neck: reports: No Symptoms Cardiovascular: reports: Shortness of Breath Respiratory: reports: Exercise Intolerance, SOB on Exertion Gastrointestinal: reports: Bloating Genitourinary: reports: No Symptoms Breasts: reports: No Symptoms Reported Musculoskeletal: reports: Muscle Cramps, Muscle Weakness Integumentary: reports: No Symptoms Neurological: reports: Numbness Physical Exam Vital Signs: Vital Signs Temperature 97.9 F 01/21/19 21:00 Pulse Rate 65 01/21/19 21:00 Respiratory Rate 18 01/21/19 21:00 Blood Pressure 116/67 01/21/19 21:00 O2 Sat by Pulse Oximetry (%) 99 01/21/19 21:00 Constitutional: Yes: Anxious Eyes: Yes: EOM Intact HENT: Yes: Normocephalic Neck: Yes: Trachea Midline Cardiovascular: Yes: Tachycardia Respiratory: Yes: Rhonchi, SOB, Tachypnea, Wheezes Gastrointestinal: Yes: Abdomen, Obese ...Rectal Exam: Yes: Deferred Renal/: Yes: Anuria Breast(s): Yes: WNL Musculoskeletal: Yes: Back Pain, Muscle Weakness Integumentary: Yes: Onychomycosis, Venous Stasis Changes Psychiatric: Yes: Alert, Oriented Labs: CBC, BMP 01/21/19 05:30 01/21/19 05:30 Problem List - Problems (1) Acute bronchitis Code(s): J20.9 - ACUTE BRONCHITIS, UNSPECIFIED (2) Cough Code(s): R05 - COUGH (3) ESRD (end stage renal disease) on dialysis Code(s): N18.6 - END STAGE RENAL DISEASE; Z99.2 - DEPENDENCE ON RENAL DIALYSIS (4) Heart failure Code(s): I50.9 - HEART FAILURE, UNSPECIFIED (5) Wheezing Code(s): R06.2 - WHEEZING (6) Accidental fall Code(s): W19.XXXA - UNSPECIFIED FALL, INITIAL ENCOUNTER Qualifiers: Encounter type: subsequent encounter Qualified Code(s): W19.XXXD - Unspecified fall, subsequent encounter Assessment/Plan Current Active Problems diabetes mellitus 2 Acute bronchitis (Acute) Cough (Acute) ESRD (end stage renal disease) on dialysis (Acute) Heart failure (Acute) Abnormal Lab Results Troponin I above reference range (Acute) Wheezing (Acute) Abnormal Lab Results 01/21/19 01/21/19 05:30 05:30 RBC 2.91 L Hgb 8.7 L Hct 26.6 L RDW 16.4 H Sodium 132 L Chloride 95 L Anion Gap 7 L BUN 49 H Creatinine 6.8 H Calcium 7.9 L Total Protein 6.3 L Albumin 2.6 L Laboratory Tests 09/20/17 09/20/17 01/20/19 06:42 06:45 06:10 BUN 32 H D Creatinine 6.9 H D Random Glucose 69 L POC Glucometer 78 180 Phosphorus 4.6 D 01/21/19 06:06 BUN Creatinine Random Glucose POC Glucometer 98 Phosphorus plan: continue diet and bgm achs novolog dose as needed steroid insulin,resistant likely will cause high sugars continue sitagliptin 50mg daily
[2019-01-22] MEDS: methylPREDNISolone NA SUCC 40 MG/1 ML VIAL IVPUSH SCH ×3 (03:01→21:07)
[2019-01-22] MEDS: INSULIN SLIDING SCALE (NOVOLOG) 1 VIAL SQ SCH ×4 (06:00→21:07)
[2019-01-22] MEDS: sitaGLIPtin PHOSPHATE 25 MG TABLET (FP) PO SCH (06:00)
[2019-01-22 06:20] LABS: BASO % 0.2 % (0-2.0); EOS % 0.1 % (0-4.5); HEMATOCRIT 26.7 % (35.4-49); HEMOGLOBIN 8.9 GM/dL (11.7-16.9); LYMPH % 5.3 % (8-40); MCH 30.5 pg (25.7-33.7); MCHC 33.5 g/dl (32.0-35.9); MEAN CELL VOLUME 91.2 fl (80-96); MEAN PLT VOLUME 9.7 fl (7.5-11.1); MONO % 0.8 % (3.8-10.2); NEUT % 93.6 % (42.8-82.8); PLATELET COUNT 184 K/MM3 (134-434); RBC 2.93 M/mm3 (4.00-5.60); RDW 15.8 % (11.9-15.9); WHITE BLOOD COUNT 7.8 K/mm3 (4.0-10.0)
[2019-01-22 06:48] LABS: ALBUMIN 2.7 g/dl (3.4-5.0); ALK PHOS 72 U/L (45-117); ANION GAP 9 MMOL/L (8-16); BILIRUBIN,TOTAL 0.4 mg/dL (0.2-1); BLOOD UREA NITROGEN 65 mg/dL (7-18); CALCIUM 7.8 mg/dL (8.5-10.1); CHLORIDE 92 mmol/L (98-107); CO2 28 mmol/L (21-32); GLUCOSE,RANDOM 204 mg/dL (74-106); POTASSIUM 5.2 mmol/L (3.5-5.1); SGOT/AST 18 U/L (15-37); SGPT/ALT 15 U/L (13-61); SODIUM 129 mmol/L (136-145); TOT PROT 6.4 g/dl (6.4-8.2)
[2019-01-22 06:51] LABS: CREATININE 8.3 mg/dL (0.55-1.3)
[2019-01-22] MEDS: ALBUTEROL SO4 2.5/IPRATROPIUM 0.5 INH SOL 3 ML VIAL.NEB. NEB SCH ×5 (08:20→20:20)
[2019-01-22] MEDS: TAMSULOSIN HCL 0.4 MG CAP PO SCH ×2 (08:28→17:42)
[2019-01-22] MEDS: SEVELAMER CARBONATE 800 MG TAB (FP) PO SCH ×3 (08:28→17:41)
[2019-01-22] MEDS: guaiFENesin/D-METHORPHAN HB 10 ML UNIT-DOSE CUPS PO PRN (09:38)
--- NOTE | 2019-01-22 09:58 | PN ---
Progress Note, Physician - Current Medication List Current Medications: Active Medications Acetaminophen (Tylenol -) 650 mg PO Q4H PRN PRN Reason: PAIN OR FEVER Albuterol Sulfate (Ventolin 0.083% Nebulizer Soln -) 1 amp NEB Q4H PRN PRN Reason: SHORT OF BREATH/WHEEZING Albuterol/Ipratropium (Duoneb -) 1 amp NEB RQID [facility] Last Admin: 01/22/19 08:20 Dose: 1 amp Amiodarone HCl (Cordarone -) 200 mg PO BID [facility] Last Admin: 01/21/19 21:46 Dose: 200 mg Amlodipine Besylate (Norvasc -) 10 mg PO DAILY [facility] Last Admin: 01/21/19 10:06 Dose: 10 mg Apixaban (Eliquis -) 5 mg PO BID [facility] Last Admin: 01/21/19 21:46 Dose: 5 mg Aspirin (Asa -) 81 mg PO DAILY [facility] Last Admin: 01/21/19 10:06 Dose: 81 mg Atorvastatin Calcium (Lipitor -) 40 mg PO HS [facility] Last Admin: 01/21/19 21:46 Dose: 40 mg Cinacalcet (Sensipar -) 30 mg PO DAILY [facility] Last Admin: 01/21/19 10:06 Dose: 30 mg Duloxetine HCl (Cymbalta -) 30 mg PO DAILY [facility] Last Admin: 01/21/19 10:06 Dose: 30 mg Epoetin Silverio (Procrit -) 20,000 unit IVPUSH ONCE ONE Stop: 01/22/19 06:01 Gabapentin (Neurontin -) 300 mg PO DAILY [facility] Last Admin: 01/21/19 10:06 Dose: 300 mg Guaifenesin (Robitussin Dm -) 10 ml PO Q6H PRN PRN Reason: COUGH Last Admin: 01/22/19 09:38 Dose: 10 ml Azithromycin (Zithromax 500mg Ivpb (Pre-Docked)) 500 mg in 250 mls @ 250 mls/ hr IVPB DAILY [facility] Stop: 01/24/19 10:59 Last Admin: 01/21/19 10:05 Dose: 250 mls/hr Sodium Chloride (Normal Saline -) 250 mls @ 3,000 mls/hr IV PRN PRN PRN Reason: Hypotension during Dialysis Insulin Aspart (Novolog Vial Sliding Scale -) 1 vial SQ ACHS [facility]; Protocol Last Admin: 01/22/19 06:00 Dose: 3 unit Labetalol HCl (Normodyne -) 200 mg PO BID [facility] Last Admin: 01/21/19 21:46 Dose: 200 mg Methylprednisolone Sodium Succinate (Solu-Medrol -) 40 mg IVPUSH Q6H-IV [facility] Last Admin: 01/22/19 09:38 Dose: 40 mg Metoprolol Succinate (Toprol Xl -) 50 mg PO DAILY [facility] Last Admin: 01/21/19 10:06 Dose: 50 mg Sevelamer Carbonate (Renvela -) 800 mg PO TIDCM [facility] Last Admin: 01/22/19 08:28 Dose: 800 mg Sitagliptin Phosphate (Januvia -) 25 mg PO DAILY@0700 [facility] Last Admin: 01/22/19 06:00 Dose: 25 mg Tamsulosin HCl (Flomax -) 0.4 mg PO DAILY@0830 [facility] Last Admin: 01/22/19 08:28 Dose: 0.4 mg - Objective Vital Signs: Vital Signs Temperature 97.5 F L 01/22/19 08:30 Pulse Rate 65 01/22/19 08:30 Respiratory Rate 18 01/22/19 08:31 Blood Pressure 127/68 01/22/19 08:30 O2 Sat by Pulse Oximetry (%) 99 01/22/19 08:31 Cardiovascular: Yes: Regular Rate and Rhythm Respiratory: Yes: Regular, CTA Bilaterally Gastrointestinal: Yes: Normal Bowel Sounds, Soft. No: Tenderness Labs: CBC, BMP 01/22/19 05:30 01/22/19 05:30 INR, PTT INR 1.10 (0.83-1.09) H 01/19/19 16:16 Problem List - Problems (1) COPD (chronic obstructive pulmonary disease) with acute bronchitis Assessment/Plan: IV STEROIDS--TAPER NEBS IV ABX-ZITHROMAX Code(s): J44.0 - CHRONIC OBSTRUCTIVE PULMON DISEASE W ACUTE LOWER RESP INFCT; J20.9 - ACUTE BRONCHITIS, UNSPECIFIED (2) ESRD (end stage renal disease) on dialysis Assessment/Plan: DAILYSIS TODAY Code(s): N18.6 - END STAGE RENAL DISEASE; Z99.2 - DEPENDENCE ON RENAL DIALYSIS (3) Atrial fibrillation Assessment/Plan: ON ELIQUIS Code(s): I48.91 - UNSPECIFIED ATRIAL FIBRILLATION Qualifiers: Atrial fibrillation type: paroxysmal Qualified Code(s): I48.0 - Paroxysmal atrial fibrillation
[2019-01-22] MEDS: amLODIPine BESYLATE 10 MG TABLET (FP) PO SCH ×2 (10:12→17:42)
[2019-01-22] MEDS: CINACALCET HCL 30 MG TAB (FP) PO SCH (10:12)
[2019-01-22] MEDS: AZITHROMYCIN IVPB 500 MG/250 ML BAG IVPB SCH ×2 (10:12→17:40)
[2019-01-22] MEDS: AMIODARONE HCL 200 MG TABLET (FP) PO SCH ×3 (10:13→21:06)
[2019-01-22] MEDS: LABETALOL HCL 200 MG TABLET (FP) PO SCH ×3 (10:13→21:07)
[2019-01-22] MEDS: GABAPENTIN 300 MG CAPSULE (FP) PO SCH ×2 (10:13→17:41)
[2019-01-22] MEDS: DULoxetine HCL 30 MG CAPSULE.DR (FP) PO SCH ×2 (10:13→17:41)
[2019-01-22] MEDS: ASPIRIN 81 MG CHEWABLE TABLETS PO SCH ×2 (10:13→17:41)
[2019-01-22] MEDS: APIXABAN 5 MG TABLET PO SCH ×3 (10:13→21:06)
--- NOTE | 2019-01-22 10:22 | PN ---
Progress Note, Physician History of Present Illness: pulmonary alert,dyspneic,still congested,+ cough - Current Medication List Current Medications: Active Medications Acetaminophen (Tylenol -) 650 mg PO Q4H PRN PRN Reason: PAIN OR FEVER Albuterol Sulfate (Ventolin 0.083% Nebulizer Soln -) 1 amp NEB Q4H PRN PRN Reason: SHORT OF BREATH/WHEEZING Albuterol/Ipratropium (Duoneb -) 1 amp NEB RQID [facility] Last Admin: 01/22/19 08:20 Dose: 1 amp Amiodarone HCl (Cordarone -) 200 mg PO BID [facility] Last Admin: 01/22/19 10:13 Dose: Not Given Amlodipine Besylate (Norvasc -) 10 mg PO DAILY [facility] Last Admin: 01/22/19 10:12 Dose: Not Given Apixaban (Eliquis -) 5 mg PO BID [facility] Last Admin: 01/22/19 10:13 Dose: Not Given Aspirin (Asa -) 81 mg PO DAILY [facility] Last Admin: 01/22/19 10:13 Dose: Not Given Atorvastatin Calcium (Lipitor -) 40 mg PO HS [facility] Last Admin: 01/21/19 21:46 Dose: 40 mg Cinacalcet (Sensipar -) 30 mg PO DAILY [facility] Last Admin: 01/22/19 10:12 Dose: Not Given Duloxetine HCl (Cymbalta -) 30 mg PO DAILY [facility] Last Admin: 01/22/19 10:13 Dose: Not Given Epoetin Silverio (Procrit -) 20,000 unit IVPUSH ONCE ONE Stop: 01/22/19 06:01 Gabapentin (Neurontin -) 300 mg PO DAILY [facility] Last Admin: 01/22/19 10:13 Dose: Not Given Guaifenesin (Robitussin Dm -) 10 ml PO Q6H PRN PRN Reason: COUGH Last Admin: 01/22/19 09:38 Dose: 10 ml Azithromycin (Zithromax 500mg Ivpb (Pre-Docked)) 500 mg in 250 mls @ 250 mls/ hr IVPB DAILY [facility] Stop: 01/24/19 10:59 Last Admin: 01/22/19 10:12 Dose: Not Given Sodium Chloride (Normal Saline -) 250 mls @ 3,000 mls/hr IV PRN PRN PRN Reason: Hypotension during Dialysis Insulin Aspart (Novolog Vial Sliding Scale -) 1 vial SQ ACHS [facility]; Protocol Last Admin: 01/22/19 06:00 Dose: 3 unit Labetalol HCl (Normodyne -) 200 mg PO BID [facility] Last Admin: 01/22/19 10:13 Dose: Not Given Methylprednisolone Sodium Succinate (Solu-Medrol -) 40 mg IVPUSH Q6H-IV [facility] Last Admin: 01/22/19 09:38 Dose: 40 mg Metoprolol Succinate (Toprol Xl -) 50 mg PO DAILY [facility] Last Admin: 01/22/19 10:12 Dose: Not Given Sevelamer Carbonate (Renvela -) 800 mg PO TIDCM [facility] Last Admin: 01/22/19 08:28 Dose: 800 mg Sitagliptin Phosphate (Januvia -) 25 mg PO DAILY@0700 [facility] Last Admin: 01/22/19 06:00 Dose: 25 mg Tamsulosin HCl (Flomax -) 0.4 mg PO DAILY@0830 [facility] Last Admin: 01/22/19 08:28 Dose: 0.4 mg - Objective Vital Signs: Vital Signs Temperature 97.5 F L 01/22/19 08:30 Pulse Rate 65 01/22/19 08:30 Respiratory Rate 18 01/22/19 08:31 Blood Pressure 127/68 01/22/19 08:30 O2 Sat by Pulse Oximetry (%) 99 01/22/19 08:31 Constitutional: Yes: Well Nourished, Calm Eyes: Yes: WNL HENT: Yes: WNL Neck: Yes: WNL Cardiovascular: Yes: Pulse Irregular, S1, S2 Respiratory: Yes: Rhonchi, Wheezes (bilateral wheezes and rhonchi) Gastrointestinal: Yes: Normal Bowel Sounds, Soft Extremities: Yes: WNL Edema: No Labs: CBC, BMP 01/22/19 05:30 01/22/19 05:30 INR, PTT INR 1.10 (0.83-1.09) H 01/19/19 16:16 Assessment/Plan Problem List - Problems (1) Acute bronchitis Code(s): J20.9 - ACUTE BRONCHITIS, UNSPECIFIED (2) Atrial fibrillation Code(s): I48.91 - UNSPECIFIED ATRIAL FIBRILLATION Qualifiers: Atrial fibrillation type: paroxysmal Qualified Code(s): I48.0 - Paroxysmal atrial fibrillation (3) End stage renal disease Code(s): N18.6 - END STAGE RENAL DISEASE (4) H/O: CVA (cerebrovascular accident) Code(s): Z86.73 - PRSNL HX OF TIA (TIA), AND CEREB INFRC W/O RESID DEFICITS (5) HLD (hyperlipidemia) Code(s): E78.5 - HYPERLIPIDEMIA, UNSPECIFIED (6) HTN (hypertension) Code(s): I10 - ESSENTIAL (PRIMARY) HYPERTENSION Qualifiers: Hypertension type: essential hypertension Qualified Code(s): I10 - Essential (primary) hypertension Assessment/Plan Acute Bronchitis ESRD on HD Atrial Fibrillation LV Diastolic Dysfunction HTN Hyperlipidemia h/o CVA - IV azithromycin - inhaled bronchodilators standing and PRN - medrol same dose - O2 to keep SpO2 >90% - HD per renal - rate controlled - anticoagulation - outpt PFTs DR HALL
[2019-01-22 10:50] LABS: ANISOCYTOSIS 1+; MACROCYTOSIS 0; PLATELET ESTIMATE NORMAL
--- NOTE | 2019-01-22 11:48 | PN ---
Progress Note (short form) - Note Progress Note: Renal follow up for ESRD on HD Pt seen and examined during dialysis awake and alert reports mild sob no chest pain, abd pain, N/V/D goal UF is 3L as tolerated Vital Signs Temperature 97.5 F L 01/22/19 08:30 Pulse Rate 65 01/22/19 08:30 Respiratory Rate 18 01/22/19 08:31 Blood Pressure 127/68 01/22/19 08:30 O2 Sat by Pulse Oximetry (%) 99 01/22/19 08:31 Intake & Output 01/19/19 01/20/19 01/21/19 01/22/19 23:59 23:59 23:59 23:59 Intake Total 130 710 630 10 Balance 130 710 630 10 Weight 85.049 kg 85.786 kg 89.539 kg NAD awake and alert neck supple RRR, No M/R Mild wheeze or rales no LE edema left arm AVF CBC, BMP 01/22/19 05:30 01/22/19 05:30 Current Medications Acetaminophen (Tylenol -) 650 mg PO Q4H PRN PRN Reason: PAIN OR FEVER Albuterol Sulfate (Ventolin 0.083% Nebulizer Soln -) 1 amp NEB Q4H PRN PRN Reason: SHORT OF BREATH/WHEEZING Albuterol/Ipratropium (Duoneb -) 1 amp NEB RQID [facility] Last Admin: 01/22/19 08:20 Dose: 1 amp Amiodarone HCl (Cordarone -) 200 mg PO BID [facility] Last Admin: 01/22/19 10:13 Dose: Not Given Amlodipine Besylate (Norvasc -) 10 mg PO DAILY [facility] Last Admin: 01/22/19 10:12 Dose: Not Given Apixaban (Eliquis -) 5 mg PO BID [facility] Last Admin: 01/22/19 10:13 Dose: Not Given Aspirin (Asa -) 81 mg PO DAILY [facility] Last Admin: 01/22/19 10:13 Dose: Not Given Atorvastatin Calcium (Lipitor -) 40 mg PO HS [facility] Last Admin: 01/21/19 21:46 Dose: 40 mg Cinacalcet (Sensipar -) 30 mg PO DAILY [facility] Last Admin: 01/22/19 10:12 Dose: Not Given Duloxetine HCl (Cymbalta -) 30 mg PO DAILY [facility] Last Admin: 01/22/19 10:13 Dose: Not Given Epoetin Silverio (Procrit -) 20,000 unit IVPUSH ONCE ONE Stop: 01/22/19 06:01 Gabapentin (Neurontin -) 300 mg PO DAILY [facility] Last Admin: 01/22/19 10:13 Dose: Not Given Guaifenesin (Robitussin Dm -) 10 ml PO Q6H PRN PRN Reason: COUGH Last Admin: 01/22/19 09:38 Dose: 10 ml Azithromycin (Zithromax 500mg Ivpb (Pre-Docked)) 500 mg in 250 mls @ 250 mls/ hr IVPB DAILY [facility] Stop: 01/24/19 10:59 Last Admin: 01/22/19 10:12 Dose: Not Given Sodium Chloride (Normal Saline -) 250 mls @ 3,000 mls/hr IV PRN PRN PRN Reason: Hypotension during Dialysis Insulin Aspart (Novolog Vial Sliding Scale -) 1 vial SQ ACHS [facility]; Protocol Last Admin: 01/22/19 06:00 Dose: 3 unit Labetalol HCl (Normodyne -) 200 mg PO BID [facility] Last Admin: 01/22/19 10:13 Dose: Not Given Methylprednisolone Sodium Succinate (Solu-Medrol -) 40 mg IVPUSH Q6H-IV [facility] Last Admin: 01/22/19 09:38 Dose: 40 mg Metoprolol Succinate (Toprol Xl -) 50 mg PO DAILY [facility] Last Admin: 01/22/19 10:12 Dose: Not Given Sevelamer Carbonate (Renvela -) 800 mg PO TIDCM [facility] Last Admin: 01/22/19 08:28 Dose: 800 mg Sitagliptin Phosphate (Januvia -) 25 mg PO DAILY@0700 [facility] Last Admin: 01/22/19 06:00 Dose: 25 mg Tamsulosin HCl (Flomax -) 0.4 mg PO DAILY@0830 [facility] Last Admin: 01/22/19 08:28 Dose: 0.4 mg 78 year old gentleman with hx of ESRD on HD (TTS), CVA, Afib on Eliquis, CHF, Hypertension, orthostatic hypotension presented with SOB and cough. #ESRD on HD #Cough secondary to bronchitis/URI (CXR w/o pulmonary congestion, no WBC, no Fever, Flu negative) #Afib on Eliqusi #CHF #Hypertension #anemia #renal osteodystrophy tolerating HD well this am, UF goal is 3L will given Epogen 36340 units with HD today continue renal diet, 1.2L fluid restriction discharge planning as per primary Thank you Severo Sanchez DO
[2019-01-22] MEDS ORDERED: SODIUM CHLORIDE 250 ML IV PRN (12:23)
[2019-01-22] MEDS ORDERED: EPOETIN ALFA 20,000 UNIT/1 ML VIAL IVPUSH ONE (12:45)
[2019-01-22 13:06] LABS: PHOSPHOROUS 2.7 mg/dL (2.5-4.9)
[2019-01-22] MEDS ORDERED: ACETAMINOPHEN 325 MG TABLET (FP) PO PRN (17:23)
[2019-01-22] MEDS: ATORVASTATIN CA 40 MG TABLET (FP) PO SCH (21:07)
[2019-01-23] MEDS: sitaGLIPtin PHOSPHATE 25 MG TABLET (FP) PO SCH (06:18)
[2019-01-23] MEDS: INSULIN SLIDING SCALE (NOVOLOG) 1 VIAL SQ SCH ×4 (06:18→21:35)
[2019-01-23] MEDS: ALBUTEROL SO4 2.5/IPRATROPIUM 0.5 INH SOL 3 ML VIAL.NEB. NEB SCH ×4 (08:31→20:23)
[2019-01-23] MEDS: APIXABAN 5 MG TABLET PO SCH ×2 (09:27→21:35)
[2019-01-23] MEDS: TAMSULOSIN HCL 0.4 MG CAP PO SCH (09:27)
[2019-01-23] MEDS: DULoxetine HCL 30 MG CAPSULE.DR (FP) PO SCH (09:27)
[2019-01-23] MEDS: SEVELAMER CARBONATE 800 MG TAB (FP) PO SCH ×3 (09:27→16:40)
[2019-01-23] MEDS: AZITHROMYCIN IVPB 500 MG/250 ML BAG IVPB SCH (09:27)
[2019-01-23] MEDS: methylPREDNISolone NA SUCC 40 MG/1 ML VIAL IVPUSH SCH ×2 (09:27→17:20)
[2019-01-23] MEDS: amLODIPine BESYLATE 10 MG TABLET (FP) PO SCH (09:27)
[2019-01-23] MEDS: LABETALOL HCL 200 MG TABLET (FP) PO SCH ×2 (09:28→21:35)
[2019-01-23] MEDS: CINACALCET HCL 30 MG TAB (FP) PO SCH (09:28)
[2019-01-23] MEDS: ASPIRIN 81 MG CHEWABLE TABLETS PO SCH (09:28)
[2019-01-23] MEDS: GABAPENTIN 300 MG CAPSULE (FP) PO SCH (09:28)
[2019-01-23] MEDS: AMIODARONE HCL 200 MG TABLET (FP) PO SCH ×2 (09:28→21:35)
--- NOTE | 2019-01-23 10:36 | PN ---
Progress Note, Physician History of Present Illness: pulmonary alert,oob-chair,less congested,less dyspneic - Current Medication List Current Medications: Active Medications Acetaminophen (Tylenol -) 650 mg PO Q6H PRN PRN Reason: PAIN SCALE 1-5 Albuterol Sulfate (Ventolin 0.083% Nebulizer Soln -) 1 amp NEB Q4H PRN PRN Reason: SHORT OF BREATH/WHEEZING Albuterol/Ipratropium (Duoneb -) 1 amp NEB RQID [facility] Last Admin: 01/23/19 08:31 Dose: 1 amp Amiodarone HCl (Cordarone -) 200 mg PO BID [facility] Last Admin: 01/23/19 09:28 Dose: 200 mg Amlodipine Besylate (Norvasc -) 10 mg PO DAILY [facility] Last Admin: 01/23/19 09:27 Dose: 10 mg Apixaban (Eliquis -) 5 mg PO BID [facility] Last Admin: 01/23/19 09:27 Dose: 5 mg Aspirin (Asa -) 81 mg PO DAILY [facility] Last Admin: 01/23/19 09:28 Dose: 81 mg Atorvastatin Calcium (Lipitor -) 40 mg PO HS [facility] Last Admin: 01/22/19 21:07 Dose: 40 mg Cinacalcet (Sensipar -) 30 mg PO DAILY [facility] Last Admin: 01/23/19 09:28 Dose: 30 mg Duloxetine HCl (Cymbalta -) 30 mg PO DAILY [facility] Last Admin: 01/23/19 09:27 Dose: 30 mg Gabapentin (Neurontin -) 300 mg PO DAILY [facility] Last Admin: 01/23/19 09:28 Dose: 300 mg Guaifenesin (Robitussin Dm -) 10 ml PO Q6H PRN PRN Reason: COUGH Last Admin: 01/22/19 09:38 Dose: 10 ml Azithromycin (Zithromax 500mg Ivpb (Pre-Docked)) 500 mg in 250 mls @ 250 mls/ hr IVPB DAILY [facility] Stop: 01/24/19 10:59 Last Admin: 01/23/19 09:27 Dose: 250 mls/hr Sodium Chloride (Normal Saline -) 250 mls @ 3,000 mls/hr IV PRN PRN PRN Reason: Hypotension during Dialysis Insulin Aspart (Novolog Vial Sliding Scale -) 1 vial SQ ACHS [facility]; Protocol Last Admin: 01/23/19 06:18 Dose: 3 unit Labetalol HCl (Normodyne -) 200 mg PO BID [facility] Last Admin: 01/23/19 09:28 Dose: 200 mg Methylprednisolone Sodium Succinate (Solu-Medrol -) 40 mg IVPUSH BID [facility] Last Admin: 01/23/19 09:27 Dose: 40 mg Metoprolol Succinate (Toprol Xl -) 50 mg PO DAILY [facility] Last Admin: 01/23/19 09:28 Dose: 50 mg Sevelamer Carbonate (Renvela -) 800 mg PO TIDCM [facility] Last Admin: 01/23/19 09:27 Dose: 800 mg Sitagliptin Phosphate (Januvia -) 25 mg PO DAILY@0700 [facility] Last Admin: 01/23/19 06:18 Dose: 25 mg Tamsulosin HCl (Flomax -) 0.4 mg PO DAILY@0830 [facility] Last Admin: 01/23/19 09:27 Dose: 0.4 mg - Objective Vital Signs: Vital Signs Temperature 97.8 F 01/23/19 09:49 Pulse Rate 72 01/23/19 09:49 Respiratory Rate 18 01/23/19 09:49 Blood Pressure 126/72 01/23/19 09:49 O2 Sat by Pulse Oximetry (%) 98 01/23/19 07:18 Constitutional: Yes: Well Nourished, Calm Eyes: Yes: WNL HENT: Yes: WNL Neck: Yes: WNL Cardiovascular: Yes: Pulse Irregular, S1, S2 Respiratory: Yes: Rhonchi (lion rhonchi and wheezes), Wheezes Gastrointestinal: Yes: Normal Bowel Sounds, Soft Extremities: Yes: WNL Edema: Yes Edema: LLE: Trace, RLE: Trace Labs: CBC, BMP Assessment/Plan Problem List - Problems (1) Acute bronchitis Code(s): J20.9 - ACUTE BRONCHITIS, UNSPECIFIED (2) Atrial fibrillation Code(s): I48.91 - UNSPECIFIED ATRIAL FIBRILLATION Qualifiers: Atrial fibrillation type: paroxysmal Qualified Code(s): I48.0 - Paroxysmal atrial fibrillation (3) End stage renal disease Code(s): N18.6 - END STAGE RENAL DISEASE (4) H/O: CVA (cerebrovascular accident) Code(s): Z86.73 - PRSNL HX OF TIA (TIA), AND CEREB INFRC W/O RESID DEFICITS (5) HLD (hyperlipidemia) Code(s): E78.5 - HYPERLIPIDEMIA, UNSPECIFIED (6) HTN (hypertension) Code(s): I10 - ESSENTIAL (PRIMARY) HYPERTENSION Qualifiers: Hypertension type: essential hypertension Qualified Code(s): I10 - Essential (primary) hypertension Assessment/Plan Acute Bronchitis ESRD on HD Atrial Fibrillation LV Diastolic Dysfunction HTN Hyperlipidemia h/o CVA - IV azithromycin - inhaled bronchodilators standing and PRN - medrol q 8 - O2 to keep SpO2 >90% - HD per renal - rate controlled - anticoagulation - outpt PFTs DR HALL
--- NOTE | 2019-01-23 14:28 | PN ---
Progress Note (short form) - Note Progress Note: Renal follow up for ESRD on HD Pt seen and examined at the bedside awake and alert reports congh and sob persists no cp, fever, chills, N/V/D s/p Hd yesterday Vital Signs Temperature 97.8 F 01/23/19 09:49 Pulse Rate 72 01/23/19 09:49 Respiratory Rate 18 01/23/19 09:49 Blood Pressure 126/72 01/23/19 09:49 O2 Sat by Pulse Oximetry (%) 98 01/23/19 07:18 Intake & Output 01/20/19 01/21/19 01/22/19 01/23/19 23:59 23:59 23:59 23:59 Intake Total 710 630 690 260 Output Total 1100 600 Balance 710 630 -410 -340 Weight 85.786 kg 89.539 kg 88.451 kg NAD awake and alert neck supple RRR, No M/R Mild wheeze or rales no LE edema left arm AVF CBC, BMP 01/22/19 05:30 01/22/19 05:30 Current Medications Acetaminophen (Tylenol -) 650 mg PO Q6H PRN PRN Reason: PAIN SCALE 1-5 Albuterol Sulfate (Ventolin 0.083% Nebulizer Soln -) 1 amp NEB Q4H PRN PRN Reason: SHORT OF BREATH/WHEEZING Albuterol/Ipratropium (Duoneb -) 1 amp NEB RQID [facility] Last Admin: 01/23/19 12:14 Dose: 1 amp Amiodarone HCl (Cordarone -) 200 mg PO BID [facility] Last Admin: 01/23/19 09:28 Dose: 200 mg Amlodipine Besylate (Norvasc -) 10 mg PO DAILY [facility] Last Admin: 01/23/19 09:27 Dose: 10 mg Apixaban (Eliquis -) 5 mg PO BID [facility] Last Admin: 01/23/19 09:27 Dose: 5 mg Aspirin (Asa -) 81 mg PO DAILY [facility] Last Admin: 01/23/19 09:28 Dose: 81 mg Atorvastatin Calcium (Lipitor -) 40 mg PO HS [facility] Last Admin: 01/22/19 21:07 Dose: 40 mg Cinacalcet (Sensipar -) 30 mg PO DAILY [facility] Last Admin: 01/23/19 09:28 Dose: 30 mg Duloxetine HCl (Cymbalta -) 30 mg PO DAILY [facility] Last Admin: 01/23/19 09:27 Dose: 30 mg Gabapentin (Neurontin -) 300 mg PO DAILY [facility] Last Admin: 01/23/19 09:28 Dose: 300 mg Guaifenesin (Robitussin Dm -) 10 ml PO Q6H PRN PRN Reason: COUGH Last Admin: 01/22/19 09:38 Dose: 10 ml Azithromycin (Zithromax 500mg Ivpb (Pre-Docked)) 500 mg in 250 mls @ 250 mls/ hr IVPB DAILY [facility] Stop: 01/24/19 10:59 Last Admin: 01/23/19 09:27 Dose: 250 mls/hr Sodium Chloride (Normal Saline -) 250 mls @ 3,000 mls/hr IV PRN PRN PRN Reason: Hypotension during Dialysis Insulin Aspart (Novolog Vial Sliding Scale -) 1 vial SQ ACHS [facility]; Protocol Last Admin: 01/23/19 06:18 Dose: 3 unit Labetalol HCl (Normodyne -) 200 mg PO BID [facility] Last Admin: 01/23/19 09:28 Dose: 200 mg Methylprednisolone Sodium Succinate (Solu-Medrol -) 40 mg IVPUSH Q8H-IV [facility] Metoprolol Succinate (Toprol Xl -) 50 mg PO DAILY [facility] Last Admin: 01/23/19 09:28 Dose: 50 mg Sevelamer Carbonate (Renvela -) 800 mg PO TIDCM [facility] Last Admin: 01/23/19 11:57 Dose: 800 mg Sitagliptin Phosphate (Januvia -) 25 mg PO DAILY@0700 [facility] Last Admin: 01/23/19 06:18 Dose: 25 mg Tamsulosin HCl (Flomax -) 0.4 mg PO DAILY@0830 [facility] Last Admin: 01/23/19 09:27 Dose: 0.4 mg 78 year old gentleman with hx of ESRD on HD (TTS), CVA, Afib on Eliquis, CHF, Hypertension, orthostatic hypotension presented with SOB and cough. #ESRD on HD #Cough secondary to bronchitis/URI (CXR w/o pulmonary congestion, no WBC, no Fever, Flu negative) #Afib on Eliqusi #CHF #Hypertension #anemia #renal osteodystrophy no acute indication for [employer] today will plan next treatment for tomorrow with UF as tolerated continue steroids and nebs as per pulmonary will continue HAYDEE with HD continue renvela and sensipar, trend phos and Ca levels Thank you Severo Sanchez DO
--- NOTE | 2019-01-23 14:44 | PN ---
Progress Note, Physician Chief Complaint: ESRD Elevated Troponin Bronchitis History of Present Illness: Previous notes and events reviewed awake and alert NAD continue with productive cough denies chest pain - Current Medication List Current Medications: Active Medications Acetaminophen (Tylenol -) 650 mg PO Q6H PRN PRN Reason: PAIN SCALE 1-5 Albuterol Sulfate (Ventolin 0.083% Nebulizer Soln -) 1 amp NEB Q4H PRN PRN Reason: SHORT OF BREATH/WHEEZING Albuterol/Ipratropium (Duoneb -) 1 amp NEB RQID [facility] Last Admin: 01/23/19 12:14 Dose: 1 amp Amiodarone HCl (Cordarone -) 200 mg PO BID [facility] Last Admin: 01/23/19 09:28 Dose: 200 mg Amlodipine Besylate (Norvasc -) 10 mg PO DAILY [facility] Last Admin: 01/23/19 09:27 Dose: 10 mg Apixaban (Eliquis -) 5 mg PO BID [facility] Last Admin: 01/23/19 09:27 Dose: 5 mg Aspirin (Asa -) 81 mg PO DAILY [facility] Last Admin: 01/23/19 09:28 Dose: 81 mg Atorvastatin Calcium (Lipitor -) 40 mg PO HS [facility] Last Admin: 01/22/19 21:07 Dose: 40 mg Cinacalcet (Sensipar -) 30 mg PO DAILY [facility] Last Admin: 01/23/19 09:28 Dose: 30 mg Duloxetine HCl (Cymbalta -) 30 mg PO DAILY [facility] Last Admin: 01/23/19 09:27 Dose: 30 mg Epoetin Silverio (Epogen -) 10,000 unit IVPUSH ONCE ONE Stop: 01/24/19 06:01 Gabapentin (Neurontin -) 300 mg PO DAILY [facility] Last Admin: 01/23/19 09:28 Dose: 300 mg Guaifenesin (Robitussin Dm -) 10 ml PO Q6H PRN PRN Reason: COUGH Last Admin: 01/22/19 09:38 Dose: 10 ml Azithromycin (Zithromax 500mg Ivpb (Pre-Docked)) 500 mg in 250 mls @ 250 mls/ hr IVPB DAILY [facility] Stop: 01/24/19 10:59 Last Admin: 01/23/19 09:27 Dose: 250 mls/hr Sodium Chloride (Normal Saline -) 250 mls @ 3,000 mls/hr IV PRN PRN PRN Reason: Hypotension during Dialysis Sodium Chloride (Normal Saline -) 250 mls @ 3,000 mls/hr IV PRN PRN PRN Reason: Hypotension during Dialysis Stop: 01/24/19 14:29 Insulin Aspart (Novolog Vial Sliding Scale -) 1 vial SQ ACHS [facility]; Protocol Last Admin: 01/23/19 06:18 Dose: 3 unit Labetalol HCl (Normodyne -) 200 mg PO BID [facility] Last Admin: 01/23/19 09:28 Dose: 200 mg Methylprednisolone Sodium Succinate (Solu-Medrol -) 40 mg IVPUSH Q8H-IV [facility] Metoprolol Succinate (Toprol Xl -) 50 mg PO DAILY [facility] Last Admin: 01/23/19 09:28 Dose: 50 mg Sevelamer Carbonate (Renvela -) 800 mg PO TIDCM [facility] Last Admin: 01/23/19 11:57 Dose: 800 mg Sitagliptin Phosphate (Januvia -) 25 mg PO DAILY@0700 [facility] Last Admin: 01/23/19 06:18 Dose: 25 mg Tamsulosin HCl (Flomax -) 0.4 mg PO DAILY@0830 [facility] Last Admin: 01/23/19 09:27 Dose: 0.4 mg - Objective Vital Signs: Vital Signs Temperature 97.8 F 01/23/19 09:49 Pulse Rate 72 01/23/19 09:49 Respiratory Rate 18 01/23/19 09:49 Blood Pressure 126/72 01/23/19 09:49 O2 Sat by Pulse Oximetry (%) 98 01/23/19 07:18 Constitutional: Yes: No Distress, Calm Eyes: Yes: Conjunctiva Clear HENT: Yes: Atraumatic Cardiovascular: Yes: Regular Rate and Rhythm Respiratory: Yes: On Nasal O2, Rhonchi, Wheezes Gastrointestinal: Yes: Normal Bowel Sounds, Soft Extremities: Yes: WNL Edema: No Neurological: Yes: Alert, Oriented Psychiatric: Yes: Alert, Oriented Labs: CBC, BMP 01/22/19 05:30 01/22/19 05:30 INR, PTT INR 1.10 (0.83-1.09) H 01/19/19 16:16 Problem List - Problems (1) COPD (chronic obstructive pulmonary disease) with acute bronchitis Assessment/Plan: -Pulm on board -bronchodilators -O2 via NC -keep SpO2 >90% -IV Azithromycin Code(s): J44.0 - CHRONIC OBSTRUCTIVE PULMON DISEASE W ACUTE LOWER RESP INFCT; J20.9 - ACUTE BRONCHITIS, UNSPECIFIED (2) ESRD (end stage renal disease) on dialysis Assessment/Plan: -renal on board -HD on scheduled days -BUN/Cr 65/8.3 -continue Renvela and Sensipar Code(s): N18.6 - END STAGE RENAL DISEASE; Z99.2 - DEPENDENCE ON RENAL DIALYSIS (3) Afib Assessment/Plan: -continue Eliquis and Metoprolol Code(s): I48.91 - UNSPECIFIED ATRIAL FIBRILLATION (4) CAD (coronary artery disease) Assessment/Plan: continue Aspirin and Atorvastatin Code(s): I25.10 - ATHSCL HEART DISEASE OF [place] CORONARY ARTERY W/O ANG PCTRS (5) HLD (hyperlipidemia) Assessment/Plan: -continue Atorvastatin Code(s): E78.5 - HYPERLIPIDEMIA, UNSPECIFIED (6) HTN (hypertension) Assessment/Plan: -continue Amlodipine, Labetolol -low Na diet Code(s): I10 - ESSENTIAL (PRIMARY) HYPERTENSION Qualifiers: Hypertension type: essential hypertension Qualified Code(s): I10 - Essential (primary) hypertension (7) Prediabetes Assessment/Plan: -continue Sitagliptan -renal diabetic diet -BG ACHS Code(s): R73.03 - PREDIABETES Assessment/Plan see problem list dvt ppx
[2019-01-23] MEDS ORDERED: INSULIN (NOVOLOG) ASPART 100 UNITS/ML 10ML VIAL ONE (21:30)
[2019-01-23] MEDS: ATORVASTATIN CA 40 MG TABLET (FP) PO SCH (21:35)
[2019-01-24] MEDS: methylPREDNISolone NA SUCC 40 MG/1 ML VIAL IVPUSH SCH ×3 (02:01→17:00)
[2019-01-24] MEDS: INSULIN SLIDING SCALE (NOVOLOG) 1 VIAL SQ SCH ×4 (06:01→21:16)
[2019-01-24] MEDS: sitaGLIPtin PHOSPHATE 25 MG TABLET (FP) PO SCH (06:04)
[2019-01-24] MEDS: ALBUTEROL SO4 2.5/IPRATROPIUM 0.5 INH SOL 3 ML VIAL.NEB. NEB SCH ×4 (07:24→22:12)
[2019-01-24 07:45] LABS: HEMATOCRIT 27.6 % (35.4-49); HEMOGLOBIN 8.8 GM/dL (11.7-16.9); MCH 29.4 pg (25.7-33.7); MCHC 31.9 g/dl (32.0-35.9); MEAN PLT VOLUME 9.5 fl (7.5-11.1); PLATELET COUNT 251 K/MM3 (134-434); RDW 16.9 % (11.9-15.9); WHITE BLOOD COUNT 14.1 K/mm3 (4.0-10.0)
[2019-01-24] MEDS ORDERED: EPOETIN ALFA 10,000 UNIT/1 ML VIAL IVPUSH ONE (08:00)
[2019-01-24 08:06] LABS: ALBUMIN 2.8 g/dl (3.4-5.0); ALK PHOS 71 U/L (45-117); ANION GAP 9 MMOL/L (8-16); BILIRUBIN,TOTAL 0.3 mg/dL (0.2-1); BLOOD UREA NITROGEN 73 mg/dL (7-18); CALCIUM 7.7 mg/dL (8.5-10.1); CHLORIDE 94 mmol/L (98-107); CO2 30 mmol/L (21-32); CREATININE 6.8 mg/dL (0.55-1.3); GLUCOSE,RANDOM 203 mg/dL (74-106); PHOSPHOROUS 2.6 mg/dL (2.5-4.9); POTASSIUM 4.9 mmol/L (3.5-5.1); SGOT/AST 10 U/L (15-37); SGPT/ALT 15 U/L (13-61); SODIUM 132 mmol/L (136-145); TOT PROT 6.2 g/dl (6.4-8.2)
[2019-01-24] MEDS: TAMSULOSIN HCL 0.4 MG CAP PO SCH (08:32)
[2019-01-24] MEDS: SEVELAMER CARBONATE 800 MG TAB (FP) PO SCH ×3 (08:32→16:57)
[2019-01-24] MEDS ORDERED: SODIUM CHLORIDE 250 ML IV PRN (10:00)
[2019-01-24 11:18] LABS: HBSAG SCREEN Negative (Negative); HEP A AB, IGM Negative (Negative); HEP B CORE AB, TOT Negative (Negative)
[2019-01-24] MEDS: amLODIPine BESYLATE 10 MG TABLET (FP) PO SCH (11:48)
[2019-01-24] MEDS: AZITHROMYCIN IVPB 500 MG/250 ML BAG IVPB SCH (11:48)
[2019-01-24] MEDS: DULoxetine HCL 30 MG CAPSULE.DR (FP) PO SCH (11:48)
[2019-01-24] MEDS: AMIODARONE HCL 200 MG TABLET (FP) PO SCH ×2 (11:48→21:15)
[2019-01-24] MEDS: ASPIRIN 81 MG CHEWABLE TABLETS PO SCH (11:48)
[2019-01-24] MEDS: GABAPENTIN 300 MG CAPSULE (FP) PO SCH (11:48)
[2019-01-24] MEDS: LABETALOL HCL 200 MG TABLET (FP) PO SCH ×2 (11:48→21:15)
[2019-01-24] MEDS: APIXABAN 5 MG TABLET PO SCH ×2 (11:49→21:15)
[2019-01-24] MEDS: CINACALCET HCL 30 MG TAB (FP) PO SCH (11:53)
--- NOTE | 2019-01-24 13:11 | PN ---
Progress Note, Physician Chief Complaint: patient seen and examined on nasal canula got HD today - Current Medication List Current Medications: Active Medications Acetaminophen (Tylenol -) 650 mg PO Q6H PRN PRN Reason: PAIN SCALE 1-5 Albuterol Sulfate (Ventolin 0.083% Nebulizer Soln -) 1 amp NEB Q4H PRN PRN Reason: SHORT OF BREATH/WHEEZING Albuterol/Ipratropium (Duoneb -) 1 amp NEB RQID [facility] Last Admin: 01/24/19 11:18 Dose: 1 amp Amiodarone HCl (Cordarone -) 200 mg PO BID [facility] Last Admin: 01/24/19 11:48 Dose: 200 mg Amlodipine Besylate (Norvasc -) 10 mg PO DAILY [facility] Last Admin: 01/24/19 11:48 Dose: 10 mg Apixaban (Eliquis -) 5 mg PO BID [facility] Last Admin: 01/24/19 11:49 Dose: 5 mg Aspirin (Asa -) 81 mg PO DAILY [facility] Last Admin: 01/24/19 11:48 Dose: 81 mg Atorvastatin Calcium (Lipitor -) 40 mg PO HS [facility] Last Admin: 01/23/19 21:35 Dose: 40 mg Cinacalcet (Sensipar -) 30 mg PO DAILY [facility] Last Admin: 01/24/19 11:53 Dose: 30 mg Duloxetine HCl (Cymbalta -) 30 mg PO DAILY [facility] Last Admin: 01/24/19 11:48 Dose: 30 mg Gabapentin (Neurontin -) 300 mg PO DAILY [facility] Last Admin: 01/24/19 11:48 Dose: 300 mg Guaifenesin (Robitussin Dm -) 10 ml PO Q6H PRN PRN Reason: COUGH Last Admin: 01/22/19 09:38 Dose: 10 ml Sodium Chloride (Normal Saline -) 250 mls @ 3,000 mls/hr IV PRN PRN PRN Reason: Hypotension during Dialysis Insulin Aspart (Novolog Vial Sliding Scale -) 1 vial SQ ACHS [facility]; Protocol Last Admin: 01/24/19 12:18 Dose: 7 unit Labetalol HCl (Normodyne -) 200 mg PO BID [facility] Last Admin: 01/24/19 11:48 Dose: 200 mg Methylprednisolone Sodium Succinate (Solu-Medrol -) 40 mg IVPUSH Q8H-IV [facility] Last Admin: 01/24/19 11:48 Dose: 40 mg Metoprolol Succinate (Toprol Xl -) 50 mg PO DAILY [facility] Last Admin: 01/24/19 11:52 Dose: 50 mg Sevelamer Carbonate (Renvela -) 800 mg PO TIDCM [facility] Last Admin: 01/24/19 11:49 Dose: 800 mg Sitagliptin Phosphate (Januvia -) 25 mg PO DAILY@0700 [facility] Last Admin: 01/24/19 06:04 Dose: 25 mg Tamsulosin HCl (Flomax -) 0.4 mg PO DAILY@0830 [facility] Last Admin: 01/24/19 08:32 Dose: 0.4 mg - Objective Vital Signs: Vital Signs Temperature 98.8 F 01/24/19 06:55 Pulse Rate 73 01/24/19 10:35 Respiratory Rate 18 01/24/19 10:35 Blood Pressure 135/71 01/24/19 10:35 O2 Sat by Pulse Oximetry (%) 99 01/23/19 21:00 Constitutional: Yes: Calm Cardiovascular: Yes: Regular Rate and Rhythm, S1, S2 Respiratory: Yes: On Nasal O2, Rhonchi Gastrointestinal: Yes: Normal Bowel Sounds, Soft Neurological: Yes: Alert, Oriented Labs: CBC, BMP 01/24/19 07:00 01/24/19 07:00 INR, PTT INR 1.10 (0.83-1.09) H 01/19/19 16:16 Problem List - Problems (1) Acute bronchitis Assessment/Plan: iv zithromax iv steroids q8hr Code(s): J20.9 - ACUTE BRONCHITIS, UNSPECIFIED (2) BPH (benign prostatic hyperplasia) Assessment/Plan: flomax Code(s): N40.0 - BENIGN PROSTATIC HYPERPLASIA WITHOUT LOWER URINRY TRACT SYMP Qualifiers: Lower urinary tract symptom presence: presence of symptoms unspecified (3) H/O: CVA (cerebrovascular accident) Assessment/Plan: eliqis Code(s): Z86.73 - PRSNL HX OF TIA (TIA), AND CEREB INFRC W/O RESID DEFICITS (4) Afib Assessment/Plan: on eliquis Code(s): I48.91 - UNSPECIFIED ATRIAL FIBRILLATION (5) ESRD (end stage renal disease) on dialysis Assessment/Plan: HD in AM sensipar Code(s): N18.6 - END STAGE RENAL DISEASE; Z99.2 - DEPENDENCE ON RENAL DIALYSIS (6) Diabetes 1.5, managed as type 1 Assessment/Plan: [facility] endocrine on board Code(s): E13.9 - OTHER SPECIFIED DIABETES MELLITUS WITHOUT COMPLICATIONS
--- NOTE | 2019-01-24 13:26 | PN ---
Progress Note (short form) - Note Progress Note: Resting in NAD on NC O2. Still with some congested cough and HADLEY. No CP. Intake & Output 01/21/19 01/22/19 01/23/19 01/24/19 23:59 23:59 23:59 23:59 Intake Total 545 358 8220 110 Output Total 1100 600 Balance 630 -410 510 110 Weight 197 lb 6.4 oz 195 lb 201 lb 9.6 oz Last Vital Signs Temp Pulse Resp BP Pulse Ox 98.8 F 73 18 135/71 99 01/24/19 06:55 01/24/19 10:35 01/24/19 10:35 01/24/19 10:35 01/23/19 21:00 Active Medications Acetaminophen (Tylenol -) 650 mg PO Q6H PRN PRN Reason: PAIN SCALE 1-5 Albuterol Sulfate (Ventolin 0.083% Nebulizer Soln -) 1 amp NEB Q4H PRN PRN Reason: SHORT OF BREATH/WHEEZING Albuterol/Ipratropium (Duoneb -) 1 amp NEB RQID [facility] Last Admin: 01/24/19 11:18 Dose: 1 amp Amiodarone HCl (Cordarone -) 200 mg PO BID [facility] Last Admin: 01/24/19 11:48 Dose: 200 mg Amlodipine Besylate (Norvasc -) 10 mg PO DAILY [facility] Last Admin: 01/24/19 11:48 Dose: 10 mg Apixaban (Eliquis -) 5 mg PO BID [facility] Last Admin: 01/24/19 11:49 Dose: 5 mg Aspirin (Asa -) 81 mg PO DAILY [facility] Last Admin: 01/24/19 11:48 Dose: 81 mg Atorvastatin Calcium (Lipitor -) 40 mg PO HS [facility] Last Admin: 01/23/19 21:35 Dose: 40 mg Cinacalcet (Sensipar -) 30 mg PO DAILY [facility] Last Admin: 01/24/19 11:53 Dose: 30 mg Duloxetine HCl (Cymbalta -) 30 mg PO DAILY [facility] Last Admin: 01/24/19 11:48 Dose: 30 mg Gabapentin (Neurontin -) 300 mg PO DAILY [facility] Last Admin: 01/24/19 11:48 Dose: 300 mg Guaifenesin (Robitussin Dm -) 10 ml PO Q6H PRN PRN Reason: COUGH Last Admin: 01/22/19 09:38 Dose: 10 ml Sodium Chloride (Normal Saline -) 250 mls @ 3,000 mls/hr IV PRN PRN PRN Reason: Hypotension during Dialysis Insulin Aspart (Novolog Vial Sliding Scale -) 1 vial SQ ACHS [facility]; Protocol Last Admin: 01/24/19 12:18 Dose: 7 unit Labetalol HCl (Normodyne -) 200 mg PO BID [facility] Last Admin: 01/24/19 11:48 Dose: 200 mg Methylprednisolone Sodium Succinate (Solu-Medrol -) 40 mg IVPUSH Q8H-IV [facility] Last Admin: 01/24/19 11:48 Dose: 40 mg Metoprolol Succinate (Toprol Xl -) 50 mg PO DAILY [facility] Last Admin: 01/24/19 11:52 Dose: 50 mg Sevelamer Carbonate (Renvela -) 800 mg PO TIDCM [facility] Last Admin: 01/24/19 11:49 Dose: 800 mg Sitagliptin Phosphate (Januvia -) 25 mg PO DAILY@0700 [facility] Last Admin: 01/24/19 06:04 Dose: 25 mg Tamsulosin HCl (Flomax -) 0.4 mg PO DAILY@0830 [facility] Last Admin: 01/24/19 08:32 Dose: 0.4 mg Constitutional: Yes: Awake and alert, NAD Eyes: Yes: WNL HENT: Yes: WNL Neck: Yes: WNL Cardiovascular: Yes: Pulse Irregular, S1, S2 Respiratory: Yes: Bilateral rhonchi & wheezes Gastrointestinal: Yes: Normal Bowel Sounds, Soft Extremities: Yes: WNL Edema: Yes Edema: LLE: Trace, RLE: Trace Labs: Laboratory Results - last 24 hr 01/22/19 01/23/19 01/23/19 12:10 16:34 21:33 WBC RBC Hgb Hct MCV MCH MCHC RDW Plt Count MPV Sodium Potassium Chloride Carbon Dioxide Anion Gap BUN Creatinine Creat Clearance w eGFR POC Glucometer 220 203 Random Glucose Calcium Phosphorus Total Bilirubin AST ALT Alkaline Phosphatase Total Protein Albumin Hep A IgM Ab Confirm Negative Hepatitis A Ab Total Positive H Hep Bs Antigen Negative Hep Bs Antibody Reactive Hep B Core Total Ab Negative Hep C Ab Diagnostic 0.1 Blood Type Antibody Screen 01/24/19 01/24/19 01/24/19 05:38 07:00 07:00 WBC 14.1 H RBC 3.00 L Hgb 8.8 L Hct 27.6 L MCV 92.0 MCH 29.4 MCHC 31.9 L RDW 16.9 H Plt Count 251 D MPV 9.5 Sodium 132 L Potassium 4.9 Chloride 94 L Carbon Dioxide 30 Anion Gap 9 BUN 73 H Creatinine 6.8 H Creat Clearance w eGFR 7.89 POC Glucometer 181 Random Glucose 203 H Calcium 7.7 L Phosphorus 2.6 Total Bilirubin 0.3 AST 10 L ALT 15 Alkaline Phosphatase 71 Total Protein 6.2 L Albumin 2.8 L Hep A IgM Ab Confirm Hepatitis A Ab Total Hep Bs Antigen Hep Bs Antibody Hep B Core Total Ab Hep C Ab Diagnostic Blood Type Antibody Screen 01/24/19 01/24/19 07:00 12:13 WBC RBC Hgb Hct MCV MCH MCHC RDW Plt Count MPV Sodium Potassium Chloride Carbon Dioxide Anion Gap BUN Creatinine Creat Clearance w eGFR POC Glucometer 303 Random Glucose Calcium Phosphorus Total Bilirubin AST ALT Alkaline Phosphatase Total Protein Albumin Hep A IgM Ab Confirm Hepatitis A Ab Total Hep Bs Antigen Hep Bs Antibody Hep B Core Total Ab Hep C Ab Diagnostic Blood Type A POSITIVE Antibody Screen Negative Assessment/Plan Problem List - Problems (1) Acute bronchitis Assessment/Plan: Code(s): J20.9 - ACUTE BRONCHITIS, UNSPECIFIED (2) BPH (benign prostatic hyperplasia) Assessment/Plan: Code(s): N40.0 - BENIGN PROSTATIC HYPERPLASIA WITHOUT LOWER URINRY TRACT SYMP Qualifiers: Lower urinary tract symptom presence: presence of symptoms unspecified (3) H/O: CVA (cerebrovascular accident) Assessment/Plan: Code(s): Z86.73 - PRSNL HX OF TIA (TIA), AND CEREB INFRC W/O RESID DEFICITS (4) Afib Assessment/Plan: Code(s): I48.91 - UNSPECIFIED ATRIAL FIBRILLATION (5) ESRD (end stage renal disease) on dialysis Assessment/Plan: Code(s): N18.6 - END STAGE RENAL DISEASE; Z99.2 - DEPENDENCE ON RENAL DIALYSIS (6) Diabetes 1.5, managed as type 1 Assessment/Plan: Code(s): E13.9 - OTHER SPECIFIED DIABETES MELLITUS WITHOUT COMPLICATIONS IMP/PLAN: Acute Bronchitis ESRD on HD Atrial Fibrillation LV Diastolic Dysfunction HTN Hyperlipidemia h/o CVA - Azithromycin - inhaled bronchodilators standing and PRN - Medrol - O2 to keep SpO2 >90% - HD per renal - rate controlled - anticoagulation - Outpatient PFTs once stable Dr Vickers
--- NOTE | 2019-01-24 14:41 | PN ---
Progress Note (short form) - Note Progress Note: Renal follow up for ESRD on HD Pt seen and examined at the bedside s/p dialysis this am with 3L UF BP stable continues to have cough and sob denies any fever, cp, abd pain, N/V/D Vital Signs Temperature 98 F 01/24/19 10:00 Pulse Rate 73 01/24/19 10:35 Respiratory Rate 18 01/24/19 10:35 Blood Pressure 135/71 01/24/19 10:35 O2 Sat by Pulse Oximetry (%) 100 01/24/19 09:00 Intake & Output 01/21/19 01/22/19 01/23/19 01/24/19 23:59 23:59 23:59 23:59 Intake Total 720 583 0034 110 Output Total 1100 600 Balance 630 -410 510 110 Weight 89.539 kg 88.451 kg 91.444 kg NAD awake and alert neck supple RRR, No M/R Mild wheeze no rales no LE edema left arm AVF CBC, BMP 01/24/19 07:00 01/24/19 07:00 Current Medications Acetaminophen (Tylenol -) 650 mg PO Q6H PRN PRN Reason: PAIN SCALE 1-5 Albuterol Sulfate (Ventolin 0.083% Nebulizer Soln -) 1 amp NEB Q4H PRN PRN Reason: SHORT OF BREATH/WHEEZING Albuterol/Ipratropium (Duoneb -) 1 amp NEB RQID [facility] Last Admin: 01/24/19 11:18 Dose: 1 amp Amiodarone HCl (Cordarone -) 200 mg PO BID [facility] Last Admin: 01/24/19 11:48 Dose: 200 mg Amlodipine Besylate (Norvasc -) 10 mg PO DAILY [facility] Last Admin: 01/24/19 11:48 Dose: 10 mg Apixaban (Eliquis -) 5 mg PO BID [facility] Last Admin: 01/24/19 11:49 Dose: 5 mg Aspirin (Asa -) 81 mg PO DAILY [facility] Last Admin: 01/24/19 11:48 Dose: 81 mg Atorvastatin Calcium (Lipitor -) 40 mg PO HS [facility] Last Admin: 01/23/19 21:35 Dose: 40 mg Cinacalcet (Sensipar -) 30 mg PO DAILY [facility] Last Admin: 01/24/19 11:53 Dose: 30 mg Duloxetine HCl (Cymbalta -) 30 mg PO DAILY [facility] Last Admin: 01/24/19 11:48 Dose: 30 mg Gabapentin (Neurontin -) 300 mg PO DAILY [facility] Last Admin: 01/24/19 11:48 Dose: 300 mg Guaifenesin (Robitussin Dm -) 10 ml PO Q6H PRN PRN Reason: COUGH Last Admin: 01/22/19 09:38 Dose: 10 ml Sodium Chloride (Normal Saline -) 250 mls @ 3,000 mls/hr IV PRN PRN PRN Reason: Hypotension during Dialysis Insulin Aspart (Novolog Vial Sliding Scale -) 1 vial SQ ACHS [facility]; Protocol Last Admin: 01/24/19 12:18 Dose: 7 unit Labetalol HCl (Normodyne -) 200 mg PO BID [facility] Last Admin: 01/24/19 11:48 Dose: 200 mg Methylprednisolone Sodium Succinate (Solu-Medrol -) 40 mg IVPUSH Q8H-IV [facility] Last Admin: 01/24/19 11:48 Dose: 40 mg Metoprolol Succinate (Toprol Xl -) 50 mg PO DAILY [facility] Last Admin: 01/24/19 11:52 Dose: 50 mg Sevelamer Carbonate (Renvela -) 800 mg PO TIDCM [facility] Last Admin: 01/24/19 11:49 Dose: 800 mg Sitagliptin Phosphate (Januvia -) 25 mg PO DAILY@0700 [facility] Last Admin: 01/24/19 06:04 Dose: 25 mg Tamsulosin HCl (Flomax -) 0.4 mg PO DAILY@0830 [facility] Last Admin: 01/24/19 08:32 Dose: 0.4 mg 78 year old gentleman with hx of ESRD on HD (TTS), CVA, Afib on Eliquis, CHF, Hypertension, orthostatic hypotension presented with SOB and cough. #ESRD on HD #Cough secondary to bronchitis/URI (CXR w/o pulmonary congestion, no WBC, no Fever, Flu negative) #Afib on Eliqusi #CHF #Hypertension #anemia #renal osteodystrophy tolerating dialysis well this am continue fluid restriction 1.2L dialy, renal diet continue steroids as per pulmonary will continue HAYDEE with HD continue senspiar and renvela Thank you Severo Sanchez DO
[2019-01-24] MEDS ORDERED: PT OWN MED DRAWER 7, Y5N ONE (18:54)
[2019-01-24] MEDS: ATORVASTATIN CA 40 MG TABLET (FP) PO SCH (21:15)
[2019-01-25] MEDS: methylPREDNISolone NA SUCC 40 MG/1 ML VIAL IVPUSH SCH ×3 (00:59→21:47)
[2019-01-25] MEDS ORDERED: INSULIN (NOVOLOG) ASPART 100 UNITS/ML 10ML VIAL ONE (06:51)
[2019-01-25] MEDS: INSULIN SLIDING SCALE (NOVOLOG) 1 VIAL SQ SCH ×4 (07:04→21:47)
[2019-01-25] MEDS: sitaGLIPtin PHOSPHATE 25 MG TABLET (FP) PO SCH (07:04)
[2019-01-25] MEDS: ALBUTEROL SO4 2.5/IPRATROPIUM 0.5 INH SOL 3 ML VIAL.NEB. NEB SCH (07:30)
[2019-01-25] MEDS: TAMSULOSIN HCL 0.4 MG CAP PO SCH (08:31)
[2019-01-25] MEDS: SEVELAMER CARBONATE 800 MG TAB (FP) PO SCH ×3 (08:31→17:04)
[2019-01-25] MEDS: amLODIPine BESYLATE 10 MG TABLET (FP) PO SCH (10:49)
[2019-01-25] MEDS: AMIODARONE HCL 200 MG TABLET (FP) PO SCH ×2 (10:49→21:47)
[2019-01-25] MEDS: DULoxetine HCL 30 MG CAPSULE.DR (FP) PO SCH (10:49)
[2019-01-25] MEDS: ASPIRIN 81 MG CHEWABLE TABLETS PO SCH (10:50)
[2019-01-25] MEDS: APIXABAN 5 MG TABLET PO SCH ×2 (10:50→21:47)
[2019-01-25] MEDS: LABETALOL HCL 200 MG TABLET (FP) PO SCH ×2 (10:50→21:47)
[2019-01-25] MEDS: GABAPENTIN 300 MG CAPSULE (FP) PO SCH (10:50)
[2019-01-25] MEDS: CINACALCET HCL 30 MG TAB (FP) PO SCH (12:00)
--- NOTE | 2019-01-25 12:12 | PN ---
Progress Note (short form) - Note Progress Note: PULMONARY Oob to chair on NC O2. Still with some congested cough and HADLEY. VSS Constitutional: Yes: Awake and alert, NAD Eyes: Yes: WNL HENT: Yes: WNL Neck: Yes: WNL Cardiovascular: Yes: Pulse Irregular, S1, S2 Respiratory: Yes: Bilateral rhonchi & wheezes Gastrointestinal: Yes: Normal Bowel Sounds, Soft Extremities: Yes: WNL Edema: Yes Edema: LLE: Trace, RLE: Trace Labs/meds/notes/images reviewed - Problems (1) Acute bronchitis Assessment/Plan: Code(s): J20.9 - ACUTE BRONCHITIS, UNSPECIFIED (2) BPH (benign prostatic hyperplasia) Assessment/Plan: Code(s): N40.0 - BENIGN PROSTATIC HYPERPLASIA WITHOUT LOWER URINRY TRACT SYMP Qualifiers: Lower urinary tract symptom presence: presence of symptoms unspecified (3) H/O: CVA (cerebrovascular accident) Assessment/Plan: Code(s): Z86.73 - PRSNL HX OF TIA (TIA), AND CEREB INFRC W/O RESID DEFICITS (4) Afib Assessment/Plan: Code(s): I48.91 - UNSPECIFIED ATRIAL FIBRILLATION (5) ESRD (end stage renal disease) on dialysis Assessment/Plan: Code(s): N18.6 - END STAGE RENAL DISEASE; Z99.2 - DEPENDENCE ON RENAL DIALYSIS (6) Diabetes 1.5, managed as type 1 Assessment/Plan: Code(s): E13.9 - OTHER SPECIFIED DIABETES MELLITUS WITHOUT COMPLICATIONS IMP/PLAN: Acute Bronchitis ESRD on HD Atrial Fibrillation LV Diastolic Dysfunction HTN Hyperlipidemia h/o CVA - Azithromycin - inhaled bronchodilators standing and PRN - Medrol to taper - O2 to keep SpO2 >90% - HD per renal - rate controlled - anticoagulation - Outpatient PFTs once stable Beverly JONES MD
--- NOTE | 2019-01-25 14:36 | PN ---
Progress Note (short form) - Note Progress Note: Renal follow up for ESRD on HD Pt seen and examined at the bedside awake and alert feels better, cough and sob improved s/p dialysis yesterday denies any CP, abd pain, N/V/D, fevers Vital Signs Temperature 98.6 F 01/25/19 08:38 Pulse Rate 74 01/25/19 08:38 Respiratory Rate 20 01/25/19 09:00 Blood Pressure 126/57 L 01/25/19 08:38 O2 Sat by Pulse Oximetry (%) 96 01/25/19 09:00 Intake & Output 01/22/19 01/23/19 01/24/19 01/25/19 23:59 23:59 23:59 23:59 Intake Total 690 1110 370 Output Total 1100 600 Balance -410 510 370 Weight 89.539 kg 88.451 kg 91.444 kg 90.628 kg NAD awake and alert neck supple RRR, No M/R Mild wheeze no rales no LE edema left arm AVF CBC, BMP 01/24/19 07:00 01/24/19 07:00 Current Medications Acetaminophen (Tylenol -) 650 mg PO Q6H PRN PRN Reason: PAIN SCALE 1-5 Amiodarone HCl (Cordarone -) 200 mg PO BID [facility] Last Admin: 01/25/19 10:49 Dose: 200 mg Amlodipine Besylate (Norvasc -) 10 mg PO DAILY [facility] Last Admin: 01/25/19 10:49 Dose: 10 mg Apixaban (Eliquis -) 5 mg PO BID [facility] Last Admin: 01/25/19 10:50 Dose: 5 mg Aspirin (Asa -) 81 mg PO DAILY [facility] Last Admin: 01/25/19 10:50 Dose: 81 mg Atorvastatin Calcium (Lipitor -) 40 mg PO HS [facility] Last Admin: 01/24/19 21:15 Dose: 40 mg Cinacalcet (Sensipar -) 30 mg PO DAILY [facility] Last Admin: 01/24/19 11:53 Dose: 30 mg Duloxetine HCl (Cymbalta -) 30 mg PO DAILY [facility] Last Admin: 01/25/19 10:49 Dose: 30 mg Gabapentin (Neurontin -) 300 mg PO DAILY [facility] Last Admin: 01/25/19 10:50 Dose: 300 mg Guaifenesin (Robitussin Dm -) 10 ml PO Q6H PRN PRN Reason: COUGH Last Admin: 01/22/19 09:38 Dose: 10 ml Sodium Chloride (Normal Saline -) 250 mls @ 3,000 mls/hr IV PRN PRN PRN Reason: Hypotension during Dialysis Insulin Aspart (Novolog Vial Sliding Scale -) 1 vial SQ ACHS [facility]; Protocol Last Admin: 01/25/19 12:21 Dose: 7 unit Labetalol HCl (Normodyne -) 200 mg PO BID [facility] Last Admin: 01/25/19 10:50 Dose: 200 mg Methylprednisolone Sodium Succinate (Solu-Medrol -) 40 mg IVPUSH Q8H-IV [facility] Last Admin: 01/25/19 10:50 Dose: 40 mg Metoprolol Succinate (Toprol Xl -) 50 mg PO DAILY [facility] Last Admin: 01/25/19 10:51 Dose: 50 mg Sevelamer Carbonate (Renvela -) 800 mg PO TIDCM [facility] Last Admin: 01/25/19 12:21 Dose: 800 mg Sitagliptin Phosphate (Januvia -) 25 mg PO DAILY@0700 [facility] Last Admin: 01/25/19 07:04 Dose: 25 mg Tamsulosin HCl (Flomax -) 0.4 mg PO DAILY@0830 [facility] Last Admin: 01/25/19 08:31 Dose: 0.4 mg 78 year old gentleman with hx of ESRD on HD (TTS), CVA, Afib on Eliquis, CHF, Hypertension, orthostatic hypotension presented with SOB and cough. #ESRD on HD #Cough secondary to bronchitis/URI (CXR w/o pulmonary congestion, no WBC, no Fever, Flu negative) #Afib on Eliquis #CHF #Hypertension #anemia #renal osteodystrophy no acute need for [employer] today, next dialysis planned for tomorrow with UF as tolerated taper steroids as per pulmonary will continue HAYDEE with HD for anemia Renal diet, 1.2L fluid restriction Thank you Severo Sanchez DO
--- NOTE | 2019-01-25 14:47 | PN ---
Progress Note, Physician Chief Complaint: patient seen and examined still coughing but says better - Current Medication List Current Medications: Active Medications Acetaminophen (Tylenol -) 650 mg PO Q6H PRN PRN Reason: PAIN SCALE 1-5 Amiodarone HCl (Cordarone -) 200 mg PO BID [facility] Last Admin: 01/25/19 10:49 Dose: 200 mg Amlodipine Besylate (Norvasc -) 10 mg PO DAILY [facility] Last Admin: 01/25/19 10:49 Dose: 10 mg Apixaban (Eliquis -) 5 mg PO BID [facility] Last Admin: 01/25/19 10:50 Dose: 5 mg Aspirin (Asa -) 81 mg PO DAILY [facility] Last Admin: 01/25/19 10:50 Dose: 81 mg Atorvastatin Calcium (Lipitor -) 40 mg PO HS [facility] Last Admin: 01/24/19 21:15 Dose: 40 mg Cinacalcet (Sensipar -) 30 mg PO DAILY [facility] Last Admin: 01/24/19 11:53 Dose: 30 mg Duloxetine HCl (Cymbalta -) 30 mg PO DAILY [facility] Last Admin: 01/25/19 10:49 Dose: 30 mg Epoetin Silverio (Epogen -) 20,000 unit IVPUSH ONCE ONE Stop: 01/26/19 06:01 Gabapentin (Neurontin -) 300 mg PO DAILY [facility] Last Admin: 01/25/19 10:50 Dose: 300 mg Guaifenesin (Robitussin Dm -) 10 ml PO Q6H PRN PRN Reason: COUGH Last Admin: 01/22/19 09:38 Dose: 10 ml Sodium Chloride (Normal Saline -) 250 mls @ 3,000 mls/hr IV PRN PRN PRN Reason: Hypotension during Dialysis Sodium Chloride (Normal Saline -) 250 mls @ 3,000 mls/hr IV PRN PRN PRN Reason: Hypotension during Dialysis Stop: 01/26/19 14:36 Insulin Aspart (Novolog Vial Sliding Scale -) 1 vial SQ ACHS [facility]; Protocol Last Admin: 01/25/19 12:21 Dose: 7 unit Labetalol HCl (Normodyne -) 200 mg PO BID [facility] Last Admin: 01/25/19 10:50 Dose: 200 mg Methylprednisolone Sodium Succinate (Solu-Medrol -) 40 mg IVPUSH Q8H-IV [facility] Last Admin: 01/25/19 10:50 Dose: 40 mg Metoprolol Succinate (Toprol Xl -) 50 mg PO DAILY [facility] Last Admin: 01/25/19 10:51 Dose: 50 mg Sevelamer Carbonate (Renvela -) 800 mg PO TIDCM [facility] Last Admin: 01/25/19 12:21 Dose: 800 mg Sitagliptin Phosphate (Januvia -) 25 mg PO DAILY@0700 [facility] Last Admin: 01/25/19 07:04 Dose: 25 mg Tamsulosin HCl (Flomax -) 0.4 mg PO DAILY@0830 [facility] Last Admin: 01/25/19 08:31 Dose: 0.4 mg - Objective Vital Signs: Vital Signs Temperature 98.6 F 01/25/19 08:38 Pulse Rate 74 01/25/19 08:38 Respiratory Rate 20 01/25/19 09:00 Blood Pressure 126/57 L 01/25/19 08:38 O2 Sat by Pulse Oximetry (%) 96 01/25/19 09:00 Constitutional: Yes: Calm Cardiovascular: Yes: Regular Rate and Rhythm, S1, S2 Respiratory: Yes: Rhonchi, Wheezes Gastrointestinal: Yes: Normal Bowel Sounds, Soft Labs: CBC, BMP 01/24/19 07:00 01/24/19 07:00 INR, PTT INR 1.10 (0.83-1.09) H 01/19/19 16:16 Problem List - Problems (1) Acute bronchitis Assessment/Plan: iv zithromax iv steroids q8hr to bid Code(s): J20.9 - ACUTE BRONCHITIS, UNSPECIFIED (2) BPH (benign prostatic hyperplasia) Assessment/Plan: flomax Code(s): N40.0 - BENIGN PROSTATIC HYPERPLASIA WITHOUT LOWER URINRY TRACT SYMP Qualifiers: Lower urinary tract symptom presence: presence of symptoms unspecified (3) H/O: CVA (cerebrovascular accident) Assessment/Plan: eliqis Code(s): Z86.73 - PRSNL HX OF TIA (TIA), AND CEREB INFRC W/O RESID DEFICITS (4) Afib Assessment/Plan: on eliquis Code(s): I48.91 - UNSPECIFIED ATRIAL FIBRILLATION (5) ESRD (end stage renal disease) on dialysis Assessment/Plan[facility] HD (6) Diabetes 1.5, managed as type 1 Assessment/Plan: [facility] on board Code(s): E13.9 - OTHER SPECIFIED DIABETES MELLITUS WITHOUT COMPLICATIONS
[2019-01-25] MEDS: ATORVASTATIN CA 40 MG TABLET (FP) PO SCH (21:47)
--- NOTE | 2019-01-26 06:31 | PN ---
Progress Note (short form) - Note Progress Note: On- call international account manager asked to see patient complaining of chest pain. Patient endorses diffuse pain over his chest, in addition to back pain. Patient endorses that this pain is new. Physical exam General: Patient is awake, alert, in no acute distress Cardiac: +S1, S2 auscultated without murmur, rub, or gallop. Chest pain not reproducible with palpation. Pulmonary: Bibasilar crackles with faint wheezes auscultated bilaterally. GI: Soft, nondistended, nontender to light and deep palpation x4 quadrants. Normoactive bowel sounds. Extremities: 2+ radial, dorsalis pedis pulses bilaterally. No lower extremity edema. Plan STAT EKG STAT Troponin DuoNebs 1 AMP for wheezing Continue telemetry monitoring. Consider cardiology consult.
[2019-01-26] MEDS: INSULIN SLIDING SCALE (NOVOLOG) 1 VIAL SQ SCH ×4 (06:34→21:29)
[2019-01-26] MEDS: sitaGLIPtin PHOSPHATE 25 MG TABLET (FP) PO SCH (06:34)
[2019-01-26] MEDS ORDERED: SODIUM CHLORIDE 250 ML IV PRN (07:06)
[2019-01-26 08:02] LABS: HEMATOCRIT 28.2 % (35.4-49); MCH 29.5 pg (25.7-33.7); MCHC 31.8 g/dl (32.0-35.9); MEAN CELL VOLUME 92.7 fl (80-96); MEAN PLT VOLUME 9.6 fl (7.5-11.1); PLATELET COUNT 298 K/MM3 (134-434); RBC 3.04 M/mm3 (4.00-5.60); RDW 17.1 % (11.9-15.9); WHITE BLOOD COUNT 14.5 K/mm3 (4.0-10.0)
[2019-01-26 08:22] LABS: ANION GAP 11 MMOL/L (8-16); BLOOD UREA NITROGEN 89 mg/dL (7-18); CALCIUM 7.8 mg/dL (8.5-10.1); CHLORIDE 93 mmol/L (98-107); CO2 28 mmol/L (21-32); CREATININE 6.6 mg/dL (0.55-1.3); GLUCOSE,RANDOM 229 mg/dL (74-106); PHOSPHOROUS 1.8 mg/dL (2.5-4.9); POTASSIUM 4.9 mmol/L (3.5-5.1); SODIUM 132 mmol/L (136-145)
[2019-01-26] MEDS ORDERED: PT OWN MED DRAWER 7, Y5N ONE (08:58)
[2019-01-26] MEDS ORDERED: EPOETIN ALFA 20,000 UNIT/1 ML VIAL IVPUSH ONE (09:00)
--- NOTE | 2019-01-26 10:52 | PN ---
Progress Note (short form) - Note Progress Note: Renal follow up for ESRD on HD Pt seen and examined during dialysis BP stable, UF goal 2.5L. AV access is working well. continues to have cough, no sob no fever or chills Vital Signs Temperature 98.2 F 01/26/19 09:00 Pulse Rate 70 01/26/19 10:49 Respiratory Rate 18 01/26/19 10:49 Blood Pressure 132/66 01/26/19 10:49 O2 Sat by Pulse Oximetry (%) 100 01/26/19 09:00 Intake & Output 01/23/19 01/24/19 01/25/19 01/26/19 23:59 23:59 23:59 23:59 Intake Total 1110 370 10 Output Total 600 Balance 510 370 10 Weight 88.451 kg 91.444 kg 90.628 kg NAD awake and alert neck supple RRR, No M/R Mild wheeze no edema CBC, BMP 01/26/19 07:00 01/26/19 07:00 Current Medications Acetaminophen (Tylenol -) 650 mg PO Q6H PRN PRN Reason: PAIN SCALE 1-5 Amiodarone HCl (Cordarone -) 200 mg PO BID [facility] Last Admin: 01/25/19 21:47 Dose: 200 mg Amlodipine Besylate (Norvasc -) 10 mg PO DAILY [facility] Last Admin: 01/25/19 10:49 Dose: 10 mg Apixaban (Eliquis -) 5 mg PO BID [facility] Last Admin: 01/25/19 21:47 Dose: 5 mg Aspirin (Asa -) 81 mg PO DAILY [facility] Last Admin: 01/25/19 10:50 Dose: 81 mg Atorvastatin Calcium (Lipitor -) 40 mg PO HS [facility] Last Admin: 01/25/19 21:47 Dose: 40 mg Cinacalcet (Sensipar -) 30 mg PO DAILY [facility] Last Admin: 01/25/19 12:00 Dose: 30 mg Duloxetine HCl (Cymbalta -) 30 mg PO DAILY [facility] Last Admin: 01/25/19 10:49 Dose: 30 mg Gabapentin (Neurontin -) 300 mg PO DAILY [facility] Last Admin: 01/25/19 10:50 Dose: 300 mg Guaifenesin (Robitussin Dm -) 10 ml PO Q6H PRN PRN Reason: COUGH Last Admin: 01/22/19 09:38 Dose: 10 ml Sodium Chloride (Normal Saline -) 250 mls @ 3,000 mls/hr IV PRN PRN PRN Reason: Hypotension during Dialysis Sodium Chloride (Normal Saline -) 250 mls @ 3,000 mls/hr IV PRN PRN PRN Reason: Hypotension during Dialysis Stop: 01/27/19 07:05 Insulin Aspart (Novolog Vial Sliding Scale -) 1 vial SQ ACHS [facility]; Protocol Last Admin: 01/26/19 06:34 Dose: 3 unit Labetalol HCl (Normodyne -) 200 mg PO BID [facility] Last Admin: 01/25/19 21:47 Dose: 200 mg Methylprednisolone Sodium Succinate (Solu-Medrol -) 40 mg IVPUSH BID [facility] Last Admin: 01/25/19 21:47 Dose: 40 mg Metoprolol Succinate (Toprol Xl -) 50 mg PO DAILY [facility] Last Admin: 01/25/19 10:51 Dose: 50 mg Sevelamer Carbonate (Renvela -) 800 mg PO TIDCM [facility] Last Admin: 01/25/19 17:04 Dose: 800 mg Sitagliptin Phosphate (Januvia -) 25 mg PO DAILY@0700 [facility] Last Admin: 01/26/19 06:34 Dose: 25 mg Tamsulosin HCl (Flomax -) 0.4 mg PO DAILY@0830 [facility] Last Admin: 01/25/19 08:31 Dose: 0.4 mg 78 year old gentleman with hx of ESRD on HD (TTS), CVA, Afib on Eliquis, CHF, Hypertension, orthostatic hypotension presented with SOB and cough. #ESRD on HD #Cough secondary to bronchitis/URI (CXR w/o pulmonary congestion, no WBC, no Fever, Flu negative) #Afib on Eliquis #CHF #Hypertension #anemia #renal osteodystrophy tolerating HD well this am will continue HD 3x weekly while inpatient renal diet, 1.2L fluid restriction off antibiotics discharge planning as per primar Thank you Severo Sanchez DO
[2019-01-26] MEDS: methylPREDNISolone NA SUCC 40 MG/1 ML VIAL IVPUSH SCH (10:58)
[2019-01-26] MEDS: amLODIPine BESYLATE 10 MG TABLET (FP) PO SCH (10:58)
[2019-01-26] MEDS: ASPIRIN 81 MG CHEWABLE TABLETS PO SCH (10:58)
[2019-01-26] MEDS: AMIODARONE HCL 200 MG TABLET (FP) PO SCH ×2 (10:58→21:29)
[2019-01-26] MEDS: APIXABAN 5 MG TABLET PO SCH ×2 (10:58→21:29)
[2019-01-26] MEDS: LABETALOL HCL 200 MG TABLET (FP) PO SCH ×2 (10:58→21:29)
[2019-01-26] MEDS: DULoxetine HCL 30 MG CAPSULE.DR (FP) PO SCH (10:58)
[2019-01-26] MEDS: SEVELAMER CARBONATE 800 MG TAB (FP) PO SCH ×3 (10:58→17:13)
[2019-01-26] MEDS: GABAPENTIN 300 MG CAPSULE (FP) PO SCH (10:58)
[2019-01-26] MEDS: CINACALCET HCL 30 MG TAB (FP) PO SCH (10:59)
[2019-01-26] MEDS: TAMSULOSIN HCL 0.4 MG CAP PO SCH (10:59)
--- NOTE | 2019-01-26 11:03 | DS ---
Physical Examination Vital Signs: Vital Signs Temperature 98.2 F 01/26/19 09:00 Pulse Rate 70 01/26/19 10:49 Respiratory Rate 18 01/26/19 10:49 Blood Pressure 132/66 01/26/19 10:49 O2 Sat by Pulse Oximetry (%) 100 01/26/19 09:00 Findings/Remarks: AWAKE ALERT CPMPLETED HD FEELS GOOD Constitutional: Yes: No Distress Eyes: Yes: WNL HENT: Yes: WNL Neck: Yes: WNL Cardiovascular: Yes: Regular Rate and Rhythm Respiratory: Yes: WNL Gastrointestinal: Yes: WNL Musculoskeletal: Yes: Muscle Weakness Extremities: Yes: WNL Edema: No Peripheral Pulses WNL: Yes Integumentary: Yes: WNL Wound/Incision: Yes: Clean/Dry Neurological: Yes: WNL ...Motor Strength: WNL Psychiatric: Yes: WNL Labs: CBC, BMP 01/26/19 07:00 01/26/19 07:00 Discharge Summary Reason For Visit: ELEVATED TROPONIN I LEVEL/HEART FAILURE Current Active Problems Acute bronchitis (Acute) COPD (chronic obstructive pulmonary disease) with acute bronchitis (Acute) Cough (Acute) ESRD (end stage renal disease) on dialysis (Acute) Heart failure (Acute) Prediabetes (Acute) Troponin I above reference range (Acute) Wheezing (Acute) Procedures: Principal: MONITORED ON TELE R/O CAD/LA FEELING BETTER TREATED FOR BRONCHITIS Hospital Course: MONITORED ON TELE AND FEELS BETTER R/O LA. Condition: Stable - Instructions Diet, Activity, Other Instructions: SEE YOUR PMD IN 2-3 DAYS RENAL/ADA Disposition: VNS/HOME HEALTH CARE - Home Medications Comprehensive Discharge Medication List: Ambulatory Orders Atorvastatin Ca [Lipitor] 40 mg PO HS 06/06/15 Gabapentin 300 mg PO DAILY 11/19/15 Duloxetine HCl 30 mg PO DAILY 04/16/16 Amlodipine Besylate [Norvasc -] 10 mg PO DAILY #30 tablet 04/19/16 Metoprolol Succinate [Toprol XL -] 50 mg PO DAILY #30 tab.sr.24h 04/19/16 Amiodarone HCl [Cordarone -] 200 mg PO BID #60 tablet 02/07/17 Aspirin [ASA -] 81 mg PO DAILY 08/31/18 Tamsulosin HCl [Flomax] 0.4 mg PO DAILY 11/23/18 Apixaban [Eliquis -] 5 mg PO BID 01/19/19 Cinacalcet HCl [Sensipar -] 30 mg PO DAILY 01/19/19 Labetalol HCl [Normodyne -] 200 mg PO BID 01/19/19 Sevelamer Carbonate [Renvela -] 800 mg PO TID 01/19/19 Sitagliptin Phosphate [Januvia] 25 mg PO DAILY 01/19/19 Acetaminophen [Tylenol .Regular Strength -] 650 mg PO Q6H PRN tablet 01/26/19 Albuterol 2.5/Ipratropium 0.5 [Duoneb -] 1 amp NEB RQID #120 amp 01/26/19 Azithromycin [Zithromax 250mg Tablets -] 250 mg PO UTDICT #6 tab 01/26/19 Guaifenesin Dm [Robitussin Dm -] 10 ml PO Q6H PRN #1 bottle 01/26/19 Nebulizer Accessories [Adult Aerosol Mask] 1 each QID #1 each 01/26/19 Nebulizer [Compact Compressor Nebulizer] 1 each QID #1 each 01/26/19 Prednisone [Deltasone] 20 mg PO DAILY #5 tablet 01/26/19 predniSONE [Deltasone -] 20 mg PO DAILY #5 tablet 01/26/19
--- NOTE | 2019-01-26 11:14 | PN ---
Progress Note (short form) - Note Progress Note: PULMONARY Oob to chair on NC O2. Still with some congested cough VSS Constitutional: Yes: Awake and alert, NAD Eyes: Yes: WNL HENT: Yes: WNL Neck: Yes: WNL Cardiovascular: Yes: Pulse Irregular, S1, S2 Respiratory: Yes: Bilateral rhonchi & wheezes Gastrointestinal: Yes: Normal Bowel Sounds, Soft Extremities: Yes: WNL Edema: Yes Edema: LLE: Trace, RLE: Trace Labs/meds/notes/images reviewed - Problems (1) Acute bronchitis Assessment/Plan: Code(s): J20.9 - ACUTE BRONCHITIS, UNSPECIFIED (2) BPH (benign prostatic hyperplasia) Assessment/Plan: Code(s): N40.0 - BENIGN PROSTATIC HYPERPLASIA WITHOUT LOWER URINRY TRACT SYMP Qualifiers: Lower urinary tract symptom presence: presence of symptoms unspecified (3) H/O: CVA (cerebrovascular accident) Assessment/Plan: Code(s): Z86.73 - PRSNL HX OF TIA (TIA), AND CEREB INFRC W/O RESID DEFICITS (4) Afib Assessment/Plan: Code(s): I48.91 - UNSPECIFIED ATRIAL FIBRILLATION (5) ESRD (end stage renal disease) on dialysis Assessment/Plan: Code(s): N18.6 - END STAGE RENAL DISEASE; Z99.2 - DEPENDENCE ON RENAL DIALYSIS (6) Diabetes 1.5, managed as type 1 Assessment/Plan: Code(s): E13.9 - OTHER SPECIFIED DIABETES MELLITUS WITHOUT COMPLICATIONS IMP/PLAN: Acute Bronchitis ESRD on HD Atrial Fibrillation LV Diastolic Dysfunction HTN Hyperlipidemia h/o CVA - Azithromycin - inhaled bronchodilators standing and PRN - Medrol to prednisone - O2 to keep SpO2 >90% - HD per renal - rate controlled - anticoagulation - Outpatient PFTs once stable Beverly JONES MD
[2019-01-26] MEDS: predniSONE 10 MG TABLET (UD) PO SCH (11:21)
[2019-01-26 12:08] LABS: CREATININE 2.5 mg/dL (0.55-1.3)
--- NOTE | 2019-01-26 14:08 | EKG ---
Test Reason : Blood Pressure : / mmHG Vent. Rate : 065 BPM Atrial Rate : 065 BPM P-R Int : 262 ms QRS Dur : 102 ms QT Int : 454 ms P-R-T Axes : 088 008 035 degrees QTc Int : 472 ms SINUS RHYTHM WITH 1ST DEGREE A-V BLOCK OTHERWISE NORMAL ECG Confirmed by MD YEYO, LAURA (2012) on 01/26/2019 2:08:02 PM Referred By: Confirmed By:LAURA ORONA MD
--- NOTE | 2019-01-26 14:48 | PN ---
Progress Note (short form) - Note Progress Note: PRE AND POST 02 SAT 87% ON ROOM AIR WILL NEED HOME 02 THERAPY CANCEL DISCHARGE TODAY REASSESS IN MORNING.
[2019-01-26] MEDS: ATORVASTATIN CA 40 MG TABLET (FP) PO SCH (21:29)
[2019-01-27] MEDS: INSULIN SLIDING SCALE (NOVOLOG) 1 VIAL SQ SCH ×4 (06:31→21:24)
[2019-01-27] MEDS: sitaGLIPtin PHOSPHATE 25 MG TABLET (FP) PO SCH (06:32)
[2019-01-27] MEDS ORDERED: PT OWN MED DRAWER 7, Y5N ONE (09:13)
[2019-01-27] MEDS: LABETALOL HCL 200 MG TABLET (FP) PO SCH ×2 (09:54→21:22)
[2019-01-27] MEDS: predniSONE 10 MG TABLET (UD) PO SCH (09:55)
[2019-01-27] MEDS: ASPIRIN 81 MG CHEWABLE TABLETS PO SCH (09:55)
[2019-01-27] MEDS: TAMSULOSIN HCL 0.4 MG CAP PO SCH (09:55)
[2019-01-27] MEDS: DULoxetine HCL 30 MG CAPSULE.DR (FP) PO SCH (09:55)
[2019-01-27] MEDS: amLODIPine BESYLATE 10 MG TABLET (FP) PO SCH (09:55)
[2019-01-27] MEDS: SEVELAMER CARBONATE 800 MG TAB (FP) PO SCH ×3 (09:55→17:15)
[2019-01-27] MEDS: AMIODARONE HCL 200 MG TABLET (FP) PO SCH ×2 (09:55→21:23)
[2019-01-27] MEDS: GABAPENTIN 300 MG CAPSULE (FP) PO SCH (09:55)
[2019-01-27] MEDS: APIXABAN 5 MG TABLET PO SCH ×2 (09:56→21:22)
[2019-01-27] MEDS: CINACALCET HCL 30 MG TAB (FP) PO SCH (09:56)
[2019-01-27 11:13] VITALS: BMI 24.5
--- NOTE | 2019-01-27 11:35 | PN ---
Progress Note, Physician Chief Complaint: AWAKE ALERT ON 02 SOB/DYSPNEA 02 SAT 87% ON ROOM AIR - Current Medication List Current Medications: Active Medications Acetaminophen (Tylenol -) 650 mg PO Q6H PRN PRN Reason: PAIN SCALE 1-5 Last Admin: 01/26/19 14:56 Dose: 650 mg Amiodarone HCl (Cordarone -) 200 mg PO BID [facility] Last Admin: 01/27/19 09:55 Dose: 200 mg Amlodipine Besylate (Norvasc -) 10 mg PO DAILY [facility] Last Admin: 01/27/19 09:55 Dose: 10 mg Apixaban (Eliquis -) 5 mg PO BID [facility] Last Admin: 01/27/19 09:56 Dose: 5 mg Aspirin (Asa -) 81 mg PO DAILY [facility] Last Admin: 01/27/19 09:55 Dose: 81 mg Atorvastatin Calcium (Lipitor -) 40 mg PO HS [facility] Last Admin: 01/26/19 21:29 Dose: 40 mg Cinacalcet (Sensipar -) 30 mg PO DAILY [facility] Last Admin: 01/27/19 09:56 Dose: 30 mg Duloxetine HCl (Cymbalta -) 30 mg PO DAILY [facility] Last Admin: 01/27/19 09:55 Dose: 30 mg Furosemide (Lasix -) 40 mg PO DAILY [facility] Gabapentin (Neurontin -) 300 mg PO DAILY [facility] Last Admin: 01/27/19 09:55 Dose: 300 mg Guaifenesin (Robitussin Dm -) 10 ml PO Q6H PRN PRN Reason: COUGH Last Admin: 01/22/19 09:38 Dose: 10 ml Sodium Chloride (Normal Saline -) 250 mls @ 3,000 mls/hr IV PRN PRN PRN Reason: Hypotension during Dialysis Insulin Aspart (Novolog Vial Sliding Scale -) 1 vial SQ ACHS [facility]; Protocol Last Admin: 01/27/19 06:31 Dose: Not Given Labetalol HCl (Normodyne -) 200 mg PO BID [facility] Last Admin: 01/27/19 09:54 Dose: 200 mg Metoprolol Succinate (Toprol Xl -) 50 mg PO DAILY [facility] Last Admin: 01/27/19 09:55 Dose: 50 mg Prednisone (Deltasone -) 20 mg PO DAILY [facility] Sevelamer Carbonate (Renvela -) 800 mg PO TIDCM [facility] Last Admin: 01/27/19 09:55 Dose: 800 mg Sitagliptin Phosphate (Januvia -) 25 mg PO DAILY@0700 [facility] Last Admin: 01/27/19 06:32 Dose: 25 mg Tamsulosin HCl (Flomax -) 0.4 mg PO DAILY@0830 [facility] Last Admin: 01/27/19 09:55 Dose: 0.4 mg - Objective Vital Signs: Vital Signs Temperature 97.5 F L 01/27/19 06:00 Pulse Rate 64 01/27/19 06:00 Respiratory Rate 20 01/27/19 06:00 Blood Pressure 129/70 01/27/19 06:00 O2 Sat by Pulse Oximetry (%) 100 01/26/19 20:33 Constitutional: Yes: Mild Distress Eyes: Yes: WNL HENT: Yes: WNL Neck: Yes: WNL Cardiovascular: Yes: Regular Rate and Rhythm Respiratory: Yes: On Nasal O2, Rhonchi Gastrointestinal: Yes: WNL Musculoskeletal: Yes: Muscle Weakness Labs: CBC, BMP 01/26/19 07:00 01/26/19 10:40 INR, PTT INR 1.10 (0.83-1.09) H 01/19/19 16:16 Problem List - Problems (1) COPD (chronic obstructive pulmonary disease) with acute bronchitis Code(s): J44.0 - CHRONIC OBSTRUCTIVE PULMON DISEASE W ACUTE LOWER RESP INFCT; J20.9 - ACUTE BRONCHITIS, UNSPECIFIED (2) ESRD (end stage renal disease) on dialysis Code(s): N18.6 - END STAGE RENAL DISEASE; Z99.2 - DEPENDENCE ON RENAL DIALYSIS (3) Afib Code(s): I48.91 - UNSPECIFIED ATRIAL FIBRILLATION (4) Anemia Code(s): D64.9 - ANEMIA, UNSPECIFIED (5) Atrial fibrillation Code(s): I48.91 - UNSPECIFIED ATRIAL FIBRILLATION Qualifiers: Atrial fibrillation type: paroxysmal Qualified Code(s): I48.0 - Paroxysmal atrial fibrillation (6) Type 2 diabetes mellitus with other diabetic kidney complication Code(s): E11.29 - TYPE 2 DIABETES MELLITUS W OTH DIABETIC KIDNEY COMPLICATION (7) Volume overload Code(s): E87.70 - FLUID OVERLOAD, UNSPECIFIED Assessment/Plan CT CHEST R/O EFFUSION VS PNA 02 SUPPORT PULM EVAL OVERLOAD WILL NEED MORE FLUID REMOVED DURING HD AND BETTER LIFESTYLE/ADA-RENAL DIET DIETARY CONSULT FOR HOME EVAL OF HIS NUTRITION HOME 02 THERAPY
[2019-01-27] MEDS: FUROSEMIDE 40 MG TABLET (FP) PO SCH (11:41)
[2019-01-27] MEDS ORDERED: INSULIN (NOVOLOG) ASPART 100 UNITS/ML 10ML VIAL ONE (21:12)
[2019-01-27] MEDS: ATORVASTATIN CA 40 MG TABLET (FP) PO SCH (21:22)
[2019-01-28] MEDS: INSULIN SLIDING SCALE (NOVOLOG) 1 VIAL SQ SCH ×4 (06:31→22:12)
[2019-01-28] MEDS: sitaGLIPtin PHOSPHATE 25 MG TABLET (FP) PO SCH (06:31)
[2019-01-28] MEDS: guaiFENesin/D-METHORPHAN HB 10 ML UNIT-DOSE CUPS PO PRN (06:33)
[2019-01-28] MEDS: amLODIPine BESYLATE 10 MG TABLET (FP) PO SCH (09:55)
[2019-01-28] MEDS: SEVELAMER CARBONATE 800 MG TAB (FP) PO SCH ×3 (09:55→17:21)
[2019-01-28] MEDS: AMIODARONE HCL 200 MG TABLET (FP) PO SCH ×2 (09:56→21:37)
[2019-01-28] MEDS: LABETALOL HCL 200 MG TABLET (FP) PO SCH ×2 (09:56→21:37)
[2019-01-28] MEDS: TAMSULOSIN HCL 0.4 MG CAP PO SCH (09:56)
[2019-01-28] MEDS: predniSONE 20 MG TABLET (UD) PO SCH (09:56)
[2019-01-28] MEDS: ASPIRIN 81 MG CHEWABLE TABLETS PO SCH (09:56)
[2019-01-28] MEDS: APIXABAN 5 MG TABLET PO SCH ×2 (09:56→21:37)
[2019-01-28] MEDS: DULoxetine HCL 30 MG CAPSULE.DR (FP) PO SCH (09:56)
[2019-01-28] MEDS: FUROSEMIDE 40 MG TABLET (FP) PO SCH (09:56)
[2019-01-28] MEDS: GABAPENTIN 300 MG CAPSULE (FP) PO SCH (09:56)
[2019-01-28] MEDS: CINACALCET HCL 30 MG TAB (FP) PO SCH (09:57)
--- NOTE | 2019-01-28 10:38 | PN ---
Progress Note, Physician History of Present Illness: pulmonary alert,no distress,-cp,-sob,less cough - Current Medication List Current Medications: Active Medications Acetaminophen (Tylenol -) 650 mg PO Q6H PRN PRN Reason: PAIN SCALE 1-5 Last Admin: 01/26/19 14:56 Dose: 650 mg Amiodarone HCl (Cordarone -) 200 mg PO BID [facility] Last Admin: 01/28/19 09:56 Dose: 200 mg Amlodipine Besylate (Norvasc -) 10 mg PO DAILY [facility] Last Admin: 01/28/19 09:55 Dose: 10 mg Apixaban (Eliquis -) 5 mg PO BID [facility] Last Admin: 01/28/19 09:56 Dose: 5 mg Aspirin (Asa -) 81 mg PO DAILY [facility] Last Admin: 01/28/19 09:56 Dose: 81 mg Atorvastatin Calcium (Lipitor -) 40 mg PO HS [facility] Last Admin: 01/27/19 21:22 Dose: 40 mg Cinacalcet (Sensipar -) 30 mg PO DAILY [facility] Last Admin: 01/28/19 09:57 Dose: 30 mg Duloxetine HCl (Cymbalta -) 30 mg PO DAILY [facility] Last Admin: 01/28/19 09:56 Dose: 30 mg Furosemide (Lasix -) 40 mg PO DAILY [facility] Last Admin: 01/28/19 09:56 Dose: 40 mg Gabapentin (Neurontin -) 300 mg PO DAILY [facility] Last Admin: 01/28/19 09:56 Dose: 300 mg Guaifenesin (Robitussin Dm -) 10 ml PO Q6H PRN PRN Reason: COUGH Last Admin: 01/28/19 06:33 Dose: 10 ml Sodium Chloride (Normal Saline -) 250 mls @ 3,000 mls/hr IV PRN PRN PRN Reason: Hypotension during Dialysis Insulin Aspart (Novolog Vial Sliding Scale -) 1 vial SQ ACHS [facility]; Protocol Last Admin: 01/28/19 06:31 Dose: 3 unit Labetalol HCl (Normodyne -) 200 mg PO BID [facility] Last Admin: 01/28/19 09:56 Dose: 200 mg Metoprolol Succinate (Toprol Xl -) 50 mg PO DAILY [facility] Last Admin: 01/28/19 09:56 Dose: 50 mg Prednisone (Deltasone -) 20 mg PO DAILY [facility] Last Admin: 01/28/19 09:56 Dose: 20 mg Sevelamer Carbonate (Renvela -) 800 mg PO TIDCM [facility] Last Admin: 01/28/19 09:55 Dose: 800 mg Sitagliptin Phosphate (Januvia -) 25 mg PO DAILY@0700 [facility] Last Admin: 01/28/19 06:31 Dose: 25 mg Tamsulosin HCl (Flomax -) 0.4 mg PO DAILY@0830 [facility] Last Admin: 01/28/19 09:56 Dose: 0.4 mg - Objective Vital Signs: Vital Signs Temperature 97.9 F 01/28/19 10:00 Pulse Rate 68 01/28/19 10:00 Respiratory Rate 20 01/28/19 10:00 Blood Pressure 119/51 L 01/28/19 10:00 O2 Sat by Pulse Oximetry (%) 99 01/28/19 09:00 Constitutional: Yes: Well Nourished, Calm Eyes: Yes: WNL HENT: Yes: WNL Neck: Yes: WNL Cardiovascular: Yes: Pulse Irregular, S1, S2 Respiratory: Yes: Wheezes (few wheezes) Gastrointestinal: Yes: Normal Bowel Sounds, Soft Extremities: Yes: WNL Edema: No Labs: CBC, BMP - ....Imaging Cat Scan: Report Reviewed, Image Reviewed Assessment/Plan Problem List - Problems (1) Acute bronchitis Code(s): J20.9 - ACUTE BRONCHITIS, UNSPECIFIED (2) Atrial fibrillation Code(s): I48.91 - UNSPECIFIED ATRIAL FIBRILLATION Qualifiers: Atrial fibrillation type: paroxysmal Qualified Code(s): I48.0 - Paroxysmal atrial fibrillation (3) End stage renal disease Code(s): N18.6 - END STAGE RENAL DISEASE (4) H/O: CVA (cerebrovascular accident) Code(s): Z86.73 - PRSNL HX OF TIA (TIA), AND CEREB INFRC W/O RESID DEFICITS (5) HLD (hyperlipidemia) Code(s): E78.5 - HYPERLIPIDEMIA, UNSPECIFIED (6) HTN (hypertension) Code(s): I10 - ESSENTIAL (PRIMARY) HYPERTENSION Qualifiers: Hypertension type: essential hypertension Qualified Code(s): I10 - Essential (primary) hypertension Assessment/Plan Acute Bronchitis improving ESRD on HD Atrial Fibrillation LV Diastolic Dysfunction HTN Hyperlipidemia h/o CVA - inhaled bronchodilators standing and PRN - prednisone - O2 to keep SpO2 >90% - HD per renal - rate controlled - anticoagulation - outpt PFTs DR HALL
[2019-01-28] MEDS ORDERED: PT OWN MED DRAWER 7, Y5N ONE (11:04)
--- NOTE | 2019-01-28 12:25 | PN ---
Progress Note (short form) - Note Progress Note: Renal follow up for ESRD on HD Pt seen and examined at the bedside feels better, cough is improved no fever or chills Vital Signs Temperature 97.9 F 01/28/19 10:00 Pulse Rate 68 01/28/19 10:00 Respiratory Rate 20 01/28/19 10:00 Blood Pressure 119/51 L 01/28/19 10:00 O2 Sat by Pulse Oximetry (%) 99 01/28/19 09:00 Intake & Output 01/25/19 01/26/19 01/27/19 01/28/19 23:59 23:59 23:59 23:59 Intake Total 10 1080 1200 320 Balance 10 1080 1200 320 Weight 90.628 kg 91.626 kg 93.44 kg NAD awake and alert neck supple RRR, No M/R Mild wheeze no edema CBC, BMP 01/26/19 07:00 01/26/19 10:40 Current Medications Acetaminophen (Tylenol -) 650 mg PO Q6H PRN PRN Reason: PAIN SCALE 1-5 Last Admin: 01/26/19 14:56 Dose: 650 mg Amiodarone HCl (Cordarone -) [address] [facility] Last Admin: 01/28/19 09:56 Dose: 200 mg Amlodipine Besylate (Norvasc -) [address] [facility] Last Admin: 01/28/19 09:55 Dose: 10 mg Apixaban (Eliquis -) [address] [facility] Last Admin: 01/28/19 09:56 Dose: 5 mg Aspirin (Asa -) [address] [facility] Last Admin: 01/28/19 09:56 Dose: 81 mg Atorvastatin Calcium (Lipitor -) [address] [facility] Last Admin: 01/27/19 21:22 Dose: 40 mg Cinacalcet (Sensipar -) [address] [facility] Last Admin: 01/28/19 09:57 Dose: 30 mg Duloxetine HCl (Cymbalta -) [address] [facility] Last Admin: 01/28/19 09:56 Dose: 30 mg Furosemide (Lasix -) [address] [facility] Last Admin: 01/28/19 09:56 Dose: 40 mg Gabapentin (Neurontin -) [address] [facility] Last Admin: 01/28/19 09:56 Dose: 300 mg Guaifenesin (Robitussin Dm -) 10 ml PO Q6H PRN PRN Reason: COUGH Last Admin: 01/28/19 06:33 Dose: 10 ml Sodium Chloride (Normal Saline -) 250 mls @ 3,000 mls/hr IV PRN PRN PRN Reason: Hypotension during Dialysis Insulin Aspart (Novolog Vial Sliding Scale -) [address] [facility]; Protocol Last Admin: 01/28/19 06:31 Dose: 3 unit Labetalol HCl (Normodyne -) [address] [facility] Last Admin: 01/28/19 09:56 Dose: 200 mg Metoprolol Succinate (Toprol Xl -) [address] [facility] Last Admin: 01/28/19 09:56 Dose: 50 mg Prednisone (Deltasone -) [address] [facility] Last Admin: 01/28/19 09:56 Dose: 20 mg Sevelamer Carbonate (Renvela -) [address] [facility] Last Admin: 01/28/19 09:55 Dose: 800 mg Sitagliptin Phosphate (Januvia -) 25 mg PO DAILY@0700 [facility] Last Admin: 01/28/19 06:31 Dose: 25 mg Tamsulosin HCl (Flomax -) 0.4 mg PO DAILY@0830 [facility] Last Admin: 01/28/19 09:56 Dose: 0.4 mg 78 year old gentleman with hx of ESRD on HD (TTS), CVA, Afib on Eliquis, CHF, Hypertension, orthostatic hypotension presented with SOB and cough. #ESRD on HD #Cough secondary to bronchitis/URI (CXR w/o pulmonary congestion, no WBC, no Fever, Flu negative) #Afib on Eliquis #CHF #Hypertension #anemia #renal osteodystrophy Last dialysis was Monday. CT chest showed no pleural effusions and small pericardial effusion no urgent indication for [employer] today will continue HD 3x weekly while inpatient renal diet, 1.2L fluid restriction consider cardiology evaluation of pericardial effusion Thank you Severo Sanchez DO
[2019-01-28] MEDS ORDERED: SODIUM CHLORIDE 250 ML IV PRN (12:26)
--- NOTE | 2019-01-28 13:30 | DS ---
Physical Examination Vital Signs: Vital Signs Temperature 97.9 F 01/28/19 10:00 Pulse Rate 68 01/28/19 10:00 Respiratory Rate 20 01/28/19 10:00 Blood Pressure 119/51 L 01/28/19 10:00 O2 Sat by Pulse Oximetry (%) 99 01/28/19 09:00 Constitutional: Yes: Calm Cardiovascular: Yes: Regular Rate and Rhythm, S1, S2 Respiratory: Yes: On Nasal O2, Other (scattered rhonchi) Gastrointestinal: Yes: Normal Bowel Sounds, Soft Edema: No Neurological: Yes: Alert, Oriented Labs: CBC, BMP 01/26/19 07:00 01/26/19 10:40 Discharge Summary Reason For Visit: ELEVATED TROPONIN I LEVEL/HEART FAILURE Current Active Problems Acute bronchitis (Acute) COPD (chronic obstructive pulmonary disease) with acute bronchitis (Acute) Cough (Acute) ESRD (end stage renal disease) on dialysis (Acute) Heart failure (Acute) Prediabetes (Acute) Troponin I above reference range (Acute) Wheezing (Acute) Hospital Course: Primary Care Physician PCP: Jerry Bird - Admission Chief Complaint: Productive Cough, SOB History of Present Illness: This is a 78 y/o man with significant medical history of CVA, Afib (on Amiodarone, Eliquis), Aortic/Mitral Insufficiency, CHF, HTN, HLD, Orthostatic Hypotension. Who presents to the ED with a productive cough yellow phlegm and increased SOB. Patient had HD today. Patient denies fever, chills, dizziness, CP , palpitations, AP, N/V/D, constipation on telemetry floor acute bronchitis iv steroids to po prednisone, PFT as outpatient and home oxygen afib on eliquis and amiodarone ESRD on HD three times a week epogen with HD Condition: Stable - Instructions Diet, Activity, Other Instructions: SEE YOUR PMD IN 2-3 DAYS RENAL/ADA Disposition: VNS/HOME HEALTH CARE - Home Medications Comprehensive Discharge Medication List: Ambulatory Orders Atorvastatin Ca [Lipitor] 40 mg PO HS 06/06/15 Gabapentin 300 mg PO DAILY 11/19/15 Duloxetine HCl 30 mg PO DAILY 04/16/16 Amlodipine Besylate [Norvasc -] 10 mg PO DAILY #30 tablet 04/19/16 Metoprolol Succinate [Toprol XL -] 50 mg PO DAILY #30 tab.sr.24h 04/19/16 Amiodarone HCl [Cordarone -] 200 mg PO BID #60 tablet 02/07/17 Aspirin [ASA -] 81 mg PO DAILY 08/31/18 Tamsulosin HCl [Flomax] 0.4 mg PO DAILY 08/31/18 Apixaban [Eliquis -] 5 mg PO BID 01/19/19 Cinacalcet HCl [Sensipar -] 30 mg PO DAILY 01/19/19 Labetalol HCl [Normodyne -] 200 mg PO BID 01/19/19 Sevelamer Carbonate [Renvela -] 800 mg PO TID 01/19/19 Sitagliptin Phosphate [Januvia] 25 mg PO DAILY 01/19/19 Acetaminophen [Tylenol .Regular Strength -] 650 mg PO Q6H PRN tablet 01/26/19 Albuterol 2.5/Ipratropium 0.5 [Duoneb -] 1 amp NEB RQID #120 amp 01/26/19 Azithromycin [Zithromax 250mg Tablets -] 250 mg PO UTDICT #6 tab 01/26/19 Guaifenesin Dm [Robitussin Dm -] 10 ml PO Q6H PRN #1 bottle 01/26/19 Nebulizer Accessories [Adult Aerosol Mask] 1 each [facility] QID #1 each 01/26/19 Nebulizer [Compact Compressor Nebulizer] 1 each MC QID #1 each 01/26/19 Prednisone [Deltasone] 20 mg PO DAILY #5 tablet 01/26/19 predniSONE [Deltasone -] 20 mg PO DAILY #5 tablet 01/26/19
--- NOTE | 2019-01-28 15:03 | PN ---
Progress Note (short form) - Note Progress Note: will have cardiology see him for pericardial effusion Problem List - Problems (1) Acute bronchitis Code(s): J20.9 - ACUTE BRONCHITIS, UNSPECIFIED (2) BPH (benign prostatic hyperplasia) Code(s): N40.0 - BENIGN PROSTATIC HYPERPLASIA WITHOUT LOWER URINRY TRACT SYMP Qualifiers: Lower urinary tract symptom presence: presence of symptoms unspecified (3) H/O: CVA (cerebrovascular accident) Code(s): Z86.73 - PRSNL HX OF TIA (TIA), AND CEREB INFRC W/O RESID DEFICITS (4) Afib Code(s): I48.91 - UNSPECIFIED ATRIAL FIBRILLATION (5) ESRD (end stage renal disease) on dialysis (6) Diabetes 1.5, managed as type 1 Code(s): E13.9 - OTHER SPECIFIED DIABETES MELLITUS WITHOUT COMPLICATIONS
--- NOTE | 2019-01-28 16:25 | PN ---
Progress Note, Physician Chief Complaint: Noted to have a pericardial effusion History of Present Illness: The patient is a 78-year-old man, with a history of diabetes, hypertension, hyperlipidemia, stroke, end-stage renal disease on hemodialysis, coronary artery disease, atrial fibrillation on Eliquis, syncope, was admitted with shortness of breath and cough. Likely acute bronchitis. A small pericardial effusion was seen on CT scan. - Current Medication List Current Medications: Active Medications Acetaminophen (Tylenol -) 650 mg PO Q6H PRN PRN Reason: PAIN SCALE 1-5 Last Admin: 01/26/19 14:56 Dose: 650 mg Amiodarone HCl (Cordarone -) 200 mg PO BID [facility] Last Admin: 01/28/19 09:56 Dose: 200 mg Amlodipine Besylate (Norvasc -) 10 mg PO DAILY [facility] Last Admin: 01/28/19 09:55 Dose: 10 mg Apixaban (Eliquis -) 5 mg PO BID [facility] Last Admin: 01/28/19 09:56 Dose: 5 mg Aspirin (Asa -) 81 mg PO DAILY [facility] Last Admin: 01/28/19 09:56 Dose: 81 mg Atorvastatin Calcium (Lipitor -) 40 mg PO HS [facility] Last Admin: 01/27/19 21:22 Dose: 40 mg Cinacalcet (Sensipar -) 30 mg PO DAILY [facility] Last Admin: 01/28/19 09:57 Dose: 30 mg Duloxetine HCl (Cymbalta -) 30 mg PO DAILY [facility] Last Admin: 01/28/19 09:56 Dose: 30 mg Epoetin Silverio (Procrit -) 10,000 unit IVPUSH ONCE ONE Stop: 01/29/19 06:01 Furosemide (Lasix -) 40 mg PO DAILY [facility] Last Admin: 01/28/19 09:56 Dose: 40 mg Gabapentin (Neurontin -) 300 mg PO DAILY [facility] Last Admin: 01/28/19 09:56 Dose: 300 mg Guaifenesin (Robitussin Dm -) 10 ml PO Q6H PRN PRN Reason: COUGH Last Admin: 01/28/19 06:33 Dose: 10 ml Sodium Chloride (Normal Saline -) 250 mls @ 3,000 mls/hr IV PRN PRN PRN Reason: Hypotension during Dialysis Sodium Chloride (Normal Saline -) 250 mls @ 3,000 mls/hr IV PRN PRN PRN Reason: Hypotension during Dialysis Stop: 01/29/19 12:26 Insulin Aspart (Novolog Vial Sliding Scale -) 1 vial SQ ACHS [facility]; Protocol Last Admin: 01/28/19 14:06 Dose: Not Given Labetalol HCl (Normodyne -) 200 mg PO BID [facility] Last Admin: 01/28/19 09:56 Dose: 200 mg Metoprolol Succinate (Toprol Xl -) 50 mg PO DAILY [facility] Last Admin: 01/28/19 09:56 Dose: 50 mg Prednisone (Deltasone -) 20 mg PO DAILY [facility] Last Admin: 01/28/19 09:56 Dose: 20 mg Sevelamer Carbonate (Renvela -) 800 mg PO TIDCM [facility] Last Admin: 01/28/19 14:07 Dose: Not Given Sitagliptin Phosphate (Januvia -) 25 mg PO DAILY@0700 [facility] Last Admin: 01/28/19 06:31 Dose: 25 mg Tamsulosin HCl (Flomax -) 0.4 mg PO DAILY@0830 [facility] Last Admin: 01/28/19 09:56 Dose: 0.4 mg - Objective Vital Signs: Vital Signs Temperature 98.1 F 01/28/19 14:00 Pulse Rate 60 01/28/19 14:00 Respiratory Rate 20 01/28/19 10:00 Blood Pressure 113/58 L 01/28/19 14:00 O2 Sat by Pulse Oximetry (%) 99 01/28/19 09:00 Constitutional: Yes: Well Nourished HENT: Yes: WNL Neck: Yes: WNL Cardiovascular: Yes: Regular Rate and Rhythm, S1, S2 (No [facility]) Respiratory: Yes: CTA Bilaterally Gastrointestinal: Yes: Soft Edema: No Neurological: Yes: Alert, Oriented (Non focal) Labs: CBC, BMP 01/26/19 07:00 01/26/19 10:40 INR, PTT INR 1.10 (0.83-1.09) H 01/19/19 16:16 Assessment/Plan 78-year-old man, with a history of diabetes, hypertension, hyperlipidemia, stroke, end-stage renal disease on hemodialysis, coronary artery disease, atrial fibrillation on Eliquis, syncope, was admitted with shortness of breath and cough. Likely acute bronchitis. A small pericardial effusion was seen on CT scan. To further evaluate the pericardial effusion, obtain an echocardiogram. Since the effusion is small on CT and he is hemodyncamically stable, this can be done as an outpatient. AFIB Continue Amizoe and Sd In reviewing his medications, he is written for 2 different types of beta blockers (this was also on his outpatient list): Labetalol HCl (Normodyne -) 200 mg PO BID [facility] Last Admin: 01/28/19 09:56 Dose: 200 mg Metoprolol Succinate (Toprol Xl -) 50 mg PO DAILY [facility] Last Admin: 01/28/19 09:56 Dose: 50 mg Would consider uptitrating the dose of one of them and eliminating the other HTN/HLD Continue Norvasc/Atorvastatin/Lasix
--- NOTE | 2019-01-28 20:56 | PN ---
Progress Note, Physician Chief Complaint: short of breath in bed cough improved - Current Medication List Current Medications: Active Medications Acetaminophen (Tylenol -) 650 mg PO Q6H PRN PRN Reason: PAIN SCALE 1-5 Last Admin: 01/26/19 14:56 Dose: 650 mg Amiodarone HCl (Cordarone -) 200 mg PO BID [facility] Last Admin: 01/28/19 09:56 Dose: 200 mg Amlodipine Besylate (Norvasc -) 10 mg PO DAILY [facility] Last Admin: 01/28/19 09:55 Dose: 10 mg Apixaban (Eliquis -) 5 mg PO BID [facility] Last Admin: 01/28/19 09:56 Dose: 5 mg Aspirin (Asa -) 81 mg PO DAILY [facility] Last Admin: 01/28/19 09:56 Dose: 81 mg Atorvastatin Calcium (Lipitor -) 40 mg PO HS [facility] Last Admin: 01/27/19 21:22 Dose: 40 mg Cinacalcet (Sensipar -) 30 mg PO DAILY [facility] Last Admin: 01/28/19 09:57 Dose: 30 mg Duloxetine HCl (Cymbalta -) 30 mg PO DAILY [facility] Last Admin: 01/28/19 09:56 Dose: 30 mg Epoetin Silverio (Procrit -) 10,000 unit IVPUSH ONCE ONE Stop: 01/29/19 06:01 Furosemide (Lasix -) 40 mg PO DAILY [facility] Last Admin: 01/28/19 09:56 Dose: 40 mg Gabapentin (Neurontin -) 300 mg PO DAILY [facility] Last Admin: 01/28/19 09:56 Dose: 300 mg Guaifenesin (Robitussin Dm -) 10 ml PO Q6H PRN PRN Reason: COUGH Last Admin: 01/28/19 06:33 Dose: 10 ml Sodium Chloride (Normal Saline -) 250 mls @ 3,000 mls/hr IV PRN PRN PRN Reason: Hypotension during Dialysis Sodium Chloride (Normal Saline -) 250 mls @ 3,000 mls/hr IV PRN PRN PRN Reason: Hypotension during Dialysis Stop: 01/29/19 12:26 Insulin Aspart (Novolog Vial Sliding Scale -) 1 vial SQ ACHS [facility]; Protocol Last Admin: 01/28/19 17:21 Dose: 4 unit Labetalol HCl (Normodyne -) 200 mg PO BID [facility] Last Admin: 01/28/19 09:56 Dose: 200 mg Metoprolol Succinate (Toprol Xl -) 50 mg PO DAILY [facility] Last Admin: 01/28/19 09:56 Dose: 50 mg Prednisone (Deltasone -) 20 mg PO DAILY [facility] Last Admin: 01/28/19 09:56 Dose: 20 mg Sevelamer Carbonate (Renvela -) 800 mg PO TIDCM [facility] Last Admin: 01/28/19 17:21 Dose: 800 mg Sitagliptin Phosphate (Januvia -) 25 mg PO DAILY@0700 [facility] Last Admin: 01/28/19 06:31 Dose: 25 mg Tamsulosin HCl (Flomax -) 0.4 mg PO DAILY@0830 [facility] Last Admin: 01/28/19 09:56 Dose: 0.4 mg - Objective Vital Signs: Vital Signs Temperature 98.0 F 01/28/19 17:00 Pulse Rate 60 01/28/19 17:00 Respiratory Rate 20 01/28/19 17:00 Blood Pressure 118/59 L 01/28/19 17:00 O2 Sat by Pulse Oximetry (%) 99 01/28/19 09:00 Constitutional: Yes: Calm Eyes: Yes: EOM Intact HENT: Yes: Normocephalic Neck: Yes: Trachea Midline Cardiovascular: Yes: Regular Rate and Rhythm Respiratory: Yes: On Nasal O2 Gastrointestinal: Yes: Abdomen, Obese ...Rectal Exam: Yes: Deferred Breast(s): Yes: WNL Musculoskeletal: Yes: WNL Extremities: Yes: WNL Peripheral Pulses WNL: Yes Neurological: Yes: Alert, Oriented Labs: CBC, BMP 01/26/19 07:00 01/26/19 10:40 INR, PTT INR 1.10 (0.83-1.09) H 01/19/19 16:16 Problem List - Problems (1) Acute bronchitis Code(s): J20.9 - ACUTE BRONCHITIS, UNSPECIFIED (2) Cough Code(s): R05 - COUGH (3) ESRD (end stage renal disease) on dialysis Code(s): N18.6 - END STAGE RENAL DISEASE; Z99.2 - DEPENDENCE ON RENAL DIALYSIS (4) Heart failure Code(s): I50.9 - HEART FAILURE, UNSPECIFIED (5) Wheezing Code(s): R06.2 - WHEEZING (6) Accidental fall Code(s): W19.XXXA - UNSPECIFIED FALL, INITIAL ENCOUNTER Qualifiers: Encounter type: subsequent encounter Qualified Code(s): W19.XXXD - Unspecified fall, subsequent encounter Assessment/Plan Current Active Problems Acute bronchitis (Acute) COPD (chronic obstructive pulmonary disease) with acute bronchitis (Acute) Cough (Acute) ESRD (end stage renal disease) on dialysis (Acute) Heart failure (Acute) diabetes mellitus (Acute) Troponin I above reference range (Acute) Wheezing (Acute) Laboratory Results - last 24 hr 01/27/19 01/28/19 01/28/19 21:21 06:30 17:17 POC Glucometer [phone] plan: bgm qid achs as tapered steroid less sugars surge ck hbaic januvia 25 mg/day
[2019-01-28] MEDS: ATORVASTATIN CA 40 MG TABLET (FP) PO SCH (21:37)
[2019-01-29] MEDS: guaiFENesin/D-METHORPHAN HB 10 ML UNIT-DOSE CUPS PO PRN (04:21)
[2019-01-29] MEDS ORDERED: EPOETIN ALFA 10,000 UNIT/1 ML VIAL IVPUSH ONE ×2 (06:00→09:45)
[2019-01-29] MEDS: INSULIN SLIDING SCALE (NOVOLOG) 1 VIAL SQ SCH ×3 (06:21→17:19)
[2019-01-29] MEDS: sitaGLIPtin PHOSPHATE 25 MG TABLET (FP) PO SCH (06:21)
--- NOTE | 2019-01-29 08:26 | DS ---
Physical Examination Vital Signs: Vital Signs Temperature 98.2 F 01/29/19 06:00 Pulse Rate 60 01/29/19 06:00 Respiratory Rate 20 01/29/19 08:24 Blood Pressure 122/69 01/29/19 06:00 O2 Sat by Pulse Oximetry (%) 98 01/29/19 08:24 Cardiovascular: Yes: S1 Respiratory: Yes: Regular, CTA Bilaterally Gastrointestinal: Yes: Normal Bowel Sounds, Soft Labs: CBC, BMP 01/26/19 07:00 01/26/19 10:40 Discharge Summary Reason For Visit: ELEVATED TROPONIN I LEVEL/HEART FAILURE Current Active Problems Acute bronchitis (Acute) COPD (chronic obstructive pulmonary disease) with acute bronchitis (Acute) Cough (Acute) ESRD (end stage renal disease) on dialysis (Acute) Heart failure (Acute) Prediabetes (Acute) Troponin I above reference range (Acute) Wheezing (Acute) Hospital Course: This is a 78 y/o man with significant medical history of CVA, Afib (on Amiodarone, Eliquis), Aortic/Mitral Insufficiency, CHF, HTN, HLD, Orthostatic Hypotension. Who presents to the ED with a productive cough yellow phlegm and increased SOB. Patient had HD today. Patient denies fever, chills, dizziness, CP , palpitations, AP, N/V/D, constipation on telemetry floor acute bronchitis iv steroids to po prednisone, PFT as outpatient and home oxygen afib on eliquis and amiodarone ESRD on HD three times a week epogen with HD Condition: Stable - Instructions Diet, Activity, Other Instructions: SEE YOUR PMD IN 2-3 DAYS RENAL/ADA HD as outpatient 3 times week home oxygen pulmonary function test as outpatient prednsione 20mg po daily for now slow taper echocardiogram at dr birch office Referrals: Silvana Crawford MD [Staff Physician] - Clifford Gan MD [Staff Physician] - (pulmonary function test as outpatient) Jerry Bird MD [Primary Care Provider] - 1 Week Severo Sanchez MD [Staff Physician] - (HD as outpatient) Disposition: VNS/HOME HEALTH CARE - Home Medications Comprehensive Discharge Medication List: Ambulatory Orders Atorvastatin Ca [Lipitor] 40 mg PO HS 06/06/15 Gabapentin 300 mg PO DAILY 11/19/15 Duloxetine HCl 30 mg PO DAILY 04/16/16 Amlodipine Besylate [Norvasc -] 10 mg PO DAILY #30 tablet 04/19/16 Metoprolol Succinate [Toprol XL -] 50 mg PO DAILY #30 tab.sr.24h 04/19/16 Amiodarone HCl [Cordarone -] 200 mg PO BID #60 tablet 02/07/17 Aspirin [ASA -] 81 mg PO DAILY 08/31/18 Tamsulosin HCl [Flomax] 0.4 mg PO DAILY 08/31/18 Apixaban [Eliquis -] 5 mg PO BID 01/19/19 Cinacalcet HCl [Sensipar -] 30 mg PO DAILY 01/19/19 Labetalol HCl [Normodyne -] 200 mg PO BID 01/19/19 Sevelamer Carbonate [Renvela -] 800 mg PO TID 01/19/19 Sitagliptin Phosphate [Januvia] 25 mg PO DAILY 01/19/19 Acetaminophen [Tylenol .Regular Strength -] 650 mg PO Q6H PRN tablet 01/26/19 Albuterol 2.5/Ipratropium 0.5 [Duoneb -] 1 amp NEB RQID #120 amp 01/26/19 Azithromycin [Zithromax 250mg Tablets -] 250 mg PO UTDICT #6 tab 01/26/19 Guaifenesin Dm [Robitussin Dm -] 10 ml PO Q6H PRN #1 bottle 01/26/19 Nebulizer Accessories [Adult Aerosol Mask] 1 each QID #1 each 01/26/19 Nebulizer [Compact Compressor Nebulizer] 1 each QID #1 each 01/26/19 Prednisone [Deltasone] 20 mg PO DAILY #5 tablet 01/26/19 predniSONE [Deltasone -] 20 mg PO DAILY #5 tablet 01/26/19 Furosemide [Lasix -] 40 mg PO DAILY #20 tablet MDD 1 01/28/19 Insulin Sliding Scale [Novolog Vial Sliding Scale -] 1 vial SQ ACHS units 01/28 predniSONE [Deltasone -] 20 mg PO DAILY #0 tablet 01/28/19
[2019-01-29] MEDS ORDERED: PT OWN MED DRAWER 7, Y5N ONE (09:05)
[2019-01-29] MEDS: AMIODARONE HCL 200 MG TABLET (FP) PO SCH (09:10)
[2019-01-29] MEDS: TAMSULOSIN HCL 0.4 MG CAP PO SCH (09:10)
[2019-01-29] MEDS: predniSONE 20 MG TABLET (UD) PO SCH (09:10)
[2019-01-29] MEDS: APIXABAN 5 MG TABLET PO SCH (09:10)
[2019-01-29] MEDS: CINACALCET HCL 30 MG TAB (FP) PO SCH (09:10)
[2019-01-29] MEDS: GABAPENTIN 300 MG CAPSULE (FP) PO SCH (09:10)
[2019-01-29] MEDS: ASPIRIN 81 MG CHEWABLE TABLETS PO SCH (09:10)
[2019-01-29] MEDS: SEVELAMER CARBONATE 800 MG TAB (FP) PO SCH ×3 (09:11→17:19)
[2019-01-29] MEDS: FUROSEMIDE 40 MG TABLET (FP) PO SCH (09:12)
[2019-01-29] MEDS: amLODIPine BESYLATE 10 MG TABLET (FP) PO SCH (09:12)
[2019-01-29] MEDS: LABETALOL HCL 200 MG TABLET (FP) PO SCH (09:12)
[2019-01-29] MEDS: DULoxetine HCL 30 MG CAPSULE.DR (FP) PO SCH (09:38)
--- NOTE | 2019-01-29 10:20 | PN ---
Progress Note, Physician History of Present Illness: pulmonary alert,oob-chair,-resp distress,on HD. - Current Medication List Current Medications: Active Medications Acetaminophen (Tylenol -) 650 mg PO Q6H PRN PRN Reason: PAIN SCALE 1-5 Last Admin: 01/26/19 14:56 Dose: 650 mg Amiodarone HCl (Cordarone -) 200 mg PO BID [facility] Last Admin: 01/29/19 09:10 Dose: 200 mg Amlodipine Besylate (Norvasc -) 10 mg PO DAILY [facility] Last Admin: 01/29/19 09:12 Dose: Not Given Apixaban (Eliquis -) 5 mg PO BID [facility] Last Admin: 01/29/19 09:10 Dose: 5 mg Aspirin (Asa -) 81 mg PO DAILY [facility] Last Admin: 01/29/19 09:10 Dose: 81 mg Atorvastatin Calcium (Lipitor -) 40 mg PO HS [facility] Last Admin: 01/28/19 21:37 Dose: 40 mg Cinacalcet (Sensipar -) 30 mg PO DAILY [facility] Last Admin: 01/29/19 09:10 Dose: 30 mg Duloxetine HCl (Cymbalta -) 30 mg PO DAILY [facility] Last Admin: 01/29/19 09:38 Dose: 30 mg Furosemide (Lasix -) 40 mg PO DAILY [facility] Last Admin: 01/29/19 09:12 Dose: Not Given Gabapentin (Neurontin -) 300 mg PO DAILY [facility] Last Admin: 01/29/19 09:10 Dose: 300 mg Guaifenesin (Robitussin Dm -) 10 ml PO Q6H PRN PRN Reason: COUGH Last Admin: 01/29/19 04:21 Dose: 10 ml Sodium Chloride (Normal Saline -) 250 mls @ 3,000 mls/hr IV PRN PRN PRN Reason: Hypotension during Dialysis Sodium Chloride (Normal Saline -) 250 mls @ 3,000 mls/hr IV PRN PRN PRN Reason: Hypotension during Dialysis Stop: 01/29/19 12:26 Insulin Aspart (Novolog Vial Sliding Scale -) 1 vial SQ ACHS [facility]; Protocol Last Admin: 01/29/19 06:21 Dose: Not Given Labetalol HCl (Normodyne -) 200 mg PO BID [facility] Last Admin: 01/29/19 09:12 Dose: Not Given Metoprolol Succinate (Toprol Xl -) 50 mg PO DAILY [facility] Last Admin: 01/29/19 09:13 Dose: Not Given Prednisone (Deltasone -) 20 mg PO DAILY [facility] Last Admin: 01/29/19 09:10 Dose: 20 mg Sevelamer Carbonate (Renvela -) 800 mg PO TIDCM [facility] Last Admin: 01/29/19 09:11 Dose: 800 mg Sitagliptin Phosphate (Januvia -) 25 mg PO DAILY@0700 [facility] Last Admin: 01/29/19 06:21 Dose: 25 mg Tamsulosin HCl (Flomax -) 0.4 mg PO DAILY@0830 [facility] Last Admin: 01/29/19 09:10 Dose: 0.4 mg - Objective Vital Signs: Vital Signs Temperature 98.1 F 01/29/19 08:27 Pulse Rate 60 01/29/19 08:27 Respiratory Rate 18 01/29/19 08:27 Blood Pressure 125/64 01/29/19 08:27 O2 Sat by Pulse Oximetry (%) 98 01/29/19 08:24 Constitutional: Yes: Well Nourished, Calm Eyes: Yes: WNL HENT: Yes: WNL Neck: Yes: WNL Cardiovascular: Yes: Pulse Irregular, S1, S2 Respiratory: Yes: Rhonchi (SCATTERED RHONCHI) Gastrointestinal: Yes: Normal Bowel Sounds, Soft Extremities: Yes: WNL Edema: Yes Labs: CBC, BMP 01/26/19 07:00 Assessment/Plan Problem List - Problems (1) Acute bronchitis Code(s): J20.9 - ACUTE BRONCHITIS, UNSPECIFIED (2) Atrial fibrillation Code(s): I48.91 - UNSPECIFIED ATRIAL FIBRILLATION Qualifiers: Atrial fibrillation type: paroxysmal Qualified Code(s): I48.0 - Paroxysmal atrial fibrillation (3) End stage renal disease Code(s): N18.6 - END STAGE RENAL DISEASE (4) H/O: CVA (cerebrovascular accident) Code(s): Z86.73 - PRSNL HX OF TIA (TIA), AND CEREB INFRC W/O RESID DEFICITS (5) HLD (hyperlipidemia) Code(s): E78.5 - HYPERLIPIDEMIA, UNSPECIFIED (6) HTN (hypertension) Code(s): I10 - ESSENTIAL (PRIMARY) HYPERTENSION Qualifiers: Hypertension type: essential hypertension Qualified Code(s): I10 - Essential (primary) hypertension Assessment/Plan Acute Bronchitis improving ESRD on HD Atrial Fibrillation LV Diastolic Dysfunction HTN Hyperlipidemia h/o CVA - inhaled bronchodilators - prednisone - O2 to keep SpO2 >90% - HD per renal - rate controlled - anticoagulation - outpt PFTs DR HALL
--- NOTE | 2019-01-29 10:32 | PN ---
Progress Note, Physician History of Present Illness: seen and examined today in nad. no overnight events. no new complaints. states he is going home today. - Current Medication List Current Medications: Active Medications Acetaminophen (Tylenol -) 650 mg PO Q6H PRN PRN Reason: PAIN SCALE 1-5 Last Admin: 01/26/19 14:56 Dose: 650 mg Amiodarone HCl (Cordarone -) 200 mg PO BID [facility] Last Admin: 01/29/19 09:10 Dose: 200 mg Amlodipine Besylate (Norvasc -) 10 mg PO DAILY [facility] Last Admin: 01/29/19 09:12 Dose: Not Given Apixaban (Eliquis -) 5 mg PO BID [facility] Last Admin: 01/29/19 09:10 Dose: 5 mg Aspirin (Asa -) 81 mg PO DAILY [facility] Last Admin: 01/29/19 09:10 Dose: 81 mg Atorvastatin Calcium (Lipitor -) 40 mg PO HS [facility] Last Admin: 01/28/19 21:37 Dose: 40 mg Cinacalcet (Sensipar -) 30 mg PO DAILY [facility] Last Admin: 01/29/19 09:10 Dose: 30 mg Duloxetine HCl (Cymbalta -) 30 mg PO DAILY [facility] Last Admin: 01/29/19 09:38 Dose: 30 mg Furosemide (Lasix -) 40 mg PO DAILY [facility] Last Admin: 01/29/19 09:12 Dose: Not Given Gabapentin (Neurontin -) 300 mg PO DAILY [facility] Last Admin: 01/29/19 09:10 Dose: 300 mg Guaifenesin (Robitussin Dm -) 10 ml PO Q6H PRN PRN Reason: COUGH Last Admin: 01/29/19 04:21 Dose: 10 ml Sodium Chloride (Normal Saline -) 250 mls @ 3,000 mls/hr IV PRN PRN PRN Reason: Hypotension during Dialysis Sodium Chloride (Normal Saline -) 250 mls @ 3,000 mls/hr IV PRN PRN PRN Reason: Hypotension during Dialysis Stop: 01/29/19 12:26 Insulin Aspart (Novolog Vial Sliding Scale -) 1 vial SQ ACHS [facility]; Protocol Last Admin: 01/29/19 06:21 Dose: Not Given Labetalol HCl (Normodyne -) 200 mg PO BID [facility] Last Admin: 01/29/19 09:12 Dose: Not Given Metoprolol Succinate (Toprol Xl -) 50 mg PO DAILY [facility] Last Admin: 01/29/19 09:13 Dose: Not Given Prednisone (Deltasone -) 20 mg PO DAILY [facility] Last Admin: 01/29/19 09:10 Dose: 20 mg Sevelamer Carbonate (Renvela -) 800 mg PO TIDCM [facility] Last Admin: 01/29/19 09:11 Dose: 800 mg Sitagliptin Phosphate (Januvia -) 25 mg PO DAILY@0700 [facility] Last Admin: 01/29/19 06:21 Dose: 25 mg Tamsulosin HCl (Flomax -) 0.4 mg PO DAILY@0830 [facility] Last Admin: 01/29/19 09:10 Dose: 0.4 mg - Objective Vital Signs: Vital Signs Temperature 98.1 F 01/29/19 08:27 Pulse Rate 60 01/29/19 08:27 Respiratory Rate 18 01/29/19 08:27 Blood Pressure 125/64 01/29/19 08:27 O2 Sat by Pulse Oximetry (%) 98 01/29/19 08:24 Constitutional: Yes: No Distress, Calm Eyes: Yes: Conjunctiva Clear, EOM Intact, PERRL HENT: Yes: Atraumatic, Normocephalic Neck: Yes: Supple, Trachea Midline Cardiovascular: Yes: Regular Rate and Rhythm, S1, S2. No: Bradycardia, Tachycardia, Pulse Irregular, Bruit, JVD, Gallop, Murmur, Rub, S3, S4, Varicosities Respiratory: Yes: Regular, CTA Bilaterally. No: Rales, Rhonchi, Wheezes Gastrointestinal: Yes: Normal Bowel Sounds, Soft. No: Distention, Tenderness Musculoskeletal: Yes: WNL Extremities: Yes: WNL Edema: No Peripheral Pulses WNL: Yes Neurological: Yes: Alert, Oriented Psychiatric: Yes: Alert, Oriented Labs: CBC, BMP 01/26/19 07:00 01/26/19 10:40 INR, PTT INR 1.10 (0.83-1.09) H 01/19/19 16:16 - ....Imaging Chest X-ray: Report Reviewed, Image Reviewed EKG: Report Reviewed, Image Reviewed Other: Report Reviewed, Image Reviewed (tele-no sig events recorded) Assessment/Plan 78-year-old man, with a history of diabetes, hypertension, hyperlipidemia, stroke, end-stage renal disease on hemodialysis, coronary artery disease, atrial fibrillation on Eliquis, syncope, was admitted with shortness of breath and cough. Likely acute bronchitis. AFIB Continue Amio and Eliquis Pt currently on 2 bblockers Would consider uptitrating the dose of one of them and eliminating the other HTN/HLD Continue Norvasc/Atorvastatin/Lasix A small pericardial effusion was seen on CT scan. Since the effusion is small on CT and he is hemodyncamically stable, echo to further evaluates can be done as an outpatient. No other additional inpatient cardiac work up is needed at this time. Pt is planned for discharge today. Recommend outpatient fup. please call with any additional questions.
[2019-01-29 10:58] LABS: HEMATOCRIT 27.5 % (35.4-49); MCH 30.3 pg (25.7-33.7); MCHC 32.6 g/dl (32.0-35.9); MEAN PLT VOLUME 9.1 fl (7.5-11.1); PLATELET COUNT 301 K/MM3 (134-434); RBC 2.96 M/mm3 (4.00-5.60); RDW 17.1 % (11.9-15.9); WHITE BLOOD COUNT 12.2 K/mm3 (4.0-10.0)
[2019-01-29 12:38] LABS: ALBUMIN 2.4 g/dl (3.4-5.0); ALK PHOS 60 U/L (45-117); ANION GAP 12 MMOL/L (8-16); BILIRUBIN,TOTAL 0.4 mg/dL (0.2-1); CALCIUM 7.4 mg/dL (8.5-10.1); CHLORIDE 92 mmol/L (98-107); CO2 27 mmol/L (21-32); GLUCOSE,RANDOM 235 mg/dL (74-106); PHOSPHOROUS 2.8 mg/dL (2.5-4.9); POTASSIUM 4.6 mmol/L (3.5-5.1); SGOT/AST 10 U/L (15-37); SGPT/ALT 14 U/L (13-61); SODIUM 131 mmol/L (136-145); TOT PROT 5.2 g/dl (6.4-8.2)
[2019-01-29 13:14] LABS: BLOOD UREA NITROGEN 126 mg/dL (7-18); CREATININE 8.4 mg/dL (0.55-1.3)
--- NOTE | 2019-01-29 14:14 | PN ---
Progress Note (short form) - Note Progress Note: Renal follow up for ESRD on HD Pt seen and examined at the bedside during dialysis BP stable, access with good flow UF goal 2.5L on sob, cp, abd pain cough is improved Vital Signs Temperature 98.8 F 01/29/19 09:55 Pulse Rate 62 01/29/19 13:00 Respiratory Rate 18 01/29/19 13:00 Blood Pressure 127/80 01/29/19 13:00 O2 Sat by Pulse Oximetry (%) 98 01/29/19 08:24 Intake & Output 01/26/19 01/27/19 01/28/19 01/29/19 23:59 23:59 23:59 23:59 Intake Total 1080 1200 630 240 Output Total 200 Balance 1080 1200 630 40 Weight 91.626 kg 93.44 kg 94.801 kg NAD awake and alert neck supple RRR, No M/R Mild wheeze no edema CBC, BMP 01/29/19 10:00 01/29/19 09:35 Current Medications Acetaminophen (Tylenol -) 650 mg PO Q6H PRN PRN Reason: PAIN SCALE 1-5 Last Admin: 01/26/19 14:56 Dose: 650 mg Amiodarone HCl (Cordarone -) 200 mg PO BID [facility] Last Admin: 01/29/19 09:10 Dose: 200 mg Amlodipine Besylate (Norvasc -) 10 mg PO DAILY [facility] Last Admin: 01/29/19 09:12 Dose: Not Given Apixaban (Eliquis -) 5 mg PO BID [facility] Last Admin: 01/29/19 09:10 Dose: 5 mg Aspirin (Asa -) 81 mg PO DAILY [facility] Last Admin: 01/29/19 09:10 Dose: 81 mg Atorvastatin Calcium (Lipitor -) 40 mg PO HS [facility] Last Admin: 01/28/19 21:37 Dose: 40 mg Cinacalcet (Sensipar -) 30 mg PO DAILY [facility] Last Admin: 01/29/19 09:10 Dose: 30 mg Duloxetine HCl (Cymbalta -) 30 mg PO DAILY [facility] Last Admin: 01/29/19 09:38 Dose: 30 mg Furosemide (Lasix -) 40 mg PO DAILY [facility] Last Admin: 01/29/19 09:12 Dose: Not Given Gabapentin (Neurontin -) 300 mg PO DAILY [facility] Last Admin: 01/29/19 09:10 Dose: 300 mg Guaifenesin (Robitussin Dm -) 10 ml PO Q6H PRN PRN Reason: COUGH Last Admin: 01/29/19 04:21 Dose: 10 ml Sodium Chloride (Normal Saline -) 250 mls @ 3,000 mls/hr IV PRN PRN PRN Reason: Hypotension during Dialysis Insulin Aspart (Novolog Vial Sliding Scale -) 1 vial SQ ACHS [facility]; Protocol Last Admin: 01/29/19 12:24 Dose: Not Given Labetalol HCl (Normodyne -) 200 mg PO BID [facility] Last Admin: 01/29/19 09:12 Dose: Not Given Metoprolol Succinate (Toprol Xl -) 50 mg PO DAILY [facility] Last Admin: 01/29/19 09:13 Dose: Not Given Prednisone (Deltasone -) 20 mg PO DAILY [facility] Last Admin: 01/29/19 09:10 Dose: 20 mg Sevelamer Carbonate (Renvela -) 800 mg PO TIDCM [facility] Last Admin: 01/29/19 12:25 Dose: Not Given Sitagliptin Phosphate (Januvia -) 25 mg PO DAILY@0700 [facility] Last Admin: 01/29/19 06:21 Dose: 25 mg Tamsulosin HCl (Flomax -) 0.4 mg PO DAILY@0830 [facility] Last Admin: 01/29/19 09:10 Dose: 0.4 mg 78 year old gentleman with hx of ESRD on HD (TTS), CVA, Afib on Eliquis, CHF, Hypertension, orthostatic hypotension presented with SOB and cough. #ESRD on HD #Cough secondary to bronchitis/URI (CXR w/o pulmonary congestion, no WBC, no Fever, Flu negative) #Afib on Eliquis #CHF #Hypertension #anemia #renal osteodystrophy tolerating HD well this am BUN very high, likely due to steroids and unlikely related to poor dialysis clearance CT chest showed no pleural effusions and small pericardial effusion renal diet, 1.2L fluid restriction discharge planning as per primary Thank you Severo Sanchez DO
[2019-01-29 17:14] VITALS: BP 142/71; PULSE 72; TEMP 98.5
== END 2019-01-29 18:07 | disposition home health service (06) | DRG 202 ==
LOC: SUPCPDRO 15:08 → JER 15:08 → JERBED 17:25 → J4W 23:16
PROVIDERS: ADMIT Family Medicine; ATTEND Family Medicine
PROC: 5A1D70Z Performance of Urinary Filtration, Intermittent, Less than 6 Hours Per Day (ICD-10-PCS; principal; 2019-01-29)
DX: J20.9 Acute bronchitis, unspecified (principal); N18.6 End stage renal disease; I13.2 Hypertensive heart and chronic kidney disease with heart failure and with stage 5 chronic kidney disease, or end stage renal disease; I50.30 Unspecified diastolic (congestive) heart failure; I31.3 Pericardial effusion (noninflammatory); J44.0 Chronic obstructive pulmonary disease with (acute) lower respiratory infection; R74.8 Abnormal levels of other serum enzymes; I25.10 Atherosclerotic heart disease of native coronary artery without angina pectoris; E78.5 Hyperlipidemia, unspecified; E13.9 Other specified diabetes mellitus without complications; D64.9 Anemia, unspecified; N25.0 Renal osteodystrophy; I48.0 Paroxysmal atrial fibrillation; E66.9 Obesity, unspecified; Z68.25 Body mass index [BMI] 25.0-25.9, adult; N40.0 Benign prostatic hyperplasia without lower urinary tract symptoms; Z99.2 Dependence on renal dialysis
CPT/HCPCS: 36415; 70450-TC; 71045-TC-FY; 71250-TC; 80048; 80053; 82550; 82553; 82565; 82962; 83880; 84100; 84484; 84520; 85025; 85027; 85610; 86704; 86706; 86708; 86803; 86850; 86900; 86901; 87340; 87804; 87807; 93005; 93010; 94640; 94761; 97116-GP; 99284-25; J0885

== ENCOUNTER 2019-02-11 16:56 | Inpatient (IN) | payer OTHER, MEDICARE | END 2019-03-01 17:25 | LOC: JER 16:56 → JICU 02-26 10:29 → J2W 02-12 21:32 → JERBED 20:11 ==

== ENCOUNTER 2019-03-29 11:55 | Inpatient (IN) | payer OTHER | END 2019-04-04 11:09 | LOC: JER 11:55 → JERBED 15:37 → J4W 18:01 ==

== ENCOUNTER 2020-12-29 19:15 | Observation (INO) | payer OTHER ==
[2020-12-29 22:57] LABS: BASO % 1.4 % (0-2.0); EOS % 13.5 % (0-4.5); HEMATOCRIT 30.9 % (35.4-49); HEMOGLOBIN 9.9 GM/dL (11.7-16.9); LYMPH % 14.3 % (8-40); MCH 29.7 pg (25.7-33.7); MCHC 32.1 g/dl (32.0-35.9); MEAN CELL VOLUME 92.6 fl (80-96); MEAN PLT VOLUME 8.8 fl (7.5-11.1); MONO % 7.8 % (3.8-10.2); PLATELET COUNT 185 K/MM3 (134-434); RBC 3.34 M/mm3 (4.00-5.60); RDW 16.1 % (11.9-15.9); WHITE BLOOD COUNT 6.9 K/mm3 (4.0-10.0)
[2020-12-29 23:04] LABS: INR 1.32 (0.83-1.09); PROTHROMBIN TIME (PATIENT) 16.1 SEC (9.7-13.0)
[2020-12-29 23:07] LABS: ACTIVATED PTT 37.9 SECONDS (25.2-36.5)
[2020-12-29 23:26] LABS: CHLORIDE 99 mmol/L (98-107); SODIUM 137 mmol/L (136-145)
[2020-12-29 23:29] LABS: ALBUMIN 3.1 g/dl (3.4-5.0); CO2 32 mmol/L (21-32)
[2020-12-29 23:30] LABS: ANION GAP 6 MMOL/L (8-16); GLUCOSE,RANDOM 81 mg/dL (74-106); POTASSIUM 2.9 mmol/L (3.5-5.1)
[2020-12-29 23:32] LABS: SGPT/ALT 22 U/L (13-61)
[2020-12-29 23:34] LABS: BILIRUBIN,TOTAL 0.4 mg/dL (0.2-1); CREATININE 4.2 mg/dL (0.55-1.3); SGOT/AST 31 U/L (15-37); TOT PROT 7.3 g/dl (6.4-8.2)
[2020-12-29 23:36] LABS: ALK PHOS 118 U/L (45-117)
[2020-12-29] MEDS ORDERED: POTASSIUM CHLORIDE TABS 10 MEQ TABLET.ER (FP) PO ONE (23:38)
[2020-12-29] MEDS ORDERED: POTASSIUM CHLORIDE TABS 10 MEQ TABLET.ER (FP) ONE (23:44)
[2020-12-29 23:50] LABS: N-TERMINAL BNP 66065.8 pg/ml (5-450)
[2020-12-29 23:59] LABS: MAGNESIUM 2.1 mg/dL (1.8-2.4)
[2020-12-30] MEDS ORDERED: POTASSIUM CHLORIDE ORAL LIQUID 20 MEQ/15 ML PO ONE (00:41)
[2020-12-30] MEDS ORDERED: POTASSIUM CHLORIDE ORAL LIQUID 20 MEQ/15 ML ONE (03:16)
[2020-12-30 06:05] LABS: BLOOD UREA NITROGEN 17.2 mg/dL (7-18); CALCIUM 8.5 mg/dL (8.5-10.1); CREATININE 4.6 mg/dL (0.55-1.3); POTASSIUM 3.5 mmol/L (3.5-5.1)
[2020-12-30] MEDS: INSULIN SLIDING SCALE (NOVOLOG) 1 VIAL SQ SCH ×3 (07:06→22:04)
[2020-12-30 09:52] LABS: MAGNESIUM 1.9 mg/dL (1.8-2.4)
[2020-12-30 09:54] LABS: ALBUMIN 2.7 g/dl (3.4-5.0)
[2020-12-30 09:55] LABS: PHOSPHOROUS 2.2 mg/dL (2.5-4.9)
[2020-12-30 09:56] LABS: BILIRUBIN,TOTAL 0.5 mg/dL (0.2-1); TOT PROT 6.6 g/dl (6.4-8.2)
[2020-12-30] MEDS: HEPARIN NA (PORCINE) 5,000 UNITS/ML 1ML VIAL SQ SCH ×2 (15:00→22:18)
[2020-12-30 17:47] LABS: HEMATOCRIT 29.8 % (35.4-49); HEMOGLOBIN 9.8 GM/dL (11.7-16.9); MCH 29.9 pg (25.7-33.7); MCHC 32.9 g/dl (32.0-35.9); MEAN CELL VOLUME 90.9 fl (80-96); PLATELET COUNT 186 K/MM3 (134-434); RBC 3.28 M/mm3 (4.00-5.60); RDW 15.7 % (11.9-15.9); WHITE BLOOD COUNT 6.8 K/mm3 (4.0-10.0)
[2020-12-30 18:10] LABS: ANISOCYTOSIS 1+; MACROCYTOSIS 1+; OVALOCYTE 1+; PLATELET ESTIMATE NORMAL; TARGET CELLS 1+
[2020-12-30] MEDS ORDERED: ALBUTEROL SO4 2.5/IPRATROPIUM 0.5 INH SOL 3 ML VIAL.NEB. NEB PRN (18:38)
[2020-12-30] MEDS ORDERED: ATORVASTATIN CA 20 MG TABLET (FP) ONE (22:13)
[2020-12-30] MEDS ORDERED: levETIRAcetam 500 MG TABLET (FP) PO ONE (22:14)
[2020-12-30] MEDS ORDERED: HEPARIN NA (PORCINE) 5,000 UNITS/ML 1ML VIAL ONE (22:14)
[2020-12-30] MEDS: levETIRAcetam 250 MG TABLET PO SCH (22:19)
[2020-12-30] MEDS: ATORVASTATIN CA 20 MG TABLET (FP) PO SCH (22:19)
[2020-12-31 01:06] VITALS: BMI 27.6
[2020-12-31] MEDS: INSULIN SLIDING SCALE (NOVOLOG) 1 VIAL SQ SCH ×4 (06:05→21:28)
[2020-12-31] MEDS ORDERED: SODIUM CHLORIDE 250 ML IV PRN (09:08)
[2020-12-31] MEDS: SEVELAMER CARBONATE 800 MG TAB (FP) PO SCH ×3 (09:56→17:35)
[2020-12-31] MEDS: DULoxetine HCL 30 MG CAPSULE.DR PO SCH ×2 (09:56→15:17)
[2020-12-31] MEDS: HEPARIN NA (PORCINE) 5,000 UNITS/ML 1ML VIAL SQ SCH ×2 (09:57→21:19)
[2020-12-31] MEDS: levETIRAcetam 250 MG TABLET PO SCH ×3 (09:57→21:20)
[2020-12-31] MEDS: PANTOPRAZOLE 40 MG TABLET PO SCH ×2 (09:57→15:17)
[2020-12-31] MEDS ORDERED: EPOETIN ALFA-EPBX 4,000 UNIT/ML VIAL IVPUSH ONE (10:45)
[2020-12-31 11:15] LABS: HEMATOCRIT 27.6 % (35.4-49); HEMOGLOBIN 9.1 GM/dL (11.7-16.9); MCH 30.2 pg (25.7-33.7); MEAN CELL VOLUME 91.6 fl (80-96); MEAN PLT VOLUME 9.8 fl (7.5-11.1); PLATELET COUNT 187 K/MM3 (134-434); RBC 3.02 M/mm3 (4.00-5.60); RDW 15.8 % (11.9-15.9); WHITE BLOOD COUNT 6.1 K/mm3 (4.0-10.0)
[2020-12-31 11:34] LABS: POTASSIUM 3.4 mmol/L (3.5-5.1)
[2020-12-31 11:39] LABS: CALCIUM 8.8 mg/dL (8.5-10.1)
[2020-12-31 11:42] LABS: CREATININE 6.7 mg/dL (0.55-1.3)
[2020-12-31] MEDS ORDERED: PT OWN MED DRAWER 7, Y5N ONE (20:54)
[2020-12-31] MEDS: ATORVASTATIN CA 20 MG TABLET (FP) PO SCH (21:20)
[2021-01-01 04:53] LABS: EPI CELLS 34 /uL (0-25.1); HYALINE CASTS 527 /uL (0-3.1); URINE APPEARANCE TURBID; URINE BACTERIA >9,000 /uL (0-1359); URINE BILIRUBIN NEGATIVE (NEGATIVE); URINE COLOR YELLOW; URINE GLUCOSE (UA) NEGATIVE (NEGATIVE); URINE KETONE NEGATIVE (NEGATIVE); URINE LEUK ESTERASE 3+ (NEGATIVE); URINE NITRITE NEGATIVE (NEGATIVE); URINE PROTEIN 3+ (NEGATIVE); URINE UROBILINOGEN 0.2 mg/dL (0.2-1.0); URINE WBC 31775 /uL (0-25.8)
[2021-01-01 06:36] LABS: URINE RBC 584.6 /uL (0-23.9); YEAST NONE SEEN (NEGATIVE)
[2021-01-01] MEDS: INSULIN SLIDING SCALE (NOVOLOG) 1 VIAL SQ SCH ×4 (07:56→22:01)
[2021-01-01 08:10] LABS: BASO % 0.6 % (0-2.0); EOS % 20.7 % (0-4.5); HEMATOCRIT 28.5 % (35.4-49); HEMOGLOBIN 9.2 GM/dL (11.7-16.9); MCH 29.7 pg (25.7-33.7); MCHC 32.4 g/dl (32.0-35.9); MEAN CELL VOLUME 91.8 fl (80-96); MEAN PLT VOLUME 9.5 fl (7.5-11.1); MONO % 7.7 % (3.8-10.2); PLATELET COUNT 157 K/MM3 (134-434); WHITE BLOOD COUNT 6.6 K/mm3 (4.0-10.0)
[2021-01-01 08:19] LABS: POTASSIUM 3.5 mmol/L (3.5-5.1)
[2021-01-01 08:57] LABS: ALBUMIN 2.8 g/dl (3.4-5.0)
[2021-01-01 08:59] LABS: CALCIUM 9.4 mg/dL (8.5-10.1)
[2021-01-01 09:02] LABS: CREATININE 5.1 mg/dL (0.55-1.3)
[2021-01-01 09:03] LABS: BLOOD UREA NITROGEN 23.6 mg/dL (7-18)
[2021-01-01 09:08] LABS: TOT PROT 6.5 g/dl (6.4-8.2)
[2021-01-01 09:09] LABS: BILIRUBIN,TOTAL 0.4 mg/dL (0.2-1)
[2021-01-01] MEDS: DULoxetine HCL 30 MG CAPSULE.DR PO SCH (09:56)
[2021-01-01] MEDS: PANTOPRAZOLE 40 MG TABLET PO SCH (09:56)
[2021-01-01] MEDS: SEVELAMER CARBONATE 800 MG TAB (FP) PO SCH ×3 (09:56→16:43)
[2021-01-01] MEDS: HEPARIN NA (PORCINE) 5,000 UNITS/ML 1ML VIAL SQ SCH ×2 (09:56→22:01)
[2021-01-01] MEDS: levETIRAcetam 250 MG TABLET PO SCH ×2 (09:56→22:01)
[2021-01-01] MEDS ORDERED: SODIUM CHLORIDE 250 ML IV PRN (12:08)
[2021-01-01 12:17] LABS: ANISOCYTOSIS 1+; MACROCYTOSIS 0; OVALOCYTE 1+; PLATELET ESTIMATE DECREASED
[2021-01-01] MEDS ORDERED: PT OWN MED DRAWER 7, Y5N ONE (21:26)
[2021-01-01] MEDS: ATORVASTATIN CA 20 MG TABLET (FP) PO SCH (22:02)
[2021-01-02] MEDS: INSULIN SLIDING SCALE (NOVOLOG) 1 VIAL SQ SCH ×2 (07:00→11:44)
[2021-01-02 07:55] LABS: BASO % 1.3 % (0-2.0); EOS % 23.6 % (0-4.5); HEMATOCRIT 27.5 % (35.4-49); HEMOGLOBIN 9.3 GM/dL (11.7-16.9); LYMPH % 17.3 % (8-40); MCH 30.7 pg (25.7-33.7); MCHC 33.9 g/dl (32.0-35.9); MEAN CELL VOLUME 90.6 fl (80-96); MEAN PLT VOLUME 9.5 fl (7.5-11.1); MONO % 7.9 % (3.8-10.2); NEUT % 49.9 % (42.8-82.8); PLATELET COUNT 172 K/MM3 (134-434); RBC 3.04 M/mm3 (4.00-5.60); RDW 15.6 % (11.9-15.9)
[2021-01-02] MEDS ORDERED: EPOETIN ALFA-EPBX 4,000 UNIT/ML VIAL SQ ONE (08:00)
[2021-01-02] MEDS ORDERED: SODIUM CHLORIDE 250 ML IV PRN (08:00)
[2021-01-02 08:19] LABS: POTASSIUM 3.8 mmol/L (3.5-5.1)
[2021-01-02 08:32] LABS: HEMATOCRIT 27.1 % (35.4-49); HEMOGLOBIN 9.1 GM/dL (11.7-16.9); MCH 30.4 pg (25.7-33.7); MCHC 33.5 g/dl (32.0-35.9); MEAN CELL VOLUME 90.6 fl (80-96); MEAN PLT VOLUME 9.2 fl (7.5-11.1); PLATELET COUNT 173 K/MM3 (134-434); RBC 2.98 M/mm3 (4.00-5.60); RDW 15.8 % (11.9-15.9); WHITE BLOOD COUNT 6.3 K/mm3 (4.0-10.0)
[2021-01-02 08:33] LABS: CALCIUM 9.4 mg/dL (8.5-10.1)
[2021-01-02 08:34] LABS: ALBUMIN 2.8 g/dl (3.4-5.0); BLOOD UREA NITROGEN 31.7 mg/dL (7-18)
[2021-01-02 08:37] LABS: CREATININE 6.4 mg/dL (0.55-1.3)
[2021-01-02 08:38] LABS: BILIRUBIN,TOTAL 0.3 mg/dL (0.2-1); TOT PROT 6.5 g/dl (6.4-8.2)
[2021-01-02 08:56] LABS: POTASSIUM 3.8 mmol/L (3.5-5.1)
[2021-01-02 09:00] LABS: BLOOD UREA NITROGEN 32.8 mg/dL (7-18)
[2021-01-02 09:04] LABS: CREATININE 6.5 mg/dL (0.55-1.3)
[2021-01-02 09:07] LABS: ANISOCYTOSIS 1+; MACROCYTOSIS 1+; PLATELET ESTIMATE NORMAL
[2021-01-02 09:16] LABS: CALCIUM 9.4 mg/dL (8.5-10.1)
[2021-01-02 09:19] LABS: PHOSPHOROUS 2.6 mg/dL (2.5-4.9)
[2021-01-02] MEDS ORDERED: PT OWN MED DRAWER 7, Y5N ONE (09:57)
[2021-01-02] MEDS: SEVELAMER CARBONATE 800 MG TAB (FP) PO SCH ×2 (10:06→11:36)
[2021-01-02] MEDS: DULoxetine HCL 30 MG CAPSULE.DR PO SCH (10:06)
[2021-01-02] MEDS: PANTOPRAZOLE 40 MG TABLET PO SCH (10:06)
[2021-01-02] MEDS: levETIRAcetam 250 MG TABLET PO SCH (10:06)
[2021-01-02] MEDS: HEPARIN NA (PORCINE) 5,000 UNITS/ML 1ML VIAL SQ SCH (10:06)
[2021-01-02 11:20] VITALS: TEMP 98.2
[2021-01-02 15:33] VITALS: BP 132/64; PULSE 63
== END 2021-01-02 15:32 ==
LOC: JER 19:15 → UNDOADMOB 12-30 04:42 → JERBED 12-30 04:42 → INTOOBSV 12-30 04:42 → JERBED 12-30 13:08 → OBSVTOIN 12-30 13:08 → INTOOBSV 12-30 13:08 → J4W 12-30 23:11
PROVIDERS: ADMIT Internal Medicine; ATTEND Family Medicine
PROC: 3E023GC Introduction of Other Therapeutic Substance into Muscle, Percutaneous Approach (ICD-10-PCS; principal; 2020-12-30)
PROC: 3E033GC Introduction of Other Therapeutic Substance into Peripheral Vein, Percutaneous Approach (ICD-10-PCS; 2020-12-30)
DX: R29.6 Repeated falls (principal); E11.22 Type 2 diabetes mellitus with diabetic chronic kidney disease; I13.2 Hypertensive heart and chronic kidney disease with heart failure and with stage 5 chronic kidney disease, or end stage renal disease; N18.6 End stage renal disease; Z99.2 Dependence on renal dialysis; I95.1 Orthostatic hypotension; I63.9 Cerebral infarction, unspecified; G81.90 Hemiplegia, unspecified affecting unspecified side; E87.6 Hypokalemia; E78.5 Hyperlipidemia, unspecified; I48.91 Unspecified atrial fibrillation; Z79.01 Long term (current) use of anticoagulants; Z29.9 Encounter for prophylactic measures, unspecified; E16.2 Hypoglycemia, unspecified; I34.0 Nonrheumatic mitral (valve) insufficiency; D64.9 Anemia, unspecified; Z87.891 Personal history of nicotine dependence; R34 Anuria and oliguria; M62.81 Muscle weakness (generalized); W18.39XA Other fall on same level, initial encounter; Y93.89 Activity, other specified; Y92.89 Other specified places as the place of occurrence of the external cause; Z79.4 Long term (current) use of insulin
CPT/HCPCS: 36415; 70450-TC; 71045-TC-FY; 71260-TC; 72125-TC; 74177-TC; 80048; 80053; 80074; 81003; 82533; 82550; 82962; 83036; 83605; 83735; 83880; 84100; 84153; 84484; 85025; 85027; 85610; 85730; 86803; 87086; 87186; 87340; 87804; 93005; 93010; 93880-TC; 95816; 96372; 96374; 97116-GP; 97162-GP; 99285-25; C9803; G0378; J1644; Q5106; U0003

== ENCOUNTER 2021-02-04 17:49 | Observation (INO) | payer OTHER ==
[2021-02-04 19:31] LABS: BASO % 0.7 % (0-2.0); EOS % 9.6 % (0-4.5); HEMATOCRIT 28.2 % (35.4-49); HEMOGLOBIN 9.1 GM/dL (11.7-16.9); LYMPH % 10.5 % (8-40); MCH 29.4 pg (25.7-33.7); MCHC 32.4 g/dl (32.0-35.9); MEAN CELL VOLUME 90.8 fl (80-96); MEAN PLT VOLUME 8.5 fl (7.5-11.1); MONO % 7.7 % (3.8-10.2); NEUT % 71.5 % (42.8-82.8); PLATELET COUNT 124 K/MM3 (134-434); RBC 3.11 M/mm3 (4.00-5.60); RDW 16.9 % (11.9-15.9)
[2021-02-04 19:37] LABS: INR 1.12 (0.83-1.09); PROTHROMBIN TIME (PATIENT) 13.5 SEC (9.7-13.0)
[2021-02-04 19:40] LABS: ACTIVATED PTT 36.8 SECONDS (25.2-36.5)
[2021-02-04 19:50] LABS: ALBUMIN 2.6 g/dl (3.4-5.0); BLOOD UREA NITROGEN 18.6 mg/dL (7-18); CALCIUM 9.4 mg/dL (8.5-10.1); MAGNESIUM 2.2 mg/dL (1.8-2.4)
[2021-02-04 19:53] LABS: CREATININE 4.2 mg/dL (0.55-1.3)
[2021-02-04 19:55] LABS: PHOSPHOROUS 3.3 mg/dL (2.5-4.9)
[2021-02-04 19:56] LABS: TOT PROT 6.6 g/dl (6.4-8.2)
[2021-02-04 20:02] LABS: BILIRUBIN,TOTAL 0.4 mg/dL (0.2-1)
[2021-02-05 07:56] LABS: BASO % 1.1 % (0-2.0); EOS % 16.5 % (0-4.5); HEMATOCRIT 31.1 % (35.4-49); LYMPH % 15.3 % (8-40); MCH 29.4 pg (25.7-33.7); MCHC 32.3 g/dl (32.0-35.9); MEAN CELL VOLUME 90.8 fl (80-96); MEAN PLT VOLUME 8.6 fl (7.5-11.1); MONO % 8.4 % (3.8-10.2); NEUT % 58.7 % (42.8-82.8); PLATELET COUNT 128 K/MM3 (134-434); RBC 3.42 M/mm3 (4.00-5.60); RDW 17.1 % (11.9-15.9)
[2021-02-05 08:22] LABS: ALBUMIN 2.7 g/dl (3.4-5.0)
[2021-02-05 08:24] LABS: MAGNESIUM 2.3 mg/dL (1.8-2.4)
[2021-02-05 08:26] LABS: CREATININE 4.8 mg/dL (0.55-1.3)
[2021-02-05 08:28] LABS: BILIRUBIN,TOTAL 0.8 mg/dL (0.2-1); TOT PROT 6.6 g/dl (6.4-8.2)
[2021-02-05] MEDS ORDERED: ARTIFICIAL TEARS (POLYVINYL ALCOHOL) OPTH DROPS OU PRN (08:36)
[2021-02-05] MEDS ORDERED: ALBUTEROL SO4 2.5/IPRATROPIUM 0.5 INH SOL 3 ML VIAL.NEB. NEB PRN (08:36)
[2021-02-05] MEDS: levETIRAcetam 250 MG TABLET PO SCH ×2 (10:11→21:39)
[2021-02-05] MEDS: VITAMIN B COMP W-C 1 EA TABLET (NEPHRO-VITE) PO SCH (10:11)
[2021-02-05] MEDS: SEVELAMER CARBONATE 800 MG TAB (FP) PO SCH (12:00)
[2021-02-05] MEDS ORDERED: SODIUM CHLORIDE 250 ML IV PRN (12:47)
[2021-02-05 20:47] VITALS: BMI 19.5
[2021-02-05] MEDS: ATORVASTATIN CA 40 MG TABLET (FP) PO SCH (21:39)
[2021-02-06 08:31] LABS: HEMATOCRIT 29.4 % (35.4-49); HEMOGLOBIN 9.6 GM/dL (11.7-16.9); MCH 29.7 pg (25.7-33.7); MCHC 32.8 g/dl (32.0-35.9); MEAN CELL VOLUME 90.6 fl (80-96); MEAN PLT VOLUME 8.9 fl (7.5-11.1); PLATELET COUNT 153 K/MM3 (134-434); RBC 3.25 M/mm3 (4.00-5.60); RDW 17.3 % (11.9-15.9); WHITE BLOOD COUNT 7.6 K/mm3 (4.0-10.0)
[2021-02-06 08:51] LABS: CHLORIDE 95 mmol/L (98-107); SODIUM 132 mmol/L (136-145)
[2021-02-06 08:59] LABS: ANION GAP 9 MMOL/L (8-16); BLOOD UREA NITROGEN 35.1 mg/dL (7-18); CO2 27 mmol/L (21-32)
[2021-02-06 09:03] LABS: CREATININE 6.4 mg/dL (0.55-1.3); PHOSPHOROUS 4.6 mg/dL (2.5-4.9)
[2021-02-06 09:04] LABS: GLUCOSE,RANDOM 49 mg/dL (74-106)
[2021-02-06] MEDS: VITAMIN B COMP W-C 1 EA TABLET (NEPHRO-VITE) PO SCH (10:52)
[2021-02-06] MEDS: levETIRAcetam 250 MG TABLET PO SCH ×2 (10:52→22:19)
[2021-02-06] MEDS: SEVELAMER CARBONATE 800 MG TAB (FP) PO SCH ×2 (10:52→12:25)
[2021-02-06 11:15] LABS: IRON SERUM 44 ug/dL (50-175); TOTAL IRON BINDING CAPACITY 114 ug/dL (250-450)
[2021-02-06] MEDS: MIDODRINE HCL 5 MG TABLET PO SCH ×2 (15:17→22:10)
[2021-02-06] MEDS: HEPARIN NA (PORCINE) 5,000 UNITS/ML 1ML VIAL SQ SCH (22:09)
[2021-02-06] MEDS: ATORVASTATIN CA 40 MG TABLET (FP) PO SCH (22:10)
[2021-02-07] MEDS: MIDODRINE HCL 5 MG TABLET PO SCH ×3 (05:59→22:05)
[2021-02-07] MEDS: levETIRAcetam 250 MG TABLET PO SCH ×2 (09:31→22:06)
[2021-02-07] MEDS: PANTOPRAZOLE 40 MG TABLET PO SCH (09:31)
[2021-02-07] MEDS: SEVELAMER CARBONATE 800 MG TAB (FP) PO SCH ×3 (09:31→17:08)
[2021-02-07] MEDS: DULoxetine HCL 30 MG CAPSULE.DR PO SCH (09:31)
[2021-02-07] MEDS: VITAMIN B COMP W-C 1 EA TABLET (NEPHRO-VITE) PO SCH (09:31)
[2021-02-07] MEDS: HEPARIN NA (PORCINE) 5,000 UNITS/ML 1ML VIAL SQ SCH ×2 (09:32→22:06)
[2021-02-07] MEDS: POLYETHYLENE GLYCOL 3350 119 GM BTL PO SCH (09:33)
[2021-02-07] MEDS ORDERED: PT OWN MED DRAWER 7, Y5N ONE (21:46)
[2021-02-07] MEDS: ATORVASTATIN CA 40 MG TABLET (FP) PO SCH (22:06)
[2021-02-08] MEDS: MIDODRINE HCL 5 MG TABLET PO SCH ×2 (05:34→14:00)
[2021-02-08] MEDS: SEVELAMER CARBONATE 800 MG TAB (FP) PO SCH ×3 (08:43→17:07)
[2021-02-08] MEDS ORDERED: PT OWN MED DRAWER 7, Y5N ONE ×3 (10:01→22:06)
[2021-02-08] MEDS: DULoxetine HCL 30 MG CAPSULE.DR PO SCH (10:13)
[2021-02-08] MEDS: levETIRAcetam 250 MG TABLET PO SCH ×2 (10:13→22:20)
[2021-02-08] MEDS: HEPARIN NA (PORCINE) 5,000 UNITS/ML 1ML VIAL SQ SCH ×2 (10:13→22:20)
[2021-02-08] MEDS: VITAMIN B COMP W-C 1 EA TABLET (NEPHRO-VITE) PO SCH (10:14)
[2021-02-08] MEDS: PANTOPRAZOLE 40 MG TABLET PO SCH (10:14)
[2021-02-08] MEDS: POLYETHYLENE GLYCOL 3350 119 GM BTL PO SCH (10:14)
[2021-02-08] MEDS ORDERED: SODIUM CHLORIDE 250 ML IV PRN (12:42)
[2021-02-08] MEDS ORDERED: ACETAMINOPHEN 325 MG TABLET (FP) PO PRN (15:36)
[2021-02-08] MEDS ORDERED: amLODIPine BESYLATE 2.5 MG TABLET (FP) PO ONE (15:38)
[2021-02-08] MEDS: ATORVASTATIN CA 40 MG TABLET (FP) PO SCH (22:20)
[2021-02-09] MEDS: SEVELAMER CARBONATE 800 MG TAB (FP) PO SCH ×2 (07:58→11:01)
[2021-02-09 08:54] LABS: HEMATOCRIT 27.7 % (35.4-49); HEMOGLOBIN 9.2 GM/dL (11.7-16.9); MCHC 33.2 g/dl (32.0-35.9); MEAN CELL VOLUME 90.2 fl (80-96); MEAN PLT VOLUME 8.9 fl (7.5-11.1); PLATELET COUNT 194 K/MM3 (134-434); RBC 3.07 M/mm3 (4.00-5.60); RDW 17.1 % (11.9-15.9); WHITE BLOOD COUNT 8.8 K/mm3 (4.0-10.0)
[2021-02-09] MEDS ORDERED: PT OWN MED DRAWER 7, Y5N ONE (09:08)
[2021-02-09 09:22] LABS: ALBUMIN 2.5 g/dl (3.4-5.0); BLOOD UREA NITROGEN 47.2 mg/dL (7-18); CALCIUM 10.4 mg/dL (8.5-10.1); CREATININE 6.8 mg/dL (0.55-1.3)
[2021-02-09 09:23] LABS: MAGNESIUM 2.3 mg/dL (1.8-2.4)
[2021-02-09 09:24] LABS: PHOSPHOROUS 2.6 mg/dL (2.5-4.9); TOT PROT 6.5 g/dl (6.4-8.2)
[2021-02-09 09:29] LABS: BILIRUBIN,TOTAL 0.4 mg/dL (0.2-1)
[2021-02-09] MEDS: VITAMIN B COMP W-C 1 EA TABLET (NEPHRO-VITE) PO SCH (10:56)
[2021-02-09] MEDS: PANTOPRAZOLE 40 MG TABLET PO SCH (10:56)
[2021-02-09] MEDS: HEPARIN NA (PORCINE) 5,000 UNITS/ML 1ML VIAL SQ SCH (10:57)
[2021-02-09] MEDS: levETIRAcetam 250 MG TABLET PO SCH (10:57)
[2021-02-09] MEDS: DULoxetine HCL 30 MG CAPSULE.DR PO SCH (10:57)
[2021-02-09] MEDS: POLYETHYLENE GLYCOL 3350 119 GM BTL PO SCH (10:58)
[2021-02-09 15:05] VITALS: PULSE 62
[2021-02-09 15:13] VITALS: BP 131/62; TEMP 98.5
== END 2021-02-09 18:20 ==
LOC: JER 17:49 → JERBED 20:17 → J4W 02-05 19:38
PROVIDERS: ADMIT Hospitalist; ATTEND Family Medicine
PROC: 3E023GC Introduction of Other Therapeutic Substance into Muscle, Percutaneous Approach (ICD-10-PCS; principal; 2021-02-04)
DX: I25.10 Atherosclerotic heart disease of native coronary artery without angina pectoris (principal); I13.2 Hypertensive heart and chronic kidney disease with heart failure and with stage 5 chronic kidney disease, or end stage renal disease; R55 Syncope and collapse; E78.00 Pure hypercholesterolemia, unspecified; Z86.73 Personal history of transient ischemic attack (TIA), and cerebral infarction without residual deficits; N40.0 Benign prostatic hyperplasia without lower urinary tract symptoms; Z99.2 Dependence on renal dialysis; D64.9 Anemia, unspecified; R56.9 Unspecified convulsions; E11.22 Type 2 diabetes mellitus with diabetic chronic kidney disease; N18.6 End stage renal disease; I50.9 Heart failure, unspecified; Z87.891 Personal history of nicotine dependence; I48.91 Unspecified atrial fibrillation; I35.1 Nonrheumatic aortic (valve) insufficiency; F41.9 Anxiety disorder, unspecified; Z29.9 Encounter for prophylactic measures, unspecified
CPT/HCPCS: 36415; 71045-TC-FY; 76937; 80048; 80053; 82550; 82607; 82728; 82962; 83540; 83550; 83735; 84100; 84443; 84484; 85025; 85027; 85610; 85730; 86803; 87340; 93005; 93010; 93306-TC; 96372; 99285-25; C9803; G0378; J1644; U0003; U0005

== ENCOUNTER 2021-04-01 15:39 | Inpatient (IN) | payer OTHER, MEDICARE ==
[2021-04-01 19:05] LABS: HEMATOCRIT 31.9 % (35.4-49); HEMOGLOBIN 10.5 GM/dL (11.7-16.9); MCH 30.2 pg (25.7-33.7); MCHC 32.8 g/dl (32.0-35.9); MEAN CELL VOLUME 92.1 fl (80-96); MEAN PLT VOLUME 8.4 fl (7.5-11.1); PLATELET COUNT 171 10^3/uL (134-434); RBC 3.46 M/mm3 (4.00-5.60); RDW 20.8 % (11.9-15.9); WHITE BLOOD COUNT 7.2 K/mm3 (4.0-10.0)
[2021-04-01 19:22] LABS: INR 1.03 (0.83-1.09); PROTHROMBIN TIME (PATIENT) 12.5 SEC (9.7-13.0)
[2021-04-01 19:25] LABS: CALCIUM 8.8 mg/dL (8.5-10.1)
[2021-04-01 19:26] LABS: ACTIVATED PTT 34.6 SECONDS (25.2-36.5)
[2021-04-01 19:27] LABS: ALBUMIN 2.9 g/dl (3.4-5.0); BLOOD UREA NITROGEN 54.7 mg/dL (7-18)
[2021-04-01 19:30] LABS: CREATININE 5.3 mg/dL (0.55-1.3)
[2021-04-01 19:32] LABS: BILIRUBIN,TOTAL 0.5 mg/dL (0.2-1); TOT PROT 6.7 g/dl (6.4-8.2)
[2021-04-01 20:27] LABS: ANISOCYTOSIS 3+; MACROCYTOSIS 1+; OVALOCYTE 1+; PLATELET ESTIMATE NORMAL; TARGET CELLS 1+
[2021-04-02] MEDS: levETIRAcetam 250 MG TABLET PO SCH ×3 (03:57→22:29)
[2021-04-02] MEDS: SEVELAMER CARBONATE 800 MG TAB (FP) PO SCH ×3 (06:55→22:29)
[2021-04-02] MEDS: INSULIN SLIDING SCALE (NOVOLOG) 1 VIAL SQ SCH ×4 (07:46→22:30)
[2021-04-02 10:49] LABS: BASO % 2.5 % (0-2.0); EOS % 21.8 % (0-4.5); HEMATOCRIT 30.4 % (35.4-49); LYMPH % 12.9 % (8-40); MCH 30.4 pg (25.7-33.7); MCHC 32.9 g/dl (32.0-35.9); MEAN CELL VOLUME 92.3 fl (80-96); MEAN PLT VOLUME 8.2 fl (7.5-11.1); NEUT % 53.8 % (42.8-82.8); PLATELET COUNT 152 10^3/uL (134-434); RDW 21.1 % (11.9-15.9)
[2021-04-02 11:09] LABS: BLOOD UREA NITROGEN 64.3 mg/dL (7-18); CALCIUM 8.5 mg/dL (8.5-10.1); MAGNESIUM 2.2 mg/dL (1.8-2.4)
[2021-04-02] MEDS: SODIUM ZIRCONIUM CYCLOSILICATE (LOKELMA) 5 GM PACKET PO SCH (11:09)
[2021-04-02 11:13] LABS: PHOSPHOROUS 4.6 mg/dL (2.5-4.9)
[2021-04-02 11:22] LABS: ANISOCYTOSIS 0; MACROCYTOSIS 1+; PLATELET ESTIMATE DECREASED
[2021-04-02] MEDS ORDERED: DEXTROSE 5%-WATER - 1,000 ML IV SCH (13:15)
[2021-04-02] MEDS ORDERED: DEXTROSE 5%-NORMAL SALINE 1,000 ML IV SCH (14:30)
[2021-04-02 14:51] LABS: EPI CELLS 9 /uL (0-25.1); HYALINE CASTS 2 /uL (0-3.1); URINE APPEARANCE TURBID; URINE BACTERIA 5976 /uL (0-1359); URINE BILIRUBIN NEGATIVE (NEGATIVE); URINE COLOR YELLOW; URINE GLUCOSE (UA) NEGATIVE (NEGATIVE); URINE KETONE NEGATIVE (NEGATIVE); URINE LEUK ESTERASE 3+ (NEGATIVE); URINE NITRITE NEGATIVE (NEGATIVE); URINE PROTEIN 2+ (NEGATIVE); URINE RBC 143 /uL (0-23.9); URINE UROBILINOGEN 0.2 mg/dL (0.2-1.0); URINE WBC 9581 /uL (0-25.8)
[2021-04-02] MEDS: ATORVASTATIN CA 40 MG TABLET (FP) PO SCH (22:29)
[2021-04-02] MEDS ORDERED: PT OWN MED DRAWER 7, Y5N ONE (22:29)
[2021-04-03] MEDS: SEVELAMER CARBONATE 800 MG TAB (FP) PO SCH ×4 (06:56→22:44)
[2021-04-03] MEDS: INSULIN SLIDING SCALE (NOVOLOG) 1 VIAL SQ SCH ×4 (06:56→22:44)
[2021-04-03] MEDS ORDERED: PT OWN MED DRAWER 7, Y5N ONE (09:41)
[2021-04-03] MEDS: SODIUM ZIRCONIUM CYCLOSILICATE (LOKELMA) 10 GM PACKET PO SCH (09:45)
[2021-04-03] MEDS: levETIRAcetam 250 MG TABLET PO SCH ×2 (09:45→22:44)
[2021-04-03] MEDS ORDERED: FUROSEMIDE 40 MG/4 ML INJECTABLE VIAL IVPUSH ONE (14:47)
[2021-04-03] MEDS: BACITRACIN 15 GM TUBE TOPICAL OINTMENT TP SCH (22:35)
[2021-04-03] MEDS: ATORVASTATIN CA 40 MG TABLET (FP) PO SCH (22:44)
[2021-04-03] MEDS ORDERED: hydrALAZINE HCL 25 MG TABLET (FP) PO PRN (23:32)
[2021-04-04] MEDS: SEVELAMER CARBONATE 800 MG TAB (FP) PO SCH ×3 (06:45→22:11)
[2021-04-04] MEDS: INSULIN SLIDING SCALE (NOVOLOG) 1 VIAL SQ SCH ×4 (07:15→22:11)
[2021-04-04] MEDS ORDERED: PT OWN MED DRAWER 7, Y5N ONE ×2 (09:27→17:13)
[2021-04-04] MEDS: levETIRAcetam 250 MG TABLET PO SCH ×2 (09:30→22:11)
[2021-04-04] MEDS: SODIUM ZIRCONIUM CYCLOSILICATE (LOKELMA) 10 GM PACKET PO SCH ×2 (09:31→22:10)
[2021-04-04] MEDS: BACITRACIN 15 GM TUBE TOPICAL OINTMENT TP SCH ×2 (09:34→22:08)
[2021-04-04] MEDS ORDERED: KCL 10 MEQ IVPB 10 MEQ/100 ML INFUS.BAG IVPB SCH (10:00)
[2021-04-04 12:05] LABS: HEMATOCRIT 28.5 % (35.4-49); HEMOGLOBIN 9.5 GM/dL (11.7-16.9); MCH 30.6 pg (25.7-33.7); MCHC 33.4 g/dl (32.0-35.9); MEAN CELL VOLUME 91.6 fl (80-96); MEAN PLT VOLUME 8.3 fl (7.5-11.1); PLATELET COUNT 155 10^3/uL (134-434); RBC 3.11 M/mm3 (4.00-5.60); RDW 20.1 % (11.9-15.9); WHITE BLOOD COUNT 5.4 K/mm3 (4.0-10.0)
[2021-04-04 12:27] LABS: CHLORIDE 92 mmol/L (98-107); SODIUM 129 mmol/L (136-145)
[2021-04-04 12:30] LABS: CALCIUM 8.6 mg/dL (8.5-10.1)
[2021-04-04 12:31] LABS: ALBUMIN 2.8 g/dl (3.4-5.0); ANION GAP 13 MMOL/L (8-16); CO2 23 mmol/L (21-32); GLUCOSE,RANDOM 90 mg/dL (74-106)
[2021-04-04 12:33] LABS: SGPT/ALT 10 U/L (13-61)
[2021-04-04 12:34] LABS: SGOT/AST 11 U/L (15-37)
[2021-04-04 12:35] LABS: BILIRUBIN,TOTAL 0.7 mg/dL (0.2-1); TOT PROT 5.9 g/dl (6.4-8.2)
[2021-04-04 12:36] LABS: ALK PHOS 102 U/L (45-117)
[2021-04-04 12:37] LABS: BLOOD UREA NITROGEN 96.4 mg/dL (7-18); CREATININE 8.4 mg/dL (0.55-1.3)
[2021-04-04] MEDS ORDERED: FUROSEMIDE 40 MG/4 ML INJECTABLE VIAL IVPUSH ONE (13:38)
[2021-04-04] MEDS: ATORVASTATIN CA 40 MG TABLET (FP) PO SCH (22:11)
[2021-04-05] MEDS: SEVELAMER CARBONATE 800 MG TAB (FP) PO SCH (06:28)
[2021-04-05] MEDS: INSULIN SLIDING SCALE (NOVOLOG) 1 VIAL SQ SCH ×3 (06:44→21:50)
[2021-04-05 07:28] LABS: HEMATOCRIT 29.7 % (35.4-49); MCH 30.7 pg (25.7-33.7); MCHC 33.6 g/dl (32.0-35.9); MEAN CELL VOLUME 91.4 fl (80-96); MEAN PLT VOLUME 8.2 fl (7.5-11.1); PLATELET COUNT 155 10^3/uL (134-434); RBC 3.25 M/mm3 (4.00-5.60); RDW 20.6 % (11.9-15.9); WHITE BLOOD COUNT 5.4 K/mm3 (4.0-10.0)
[2021-04-05 07:33] LABS: CHLORIDE 93 mmol/L (98-107); SODIUM 130 mmol/L (136-145)
[2021-04-05 07:36] LABS: ANION GAP 16 MMOL/L (8-16); CALCIUM 8.5 mg/dL (8.5-10.1); CO2 22 mmol/L (21-32)
[2021-04-05 07:37] LABS: ALBUMIN 2.9 g/dl (3.4-5.0); GLUCOSE,RANDOM 70 mg/dL (74-106)
[2021-04-05 07:40] LABS: IRON SERUM 51 ug/dL (50-175); SGPT/ALT 11 U/L (13-61)
[2021-04-05 07:41] LABS: BILIRUBIN,TOTAL 0.6 mg/dL (0.2-1); TOT PROT 6.4 g/dl (6.4-8.2); TOTAL IRON BINDING CAPACITY 154 ug/dL (250-450)
[2021-04-05 07:43] LABS: ALK PHOS 108 U/L (45-117)
[2021-04-05 07:53] LABS: SGOT/AST 12 U/L (15-37)
[2021-04-05 08:00] LABS: BLOOD UREA NITROGEN 107.6 mg/dL (7-18); CREATININE 9.4 mg/dL (0.55-1.3)
[2021-04-05] MEDS ORDERED: D5-NS + 40 MEQ KCL - 40 MEQ/1,000 ML INFUS.BAG IV SCH (09:30)
[2021-04-05] MEDS: SODIUM ZIRCONIUM CYCLOSILICATE (LOKELMA) 10 GM PACKET PO SCH ×2 (09:49→22:39)
[2021-04-05] MEDS: levETIRAcetam 250 MG TABLET PO SCH (09:49)
[2021-04-05] MEDS ORDERED: SEVELAMER CARBONATE 800 MG TAB (FP) PO SCH (09:57)
[2021-04-05] MEDS ORDERED: levETIRAcetam 500 MG/5 ML INJECTION VIAL IVPB SCH (10:00)
[2021-04-05] MEDS ORDERED: DEXTROSE 5%-NORMAL SALINE 1,000 ML IV SCH ×2 (10:15→16:49)
[2021-04-05] MEDS: BACITRACIN 15 GM TUBE TOPICAL OINTMENT TP SCH ×2 (11:56→21:23)
[2021-04-05] MEDS ORDERED: SODIUM CHLORIDE 250 ML IV PRN ×2 (12:44→16:49)
[2021-04-05] MEDS ORDERED: LIDOCAINE HCL 1%, 10 MG/ML (20ML VIAL) ONE (13:04)
[2021-04-05] MEDS ORDERED: HEPARIN NA (PORCINE) 5,000 UNITS/ML 1ML VIAL ONE (13:04)
[2021-04-05] MEDS ORDERED: LIDOCAINE HCL/PF 2% SDV 5ML VIAL ONE (13:06)
[2021-04-05] MEDS ORDERED: MIDAZOLAM HCL 2 MG/2 ML SINGLE DOSE VIAL ONE (13:06)
[2021-04-05] MEDS ORDERED: PROPOFOL 20 ML ONE (13:06)
[2021-04-05] MEDS ORDERED: POVIDONE-IODINE OINTMENT 10% - 28.4 GM TUBE ONE (15:39)
[2021-04-05] MEDS ORDERED: ONDANSETRON 4 MG/2 ML VIAL IVPUSH PRN (16:34)
[2021-04-05] MEDS: ATORVASTATIN CA 40 MG TABLET (FP) PO SCH (21:22)
[2021-04-05] MEDS: levETIRAcetam 500 MG/5 ML INJECTION VIAL IVPB SCH (21:22)
[2021-04-06] MEDS: hydrALAZINE HCL 25 MG TABLET (FP) PO PRN ×3 (05:39→21:15)
[2021-04-06] MEDS: INSULIN SLIDING SCALE (NOVOLOG) 1 VIAL SQ SCH ×4 (06:13→21:18)
[2021-04-06] MEDS ORDERED: PT OWN MED DRAWER 7, Y5N ONE ×2 (06:24→09:49)
[2021-04-06] MEDS ORDERED: SODIUM CHLORIDE 250 ML IV PRN (08:06)
[2021-04-06] MEDS: SEVELAMER CARBONATE 800 MG TAB (FP) PO SCH ×3 (09:54→16:58)
[2021-04-06] MEDS: SODIUM ZIRCONIUM CYCLOSILICATE (LOKELMA) 10 GM PACKET PO SCH (09:54)
[2021-04-06] MEDS: BACITRACIN 15 GM TUBE TOPICAL OINTMENT TP SCH (09:54)
[2021-04-06] MEDS: levETIRAcetam 500 MG/5 ML INJECTION VIAL IVPB SCH ×2 (09:54→21:24)
[2021-04-06 10:11] LABS: HEMOGLOBIN 9.9 GM/dL (11.7-16.9); MCH 29.8 pg (25.7-33.7); MCHC 31.9 g/dl (32.0-35.9); MEAN CELL VOLUME 93.4 fl (80-96); MEAN PLT VOLUME 8.4 fl (7.5-11.1); PLATELET COUNT 157 10^3/uL (134-434); RBC 3.32 M/mm3 (4.00-5.60); RDW 20.1 % (11.9-15.9); WHITE BLOOD COUNT 5.4 K/mm3 (4.0-10.0)
[2021-04-06 10:35] LABS: CALCIUM 8.3 mg/dL (8.5-10.1)
[2021-04-06 10:38] LABS: CREATININE 6.7 mg/dL (0.55-1.3)
[2021-04-06 10:39] LABS: PHOSPHOROUS 4.7 mg/dL (2.5-4.9)
[2021-04-06 10:42] LABS: BLOOD UREA NITROGEN 68.4 mg/dL (7-18)
[2021-04-06] MEDS ORDERED: amLODIPine BESYLATE 5 MG TABLET (FP) PO ONE (12:15)
[2021-04-06] MEDS: ATORVASTATIN CA 40 MG TABLET (FP) PO SCH (21:15)
[2021-04-06] MEDS ORDERED: LABETALOL HCL 5 MG/1 ML (100MG/20 ML VIAL) IVPB ONE (23:34)
[2021-04-07] MEDS: BACITRACIN 15 GM TUBE TOPICAL OINTMENT TP SCH ×3 (01:01→21:15)
[2021-04-07] MEDS ORDERED: amLODIPine BESYLATE 5 MG TABLET (FP) PO ONE (02:23)
[2021-04-07] MEDS: INSULIN SLIDING SCALE (NOVOLOG) 1 VIAL SQ SCH ×4 (06:08→21:15)
[2021-04-07 07:22] LABS: CALCIUM 8.3 mg/dL (8.5-10.1)
[2021-04-07 07:23] LABS: ALBUMIN 2.9 g/dl (3.4-5.0)
[2021-04-07 07:26] LABS: MAGNESIUM 2.1 mg/dL (1.8-2.4); PHOSPHOROUS 3.9 mg/dL (2.5-4.9)
[2021-04-07 07:28] LABS: BILIRUBIN,TOTAL 0.4 mg/dL (0.2-1); TOT PROT 6.3 g/dl (6.4-8.2)
[2021-04-07 07:30] LABS: BLOOD UREA NITROGEN 41.9 mg/dL (7-18); CREATININE 4.9 mg/dL (0.55-1.3)
[2021-04-07 07:31] LABS: HEMATOCRIT 32.4 % (35.4-49); HEMOGLOBIN 10.5 GM/dL (11.7-16.9); MCH 30.3 pg (25.7-33.7); MCHC 32.6 g/dl (32.0-35.9); MEAN CELL VOLUME 92.9 fl (80-96); MEAN PLT VOLUME 9.1 fl (7.5-11.1); PLATELET COUNT 75 10^3/uL (134-434); RBC 3.48 M/mm3 (4.00-5.60); RDW 20.2 % (11.9-15.9); WHITE BLOOD COUNT 6.2 K/mm3 (4.0-10.0)
[2021-04-07] MEDS ORDERED: LABETALOL HCL 100 MG TABLET (FP) PO SCH (10:00)
[2021-04-07] MEDS ORDERED: amLODIPine BESYLATE 5 MG TABLET (FP) PO SCH (10:00)
[2021-04-07] MEDS: levETIRAcetam 500 MG/5 ML INJECTION VIAL IVPB SCH (10:22)
[2021-04-07] MEDS: SEVELAMER CARBONATE 800 MG TAB (FP) PO SCH ×5 (10:22→17:04)
[2021-04-07] MEDS: LOSARTAN POTASSIUM 50 MG TABLET PO SCH ×2 (12:15→13:41)
[2021-04-07] MEDS: hydrALAZINE HCL 25 MG TABLET (FP) PO PRN (20:14)
[2021-04-07] MEDS ORDERED: ACETAMINOPHEN 325 MG TABLET (FP) PO PRN (21:02)
[2021-04-07] MEDS: levETIRAcetam 250 MG TABLET PO SCH (21:14)
[2021-04-07] MEDS: ATORVASTATIN CA 40 MG TABLET (FP) PO SCH (21:14)
[2021-04-07] MEDS ORDERED: PT OWN MED DRAWER 7, Y5N ONE (21:42)
[2021-04-08] MEDS: hydrALAZINE HCL 25 MG TABLET (FP) PO PRN (05:55)
[2021-04-08] MEDS: INSULIN SLIDING SCALE (NOVOLOG) 1 VIAL SQ SCH ×2 (06:14→12:00)
[2021-04-08] MEDS: hydrALAZINE HCL 25 MG TABLET (FP) PO SCH ×2 (07:01→12:30)
[2021-04-08] MEDS ORDERED: SODIUM CHLORIDE 250 ML IV PRN (08:22)
[2021-04-08] MEDS: LOSARTAN POTASSIUM 50 MG TABLET PO SCH (09:03)
[2021-04-08] MEDS: levETIRAcetam 250 MG TABLET PO SCH (09:03)
[2021-04-08] MEDS: SEVELAMER CARBONATE 800 MG TAB (FP) PO SCH ×2 (09:03→12:00)
[2021-04-08 09:38] LABS: HEMATOCRIT 28.9 % (35.4-49); HEMOGLOBIN 9.5 GM/dL (11.7-16.9); MCH 30.3 pg (25.7-33.7); MCHC 32.7 g/dl (32.0-35.9); MEAN CELL VOLUME 92.5 fl (80-96); MEAN PLT VOLUME 8.7 fl (7.5-11.1); PLATELET COUNT 136 10^3/uL (134-434); RBC 3.13 M/mm3 (4.00-5.60); RDW 19.7 % (11.9-15.9); WHITE BLOOD COUNT 5.7 K/mm3 (4.0-10.0)
[2021-04-08 09:59] LABS: BLOOD UREA NITROGEN 47.2 mg/dL (7-18); CALCIUM 8.7 mg/dL (8.5-10.1)
[2021-04-08] MEDS ORDERED: amLODIPine BESYLATE 5 MG TABLET (FP) PO SCH (10:00)
[2021-04-08] MEDS ORDERED: amLODIPine BESYLATE 10 MG TABLET (FP) PO SCH (10:00)
[2021-04-08 10:03] LABS: CREATININE 6.4 mg/dL (0.55-1.3)
[2021-04-08] MEDS ORDERED: LABETALOL HCL 200 MG TABLET (FP) PO ONE (12:32)
[2021-04-08 14:18] VITALS: BP 177/86; PULSE 67
[2021-04-08 14:20] VITALS: BMI 20.2
[2021-04-08 14:53] VITALS: TEMP 98.8
[2021-04-08] MEDS ORDERED: LOSARTAN POTASSIUM 50 MG TABLET PO SCH (22:00)
[2021-04-09] MEDS ORDERED: VITAMIN B COMP W-C 1 EA TABLET (NEPHRO-VITE) PO SCH (10:00)
== END 2021-04-08 15:52 | DRG 252 ==
LOC: JER 15:39 → JERBED 22:50 → J6S 04-02 03:04 → J4W 04-07 00:31
PROVIDERS: ADMIT Hospitalist; ATTEND Family Medicine
PROC: B548ZZA Ultrasonography of Superior Vena Cava, Guidance (ICD-10-PCS; 2021-04-05)
PROC: 5A1D70Z Performance of Urinary Filtration, Intermittent, Less than 6 Hours Per Day (ICD-10-PCS; 2021-04-05)
PROC: 05LF0ZZ Occlusion of Left Cephalic Vein, Open Approach (ICD-10-PCS; principal; 2021-04-05 14:00)
PROC: 02H633Z Insertion of Infusion Device into Right Atrium, Percutaneous Approach (ICD-10-PCS; 2021-04-05 14:00)
DX: T82.511A Breakdown (mechanical) of surgically created arteriovenous shunt, initial encounter (principal); N18.6 End stage renal disease; I13.2 Hypertensive heart and chronic kidney disease with heart failure and with stage 5 chronic kidney disease, or end stage renal disease; I69.354 Hemiplegia and hemiparesis following cerebral infarction affecting left non-dominant side; E87.1 Hypo-osmolality and hyponatremia; I50.32 Chronic diastolic (congestive) heart failure; I72.1 Aneurysm of artery of upper extremity; I48.0 Paroxysmal atrial fibrillation; E11.22 Type 2 diabetes mellitus with diabetic chronic kidney disease; Z99.2 Dependence on renal dialysis; E78.5 Hyperlipidemia, unspecified; D64.9 Anemia, unspecified; R56.9 Unspecified convulsions; Y83.8 Other surgical procedures as the cause of abnormal reaction of the patient, or of later complication, without mention of misadventure at the time of the procedure; I25.10 Atherosclerotic heart disease of native coronary artery without angina pectoris
CPT/HCPCS: 36415; 70450-TC; 71045-TC-FY; 73201-TC-RT; 76000-TC-FY; 80048; 80053; 81003; 82728; 82962; 83036; 83540; 83550; 83735; 84100; 84484; 85025; 85027; 85610; 85730; 86803; 86850; 86900; 86901; 87040; 87086; 87186; 87340; 93005; 93010; 94760; 97116-GP; 97162-GP; 99285-25; C9803; J1644; Q9967; U0003; U0005

== ENCOUNTER 2021-06-22 20:06 | Emergency (ER) | payer OTHER ==
[2021-06-22 20:30] VITALS: BP 129/55; TEMP 98.2; BMI 21.8
[2021-06-22 22:29] VITALS: PULSE 69
== END 2021-06-23 10:31 | disposition left against medical advice (07) ==
LOC: JER 20:06
DX: N18.6 End stage renal disease (principal); R55 Syncope and collapse; R11.2 Nausea with vomiting, unspecified; Z99.2 Dependence on renal dialysis
CPT/HCPCS: 70450-TC; 71045-TC-FY; 82962; 93005; 93010; 99285-25

== ENCOUNTER 2021-07-29 04:39 | Day surgery (SDC) | payer OTHER ==
[2021-07-28 18:55] VITALS: BMI 22.6
[2021-07-29] MEDS ORDERED: LIDOCAINE HCL 1%, 10 MG/ML (20ML VIAL) ONE ×2 (08:36→10:17)
[2021-07-29] MEDS ORDERED: HEPARIN NA (PORCINE) 5,000 UNITS/ML 1ML VIAL ONE (08:36)
[2021-07-29] MEDS ORDERED: POVIDONE-IODINE OINTMENT 10% - 28.4 GM TUBE ONE (08:37)
[2021-07-29] MEDS ORDERED: LIDOCAINE HCL 1%, 10 MG/ML (20ML VIAL) NR ONE ×3 (08:49→10:09)
[2021-07-29] MEDS ORDERED: HEPARIN NA (PORCINE) 5,000 UNITS/ML 1ML VIAL SQ ONE ×2 (08:53→10:12)
[2021-07-29] MEDS ORDERED: MIDAZOLAM HCL 2 MG/2 ML SINGLE DOSE VIAL ONE ×2 (08:53→10:25)
[2021-07-29 09:20] LABS: INR 1.13 (0.83-1.09); PROTHROMBIN TIME (PATIENT) 12.7 SEC (9.7-13.0)
[2021-07-29] MEDS ORDERED: ceFAZolin SODIUM 1 GM VIAL ONE (09:59)
[2021-07-29] MEDS ORDERED: ceFAZolin 2 GRAM PREMIX BAG IVPB ONE (10:00)
[2021-07-29] MEDS ORDERED: POVIDONE-IODINE OINTMENT 10% - 28.4 GM TUBE TP ONE (11:36)
[2021-07-29] MEDS ORDERED: oxyCODONE HCL 5 MG TABLET PO PRN (12:48)
[2021-07-29] MEDS ORDERED: ONDANSETRON 4 MG/2 ML VIAL IVPUSH PRN (12:48)
[2021-07-29] MEDS ORDERED: SODIUM CHLORIDE 1,000 ML IV SCH (13:00)
[2021-07-29 14:53] VITALS: TEMP 97.8
[2021-07-29 15:05] VITALS: BP 166/70; PULSE 70
== END 2021-07-29 14:15 | disposition home or self-care (01) ==
LOC: JASU-SURG 04:39
PROVIDERS: ATTEND Surgery Vascular Surgery
PROC: 03170JD Bypass Right Brachial Artery to Upper Arm Vein with Synthetic Substitute, Open Approach (ICD-10-PCS; principal; 2021-07-29 09:30)
DX: I12.0 Hypertensive chronic kidney disease with stage 5 chronic kidney disease or end stage renal disease (principal); E11.22 Type 2 diabetes mellitus with diabetic chronic kidney disease; N18.6 End stage renal disease; Z99.2 Dependence on renal dialysis
CPT/HCPCS: 36415; 84132; 85610; 94760; J1644

== ENCOUNTER 2021-09-27 04:44 | Day surgery (SDC) | payer OTHER ==
[2021-09-24 16:37] VITALS: BMI 22.1
[~2021-09-27 04:44] MED LIST: HEPARIN NA (PORCINE) 5,000 UNITS/ML 1ML VIAL SQ ONE; LIDOCAINE HCL 1%, 10 MG/ML (20ML VIAL) NR ONE
[2021-09-27] MEDS ORDERED: LIDOCAINE HCL 1%, 10 MG/ML (20ML VIAL) ONE (12:02)
[2021-09-27] MEDS ORDERED: HEPARIN NA (PORCINE) 5,000 UNITS/ML 1ML VIAL ONE ×2 (12:02→13:27)
[2021-09-27] MEDS ORDERED: LIDOCAINE HCL 1%, 10 MG/ML (20ML VIAL) NR ONE (13:18)
[2021-09-27] MEDS ORDERED: HEPARIN NA (PORCINE) 5,000 UNITS/ML 1ML VIAL SQ ONE (13:18)
[2021-09-27] MEDS ORDERED: MIDAZOLAM HCL 2 MG/2 ML SINGLE DOSE VIAL ONE (13:28)
[2021-09-27 15:58] VITALS: BP 169/81; PULSE 73; TEMP 98
== END 2021-09-27 15:35 | disposition home or self-care (01) ==
LOC: JASU-SURG 04:44
PROVIDERS: ATTEND Surgery Vascular Surgery
PROC: 05WY3JZ Revision of Synthetic Substitute in Upper Vein, Percutaneous Approach (ICD-10-PCS; principal; 2021-09-27 14:00)
DX: T82.858A Stenosis of other vascular prosthetic devices, implants and grafts, initial encounter (principal); Y83.2 Surgical operation with anastomosis, bypass or graft as the cause of abnormal reaction of the patient, or of later complication, without mention of misadventure at the time of the procedure; I12.0 Hypertensive chronic kidney disease with stage 5 chronic kidney disease or end stage renal disease; E11.22 Type 2 diabetes mellitus with diabetic chronic kidney disease; N18.6 End stage renal disease; Z99.2 Dependence on renal dialysis
CPT/HCPCS: 36415; 76000-TC-FY; 82962; 84132; 94760; J1644

== ENCOUNTER 2021-10-07 20:37 | Inpatient (IN) | payer OTHER ==
[2021-10-07 21:24] LABS: BASO % 0.6 % (0-2.0); EOS % 10.6 % (0-4.5); HEMOGLOBIN 10.2 GM/dL (11.7-16.9); LYMPH % 34.4 % (8-40); MCH 31.6 pg (25.7-33.7); MCHC 32.8 g/dl (32.0-35.9); MEAN CELL VOLUME 96.2 fl (80-96); MONO % 5.2 % (3.8-10.2); NEUT % 49.2 % (42.8-82.8); RBC 3.23 M/mm3 (4.00-5.60); RDW 15.2 % (11.9-15.9); WHITE BLOOD COUNT 7.4 K/mm3 (4.0-10.0)
[2021-10-07 21:32] LABS: INR 1.16 (0.83-1.09); PROTHROMBIN TIME (PATIENT) 13.6 SEC (9.7-13.0)
[2021-10-07 21:35] LABS: ACTIVATED PTT 76.5 SECONDS (25.2-36.5); VENOUS BASE EXCESS -5.5 mmol/L (-2-2); VENOUS O2 SATURATION 98.5 % (70-80); VENOUS PCO2 53.3 mmHg (38-52); VENOUS PH 7.236 (7.310-7.410)
[2021-10-07] MEDS ORDERED: MIDAZOLAM HCL 2 MG/2 ML SINGLE DOSE VIAL IVPUSH ONE ×2 (21:39→23:12)
[2021-10-07] MEDS ORDERED: MIDAZOLAM HCL 2 MG/2 ML SINGLE DOSE VIAL ONE ×2 (21:40→23:13)
[2021-10-07 21:55] LABS: ALBUMIN 2.7 g/dl (3.4-5.0); BLOOD UREA NITROGEN 22.3 mg/dL (7-18); CALCIUM 7.9 mg/dL (8.5-10.1)
[2021-10-07 21:59] LABS: BILIRUBIN,TOTAL 0.4 mg/dL (0.2-1); PHOSPHOROUS 3.1 mg/dL (2.5-4.9); TOT PROT 6.6 g/dl (6.4-8.2)
[2021-10-07] MEDS ORDERED: FENTANYL INJECTION 500 MCG in SODIUM CHLORIDE 90 ML IVPB SCH (22:00)
[2021-10-07 22:01] LABS: LACTIC ACID 4.5 mmol/L (0.4-2.0)
[2021-10-07 22:02] LABS: PLATELET ESTIMATE DECREASED
[2021-10-07 22:03] LABS: MEAN PLT VOLUME 9.1 fl (7.5-11.1); PLATELET COUNT 76 10^3/uL (134-434)
[2021-10-07] MEDS ORDERED: FENTANYL NS IVPB 500 MCG/100 ML BAG IVPB ONE (22:19)
[2021-10-07] MEDS: FENTANYL NS IVPB 500 MCG/100 ML BAG IVPB SCH (22:27)
[2021-10-07 22:41] LABS: ARTERIAL BLD GAS O2 SATURATION 98.8 % (95-98); ARTERIAL BLOOD GAS BASE EXCESS -1.5 mmol/L (-2-2); ARTERIAL BLOOD GAS PO2 145.3 mmHg (80-100); ARTERIAL BLOOD GAS pH 7.357 (7.350-7.450)
[2021-10-07] MEDS ORDERED: MIDAZOLAM IN 0.9 % SOD.CHLORID 100 MG/100 ML PLAST..BAG IVPB SCH (23:15)
[2021-10-08] MEDS ORDERED: PIPERACILLIN/TAZOB 2.25 GM 2.25 GM in DEXTROSE 5%-WATER - 50 ML IVPB SCH ×2 (00:15→00:30)
[2021-10-08] MEDS ORDERED: VANCOMYCIN 1 GM in D5W (PRE-DOCKED) 1,000 MG/250 ML IVPB SCH ×2 (00:30→10:00)
[2021-10-08] MEDS ORDERED: VANCOMYCIN 1 GRAM (PRE-DOCKED) 1,000 MG/250 ML BAG IVPB ONE (00:45)
[2021-10-08] MEDS ORDERED: PIPERACILLIN/TAZOBACTAM 2.25 GM VIAL IVPB ONE ×3 (01:08→17:48)
[2021-10-08] MEDS ORDERED: DEXTROSE 5%-WATER - 50 ML IVPB ONE ×3 (01:08→17:48)
[2021-10-08] MEDS: MUPIROCIN 2% TOPICAL OINTMENT FOR DECOLONIZATION NS SCH ×3 (01:17→21:28)
[2021-10-08] MEDS: PIPERACILLIN/TAZOB 2.25 GM 2.25 GM in DEXTROSE 5%-WATER - 50 ML IVPB SCH ×3 (01:19→17:51)
[2021-10-08 02:22] LABS: EPI CELLS 23 /uL (0-25.1); HYALINE CASTS 5 /uL (0-3.1); URINE APPEARANCE CLOUDY; URINE BACTERIA 301 /uL (0-1359); URINE BILIRUBIN NEGATIVE (NEGATIVE); URINE COLOR YELLOW; URINE GLUCOSE (UA) NEGATIVE (NEGATIVE); URINE KETONE NEGATIVE (NEGATIVE); URINE LEUK ESTERASE 2+ (NEGATIVE); URINE NITRITE NEGATIVE (NEGATIVE); URINE PROTEIN 3+ (NEGATIVE); URINE RBC 133 /uL (0-23.9); URINE UROBILINOGEN 0.2 mg/dL (0.2-1.0); URINE WBC 2061 /uL (0-25.8)
[2021-10-08 02:36] LABS: ARTERIAL BLD GAS O2 SATURATION 99.7 % (95-98); ARTERIAL BLOOD GAS BASE EXCESS 0.3 mmol/L (-2-2); ARTERIAL BLOOD GAS pH 7.327 (7.350-7.450)
[2021-10-08 05:05] LABS: ARTERIAL BLD GAS O2 SATURATION 99.1 % (95-98); ARTERIAL BLOOD GAS BASE EXCESS 2.1 mmol/L (-2-2)
[2021-10-08 05:09] LABS: VENT MODE V-A/C; VENT RATE 14
[2021-10-08] MEDS ORDERED: DEXTROSE 50%-WATER - 25 GM/50 ML VIAL IVPUSH ONE (06:45)
[2021-10-08] MEDS ORDERED: DEXTROSE 50%-WATER 25 GM/50 ML DISP.SYRIN ONE (06:57)
[2021-10-08] MEDS: INSULIN SLIDING SCALE (NOVOLOG) 1 VIAL SQ SCH ×4 (07:03→21:42)
[2021-10-08 07:21] LABS: BASO % 0.8 % (0-2.0); HEMATOCRIT 31.1 % (35.4-49); HEMOGLOBIN 10.2 GM/dL (11.7-16.9); LYMPH % 13.1 % (8-40); MCH 31.4 pg (25.7-33.7); MCHC 32.7 g/dl (32.0-35.9); MEAN CELL VOLUME 95.9 fl (80-96); MEAN PLT VOLUME 9.4 fl (7.5-11.1); MONO % 7.5 % (3.8-10.2); NEUT % 64.6 % (42.8-82.8); PLATELET COUNT 95 10^3/uL (134-434); RBC 3.24 M/mm3 (4.00-5.60); RDW 14.9 % (11.9-15.9); WHITE BLOOD COUNT 8.5 K/mm3 (4.0-10.0)
[2021-10-08 07:42] LABS: CALCIUM 8.4 mg/dL (8.5-10.1); MAGNESIUM 2.1 mg/dL (1.8-2.4)
[2021-10-08 07:44] LABS: CREATININE 3.5 mg/dL (0.55-1.3)
[2021-10-08 07:47] LABS: BILIRUBIN,TOTAL 0.4 mg/dL (0.2-1); TOT PROT 6.5 g/dl (6.4-8.2)
[2021-10-08 08:03] LABS: ALBUMIN 3.1 g/dl (3.4-5.0)
[2021-10-08] MEDS: PANTOPRAZOLE SODIUM 40 MG VIAL IVPUSH SCH (09:24)
[2021-10-08] MEDS ORDERED: MUPIROCIN 2% TOPICAL OINTMENT FOR DECOLONIZATION NS SCH (10:00)
[2021-10-08] MEDS ORDERED: levETIRAcetam 250 MG TABLET PO SCH (10:00)
[2021-10-08] MEDS ORDERED: PT OWN MED DRAWER 7, Y5N ONE (12:00)
[2021-10-08] MEDS: levETIRAcetam 500 MG/5 ML INJECTION VIAL IVPB SCH ×2 (12:18→21:25)
[2021-10-08] MEDS: SEVELAMER CARBONATE 800 MG TAB (FP) PO SCH ×2 (13:13→17:46)
[2021-10-08] MEDS ORDERED: SODIUM CHLORIDE 250 ML IV PRN (14:10)
[2021-10-08] MEDS ORDERED: DEXTROSE 5%-LACTATED RINGERS 1,000 ML IV SCH (16:30)
[2021-10-08] MEDS: METOPROLOL TARTRATE 25 MG TABLET (FP) PO SCH (21:25)
[2021-10-08] MEDS: CHLORHEXIDINE GLUCONATE 4% CLEANSER FOR DECOLONIZATION TP SCH (21:25)
[2021-10-08] MEDS: HEPARIN NA (PORCINE) 5,000 UNITS/ML 1ML VIAL SQ SCH (21:25)
[2021-10-08] MEDS ORDERED: CHLORHEXIDINE GLUCONATE 4% CLEANSER FOR DECOLONIZATION TP SCH (22:00)
[2021-10-08] MEDS ORDERED: VALPROATE SODIUM 500 MG/5 ML VIAL IVPB SCH (22:00)
[2021-10-08] MEDS: VALPROATE SODIUM INJECTION 500 MG in SODIUM CHLORIDE 100 ML IVPB SCH (22:25)
[2021-10-08] MEDS: FENTANYL NS IVPB 500 MCG/100 ML BAG IVPB SCH (22:28)
[2021-10-09] MEDS ORDERED: PIPERACILLIN/TAZOBACTAM 2.25 GM VIAL IVPB ONE ×3 (00:38→17:16)
[2021-10-09] MEDS ORDERED: DEXTROSE 5%-WATER - 50 ML IVPB ONE ×3 (00:38→17:16)
[2021-10-09] MEDS: PIPERACILLIN/TAZOB 2.25 GM 2.25 GM in DEXTROSE 5%-WATER - 50 ML IVPB SCH ×3 (01:16→17:17)
[2021-10-09] MEDS ORDERED: DEXTROSE 50%-WATER - 25 GM/50 ML VIAL IVPUSH ONE (06:18)
[2021-10-09] MEDS: INSULIN SLIDING SCALE (NOVOLOG) 1 VIAL SQ SCH ×4 (06:25→21:29)
[2021-10-09] MEDS ORDERED: DEXTROSE 50%-WATER 25 GM/50 ML DISP.SYRIN ONE (06:30)
[2021-10-09 08:51] LABS: HEMATOCRIT 28.5 % (35.4-49); HEMOGLOBIN 9.1 GM/dL (11.7-16.9); MCH 30.9 pg (25.7-33.7); MCHC 31.9 g/dl (32.0-35.9); MEAN CELL VOLUME 96.8 fl (80-96); MEAN PLT VOLUME 9.4 fl (7.5-11.1); PLATELET COUNT 112 10^3/uL (134-434); RBC 2.95 M/mm3 (4.00-5.60); RDW 15.1 % (11.9-15.9); WHITE BLOOD COUNT 6.9 K/mm3 (4.0-10.0)
[2021-10-09 09:14] LABS: CALCIUM 8.7 mg/dL (8.5-10.1)
[2021-10-09 09:15] LABS: BLOOD UREA NITROGEN 36.9 mg/dL (7-18)
[2021-10-09 09:18] LABS: CREATININE 5.1 mg/dL (0.55-1.3); PHOSPHOROUS 4.5 mg/dL (2.5-4.9)
[2021-10-09] MEDS ORDERED: PT OWN MED DRAWER 7, Y5N ONE (10:14)
[2021-10-09] MEDS: HEPARIN NA (PORCINE) 5,000 UNITS/ML 1ML VIAL SQ SCH ×2 (10:19→21:29)
[2021-10-09] MEDS: PANTOPRAZOLE SODIUM 40 MG VIAL IVPUSH SCH (11:55)
[2021-10-09] MEDS: SEVELAMER CARBONATE 800 MG TAB (FP) PO SCH ×3 (11:57→17:13)
[2021-10-09] MEDS: METOPROLOL TARTRATE 25 MG TABLET (FP) PO SCH ×2 (11:57→21:29)
[2021-10-09] MEDS: MUPIROCIN 2% TOPICAL OINTMENT FOR DECOLONIZATION NS SCH ×2 (11:57→21:29)
[2021-10-09] MEDS: amLODIPine BESYLATE 10 MG TABLET (FP) PO SCH (11:57)
[2021-10-09] MEDS: DULoxetine HCL 30 MG CAPSULE.DR PO SCH (11:57)
[2021-10-09] MEDS: levETIRAcetam 500 MG/5 ML INJECTION VIAL IVPB SCH (12:03)
[2021-10-09] MEDS: VALPROATE SODIUM INJECTION 500 MG in SODIUM CHLORIDE 100 ML IVPB SCH ×2 (12:36→22:44)
[2021-10-09] MEDS: CHLORHEXIDINE GLUCONATE 4% CLEANSER FOR DECOLONIZATION TP SCH (21:29)
[2021-10-09] MEDS: FENTANYL NS IVPB 500 MCG/100 ML BAG IVPB SCH (21:30)
[2021-10-10] MEDS ORDERED: DEXTROSE 5%-WATER - 50 ML IVPB ONE ×3 (00:40→17:02)
[2021-10-10] MEDS ORDERED: PIPERACILLIN/TAZOBACTAM 2.25 GM VIAL IVPB ONE ×3 (00:40→17:02)
[2021-10-10] MEDS: PIPERACILLIN/TAZOB 2.25 GM 2.25 GM in DEXTROSE 5%-WATER - 50 ML IVPB SCH ×3 (02:02→17:03)
[2021-10-10] MEDS: INSULIN SLIDING SCALE (NOVOLOG) 1 VIAL SQ SCH ×4 (07:17→22:48)
[2021-10-10] MEDS: HEPARIN NA (PORCINE) 5,000 UNITS/ML 1ML VIAL SQ SCH ×2 (09:25→21:54)
[2021-10-10] MEDS: amLODIPine BESYLATE 10 MG TABLET (FP) PO SCH (09:25)
[2021-10-10] MEDS: SEVELAMER CARBONATE 800 MG TAB (FP) PO SCH ×3 (09:25→17:03)
[2021-10-10] MEDS: MUPIROCIN 2% TOPICAL OINTMENT FOR DECOLONIZATION NS SCH ×2 (09:25→21:55)
[2021-10-10] MEDS: DULoxetine HCL 30 MG CAPSULE.DR PO SCH (09:25)
[2021-10-10] MEDS: PANTOPRAZOLE SODIUM 40 MG VIAL IVPUSH SCH (09:25)
[2021-10-10] MEDS: METOPROLOL TARTRATE 25 MG TABLET (FP) PO SCH ×2 (09:25→21:54)
[2021-10-10] MEDS ORDERED: PT OWN MED DRAWER 7, Y5N ONE ×2 (09:32→10:23)
[2021-10-10] MEDS: VALPROATE SODIUM INJECTION 500 MG in SODIUM CHLORIDE 100 ML IVPB SCH ×2 (10:36→22:37)
[2021-10-10] MEDS: CHLORHEXIDINE GLUCONATE 4% CLEANSER FOR DECOLONIZATION TP SCH (21:54)
[2021-10-11] MEDS ORDERED: PIPERACILLIN/TAZOBACTAM 2.25 GM VIAL IVPB ONE ×3 (00:13→17:09)
[2021-10-11] MEDS ORDERED: DEXTROSE 5%-WATER - 50 ML IVPB ONE ×3 (00:13→17:10)
[2021-10-11] MEDS ORDERED: hydrALAZINE HCL 50 MG TABLET (FP) PO ONE (00:17)
[2021-10-11] MEDS: PIPERACILLIN/TAZOB 2.25 GM 2.25 GM in DEXTROSE 5%-WATER - 50 ML IVPB SCH ×3 (01:41→17:24)
[2021-10-11] MEDS: INSULIN SLIDING SCALE (NOVOLOG) 1 VIAL SQ SCH ×4 (07:04→22:09)
[2021-10-11 08:12] LABS: HEMATOCRIT 34.6 % (35.4-49); MCH 30.7 pg (25.7-33.7); MCHC 31.8 g/dl (32.0-35.9); MEAN CELL VOLUME 96.7 fl (80-96); PLATELET COUNT 135 10^3/uL (134-434); RBC 3.57 M/mm3 (4.00-5.60); RDW 15.3 % (11.9-15.9); WHITE BLOOD COUNT 6.5 K/mm3 (4.0-10.0)
[2021-10-11 08:29] LABS: CALCIUM 8.5 mg/dL (8.5-10.1)
[2021-10-11 08:30] LABS: BLOOD UREA NITROGEN 36.1 mg/dL (7-18)
[2021-10-11 08:33] LABS: CREATININE 5.4 mg/dL (0.55-1.3)
[2021-10-11 09:15] LABS: ANISOCYTOSIS 0; MACROCYTOSIS 0; OVALOCYTE 1+; PLATELET ESTIMATE NORMAL; ROULEAU 1+; TARGET CELLS 1+
[2021-10-11] MEDS: PANTOPRAZOLE SODIUM 40 MG VIAL IVPUSH SCH (09:40)
[2021-10-11] MEDS: SEVELAMER CARBONATE 800 MG TAB (FP) PO SCH ×3 (09:42→17:24)
[2021-10-11] MEDS: MUPIROCIN 2% TOPICAL OINTMENT FOR DECOLONIZATION NS SCH ×2 (09:42→22:08)
[2021-10-11] MEDS: DULoxetine HCL 30 MG CAPSULE.DR PO SCH (09:43)
[2021-10-11] MEDS: amLODIPine BESYLATE 10 MG TABLET (FP) PO SCH (09:45)
[2021-10-11] MEDS: METOPROLOL TARTRATE 25 MG TABLET (FP) PO SCH ×2 (09:46→22:09)
[2021-10-11] MEDS: HEPARIN NA (PORCINE) 5,000 UNITS/ML 1ML VIAL SQ SCH ×2 (09:46→22:08)
[2021-10-11] MEDS ORDERED: PT OWN MED DRAWER 7, Y5N ONE ×2 (12:07→21:42)
[2021-10-11] MEDS: VALPROATE SODIUM INJECTION 500 MG in SODIUM CHLORIDE 100 ML IVPB SCH ×2 (12:16→23:30)
[2021-10-11] MEDS ORDERED: SODIUM CHLORIDE 250 ML IV PRN (12:42)
[2021-10-11] MEDS: ALBUTEROL SO4 2.5/IPRATROPIUM 0.5 INH SOL 3 ML VIAL.NEB. NEB SCH ×2 (14:32→20:07)
[2021-10-11] MEDS: CHLORHEXIDINE GLUCONATE 4% CLEANSER FOR DECOLONIZATION TP SCH (22:09)
[2021-10-12] MEDS ORDERED: DEXTROSE 5%-WATER - 50 ML IVPB ONE ×3 (01:55→16:01)
[2021-10-12] MEDS ORDERED: PIPERACILLIN/TAZOBACTAM 2.25 GM VIAL IVPB ONE ×3 (01:55→16:01)
[2021-10-12] MEDS: PIPERACILLIN/TAZOB 2.25 GM 2.25 GM in DEXTROSE 5%-WATER - 50 ML IVPB SCH ×3 (01:59→17:10)
[2021-10-12] MEDS: INSULIN SLIDING SCALE (NOVOLOG) 1 VIAL SQ SCH ×4 (06:33→23:02)
[2021-10-12] MEDS: ALBUTEROL SO4 2.5/IPRATROPIUM 0.5 INH SOL 3 ML VIAL.NEB. NEB SCH ×3 (07:50→20:10)
[2021-10-12] MEDS: SEVELAMER CARBONATE 800 MG TAB (FP) PO SCH ×3 (08:45→17:10)
[2021-10-12] MEDS ORDERED: PT OWN MED DRAWER 7, Y5N ONE (08:48)
[2021-10-12] MEDS: METOPROLOL TARTRATE 25 MG TABLET (FP) PO SCH ×2 (09:03→21:01)
[2021-10-12] MEDS: DULoxetine HCL 30 MG CAPSULE.DR PO SCH (09:03)
[2021-10-12] MEDS: MUPIROCIN 2% TOPICAL OINTMENT FOR DECOLONIZATION NS SCH ×2 (09:03→21:02)
[2021-10-12] MEDS: amLODIPine BESYLATE 10 MG TABLET (FP) PO SCH (09:03)
[2021-10-12] MEDS: PANTOPRAZOLE SODIUM 40 MG VIAL IVPUSH SCH (09:04)
[2021-10-12] MEDS: HEPARIN NA (PORCINE) 5,000 UNITS/ML 1ML VIAL SQ SCH ×2 (09:04→21:01)
[2021-10-12] MEDS: VALPROATE SODIUM INJECTION 500 MG in SODIUM CHLORIDE 100 ML IVPB SCH ×2 (11:35→21:01)
[2021-10-12 13:29] LABS: HEMATOCRIT 31.6 % (35.4-49); HEMOGLOBIN 10.3 GM/dL (11.7-16.9); MCH 31.4 pg (25.7-33.7); MCHC 32.8 g/dl (32.0-35.9); MEAN CELL VOLUME 95.8 fl (80-96); MEAN PLT VOLUME 9.1 fl (7.5-11.1); PLATELET COUNT 128 10^3/uL (134-434); RDW 14.9 % (11.9-15.9); WHITE BLOOD COUNT 4.4 K/mm3 (4.0-10.0)
[2021-10-12 13:46] LABS: CALCIUM 8.1 mg/dL (8.5-10.1)
[2021-10-12 13:47] LABS: BLOOD UREA NITROGEN 51.3 mg/dL (7-18)
[2021-10-12 13:50] LABS: PHOSPHOROUS 6.4 mg/dL (2.5-4.9)
[2021-10-12 13:52] LABS: BILIRUBIN,TOTAL 0.5 mg/dL (0.2-1); TOT PROT 6.2 g/dl (6.4-8.2)
[2021-10-12] MEDS ORDERED: DEXTROSE 50%-WATER 25 GM/50 ML DISP.SYRIN ONE (13:55)
[2021-10-12 13:59] LABS: ALBUMIN 2.4 g/dl (3.4-5.0)
[2021-10-12] MEDS ORDERED: DEXTROSE 50%-WATER - 25 GM/50 ML VIAL IVPUSH PRN (15:01)
[2021-10-12] MEDS: LOSARTAN POTASSIUM 25 MG TABLET PO SCH (16:45)
[2021-10-12] MEDS ORDERED: METOPROLOL TARTRATE 5 MG/5 ML VIAL IVPUSH ONE (18:46)
[2021-10-12] MEDS ORDERED: METOPROLOL TARTRATE 5 MG/5 ML VIAL ONE (18:47)
[2021-10-12] MEDS ORDERED: ACETAMINOPHEN 325 MG TABLET (FP) PO PRN (20:05)
[2021-10-12] MEDS: CHLORHEXIDINE GLUCONATE 4% CLEANSER FOR DECOLONIZATION TP SCH (21:01)
[2021-10-12] MEDS: METOPROLOL TARTRATE 5 MG/5 ML VIAL IVPUSH PRN (22:46)
[2021-10-13] MEDS ORDERED: METOPROLOL TARTRATE 5 MG/5 ML VIAL IVPUSH ONE (01:14)
[2021-10-13] MEDS ORDERED: ACETAMINOPHEN 1000 MG/100 ML BAG IVPB ONE (01:22)
[2021-10-13] MEDS ORDERED: DEXTROSE 5%-WATER - 50 ML IVPB ONE ×3 (01:24→17:53)
[2021-10-13] MEDS ORDERED: PIPERACILLIN/TAZOBACTAM 2.25 GM VIAL IVPB ONE ×3 (01:24→17:53)
[2021-10-13] MEDS: PIPERACILLIN/TAZOB 2.25 GM 2.25 GM in DEXTROSE 5%-WATER - 50 ML IVPB SCH ×3 (02:09→18:15)
[2021-10-13] MEDS: METOPROLOL TARTRATE 5 MG/5 ML VIAL IVPUSH PRN (06:10)
[2021-10-13] MEDS ORDERED: DEXTROSE 50%-WATER - 25 GM/50 ML VIAL IVPUSH ONE (06:42)
[2021-10-13] MEDS: hydrALAZINE HCL 25 MG TABLET (FP) PO SCH ×3 (06:42→22:03)
[2021-10-13] MEDS: INSULIN SLIDING SCALE (NOVOLOG) 1 VIAL SQ SCH ×4 (06:42→22:15)
[2021-10-13] MEDS ORDERED: DEXTROSE 50%-WATER 25 GM/50 ML DISP.SYRIN ONE (06:58)
[2021-10-13] MEDS: ALBUTEROL SO4 2.5/IPRATROPIUM 0.5 INH SOL 3 ML VIAL.NEB. NEB SCH ×3 (08:20→20:10)
[2021-10-13] MEDS ORDERED: PT OWN MED DRAWER 7, Y5N ONE (09:40)
[2021-10-13] MEDS: DULoxetine HCL 30 MG CAPSULE.DR PO SCH (09:57)
[2021-10-13] MEDS: PANTOPRAZOLE SODIUM 40 MG VIAL IVPUSH SCH (09:57)
[2021-10-13] MEDS: HEPARIN NA (PORCINE) 5,000 UNITS/ML 1ML VIAL SQ SCH ×2 (09:57→22:03)
[2021-10-13] MEDS: METOPROLOL TARTRATE 25 MG TABLET (FP) PO SCH ×2 (09:58→22:03)
[2021-10-13] MEDS: amLODIPine BESYLATE 10 MG TABLET (FP) PO SCH (09:58)
[2021-10-13] MEDS: SEVELAMER CARBONATE 800 MG TAB (FP) PO SCH ×3 (09:58→17:50)
[2021-10-13] MEDS: LOSARTAN POTASSIUM 25 MG TABLET PO SCH (09:58)
[2021-10-13] MEDS: VALPROATE SODIUM INJECTION 500 MG in SODIUM CHLORIDE 100 ML IVPB SCH ×2 (10:45→22:05)
[2021-10-13] MEDS ORDERED: DEXTROSE 50%-WATER - 25 GM/50 ML VIAL IVPUSH PRN (13:08)
[2021-10-13] MEDS ORDERED: SODIUM CHLORIDE 250 ML IV PRN (13:42)
[2021-10-13] MEDS ORDERED: REMDESIVIR 200 MG in SODIUM CHLORIDE 250 ML IVPB ONE (15:00)
[2021-10-13] MEDS: CHLORHEXIDINE GLUCONATE 4% CLEANSER FOR DECOLONIZATION TP SCH (22:03)
[2021-10-14] MEDS ORDERED: PIPERACILLIN/TAZOBACTAM 2.25 GM VIAL IVPB ONE ×3 (00:19→16:39)
[2021-10-14] MEDS ORDERED: DEXTROSE 5%-WATER - 50 ML IVPB ONE ×3 (00:19→16:39)
[2021-10-14] MEDS: PIPERACILLIN/TAZOB 2.25 GM 2.25 GM in DEXTROSE 5%-WATER - 50 ML IVPB SCH ×3 (01:24→18:07)
[2021-10-14] MEDS: hydrALAZINE HCL 25 MG TABLET (FP) PO SCH ×3 (05:24→21:22)
[2021-10-14] MEDS: INSULIN SLIDING SCALE (NOVOLOG) 1 VIAL SQ SCH ×4 (06:56→21:28)
[2021-10-14] MEDS ORDERED: DEXTROSE 50%-WATER 25 GM/50 ML DISP.SYRIN ONE (06:58)
[2021-10-14] MEDS: ALBUTEROL SO4 2.5/IPRATROPIUM 0.5 INH SOL 3 ML VIAL.NEB. NEB SCH ×2 (08:20→14:54)
[2021-10-14 09:00] LABS: HEMATOCRIT 29.5 % (35.4-49); HEMOGLOBIN 9.5 GM/dL (11.7-16.9); MCH 31.1 pg (25.7-33.7); MCHC 32.4 g/dl (32.0-35.9); MEAN CELL VOLUME 95.9 fl (80-96); MEAN PLT VOLUME 9.4 fl (7.5-11.1); PLATELET COUNT 114 10^3/uL (134-434); RBC 3.07 M/mm3 (4.00-5.60); RDW 14.8 % (11.9-15.9); WHITE BLOOD COUNT 4.3 K/mm3 (4.0-10.0)
[2021-10-14] MEDS: SEVELAMER CARBONATE 800 MG TAB (FP) PO SCH ×3 (09:20→19:07)
[2021-10-14] MEDS: DULoxetine HCL 30 MG CAPSULE.DR PO SCH (09:20)
[2021-10-14] MEDS: PANTOPRAZOLE SODIUM 40 MG VIAL IVPUSH SCH (09:20)
[2021-10-14] MEDS: HEPARIN NA (PORCINE) 5,000 UNITS/ML 1ML VIAL SQ SCH (09:30)
[2021-10-14 09:43] LABS: CALCIUM 8.1 mg/dL (8.5-10.1)
[2021-10-14 09:44] LABS: BLOOD UREA NITROGEN 41.7 mg/dL (7-18)
[2021-10-14 09:47] LABS: CREATININE 6.3 mg/dL (0.55-1.3)
[2021-10-14] MEDS: METOPROLOL TARTRATE 25 MG TABLET (FP) PO SCH ×2 (09:50→21:22)
[2021-10-14] MEDS: VALPROATE SODIUM INJECTION 500 MG in SODIUM CHLORIDE 100 ML IVPB SCH ×2 (09:50→21:05)
[2021-10-14] MEDS: LOSARTAN POTASSIUM 25 MG TABLET PO SCH (09:50)
[2021-10-14] MEDS: amLODIPine BESYLATE 10 MG TABLET (FP) PO SCH (09:50)
[2021-10-14] MEDS ORDERED: guaiFENesin 200 MG/10 ML 10 ML UNIT-DOSE CUPS PO PRN (10:39)
[2021-10-14] MEDS ORDERED: ALBUTEROL SO4 HFA INHALER IH PRN (10:39)
[2021-10-14] MEDS: REMDESIVIR 100 MG in SODIUM CHLORIDE 250 ML IVPB SCH (14:21)
[2021-10-14] MEDS: DEXAMETHASONE SOD PHOSPHATE 10 MG/1 ML VIAL IVPUSH SCH (15:04)
[2021-10-14] MEDS: ALBUTEROL SO4 HFA INHALER IH SCH (17:00)
[2021-10-14] MEDS ORDERED: PANTOPRAZOLE SODIUM 40 MG in SODIUM CHLORIDE 100 ML IVPB SCH (18:30)
[2021-10-14] MEDS ORDERED: ALBUTEROL SO4 2.5/IPRATROPIUM 0.5 INH SOL 3 ML VIAL.NEB. NEB SCH (20:00)
[2021-10-14] MEDS ORDERED: PT OWN MED DRAWER 7, Y5N ONE (21:05)
[2021-10-14] MEDS: BUDESONIDE/FORMETEROL FUMARATE 160/4.5 mcg INHALER IH SCH (21:22)
[2021-10-14] MEDS: CHLORHEXIDINE GLUCONATE 4% CLEANSER FOR DECOLONIZATION TP SCH (21:22)
[2021-10-14] MEDS: PANTOPRAZOLE SODIUM 40 MG VIAL IVPB SCH (21:22)
[2021-10-15] MEDS ORDERED: PIPERACILLIN/TAZOBACTAM 2.25 GM VIAL IVPB ONE ×2 (00:43→09:07)
[2021-10-15] MEDS ORDERED: DEXTROSE 5%-WATER - 50 ML IVPB ONE ×2 (00:43→09:07)
[2021-10-15] MEDS: PIPERACILLIN/TAZOB 2.25 GM 2.25 GM in DEXTROSE 5%-WATER - 50 ML IVPB SCH ×2 (02:05→10:30)
[2021-10-15] MEDS: hydrALAZINE HCL 25 MG TABLET (FP) PO SCH ×3 (06:05→21:22)
[2021-10-15] MEDS: INSULIN SLIDING SCALE (NOVOLOG) 1 VIAL SQ SCH ×4 (07:05→21:58)
[2021-10-15] MEDS: ALBUTEROL SO4 HFA INHALER IH SCH ×4 (09:00→22:03)
[2021-10-15] MEDS: VALPROATE SODIUM INJECTION 500 MG in SODIUM CHLORIDE 100 ML IVPB SCH ×2 (09:20→21:19)
[2021-10-15] MEDS: SEVELAMER CARBONATE 800 MG TAB (FP) PO SCH ×3 (09:23→17:09)
[2021-10-15] MEDS ORDERED: PT OWN MED DRAWER 7, Y5N ONE (11:08)
[2021-10-15] MEDS: METOPROLOL TARTRATE 25 MG TABLET (FP) PO SCH ×2 (11:12→22:02)
[2021-10-15] MEDS: LOSARTAN POTASSIUM 25 MG TABLET PO SCH (11:12)
[2021-10-15] MEDS: BUDESONIDE/FORMETEROL FUMARATE 160/4.5 mcg INHALER IH SCH ×2 (11:12→21:58)
[2021-10-15] MEDS: DULoxetine HCL 30 MG CAPSULE.DR PO SCH (11:13)
[2021-10-15] MEDS: amLODIPine BESYLATE 10 MG TABLET (FP) PO SCH (11:13)
[2021-10-15] MEDS: PANTOPRAZOLE SODIUM 40 MG VIAL IVPB SCH (11:14)
[2021-10-15] MEDS: DEXAMETHASONE SOD PHOSPHATE 10 MG/1 ML VIAL IVPUSH SCH (11:14)
[2021-10-15 14:00] LABS: HEMATOCRIT 28.9 % (35.4-49); HEMOGLOBIN 9.3 GM/dL (11.7-16.9); MCH 30.8 pg (25.7-33.7); MCHC 32.2 g/dl (32.0-35.9); MEAN CELL VOLUME 95.5 fl (80-96); MEAN PLT VOLUME 9.3 fl (7.5-11.1); PLATELET COUNT 139 10^3/uL (134-434); RBC 3.03 M/mm3 (4.00-5.60); RDW 15.2 % (11.9-15.9); WHITE BLOOD COUNT 3.1 K/mm3 (4.0-10.0)
[2021-10-15] MEDS ORDERED: SODIUM CHLORIDE 250 ML IV PRN (14:19)
[2021-10-15] MEDS: REMDESIVIR 100 MG in SODIUM CHLORIDE 250 ML IVPB SCH (15:36)
[2021-10-16] MEDS: hydrALAZINE HCL 25 MG TABLET (FP) PO SCH ×3 (06:30→22:10)
[2021-10-16] MEDS: INSULIN SLIDING SCALE (NOVOLOG) 1 VIAL SQ SCH ×4 (06:30→22:11)
[2021-10-16] MEDS ORDERED: PT OWN MED DRAWER 7, Y5N ONE (07:49)
[2021-10-16] MEDS: SEVELAMER CARBONATE 800 MG TAB (FP) PO SCH ×3 (08:17→18:23)
[2021-10-16] MEDS: ALBUTEROL SO4 HFA INHALER IH SCH ×3 (09:46→18:24)
[2021-10-16] MEDS: DEXAMETHASONE SOD PHOSPHATE 10 MG/1 ML VIAL IVPUSH SCH (09:48)
[2021-10-16] MEDS: LOSARTAN POTASSIUM 25 MG TABLET PO SCH (09:48)
[2021-10-16] MEDS: METOPROLOL TARTRATE 25 MG TABLET (FP) PO SCH ×2 (09:48→22:10)
[2021-10-16] MEDS: PANTOPRAZOLE SODIUM 40 MG VIAL IVPB SCH (09:52)
[2021-10-16] MEDS: VALPROATE SODIUM INJECTION 500 MG in SODIUM CHLORIDE 100 ML IVPB SCH (09:52)
[2021-10-16] MEDS: BUDESONIDE/FORMETEROL FUMARATE 160/4.5 mcg INHALER IH SCH ×2 (09:52→22:11)
[2021-10-16] MEDS: DULoxetine HCL 30 MG CAPSULE.DR PO SCH (09:56)
[2021-10-16] MEDS: amLODIPine BESYLATE 10 MG TABLET (FP) PO SCH (09:56)
[2021-10-16] MEDS: REMDESIVIR 100 MG in SODIUM CHLORIDE 250 ML IVPB SCH (16:00)
[2021-10-16] MEDS: DIVALPROEX SODIUM 500 MG TABLET E.C. PO SCH (22:10)
[2021-10-17] MEDS: INSULIN SLIDING SCALE (NOVOLOG) 1 VIAL SQ SCH ×4 (07:17→21:20)
[2021-10-17] MEDS: hydrALAZINE HCL 25 MG TABLET (FP) PO SCH ×3 (07:17→21:19)
[2021-10-17] MEDS: ALBUTEROL SO4 HFA INHALER IH SCH ×4 (09:30→17:41)
[2021-10-17] MEDS: SEVELAMER CARBONATE 800 MG TAB (FP) PO SCH ×2 (09:31→12:48)
[2021-10-17] MEDS: DULoxetine HCL 30 MG CAPSULE.DR PO SCH (09:32)
[2021-10-17] MEDS: LOSARTAN POTASSIUM 25 MG TABLET PO SCH (09:32)
[2021-10-17] MEDS: PANTOPRAZOLE 40 MG TABLET PO SCH (09:33)
[2021-10-17] MEDS: DIVALPROEX SODIUM 500 MG TABLET E.C. PO SCH ×2 (09:33→21:19)
[2021-10-17] MEDS: METOPROLOL TARTRATE 25 MG TABLET (FP) PO SCH ×2 (09:33→21:19)
[2021-10-17] MEDS: amLODIPine BESYLATE 10 MG TABLET (FP) PO SCH (09:33)
[2021-10-17] MEDS: BUDESONIDE/FORMETEROL FUMARATE 160/4.5 mcg INHALER IH SCH ×2 (09:54→21:20)
[2021-10-17] MEDS: DEXAMETHASONE SOD PHOSPHATE 10 MG/1 ML VIAL IVPUSH SCH (10:11)
[2021-10-17 12:27] LABS: HEMATOCRIT 27.1 % (35.4-49); HEMOGLOBIN 8.9 GM/dL (11.7-16.9); MCH 31.1 pg (25.7-33.7); MCHC 32.8 g/dl (32.0-35.9); MEAN CELL VOLUME 94.8 fl (80-96); MEAN PLT VOLUME 9.4 fl (7.5-11.1); PLATELET COUNT 179 10^3/uL (134-434); RBC 2.86 M/mm3 (4.00-5.60); WHITE BLOOD COUNT 3.6 K/mm3 (4.0-10.0)
[2021-10-17] MEDS: DEXAMETHASONE 4 MG TABLET (FP) PO SCH (17:41)
[2021-10-17] MEDS: REMDESIVIR 100 MG in SODIUM CHLORIDE 250 ML IVPB SCH (17:41)
[2021-10-17] MEDS ORDERED: PT OWN MED DRAWER 7, Y5N ONE (20:00)
[2021-10-18] MEDS: INSULIN SLIDING SCALE (NOVOLOG) 1 VIAL SQ SCH ×4 (06:51→21:34)
[2021-10-18] MEDS: hydrALAZINE HCL 25 MG TABLET (FP) PO SCH ×3 (06:51→21:24)
[2021-10-18] MEDS: SEVELAMER CARBONATE 800 MG TAB (FP) PO SCH ×4 (07:56→17:36)
[2021-10-18] MEDS: ALBUTEROL SO4 HFA INHALER IH SCH ×5 (07:56→20:05)
[2021-10-18] MEDS ORDERED: PT OWN MED DRAWER 7, Y5N ONE ×2 (09:19→21:14)
[2021-10-18] MEDS: DEXAMETHASONE 4 MG TABLET (FP) PO SCH (09:34)
[2021-10-18] MEDS: DIVALPROEX SODIUM 500 MG TABLET E.C. PO SCH ×2 (09:38→21:24)
[2021-10-18] MEDS: METOPROLOL TARTRATE 25 MG TABLET (FP) PO SCH ×2 (09:39→21:24)
[2021-10-18] MEDS: LOSARTAN POTASSIUM 25 MG TABLET PO SCH (09:39)
[2021-10-18] MEDS: amLODIPine BESYLATE 10 MG TABLET (FP) PO SCH (09:39)
[2021-10-18] MEDS: DULoxetine HCL 30 MG CAPSULE.DR PO SCH (09:40)
[2021-10-18] MEDS: BUDESONIDE/FORMETEROL FUMARATE 160/4.5 mcg INHALER IH SCH ×2 (09:40→21:25)
[2021-10-18] MEDS: PANTOPRAZOLE 40 MG TABLET PO SCH (09:40)
[2021-10-18] MEDS ORDERED: METOPROLOL TARTRATE 25 MG TABLET (FP) PO ONE (17:48)
[2021-10-19] MEDS: hydrALAZINE HCL 25 MG TABLET (FP) PO SCH ×4 (06:01→21:20)
[2021-10-19] MEDS: INSULIN SLIDING SCALE (NOVOLOG) 1 VIAL SQ SCH ×4 (06:07→21:20)
[2021-10-19] MEDS: SEVELAMER CARBONATE 800 MG TAB (FP) PO SCH ×4 (08:13→17:04)
[2021-10-19] MEDS: ALBUTEROL SO4 HFA INHALER IH SCH ×4 (08:17→20:29)
[2021-10-19] MEDS: amLODIPine BESYLATE 10 MG TABLET (FP) PO SCH (09:59)
[2021-10-19] MEDS: DIVALPROEX SODIUM 500 MG TABLET E.C. PO SCH ×2 (09:59→21:20)
[2021-10-19] MEDS: LOSARTAN POTASSIUM 25 MG TABLET PO SCH (09:59)
[2021-10-19] MEDS: METOPROLOL TARTRATE 25 MG TABLET (FP) PO SCH ×2 (10:00→21:20)
[2021-10-19] MEDS: PANTOPRAZOLE 40 MG TABLET PO SCH (10:00)
[2021-10-19] MEDS: DULoxetine HCL 30 MG CAPSULE.DR PO SCH (10:00)
[2021-10-19] MEDS: DEXAMETHASONE 4 MG TABLET (FP) PO SCH (10:00)
[2021-10-19] MEDS: BUDESONIDE/FORMETEROL FUMARATE 160/4.5 mcg INHALER IH SCH ×2 (10:18→21:20)
[2021-10-19] MEDS ORDERED: SODIUM CHLORIDE 250 ML IV PRN ×2 (10:54→16:10)
[2021-10-19] MEDS ORDERED: EPOETIN ALFA-EPBX 20,000 UNIT/ML VIAL IVPUSH ONE (11:00)
[2021-10-20] MEDS: INSULIN SLIDING SCALE (NOVOLOG) 1 VIAL SQ SCH ×4 (06:09→22:33)
[2021-10-20] MEDS: hydrALAZINE HCL 25 MG TABLET (FP) PO SCH ×3 (06:37→22:32)
[2021-10-20] MEDS: SEVELAMER CARBONATE 800 MG TAB (FP) PO SCH ×3 (11:25→17:46)
[2021-10-20] MEDS: LOSARTAN POTASSIUM 25 MG TABLET PO SCH (11:25)
[2021-10-20] MEDS: DULoxetine HCL 30 MG CAPSULE.DR PO SCH (11:26)
[2021-10-20] MEDS: amLODIPine BESYLATE 10 MG TABLET (FP) PO SCH (11:27)
[2021-10-20] MEDS: PANTOPRAZOLE 40 MG TABLET PO SCH (11:27)
[2021-10-20] MEDS: METOPROLOL TARTRATE 25 MG TABLET (FP) PO SCH ×2 (11:27→22:33)
[2021-10-20] MEDS: DEXAMETHASONE 4 MG TABLET (FP) PO SCH (12:31)
[2021-10-20] MEDS: ALBUTEROL SO4 HFA INHALER IH SCH ×3 (12:31→22:33)
[2021-10-20] MEDS: BUDESONIDE/FORMETEROL FUMARATE 160/4.5 mcg INHALER IH SCH ×2 (12:32→22:33)
[2021-10-20] MEDS: DIVALPROEX SODIUM 500 MG TABLET E.C. PO SCH ×2 (12:32→22:32)
[2021-10-20 18:10] LABS: CHLORIDE 103 mmol/L (98-107); SODIUM 145 mmol/L (136-145)
[2021-10-20 18:12] LABS: CALCIUM 8.5 mg/dL (8.5-10.1)
[2021-10-20 18:13] LABS: ALBUMIN 2.6 g/dl (3.4-5.0); ANION GAP 12 MMOL/L (8-16); CO2 30 mmol/L (21-32); GLUCOSE,RANDOM 113 mg/dL (74-106)
[2021-10-20 18:15] LABS: HEMOGLOBIN 7.5 GM/dL (11.7-16.9); MCH 30.6 pg (25.7-33.7); MCHC 32.8 g/dl (32.0-35.9); MEAN CELL VOLUME 93.2 fl (80-96); MEAN PLT VOLUME 9.9 fl (7.5-11.1); PLATELET COUNT 183 10^3/uL (134-434); RBC 2.46 M/mm3 (4.00-5.60); RDW 14.8 % (11.9-15.9); WHITE BLOOD COUNT 4.4 K/mm3 (4.0-10.0)
[2021-10-20 18:16] LABS: PHOSPHOROUS 5.2 mg/dL (2.5-4.9); SGOT/AST 17 U/L (15-37); SGPT/ALT 11 U/L (13-61)
[2021-10-20 18:17] LABS: TOT PROT 5.6 g/dl (6.4-8.2)
[2021-10-20 18:18] LABS: BILIRUBIN,TOTAL 0.3 mg/dL (0.2-1)
[2021-10-20 18:19] LABS: ALK PHOS 95 U/L (45-117)
[2021-10-20 18:21] LABS: BLOOD UREA NITROGEN 106.6 mg/dL (7-18)
[2021-10-21] MEDS ORDERED: DEXTROSE 50%-WATER 25 GM/50 ML DISP.SYRIN IVPUSH PRN (00:18)
[2021-10-21] MEDS: hydrALAZINE HCL 25 MG TABLET (FP) PO SCH ×2 (05:50→15:04)
[2021-10-21] MEDS: INSULIN SLIDING SCALE (NOVOLOG) 1 VIAL SQ SCH ×2 (06:09→12:44)
[2021-10-21] MEDS: SEVELAMER CARBONATE 800 MG TAB (FP) PO SCH ×2 (08:46→12:42)
[2021-10-21] MEDS: ALBUTEROL SO4 HFA INHALER IH SCH ×3 (08:46→15:05)
[2021-10-21] MEDS: METOPROLOL TARTRATE 25 MG TABLET (FP) PO SCH (10:45)
[2021-10-21] MEDS: DEXAMETHASONE 4 MG TABLET (FP) PO SCH (10:45)
[2021-10-21] MEDS: DULoxetine HCL 30 MG CAPSULE.DR PO SCH (10:45)
[2021-10-21] MEDS: DIVALPROEX SODIUM 500 MG TABLET E.C. PO SCH (10:45)
[2021-10-21] MEDS: amLODIPine BESYLATE 10 MG TABLET (FP) PO SCH (10:45)
[2021-10-21] MEDS: PANTOPRAZOLE 40 MG TABLET PO SCH (10:45)
[2021-10-21] MEDS: LOSARTAN POTASSIUM 25 MG TABLET PO SCH (10:46)
[2021-10-21] MEDS: BUDESONIDE/FORMETEROL FUMARATE 160/4.5 mcg INHALER IH SCH (10:47)
[2021-10-21] MEDS ORDERED: INSULIN (NOVOLOG) ASPART 100 UNITS/ML 10ML VIAL ONE (12:21)
[2021-10-21 14:33] VITALS: BP 143/69; PULSE 70; TEMP 98.1
== END 2021-10-21 17:41 | DRG 208 ==
LOC: JER 20:37 → JERBED 22:14 → JICU 10-08 00:01 → J2W 10-13 01:11 → J8W 10-18 22:54
PROVIDERS: ADMIT Internal Medicine; ATTEND Internal Medicine
PROC: 5A1945Z Respiratory Ventilation, 24-96 Consecutive Hours (ICD-10-PCS; principal; 2021-10-07)
PROC: 5A1D70Z Performance of Urinary Filtration, Intermittent, Less than 6 Hours Per Day (ICD-10-PCS; 2021-10-09)
PROC: 5A1D70Z Performance of Urinary Filtration, Intermittent, Less than 6 Hours Per Day (ICD-10-PCS; 2021-10-12)
PROC: XW033E5 Introduction of Remdesivir Anti-infective into Peripheral Vein, Percutaneous Approach, New Technology Group 5 (ICD-10-PCS; 2021-10-13)
PROC: 5A1D70Z Performance of Urinary Filtration, Intermittent, Less than 6 Hours Per Day (ICD-10-PCS; 2021-10-14)
PROC: 3E0333Z Introduction of Anti-inflammatory into Peripheral Vein, Percutaneous Approach (ICD-10-PCS; 2021-10-17)
PROC: 5A1D70Z Performance of Urinary Filtration, Intermittent, Less than 6 Hours Per Day (ICD-10-PCS; 2021-10-17)
PROC: 5A1D70Z Performance of Urinary Filtration, Intermittent, Less than 6 Hours Per Day (ICD-10-PCS; 2021-10-20)
DX: J96.01 Acute respiratory failure with hypoxia (principal); N18.6 End stage renal disease; U07.1 COVID-19; J12.82 Pneumonia due to coronavirus disease 2019; I21.A1 Myocardial infarction type 2; I69.354 Hemiplegia and hemiparesis following cerebral infarction affecting left non-dominant side; N39.0 Urinary tract infection, site not specified; I31.3 Pericardial effusion (noninflammatory); E87.2 Acidosis; J98.11 Atelectasis; I13.2 Hypertensive heart and chronic kidney disease with heart failure and with stage 5 chronic kidney disease, or end stage renal disease; I48.0 Paroxysmal atrial fibrillation; R55 Syncope and collapse; E78.5 Hyperlipidemia, unspecified; E11.22 Type 2 diabetes mellitus with diabetic chronic kidney disease; I25.10 Atherosclerotic heart disease of native coronary artery without angina pectoris; I44.0 Atrioventricular block, first degree; K21.9 Gastro-esophageal reflux disease without esophagitis; N40.0 Benign prostatic hyperplasia without lower urinary tract symptoms; E78.00 Pure hypercholesterolemia, unspecified; D69.6 Thrombocytopenia, unspecified; D64.9 Anemia, unspecified; R56.9 Unspecified convulsions; I08.0 Rheumatic disorders of both mitral and aortic valves; F41.9 Anxiety disorder, unspecified; Z99.2 Dependence on renal dialysis; Z87.898 Personal history of other specified conditions; I50.9 Heart failure, unspecified; Z79.4 Long term (current) use of insulin
CPT/HCPCS: 36415; 36600; 70450-TC; 71045-TC-FY; 72125-TC; 80048; 80053; 80177; 81003; 82272; 82803; 82962; 83605; 83735; 84100; 84436; 84443; 84484; 85025; 85027; 85610; 85730; 86803; 86850; 86900; 86901; 87040; 87070; 87086; 87205; 87340; 93005; 93010; 93306-TC; 94002; 94640; 99285-25; C9399; C9803-CS; G0480; J1100; J1644; U0003; U0005